=== PATIENT | female | born 1955 ===

== ENCOUNTER 2023-12-12 19:18 | Inpatient (IN) | payer MEDICARE, SELFPAY ==
--- NOTE | ~2023-12-12 | XR_ITS ---
EXAMINATION: XR SKELETAL SURVEY CLINICAL INFORMATION: Metastatic bone survey for myeloma. COMPARISON: CT scan the abdomen and pelvis and chest November 2023 TECHNIQUE: The following images were obtained: Lateral view of the skull, lateral view of the cervical spine, AP and lateral views of the thoracic spine, AP and lateral views of the lumbosacral spine, PA view of the chest, AP view the pelvis, and AP views of both upper and lower extremities to include the humeri, femora, and lower legs. FINDINGS: No bone lesions detected. The previously noted sacral abnormality is not conspicuous Spondylosis throughout the spine. Arterial calcification noted most evident in the abdominal aorta and iliac region. XR/XR bone survey IMPRESSION: No radiographic evidence of myeloma. Previously noted sacral abnormality not appreciated on x-rays of the pelvis
--- NOTE | ~2023-12-12 | US_ITS ---
EXAMINATION: US ABDOMEN LIMITED CLINICAL INFORMATION: Right upper quadrant pain. COMPARISON: None available. TECHNIQUE: Real-time imaging of the right upper quadrant abdominal viscera. FINDINGS: PANCREAS: The visualized pancreas is normal in appearance. The tail is obscured by overlying bowel gas. LIVER: The liver is normal in size. The liver contour is normal. Parenchymal echogenicity is normal. No focal hepatic lesion. There is no intrahepatic biliary duct dilatation seen. GALLBLADDER: The gallbladder is physiologically distended without evidence of stones, sludge, polyps, wall thickening or pericholecystic fluid. COMMON BILE DUCT: Normal in caliber measuring 0.5 cm in diameter. RIGHT KIDNEY: Normal. No hydronephrosis. No renal calculi or focal parenchymal lesions. The kidney measures 10.8 cm in maximum dimension. FREE FLUID: None. US/US abdomen limited IMPRESSION: Normal right upper quadrant ultrasound.
--- NOTE | ~2023-12-12 | FL_ITS ---
EXAMINATION: XR FLUOROSCOPY UPPER GI WITH AIR CLINICAL INFORMATION: Nausea. Weight loss. COMPARISON: None TECHNIQUE: Fluoroscopic air contrast upper GI examination was performed utilizing standard techniques with thin and thick barium and effervescent granules. Numerous spot images were obtained. FINDINGS: Lateral cine images of the oropharynx and hypopharynx demonstrate normal swallow mechanism with normal epiglottic inversion and soft palate elevation. Mildly early spillage into the hypopharynx noted on the first swallow. No tracheal penetration, glottic or subglottic aspiration identified. No nasopharyngeal reflux present. Hypopharyngeal structures appear normal without evidence of mass or diverticulum. There is mild cricopharyngeal achalasia present.. Dual and single contrast images of the esophagus demonstrate a normal caliber. No evidence of stricture, mass, or ulcerations identified. There is to and fro motion of the barium column with nonpropulsive tertiary contractions noted throughout the esophagus. There is mild to moderate narrowing of the GE junction above the hiatal hernia. A small type I hiatal hernia is present. No significant gastroesophageal reflux was seen during the course of the examination and on reflux views. Dual contrast and single contrast images of the stomach demonstrate a normal contour. There are multiple small areas of contrast pooling in the body and antrum of the stomach. No masses are seen. Contrast freely passed into the gastric antrum and duodenal bulb without delay. Single and air-contrast images of the duodenal bulb demonstrate no abnormality. The duodenal sweep has a normal appearance, course, and mucosal fold appearance. The imaged proximal jejunum has a normal fold pattern and caliber. FLUOROSCOPY TIME: 3 minutes 46 seconds Number of Spot Images: 6 Number of Cine: 14 DOSE AREA PRODUCT: 2174 uGy-m2 (microgray-meter squared) FL/FL upper GI series IMPRESSION: 1. Mild cricopharyngeal achalasia. 2. Esophageal dysmotility, somewhat marked. Corkscrew appearance above the GE junction at times, possibly representing spasm. 3. Mild to moderate narrowing of the GE junction above the hiatal hernia. This may represent achalasia or a short segment benign stricture. 4. Small type I hiatal hernia. 5. Multiple small areas of contrast pooling in the body and antrum the stomach that may represent small superficial aphthous ulcers. Recommend correlation with EGD. This procedure was performed by Luis Miguel Miller PA-C, and supervised by Dr. Ash
--- NOTE | ~2023-12-12 | CT_ITS ---
EXAMINATION: CT SOFT TISSUE NECK WITH CONTRAST CLINICAL INFORMATION: Left-sided neck mass. COMPARISON: Concurrent CT scan of the chest 12/13/2023. TECHNIQUE: Following the intravenous administration of 60 mL of Omnipaque 350 intravenous contrast, helical imaging was performed in the axial plane with generation of coronal and sagittal reformatted images. This CT examination was performed using dose optimization techniques as appropriate, variously including the following: *Automated exposure control *Adjustment of mA and/or kV according to patient size (this includes techniques or standardized protocols for targeted exams where dose is matched to indication/reason for exam; i.e. extremities or head) *Use of iterative reconstruction technique DLP: 435 mGy-cm FINDINGS: There is an irregular heterogenous mass in the left level IIB/level VA region which measures 1.9 x 1.5 x 2.3 cm in oblique AP, transverse and craniocaudal dimensions with central low attenuation, most consistent with a necrotic lymph node. There are also mildly prominent left level IIB lymph nodes more anteriorly and superiorly, measuring up to 1.7 cm anteriorly and 1.0 cm posteriorly. There is a 2 cm round left level IV lymph node. Small lymph nodes are also noted at multiple other levels in the neck bilaterally from including the right supraclavicular region. There is a 1.8 cm low-density nodule at the lower pole of the left lobe of the thyroid gland. The parotid glands are homogeneous in attenuation. The submandibular glands are normal. No contour abnormality or pathologic enhancement is seen within the oral cavity or pharyngeal mucosal space. The laryngeal structures are normal. The parapharyngeal fat is preserved. There are atheromatous calcifications of the aortic arch and at the origins of the great vessels of the neck. The left vertebral artery arises directly off the arch which is a normal variant. The carotid arteries are tortuous extending almost to the midline and there are atheromatous calcifications at the carotid bifurcations. No extra mucosal soft tissue mass or fluid collection is seen. No retropharyngeal fluid collection is seen. There is no superior mediastinal lymphadenopathy. There is atelectasis at the lung bases bilaterally. The mastoid air cells are poorly aerated but appear clear. The visualized paranasal sinuses appear normal. The nasal septum is deviated to the left and there is a prominent left-sided bony nasal septal spur. There are polyps off the inferior turbinate bones extending posteriorly, more prominent on the right. There are mild degenerative changes of the right temporomandibular joint. The patient is edentulous in the maxilla. There are small residual roots in the posterior maxillary bilaterally. There are no acute osseous findings. There is mild spondylosis and facet arthropathy. The imaged portions of the brain parenchyma are unremarkable. CT/CT soft tissue neck w IV con IMPRESSION: 1. There is a 2.3 cm mass in the left level IIB/level VA region with central low attenuation, most consistent with a necrotic lymph node. There are also mildly prominent left level IIB and left level IV lymph nodes. 2. There is a 1.8 cm low-density nodule at the lower pole of the left lobe of the thyroid gland. Based on the recommendations of the ACR Incidental Thyroid Findings Committee (JACR 2015 Aug; 12(2):143-50), further evaluation by thyroid ultrasound is recommended for solitary incidental thyroid nodules greater than or equal to 1.5 cm in largest axial dimension in patients age 35 years and older who do not have limited life expectancy or significant morbidities, unless clinically warranted. 3. There are polyps off the inferior turbinate bones extending posteriorly, more prominent on the right. The nasal septum is deviated to the left and there is a prominent left-sided bony nasal septal spur.
--- NOTE | ~2023-12-12 | CT_ITS ---
EXAMINATION: CT HEAD WITHOUT CONTRAST CLINICAL INFORMATION: Headache. COMPARISON: None available. TECHNIQUE: Contiguous axial imaging was performed from the skull base to vertex without intravenous administration of contrast. This CT examination was performed using dose optimization techniques as appropriate, variously including the following: *Automated exposure control *Adjustment of mA and/or kV according to patient size (this includes techniques or standardized protocols for targeted exams where dose is matched to indication/reason for exam; i.e. extremities or head) *Use of iterative reconstruction technique DLP: 594.5 mGy-cm FINDINGS: There is cerebral volume loss with prominence of the lateral and the third ventricles. The cortical sulci are widened appropriately. The fourth ventricle and basal cisterns are normally outlined. There is mild to moderate bilateral periventricular and central white matter diminished attenuation. There is no acute territorial defect, hemorrhage or midline shift. The extra-axial spaces are unremarkable. Calvarium/scalp: Intact. Maxillofacial sinuses and mastoids: The visualized maxillofacial sinuses are clear. The mastoids are under aerated. CT/CT head/brain wo IV con IMPRESSION: 1. No acute intracranial process seen. 2. Mild to moderate cerebral volume loss with chronic small vessel ischemic changes.
--- NOTE | ~2023-12-12 | CT_ITS ---
EXAMINATION: CT ABDOMEN AND PELVIS WITHOUT CONTRAST CLINICAL INFORMATION: Hypercalcemia. COMPARISON: None available. TECHNIQUE: Multidetector volumetric imaging was performed from the superior aspect of the liver through the pubic symphysis. Sagittal and coronal reformatted images were obtained on the technologist's workstation. This CT examination was performed using dose optimization techniques as appropriate, variously including the following: *Automated exposure control *Adjustment of mA and/or kV according to patient size (this includes techniques or standardized protocols for targeted exams where dose is matched to indication/reason for exam; i.e. extremities or head) *Use of iterative reconstruction technique DLP: 442 mGy-cm FINDINGS: LUNG BASES: The visualized lung bases are unremarkable. LIVER, GALLBLADDER, AND BILIARY TREE: The liver is normal in size, shape, and attenuation. No focal hepatic lesion or biliary ductal dilatation is present. The gallbladder is unremarkable with no evidence of radiopaque gallstones, gallbladder wall thickening, or obvious pericholecystic inflammatory changes. PANCREAS: Unremarkable. SPLEEN: Unremarkable. ADRENAL GLANDS: Unremarkable. KIDNEYS AND URETERS: The kidneys are normal in size, shape, and attenuation. No hydronephrosis, hydroureter, or calculi seen. No perinephric stranding. There is a 2.1 cm hypodensity lower pole left kidney with low attenuation values consistent with that of a cyst. BLADDER: Unremarkable. GASTROINTESTINAL TRACT: There is diffuse diverticulosis without diverticulitis. The appendix is visualized and is within normal limits. ABDOMINAL WALL: No significant hernia is appreciated. LYMPH NODES: There is retroperitoneal lymphadenopathy with lymph nodes measuring up to 2.3 cm. There also enlarged iliac chain lymph nodes measuring up to 2.8 cm. VASCULAR: Atherosclerotic plaque of the abdominal aorta and proximal branches. PELVIC VISCERA: There is a 2.8 cm low-density structure within the left adnexa. OSSEOUS STRUCTURES: There is a lytic/moth eaten appearance of the left sacrum also involving the L5 and L4 left transverse process with a significant associated soft tissue component involving the sacral and lower paraspinal musculature. CT/CT abdomen pelvis wo IV con IMPRESSION: 1. Lytic/moth eaten appearance of the left sacrum also involving the L5 and L4 left transverse process with a significant associated soft tissue component involving the sacral and lower paraspinal musculature. Retroperitoneal and iliac chain lymphadenopathy. Findings could be related to metastatic disease possibly multiple myeloma. Consider contrast-enhanced MRI evaluation. 2.Diverticulosis without diverticulitis. 3. 2.8 cm low-density structure within the left adnexa. This can also be assessed on MRI evaluation. Fleischner guidelines were followed.
--- NOTE | ~2023-12-12 | XR_ITS ---
EXAMINATION: XR CHEST, 2 VIEWS CLINICAL INFORMATION: Chest pain COMPARISON: None. TECHNIQUE: PA and lateral views of the chest were obtained. FINDINGS: Lungs are clear. No consolidation, pneumothorax, or pleural effusion. Cardiac and mediastinal contours are normal. Atelectasis or calcifications are present in the thoracic aorta. Pulmonary vasculature is unremarkable. Trachea is midline. Degenerative spondylosis in the thoracic spine. No acute fractures are identified. XR/XR chest 2V IMPRESSION: No acute pulmonary disease.
--- NOTE | ~2023-12-12 | CT_ITS ---
EXAMINATION: CT CHEST WITHOUT CONTRAST CLINICAL INFORMATION: Pain. COMPARISON: None available. TECHNIQUE: Multidetector volumetric CT imaging of the chest was done. Axial MIP volume rendering provided. Sagittal and coronal reformatted images were obtained. This CT examination was performed using dose optimization techniques as appropriate, variously including the following: *Automated exposure control *Adjustment of mA and/or kV according to patient size (this includes techniques or standardized protocols for targeted exams where dose is matched to indication/reason for exam; i.e. extremities or head) *Use of iterative reconstruction technique DLP: 785 mGy-cm FINDINGS: There is some limitation related to attenuation artifacts related to patient body habitus. JAVA GOLDEN GATE DEVELOPER: Unremarkable. LUNGS: Minimal scarring at the lung bases. Lungs are otherwise clear. MEDIASTINUM: The mediastinum is normal. CORONARY ARTERY CALCIFICATION: Moderate. PLEURA: There is no pleural effusion. No pleural mass or thickening. AXILLA: There are prominent supraclavicular lymph node measuring up to 2.3 cm. There are no significantly enlarged axillary lymph nodes. UPPER ABDOMEN: Unremarkable. OSSEOUS STRUCTURES: Unremarkable. CT/CT chest wo IV con IMPRESSION: 1. No acute findings. 2. Prominent supraclavicular lymph nodes. Recommend clinical follow-up. Fleischner guidelines were followed.
--- NOTE | 2023-12-12 19:23 | ED.GENADULT ---
HPI - General Adult General Chief complaint: General Medical Stated complaint: migraine, vomiting Time Seen by Provider: 12/12/23 22:21 Source: patient and family Mode of arrival: ambulatory Limitations: no limitations History of Present Illness HPI narrative: Patient with History of diabetes hypothyroidism comes here for last few days of nonspecific dizziness diffuse abdominal pain for last 3 months does not feel good does have headache and weakness has decreased appetite does have body aches all over no history of cancer noted to have hypercalcemia with calcium of 16.0 patient apparently complaining of low back pain for last 3 months after minor fall also complaining of headache nausea multiple complaints Related Data Allergies Allergy/AdvReac Type Severity Reaction Status Date / Time ampicillin Allergy Anaphylaxis Verified 12/12/23 19:35 aspirin Allergy Anaphylaxis Verified 12/12/23 19:35 Review of Systems Review of Systems: Yes all other systems are reviewed and are negative [facility] Past Medical History Medical History (Updated 12/13/23 @ 01:34 by Lc Lopez MD) Hypothyroidism Diabetes mellitus Social History Social History Advance Directives: No Advance Directives Information Provided: Yes Physical Exam ED Vital Signs: Vital Signs - 24 hr 12/12/23 19:24 12/12/23 22:18 12/13/23 01:33 Temperature 97.5 F 97.8 F 98.4 F Pulse Rate 84 82 84 Respiratory Rate 18 18 16 Blood Pressure 105/64 152/68 H 153/73 H Pulse Oximetry 98 97 96 Oxygen Delivery Method Room Air Room Air Room Air BMI result Body Mass Index 25.8 Appearance: Alert. Oriented X3. No acute distress. Eyes: PERRLA, No Nystagmus ENT: Pharynx normal. Oral Mucosa dry Neck: Normal inspection. Neck supple. CVS: Normal heart rate and rhythm. Pulses normal. Respiratory: No respiratory distress. Equal air entry bilateral, no wheezing/rales/rhonchi Abdomen: Soft and nontender. Bowel sounds are present, no mass palpable, no CVA tenderness Skin: Skin warm and dry. Normal skin color. Normal skin turgor. Back: Diffuse lower lumbar sacral tenderness Extremities: No lower extremity edema. No calf tenderness Neuro: Oriented X 3. No motor deficit. No sensory deficit.No cerebellar signs , cranial nerves II-XII intact Course Course Course Narrative: This is an RME: Additional HPI, ROS, PE not included below will be deferred to primary provider. RME assessment and note performed by: Luz Maria Fregoso PA-C This is a 49-aouy-kif-female, with a hx of diabetes, HLD, hypothyroidism, HTN, TIA on plavix presenting to the ER with a complaint of shortness of breath, chest pain, abdominal pain, nausea, vomiting and dizziness since yesterday. Patient actively vomiting in triage Plan: Labs, EKG, US, cxr, zofran; Medications Administered Discontinued Medications Generic Name Dose Route Start Last Admin Trade Name Freq PRN Reason Stop Dose Admin Sodium Chloride 1,000 mls @ 999 mls/hr 12/12/23 22:27 12/13/23 00:11 Ns IV 12/12/23 23:27 Infused .Q1H1M ONE Infusion Sodium Chloride 1,000 mls @ 999 mls/hr 12/12/23 22:53 12/13/23 01:32 Ns IV 12/12/23 23:53 0 mls/hr .Q1H1M ONE Titration Ondansetron HCl 4 mg 12/12/23 19:39 12/12/23 21:00 Ondansetron Odt 4 Mg Tab.Rapdis TRANSLINGU 12/12/23 19:40 Not Given ONCE ONE Medical Decision Making Medical Decision Making [facility] Narrative: Patient's symptoms of body aches headache back pain elevated calcium level CT scan showed mouth eaten sacral area likely multiple myelomas the cause will admit patient for IV hydration for now IV pamidronate and calcitonin not available in the hospital patient needs further management as inpatient admitted to hospitalist service Differential Diagnosis Differential Diagnoses: The differential diagnosis associated with the presentation includes Multiple myeloma/cancer with metastatic Admission/Observation Consideration of admission/observation: Escalation of care including admission/observation considered Consult Healthcare Provider Management of the patient was discussed with: Hospitalist Lab Data MDM Lab Attestation statement: I reviewed the patient's lab results. 12/12/23 20:00 12/12/23 20:00 Labs: Lab Results 12/12/23 12/12/23 Range/Units 19:56 20:00 WBC 8.8 (4.8-10.8) X10*3/uL RBC 4.17 L (4.20-5.50) X10*6/uL Hgb 12.9 (12.0-16.0) g/dl Hct 38.7 (37.0-47.0) % MCV 92.8 (80.0-98.0) fL MCH 30.9 (27.0-33.0) pg MCHC 33.3 (31.0-35.0) g/dl RDW 13.0 (11.0-16.0) % Plt Count 330 (160-400) X10*3/uL MPV 11.1 (9.4-12.3) fL Immature Gran % (Auto) 0.6 H (0.0-0.4) % Neut % (Auto) 60.9 (45-73) % Lymph % (Auto) 26.3 (20-40) % [place] % (Auto) 10.7 (2-11) % Eos % (Auto) 0.8 (0-4) % Baso % (Auto) 0.7 (0-2) % Lymph # (Auto) 2.3 (1.2-4.9) X10*3/uL [place] # (Auto) 0.9 (0.1-1.2) X10*3/uL Eos # (Auto) 0.1 (0.0-0.4) X10*3/uL Baso # (Auto) 0.1 (0.0-0.2) X10*3/uL Abs Immat Gran (auto) 0.05 H (0.00-0.03) X10*3/uL Absolute Neuts (auto) 5.4 (2.0-8.3) x10*3/uL Absolute Nucleated RBC 0.000 (0.0-0.012) X10*3/uL Nucleated RBC % (auto) 0.0 (0.0-0.2) /100WBC PT 11.9 (11.1-13.3) SEC INR 1.0 (0.9-1.1) APTT 23.0 L (26.0-36.8) SEC Sodium 138 (135-145) mmol/L Potassium 4.7 (3.3-5.1) mmol/L Chloride 100 (96-108) mmol/L Carbon Dioxide 24 (22-29) mmol/L Anion Gap 19 (12-20) BUN 36 H (9-16) mg/dL Creatinine 1.59 H (0.5-1.4) mg/dL Estim Creat Clear Calc 26.6 Estimated GFR 32 Random Glucose 110 (60-115) mg/dL Calcium 16.0 H* (8.4-10.2) mg/dL Magnesium 2.2 (1.6-2.6) mg/dL Total Bilirubin 0.7 (0.0-1.0) mg/dL Direct Bilirubin 0.2 (0.0-0.5) mg/dL AST 27 (5-31) U/L ALT 12 (0-31) U/L Alkaline Phosphatase 73 (39-117) U/L Troponin I High Sens 3.7 (<3.5-17.0) ng/L Total Protein 8.1 H (6.5-8.0) g/dL Albumin 4.7 (3.5-5.0) g/dL Lipase 28 (8-78) U/L Urine Color Yellow Urine Appearance Clear Urine pH 5.5 (5.0-9.0) Ur Specific [place] 1.015 (1.005-1.025) Urine Protein Negative (Neg-Trace) mg/dL Urine Glucose (UA) Negative (Negative) mg/dL Urine Ketones Negative (Negative) mg/dL Urine Blood Negative (Negative) Urine Nitrite Negative (Negative) Ur Leukocyte Esterase Small (1+) H (Negative) Urine RBC 0-2 (0-2) /HPF Urine WBC 6-10 H (0-5) /HPF Ur Squamous Epith Cells 3-5 (0-2) /HPF Urine Bacteria None Seen (None Seen) Hyaline Casts 3-5 (0-2) /LPF Influenza Type A (PCR) NEGATIVE (Negative) Influenza Type B (PCR) NEGATIVE (Negative) RSV RNA Qual (PCR) NEGATIVE (Negative) SARS-CoV-2 RNA (RT-PCR) NEGATIVE (Negative) Independent Interpretation I performed an independent interpretation of an: EKG and CT Scan Interpretation: Normal sinus rhythm heart rate 84 beats per minute normal interval normal axis no acute ST T wave changes no acute ischemia Radiology Impression Discussion of test interpretation with radiology: I have reviewed the radiologist's reading. Radiologist Impression: CT/CT abdomen pelvis wo IV con IMPRESSION: 1. Lytic/moth eaten appearance of the left sacrum also involving the L5 and L4 left transverse process with a significant associated soft tissue component involving the sacral and lower paraspinal musculature. Retroperitoneal and iliac chain lymphadenopathy. Findings could be related to metastatic disease possibly multiple myeloma. Consider contrast-enhanced MRI evaluation. 2.Diverticulosis without diverticulitis. 3. 2.8 cm low-density structure within the left adnexa. This can also be assessed on MRI evaluation. Fleischner guidelines were followed. Discharge Plan Discharge Clinical Impression: Hypercalcemia, Multiple myeloma Patient Disposition: Admitted As Inpatient Print Language: Tajik
[2023-12-12 19:24] VITALS: BP 105/64; PULSE 84; RESP 18; TEMP 36.4; O2SAT 98; BMI 25.8
--- NOTE | 2023-12-12 19:36 | ECG_ITS ---
Test Reason : CHEST PAIN Blood Pressure : / mmHG Vent. Rate : 084 BPM Atrial Rate : 084 BPM P-R Int : 142 ms QRS Dur : 086 ms QT Int : 354 ms P-R-T Axes : 068 042 048 degrees QTc Int : 418 ms Normal sinus rhythm Normal ECG No previous ECGs available Referred By: Luz Maria Fregoso Electronically Signed By:Wan Pretty
[2023-12-12 20:05] LABS: MANUAL DIFF FLAG NO
--- NOTE | 2023-12-12 20:06 | MHC.EDTECH ---
PATIENT EKG TAKEN AND WAS READ BY PROVIDER ,URINE SAMPLE COLLECTED ,RSV/COVID SWAB COLLECTED AND BLOOD DRAWN ALL SENT TO LAB .
[2023-12-12 20:09] LABS: Appearance Urine Clear; Color Urine Yellow; Glucose Urine UA Negative (Negative); Leukocyte Esterase Urine Small (1+) (Negative); Nitrite Urine Negative (Negative); PH 5.5 (5.0-9.0); Specific Gravity - Urine 1.015 (1.005-1.025); UMIC TRIGGER UACC YES; Urine Blood Negative (Negative); Urine Ketones Negative (Negative); Urine Protein Negative (Neg-Trace)
[2023-12-12 20:15] LABS: Basophils Absolute Auto 0.1 X10*3/uL (0.0-0.2); Basophils Percent Auto 0.7 % (0-2); Eosinophils Absolute Auto 0.1 X10*3/uL (0.0-0.4); Eosinophils Percent Auto 0.8 % (0-4); Hematocrit 38.7 % (37.0-47.0); Hemoglobin 12.9 g/dl (12.0-16.0); Imm Gran Abs Auto 0.05 X10*3/uL (0.00-0.03); Imm Gran Pct Auto 0.6 % (0.0-0.4); Lymphocytes Absolute Auto 2.3 X10*3/uL (1.2-4.9); Lymphocytes Percent Auto 26.3 % (20-40); Mean Corpuscular HGB Conc 33.3 g/dl (31.0-35.0); Mean Corpuscular Hemoglobin 30.9 pg (27.0-33.0); Mean Corpuscular Volume 92.8 fL (80.0-98.0); Mean Platelet Volume 11.1 fL (9.4-12.3); Monocytes Absolute Auto 0.9 X10*3/uL (0.1-1.2); Monocytes Percent Auto 10.7 % (2-11); Neutrophils Absolute Auto 5.4 x10*3/uL (2.0-8.3); Neutrophils Percent Auto 60.9 % (45-73); Platelet Count 330 X10*3/uL (160-400); Red Blood Count 4.17 X10*6/uL (4.20-5.50); White Blood Count 8.8 X10*3/uL (4.8-10.8)
[2023-12-12 20:27] LABS: Bacteria Urine None Seen (None Seen); RBC Urine 0-2 /HPF (0-2); UACC Culture Trigger YES
[2023-12-12 20:32] LABS: Prothrombin Time 11.9 SEC (11.1-13.3)
--- NOTE | 2023-12-12 20:34 | PC.NURSE ---
Away for ultrasound, unable to medicate. Will medicate for nausea upon return to waiting room.
[2023-12-12 20:49] LABS: Troponin-I High Sensitivity 3.7 ng/L (<3.5-17.0)
--- NOTE | 2023-12-12 20:57 | PC.NURSE ---
Critical result received by this RN via phone from lab. Calcium 16 MANNIE Fregoso notified. consumer credit counselor Cecy also notified.
[2023-12-12 21:02] LABS: Influenza A PCR NEGATIVE (Negative); Influenza B PCR NEGATIVE (Negative); Resp Syncy Virus RNA Qual PCR NEGATIVE (Negative); SARS COV2 PCR INHOUSE NEGATIVE (Negative)
[2023-12-12 21:05] LABS: Alanine Aminotransferase 12 U/L (0-31); Albumin Level 4.7 g/dL (3.5-5.0); Alkaline Phosphatase 73 U/L (39-117); Anion Gap 19 (12-20); Aspartate Amino Transferase 27 U/L (5-31); Bilirubin Direct 0.2 mg/dL (0.0-0.5); Bilirubin Total 0.7 mg/dL (0.0-1.0); Blood Urea Nitrogen 36 mg/dL (9-16); Carbon Dioxide 24 mmol/L (22-29); Chloride 100 mmol/L (96-108); Creatinine Clr Calc Pharmacy 26.6; Estimated Glomerular Filt Rate 32; Glucose Random 110 mg/dL (60-115); Lipase 28 U/L (8-78); Magnesium 2.2 mg/dL (1.6-2.6); Potassium 4.7 mmol/L (3.3-5.1); Sodium 138 mmol/L (135-145); Total Protein 8.1 g/dL (6.5-8.0)
[2023-12-12 22:18] VITALS: BP 152/68; PULSE 82; RESP 18; TEMP 36.6; O2SAT 97
[2023-12-12] MEDS: 0.9 % Sodium Chloride 1,000 ML 999 ML IV (22:40)
[2023-12-13] MEDS: 0.9 % Sodium Chloride 1,000 ML 999 ML IV (00:10)
--- NOTE | 2023-12-13 01:22 | P.HPHOSP_ITS ---
History of Present Illness Date of Service: 12/13/23 Chief Complaint: Weakness This is a 68-year-old male with pertinent history of hypertension, foo-cjeddqp-fltezlout diabetes mellitus, mood disorder, gastroesophageal reflux disease, hypothyroidism who presents to the emergency department for evaluation of weakness and low back pain. Patient states she fell about 3 months prior to presentation and since then she has been having low back pain. It has been progressive and without any relieving factors. Patient also complains of weakness and dizziness that has been ongoing for a while. States she lost about 15-20 lb but unknown duration. No personal history of cancer. Also has been having decreased appetite and headache. No fever, chills, palpitations, shortness of breath, changes in urinary or bowel habits. History obtained with the help of loom control chain builder In the emergency department, patient with serum calcium of 16. Imaging with lytic lesion of the left sacrum and lumbar vertebrae. Also found to have elevated creatinine and elevated serum protein. Review of Systems 2 Constitutional: Constitutional: Reports fatigue, Reports lethargy, Reports malaise, Reports poor appetite, Reports weakness and Reports weight loss Cardiovascular: Cardiovascular: Reports no additional cardiovascular complaints Respiratory: Respiratory: Reports no additional respiratory complaints Gastrointestinal: Gastrointestinal: Reports no additional gastrointestinal complaints Genitourinary: Genitourinary: Reports no additional female genitourinary complaints Neurologic: Reports weakness Endocrine: Endocrine: Reports fatigue [facility] Medical History Hypothyroidism Diabetes mellitus Pertinent family history: No family history of cancer Social History Advance Directives: No Advance Directives Information Provided: Yes Meds Allergies Allergy/AdvReac Type Severity Reaction Status Date / Time ampicillin Allergy Anaphylaxis Verified 12/12/23 19:35 aspirin Allergy Anaphylaxis Verified 12/12/23 19:35 Physical Exam 2 Vital Signs and Narrative: Vital Signs: Last Vital Signs Temp 97.8 F 12/12/23 22:18 Pulse 82 12/12/23 22:18 Resp 18 12/12/23 22:18 BP 152/68 H 12/12/23 22:18 Pulse Ox 97 12/12/23 22:18 O2 Del Method Room Air 12/12/23 22:18 BMI result Body Mass Index 25.8 Elderly male lying in bed in no distress Neck supple, no JVD Regular rate and rhythm, S1-S2 heard Regular breath sounds bilaterally, no wheezing or crackles appreciated Abdomen soft nontender, no guarding, no rigidity, lower lumbar tenderness present Patient is awake, alert and oriented to self, place, time and person ; no focal motor deficit Psych: Normal mood No pedal edema Results Labs 12/12/23 20:00 12/12/23 20:00 Labs: Laboratory Results - last 24 hr 12/12/23 12/12/23 19:56 20:00 MCV 92.8 MCH 30.9 MCHC 33.3 RDW 13.0 Plt Count 330 MPV 11.1 Immature Gran % (Auto) 0.6 H Neut % (Auto) 60.9 Lymph % (Auto) 26.3 [place] % (Auto) 10.7 Eos % (Auto) 0.8 Baso % (Auto) 0.7 Lymph # (Auto) 2.3 [place] # (Auto) 0.9 Eos # (Auto) 0.1 Baso # (Auto) 0.1 Abs Immat Gran (auto) 0.05 H Absolute Neuts (auto) 5.4 Absolute Nucleated RBC 0.000 Nucleated RBC % (auto) 0.0 PT 11.9 INR 1.0 APTT 23.0 L Anion Gap 19 Estim Creat Clear Calc 26.6 Estimated GFR 32 Random Glucose 110 Calcium 16.0 H* Magnesium 2.2 Total Bilirubin 0.7 Direct Bilirubin 0.2 AST 27 ALT 12 Alkaline Phosphatase 73 Troponin I High Sens 3.7 Total Protein 8.1 H Albumin 4.7 Lipase 28 Urine Color Yellow Urine Appearance Clear Urine pH 5.5 Ur Specific [place] 1.015 Urine Protein Negative Urine Glucose (UA) Negative Urine Ketones Negative Urine Blood Negative Urine Nitrite Negative Ur Leukocyte Esterase Small (1+) H Urine RBC 0-2 Urine WBC 6-10 H Ur Squamous Epith Cells 3-5 Urine Bacteria None Seen Hyaline Casts 3-5 Influenza Type A (PCR) NEGATIVE Influenza Type B (PCR) NEGATIVE RSV RNA Qual (PCR) NEGATIVE SARS-CoV-2 RNA (RT-PCR) NEGATIVE Imaging Radiologist's Impressions: Impressions Abdomen Ultrasound 12/12/23 20:37 IMPRESSION: Normal right upper quadrant ultrasound. Chest X-Ray 12/12/23 20:51 IMPRESSION: No acute pulmonary disease. Abdomen/Pelvis CT 12/12/23 23:19 IMPRESSION: 1. Lytic/moth eaten appearance of the left sacrum also involving the L5 and L4 left transverse process with a significant associated soft tissue component involving the sacral and lower paraspinal musculature. Retroperitoneal and iliac chain lymphadenopathy. Findings could be related to metastatic disease possibly multiple myeloma. Consider contrast-enhanced MRI evaluation. 2.Diverticulosis without diverticulitis. 3. 2.8 cm low-density structure within the left adnexa. This can also be assessed on MRI evaluation. Fleischner guidelines were followed. Assessment and Plan (1) Hypercalcemia: Status: Acute Plan This is a 68-year-old male with pertinent history of hypertension, wat-fvpooah-zzbblssgl diabetes mellitus, mood disorder, gastroesophageal reflux disease, hypothyroidism who presents to the emergency department for evaluation of weakness and low back pain. #. Hypercalcemia: Imaging with lytic appearance of the left sacrum, lumbar vertebrae and retroperitoneal and iliac lymphadenopathy. Patient also has likely acute kidney injury and elevated serum total protein. Findings concerning for neoplastic proliferation of plasma cells like multiple myeloma. Obtaining SPEP, UPEP and serum light chains. Consulting Oncology. Also obtaining CT of the head and chest. Resuscitated with IV crystalloids, obtaining PTH. IV bisphosphonate ordered in the ER. #. Elevated creatinine: Unknown baseline. Likely acute kidney injury. Follow kidney function with crystalloid resuscitation. Avoid nephrotoxins. Urine studies pending #. Acc-tgkaypl-jsevvtgsi diabetes mellitus: Initiating Accu-Cheks with sliding scale insulin #. Hypothyroidism: On Synthroid #. Mood disorder: Continue home mood stabilizers #. Gastroesophageal reflux disease: On PPI Med rec pending DVT prophylaxis: Mechanical Full code. Discussed with patient and daughter at bedside Admit as inpatient and will require two night minimum hospital stay for monitoring of serum calcium, evaluation of bone lytic lesions (as above), which is not possible in a lesser acute setting. Specialist consult pending Quality Stroke Does the patient have a stroke diagnosis?: No VTE Prior VTE?: No VTE Risk Level:: Medical - moderate - high VTE Device Contraindication: N/A - Device Ordered VTE Drug Contraindication: Treatment Not Indicated
[2023-12-13 01:33] VITALS: BP 153/73; PULSE 84; RESP 16; TEMP 36.9; O2SAT 96
[2023-12-13 02:23] VITALS: RESP 18
[2023-12-13] MEDS: ondansetron HCL 4 MG/2 ML VIAL IVPUSH (02:23)
[2023-12-13] MEDS: Morphine Sulfate 4 MG/ML CARTRIDGE IVPUSH ×2 (02:23→08:02)
[2023-12-13 03:37] LABS: Parathyroid Hormone Intact 5.8 pg/mL (8.7-77.1)
--- NOTE | 2023-12-13 05:29 | PC.NURSE ---
Pt ambulated to the BR with two assist, unsteady. Commode placed at bedside.
[2023-12-13 06:18] VITALS: BP 150/60; PULSE 60; TEMP 36.8; O2SAT 97
[2023-12-13 06:55] LABS: MANUAL DIFF FLAG NO
[2023-12-13 06:58] LABS: Basophils Absolute Auto 0.1 X10*3/uL (0.0-0.2); Basophils Percent Auto 0.8 % (0-2); Eosinophils Absolute Auto 0.1 X10*3/uL (0.0-0.4); Eosinophils Percent Auto 1.2 % (0-4); Hematocrit 29.8 % (37.0-47.0); Hemoglobin 9.9 g/dl (12.0-16.0); Imm Gran Abs Auto 0.02 X10*3/uL (0.00-0.03); Imm Gran Pct Auto 0.3 % (0.0-0.4); Lymphocytes Absolute Auto 2.7 X10*3/uL (1.2-4.9); Lymphocytes Percent Auto 41.4 % (20-40); Mean Corpuscular HGB Conc 33.2 g/dl (31.0-35.0); Mean Corpuscular Hemoglobin 30.8 pg (27.0-33.0); Mean Corpuscular Volume 92.8 fL (80.0-98.0); Monocytes Absolute Auto 0.8 X10*3/uL (0.1-1.2); Monocytes Percent Auto 12.7 % (2-11); Neutrophils Absolute Auto 2.9 x10*3/uL (2.0-8.3); Neutrophils Percent Auto 43.6 % (45-73); Platelet Count 254 X10*3/uL (160-400); Red Blood Count 3.21 X10*6/uL (4.20-5.50); Red Cell Distribution Width 13.1 % (11.0-16.0); White Blood Count 6.6 X10*3/uL (4.8-10.8)
[2023-12-13 07:14] LABS: Anion Gap 14 (12-20); Blood Urea Nitrogen 32 mg/dL (9-16); Carbon Dioxide 26 mmol/L (22-29); Chloride 106 mmol/L (96-108); Creatinine Clr Calc Pharmacy 33.6; Estimated Glomerular Filt Rate 42; Glucose Random 74 mg/dL (60-115); Sodium 142 mmol/L (135-145)
[2023-12-13 07:34] LABS: Calcium 13.2 mg/dL (8.4-10.2)
--- NOTE | 2023-12-13 07:34 | P.PNIM_ITS ---
Subjective Subjective Date of Service: 12/13/23 Interval History: Seen in follow up for malignant hypercalcemia, probable multiple myeloma, acute kidney injury Interval history: Reports diffuse pain. Also reporting dysphagia, has been experiencing nausea for several months with unintentional weight loss of unspecified amount Review of Systems Review of Systems: Yes all other systems are reviewed and are negative Physical Exam 2 Vital Signs: Vital Signs: Last Vital Signs Temp 98.2 F 12/13/23 06:18 Pulse 60 12/13/23 06:18 Resp 18 12/13/23 02:23 BP 150/60 H 12/13/23 06:18 Pulse Ox 97 12/13/23 06:18 O2 Del Method Room Air 12/13/23 06:18 BMI result Body Mass Index 25.8 Constitutional - Awake and Alert, No apparent distress Eyes - PERRLA, EOMI Neck - fixed 3cm mass left side neck Cardiovascular - S1S2, RRR, No edema Respiratory - Normal lung expansion, Normal respiratory effort, No respiratory distress, CTA bilaterally Gastrointestinal - NT / ND; +BS; No rebound or guarding Extremities - no calf tenderness bilaterally, no swelling Skin - Warm/Dry Neurological - Alert & oriented x3 Objective Data Active Medications Acetaminophen (Acetaminophen 325 Mg Tablet) 650 mg PO Q6H PRN PRN Reason: Pain, Mild (Pain Scale 1-3) Glucose (Glucose Gel 15 Gm Gel..Gram.) 15 gm PO Q15M PRN; Protocol PRN Reason: per Hypoglycemia Standing Ord. Dextrose (D10) 250 mls @ 750 mls/hr IV Q15M PRN; Protocol PRN Reason: per Hypoglycemia Standing Ord. Insulin Human Lispro (Insulin Lispro 100 Unit/Ml 3 Ml Vial) 0 [facility]; Protocol Melatonin (Melatonin 3 Mg Tablet) 6 mg PO BEDTIME PRN PRN Reason: Insomnia Morphine Sulfate (Morphine Sulfate 4 Mg/Ml Cartridge) 4 mg IVPUSH Q4H PRN; Protocol PRN Reason: Pain, Severe (Pain Scale 7-10) Last Admin: 12/13/23 02:23 Dose: 4 mg Documented By: THADDEUS Ondansetron HCl (Ondansetron Hcl 4 Mg/2 Ml Vial) 4 mg IVPUSH Q8H PRN PRN Reason: Nausea and Vomiting Last Admin: 12/13/23 02:23 Dose: 4 mg Documented By: THADDEUS Sodium Chloride (0.9 % Sodium Chloride Flush 3 Ml Syringe) [address] [facility] Labs 12/13/23 06:47 12/13/23 06:47 Labs: Laboratory Results - last 24 hr 12/12/23 12/12/23 12/13/23 19:56 20:00 02:21 MCV 92.8 MCH 30.9 MCHC 33.3 RDW 13.0 Plt Count 330 MPV 11.1 Immature Gran % (Auto) 0.6 H Neut % (Auto) 60.9 Lymph % (Auto) 26.3 [place] % (Auto) 10.7 Eos % (Auto) 0.8 Baso % (Auto) 0.7 Lymph # (Auto) 2.3 [place] # (Auto) 0.9 Eos # (Auto) 0.1 Baso # (Auto) 0.1 Abs Immat Gran (auto) 0.05 H Absolute Neuts (auto) 5.4 Absolute Nucleated RBC 0.000 Nucleated RBC % (auto) 0.0 PT 11.9 INR 1.0 APTT 23.0 L Anion Gap 19 Estim Creat Clear Calc 26.6 Estimated GFR 32 Random Glucose 110 Calcium 16.0 H* Magnesium 2.2 Total Bilirubin 0.7 Direct Bilirubin 0.2 AST 27 ALT 12 Alkaline Phosphatase 73 Troponin I High Sens 3.7 Total Protein 8.1 H Albumin 4.7 Lipase 28 PTH Intact 5.8 L Urine Color Yellow Urine Appearance Clear Urine pH 5.5 Ur Specific [place] 1.015 Urine Protein Negative Urine Glucose (UA) Negative Urine Ketones Negative Urine Blood Negative Urine Nitrite Negative Ur Leukocyte Esterase Small (1+) H Urine RBC 0-2 Urine WBC 6-10 H Ur Squamous Epith Cells 3-5 Urine Bacteria None Seen Hyaline Casts 3-5 Influenza Type A (PCR) NEGATIVE Influenza Type B (PCR) NEGATIVE RSV RNA Qual (PCR) NEGATIVE SARS-CoV-2 RNA (RT-PCR) NEGATIVE 12/13/23 06:47 MCV 92.8 MCH 30.8 MCHC 33.2 RDW 13.1 Plt Count 254 MPV 11.0 Immature Gran % (Auto) 0.3 Neut % (Auto) 43.6 L Lymph % (Auto) 41.4 H [place] % (Auto) 12.7 H Eos % (Auto) 1.2 Baso % (Auto) 0.8 Lymph # (Auto) 2.7 [place] # (Auto) 0.8 Eos # (Auto) 0.1 Baso # (Auto) 0.1 Abs Immat Gran (auto) 0.02 Absolute Neuts (auto) 2.9 Absolute Nucleated RBC 0.000 Nucleated RBC % (auto) 0.0 PT INR APTT Anion Gap 14 Estim Creat Clear Calc 33.6 Estimated GFR 42 Random Glucose 74 Calcium Magnesium Total Bilirubin Direct Bilirubin AST ALT Alkaline Phosphatase Troponin I High Sens Total Protein Albumin Lipase PTH Intact Urine Color Urine Appearance Urine pH Ur Specific [place] Urine Protein Urine Glucose (UA) Urine Ketones Urine Blood Urine Nitrite Ur Leukocyte Esterase Urine RBC Urine WBC Ur Squamous Epith Cells Urine Bacteria Hyaline Casts Influenza Type A (PCR) Influenza Type B (PCR) RSV RNA Qual (PCR) SARS-CoV-2 RNA (RT-PCR) Assessment and Plan (1) Multiple myeloma: Status: Acute (2) Hypercalcemia: Status: Acute Plan 68-year-old male with pertinent history of hypertension, jzu-ahlrfro-iavwpycqn diabetes mellitus, mood disorder, gastroesophageal reflux disease, hypothyroidism who presents to the emergency department for evaluation of weakness and low back pain. She is admitted for further evaluation and management of malignant hypercalcemia in the setting of probable multiple myeloma. Here from [place] visiting son #Probable malignant hypercalcemia likely due to multiple myeloma -Imaging with lytic appearance of the left sacrum, lumbar vertebrae and retroperitoneal and iliac lymphadenopathy. Patient also has likely acute kidney injury and elevated serum total protein. Findings concerning for neoplastic proliferation of plasma cells like multiple myeloma -Head CT negative. Chest CT shows prominent supraclavicular lymph nodes -SPEP, UPEP and serum light chains pending -oncology consult Consulting Oncology -Received IV pamidronate in ED with improvement in Ca from 16.0 --> 13.2. Await further recs from oncology -PTH 5 #Acute kidney injury -Unknown baseline. Creat 1.59 --> 1.2 -continue ivf -avoid nephrotoxins -urine studies pending -Follow renal fx/lytes -consider nephro consult if not improving #Dysphagia with unspecified unintentional weight loss -GI consult, oncology consult -pureed diet, BI CONSULTANT eval pending #Neck mass -CT soft tissue neck with contrast pending #Macrocytic anemia -suspect chronic, continue monitoring. Above transfusion threshold #[id number] diabetes mellitus -POC glucose, diabetic diet -Humalog on sliding scale #Hypothyroidism -continue levothyroxine #Mood disorder -continue home med #Gastroesophageal reflux disease -continue PPI DVT prophylaxis-mechanical Full code Patient requires inpatient stay at least 2 midnights for management of malignant hypercalcemia requiring further evaluation expert consultation due to bony lytic lesions concerning for multiple myeloma Quality Stroke Does the patient have a stroke diagnosis?: No VTE Prior VTE?: No VTE Risk Level:: Medical - moderate - high VTE Device Contraindication: N/A - Device Ordered VTE Drug Contraindication: Treatment Not Indicated
--- NOTE | 2023-12-13 07:48 | PC.NURSE ---
POC obtained - pt found at 59 mg/dL. pr provided w/ orange juice/sugar packets/crackers. will reobtain POC shortly.
[2023-12-13 07:49] LABS: Glucose, Whole Blood 59 mg/dL (60-115)
--- NOTE | 2023-12-13 07:53 | PC.NURSE ---
pt speaking w/ hospitalist in regards to scan results as well as plan for being admitted. car wiper utilized.
--- NOTE | 2023-12-13 08:06 | PC.NURSE ---
pt c/o 01/27 pain at coccyx area. pt medicated w/ prn medication. effectiveness pending. pt repositioned/pillow placed under pt to promote comfort.
[2023-12-13 08:16] VITALS: BP 129/52; PULSE 78; RESP 16; TEMP 36.9; O2SAT 94
--- NOTE | 2023-12-13 08:53 | PHA.MEDREC ---
Pharmacy Consult ? Medication Reconciliation Pharmacy has completed the medication reconciliation.Med rec completed via help of consumer analyst, Patient is from [place] here for vacation. She had a medication list and pharmacy bottles to help confirm her medication list.
[2023-12-13 09:17] LABS: Glucose, Whole Blood 82 mg/dL (60-115)
--- NOTE | 2023-12-13 09:35 | PC.NURSE ---
repeat POC = 82 mg/dL.
[2023-12-13] MEDS: Docusate Sodium 100 MG CAPSULE PO (10:37)
[2023-12-13] MEDS: Donepezil HCl 5 MG TABLET PO (10:37)
[2023-12-13] MEDS: Gabapentin 300 MG CAPSULE PO ×2 (10:37→21:08)
[2023-12-13] MEDS: Clopidogrel Bisulfate 75 MG TABLET PO (10:37)
[2023-12-13] MEDS: Famotidine 20 MG TABLET PO (10:37)
--- NOTE | 2023-12-13 10:45 | PC.NURSE ---
medication administered per provider order.
--- NOTE | 2023-12-13 13:00 | PC.NURSE ---
pt to CT at this time.
[2023-12-13] MEDS: iohexoL 350 MG/ML 75 ML INFUS..BTL 60 ML IV (13:14)
[2023-12-13 13:38] LABS: Glucose, Whole Blood 91 mg/dL (60-115)
[2023-12-13] MEDS: 0.9 % Sodium Chloride 1,000 ML 100 ML IVCONT ×2 (13:46→22:41)
--- NOTE | 2023-12-13 13:48 | PC.NURSE ---
IVF administered per provider order. pt continues to rest in no apparent distress. pt c/o slight discomfort in coccyx area. pt repositioned to comfort. respirations remain even and unlabored. call sotelo placed within reach.
--- NOTE | 2023-12-13 14:40 | PC.NURSE ---
urine obtained/sent to lab.
[2023-12-13 15:03] LABS: Creatinine Urine 71.34 mg/dL
--- NOTE | 2023-12-13 16:07 | PM.HEMONCCN ---
Subjective - Subjective Chief complaint: Consult for: ? Multiple myeloma. Patient: new to practice Consult date: 12/13/23 Requesting Physician: Kelsey Primary Care Provider: Unknown Physician Family Provider: Unknown Medical Summary: DIAGNOSIS: Hypercalcemia. Multiple Myeloma. HPI - Consult Narrative Reason for consult: Consult for: Multiple Myeloma. Narrative: Laurita Massey is a 68 year old lady, presented with back pain and generalized weakness. Over the last couple of months, she has been feeling really fatigued and dizzy. Sometimes she even falls because of it. She has aches and pains in the body. She has pain in her right arm in her left leg. She complains of back pain. She complains of abdominal pain and nausea she has retching but no vomiting. She feels heartburn and indigestion. She is constipated. No gross blood in the stools. She had an upper endoscopy and colonoscopy a couple of years ago in [place]. That revealed diverticulosis. Database: Creatinine: 1.59. Calcium: 16. Albumin: 4.7. Total protein: 8.1. Ultrasound of the abdomen from 12/11 revealed: Normal right upper quadrant ultrasound. CT chest from 12/11: IMPRESSION: 1. No acute findings. 2. Prominent supraclavicular lymph nodes. Recommend clinical follow-up. CT abdomen pelvis from 12/11: 1. Lytic/moth eaten appearance of the left sacrum also involving the L5 and L4 left transverse process with a significant associated soft tissue component involving the sacral and lower paraspinal musculature. Retroperitoneal and iliac chain lymphadenopathy. Findings could be related to metastatic disease possibly multiple myeloma. Consider contrast-enhanced MRI evaluation. 2. Diverticulosis without diverticulitis. 3. 2.8 cm low-density structure within the left adnexa. This can also be assessed on MRI evaluation. PAST MEDICAL HISTORY: 1. HTN. 2. D.M. 3. Hypothyroidism. 4. GERD: History of gastric ulcer. 5. Mood Disorder. FAMILY HISTORY: Positive for heart disease and hypertension. No known malignancy. 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 She is . She has 2 children. Denies smoking. Denies alcohol. ROS: She has felt extremely fatigued over the last 3 months or so. Denies fever chills or night sweats. Appetite has been low. She has lost weight, about 20 lb. She complains of headache and dizziness. Sometimes she even falls. She has chest pain related to anxiety. No shortness of breath. She has abdominal pain in the upper part. She has nausea and heartburn. Occasional dysphagia. She has constipation. No gross blood in the stools. She had a colonoscopy couple of years ago which was negative. Denies dysuria or hematuria. She has diffuse joint pains involving her back and limbs. She is weak all over. She has anxiety and depression. No skin rashes no pruritus. Review of Systems - Constitutional Reports system reviewed and no additional complaints, except as documented, Reports anorexia, Reports lack of energy, Reports poor appetite, Reports weakness, Reports weight loss - Eyes Reports system reviewed and no additional complaints, except as documented - ENT Reports system reviewed and no additional complaints, except as documented, Reports dysphagia - Cardiovascular Reports system reviewed and no additional complaints, except as documented - Respiratory Reports no additional respiratory complaints - Gastrointestinal Reports system reviewed and no additional complaints, except as documented, Reports abdominal pain, Reports bloating, Reports constipation, Reports difficulty swallowing, Reports feeling full early, Reports dyspepsia, Reports heartburn, Reports nausea, Denies bright, red blood in stools - Genitourinary Reports no additional female genitourinary complaints - Musculoskeletal Reports system reviewed and no additional complaints, except as documented, Reports back pain, Reports body aches, Reports joint pain - Integumentary/Breasts Skin/Breast: Reports no additional skin complaints - Neurologic Reports weakness - Psychiatric Reports system reviewed and no additional complaints, except as documented, Reports anxiety, Reports depression - Endocrine Reports no additional endocrine complaints - Hematologic/Lymphatic Reports system reviewed and no additional complaints, except as documented - Allergic/Immunologic Reports system reviewed and no additional complaints, except as documented Oncology Screenings - ECOG Performance Status ECOG Performance Status: 2 [facility] Medical History: Medical History (Last Reviewed 12/13/23 @ 02:02 by Juan Khan MD) Diabetes mellitus Hypothyroidism Functional capacity: uses cane/walker Patient : No Social History: Social History (Last Reviewed 12/13/23 @ 02:02 by Juan Khan MD) Living Situation History: Household Members: Family Housing: Apartment Do you presently have visiting nurse or other home services: No Alcohol History Details: 1. How often do you have a drink containing alcohol?: a. Never 3. How often do you have six or more drinks on one occasion?: a. Never AUDIT-C Alcohol total score: 0 Currently Displaying Signs/Symptoms of Alcohol Withdrawal: No Tobacco History: Patient Tobacco Use Status: Never used Tobacco Smoked in Last 30 Days: No e-Cigarette/Vaping Use: Never Used Patient Interested in Nicotine Replacement: No Patient Given Instructions on How to Stop Smoking: No Substance Use History: Use of substances other than those prescribed or required for medical reasons: No Currently Displaying Signs/Symptoms of Drug Intoxication Withdrawal: No Any prior treatment program specific to substance use: No Domestic Abuse History: Have you been hit, kicked, punched, or otherwise hurt by someone within the past year? If so, by whom?: No Do you feel safe in your current relationship?: Yes Is there a partner from a previous relationship who is making you feel unsafe now?: No Are you made to feel afraid or neglected: No Healthcare Practices: Spiritual Healthcare Practices: pt is Confucianism Advance Directives: Advance Directives: No Advance Directives Information Provided: Yes Homicidal Assessment: Do you have a plan to hurt others: No Plan Nutrition Assessment: Recently lost weight without trying: Yes How much weight loss: 2-13 pounds Eating poorly because of decreased appetite: Yes Nutrition screen score: 4 Nutrition Risks: Poor intake 0-25% >4 days Patient : No : No Poor oral hygiene: No Home Medications and Allergies Current Medications: Current Medications Acetaminophen (Acetaminophen 325 Mg Tablet) 650 mg PO Q6H PRN PRN Reason: Pain, Mild (Pain Scale 1-3) Atorvastatin Calcium (Atorvastatin Calcium 40 Mg Tablet) 40 mg PO DAILY [facility] Clopidogrel Bisulfate (Clopidogrel Bisulfate 75 Mg Tablet) 75 mg PO DAILY [facility] Last Admin: 12/13/23 10:37 Dose: 75 mg Docusate Sodium (Docusate Sodium 100 Mg Capsule) 100 mg PO DAILY [facility] Last Admin: 12/13/23 10:37 Dose: 100 mg Donepezil HCl (Donepezil Hcl 5 Mg Tablet) 5 mg PO DAILY [facility] Last Admin: 12/13/23 10:37 Dose: 5 mg Famotidine (Famotidine 20 Mg Tablet) 20 mg PO DAILY [facility] Last Admin: 12/13/23 10:37 Dose: 20 mg Gabapentin (Gabapentin 300 Mg Capsule) 300 mg PO BID [facility] Last Admin: 12/13/23 10:37 Dose: 300 mg Glucose (Glucose Gel 15 Gm Gel..Gram.) 15 gm PO Q15M PRN; Protocol PRN Reason: per Hypoglycemia Standing Ord. Dextrose (D10) 250 mls @ 750 mls/hr IV Q15M PRN; Protocol PRN Reason: per Hypoglycemia Standing Ord. Sodium Chloride (Ns) 1,000 mls @ 100 mls/hr IVCONT .Q10H [facility] Last Admin: 12/13/23 13:46 Dose: 100 mls/hr Insulin Human Lispro (Insulin Lispro 100 Unit/Ml 3 Ml Vial) 0 unit SUBCUT QIDACHS [facility]; Protocol Last Admin: 12/13/23 13:37 Dose: Not Given Levothyroxine Sodium (Levothyroxine Sodium 75 Mcg Tablet) 75 mcg PO DAILY@0600 [facility] Melatonin (Melatonin 3 Mg Tablet) 6 mg PO BEDTIME PRN PRN Reason: Insomnia Morphine Sulfate (Morphine Sulfate 4 Mg/Ml Cartridge) 4 mg IVPUSH Q4H PRN; Protocol PRN Reason: Pain, Severe (Pain Scale 7-10) Last Admin: 12/13/23 08:02 Dose: 4 mg Ondansetron HCl (Ondansetron Hcl 4 Mg/2 Ml Vial) 4 mg IVPUSH Q8H PRN PRN Reason: Nausea and Vomiting Last Admin: 12/13/23 02:23 Dose: 4 mg Sodium Chloride (0.9 % Sodium Chloride Flush 3 Ml Syringe) [facility] Last Admin: 12/13/23 07:36 Dose: Not Given Home Medications ?Medication ?Instructions ?Recorded ?Confirmed ?Type atorvastatin 40 mg tablet 40 mg PO DAILY 12/13/23 12/13/23 History cholecalciferol (vitamin D3) 125 125 mcg PO DAILY 12/13/23 12/13/23 History mcg (5,000 unit) tablet (Vitamin D3) clopidogrel 75 mg tablet 75 mg PO DAILY 12/13/23 12/13/23 History docusate sodium 100 mg capsule 100 mg PO DAILY 12/13/23 12/13/23 History donepezil 5 mg tablet 5 mg PO DAILY 12/13/23 12/13/23 History famotidine 20 mg tablet 20 mg PO DAILY 12/13/23 12/13/23 History gabapentin 300 mg capsule 300 mg PO BID 12/13/23 12/13/23 History levothyroxine 75 mcg tablet 75 mcg PO DAILY 12/13/23 12/13/23 History lisinopril 10 mg tablet 10 mg PO DAILY 12/13/23 12/13/23 History metformin 500 mg tablet 500 mg PO DAILY 12/13/23 12/13/23 History omega-3 fatty acids 1,000 mg 1,000 mg PO BID 12/13/23 12/13/23 History capsule Allergies Allergy/AdvReac Type Severity Reaction Status Date / Time ampicillin Allergy Anaphylaxis Verified 12/12/23 19:35 aspirin Allergy Anaphylaxis Verified 12/12/23 19:35 Physical Exam Vital signs: Vital Signs Temp 98.4 F 12/13/23 08:16 Pulse 78 12/13/23 08:16 Resp 16 12/13/23 08:16 BP 129/52 L 12/13/23 08:16 Pulse Ox 94 12/13/23 08:16 O2 Del Method Room Air 12/13/23 08:16 Intake & Output 12/12/23 12/13/23 12/13/23 18:59 06:59 18:59 Intake Total 1999 Balance 1999 Intake: Intake, IV Amount 1999 0.9 % Sodium Chloride 1,000 ml 1999 @ 999 mls/hr IV .Q1H1M ONE Rx#: [id number] Other: Breakfast % Eaten 50% Lunch % Eaten 75% Weight 59.874 kg Weight 59.874 kg - Constitutional Present: moderate distress - Routine HEENT Exam Head: Present: normal inspection, normocephalic Eye: Present: normal appearance ENT: Present: mucous membranes moist - Routine Neck Exam Present: supple - Routine Respiratory Exam Present: CTAB - Routine Cardiovascular Exam Cardiovascular: Present: RRR, S1, S2 - Routine Abdominal Exam Present: nontender - Routine Extremities Exam Present: normal inspection - Routine Skin Exam Present: intact, normal turgor - Routine Neurological Exam Present: alert, oriented X3 - Detailed Neurological Exam: Coma Scale Eye Opening: Spontaneous (4) Verbal Response: Oriented (5) Hem/Onc Consult Result - Labs CBC & Chem 7: 12/15/23 06:05 12/15/23 06:05 Labs: Short CBC 12/12/23 12/13/23 Range/Units 20:00 06:47 WBC 8.8 6.6 (4.8-10.8) X10*3/uL Hgb 12.9 9.9 L D (12.0-16.0) g/dl Hct 38.7 29.8 L D (37.0-47.0) % Plt Count 330 254 (160-400) X10*3/uL BMP 12/12/23 12/13/23 20:00 06:47 Sodium 138 142 Potassium 4.7 4.0 Chloride 100 106 Carbon Dioxide 24 26 BUN 36 H 32 H Creatinine 1.59 H 1.26 Calcium 16.0 H* 13.2 H* D Liver Function 12/12/23 Range/Units 20:00 Total Bilirubin 0.7 (0.0-1.0) mg/dL Direct Bilirubin 0.2 (0.0-0.5) mg/dL AST 27 (5-31) U/L ALT 12 (0-31) U/L Alkaline Phosphatase 73 (39-117) U/L Albumin 4.7 (3.5-5.0) g/dL Urine 12/12/23 Range/Units 19:56 Urine Color Yellow Urine Appearance Clear Urine pH 5.5 (5.0-9.0) Ur Specific [place] 1.015 (1.005-1.025) Urine Protein Negative (Neg-Trace) mg/dL Urine Glucose (UA) Negative (Negative) mg/dL Assessment and Plan Patient Active problem list reviewed?: Yes (1) Multiple myeloma Status: Acute Assessment and plan: 68 year old lady, presented with generalized weakness, dysphagia, weight loss, and back pain. Noted to have anemia Hgb 9.9, renal failure immigration coordinator 1.59, hypercalcemia calcium 16, elevated protein 8.1, and lytic bone lesions, all point to the diagnosis of complications related to Multiple Myeloma.(CRAB criteria.) Her calcium is improving after she has recieved Bisphosphonates. From 16 to 13.2. DIFFERENTIAL DIAGNOSIS: 1. POEMS Syndrome:polyneuropathy,organomegaly,endocrinopathy, M-protein and skin changes, associated with osteosclerotic bone lesions. 2. AMYLOIDOSIS. 3. LIGHT CHAIN DEPOSITION DISEASE. 4. METASTATIC CANCER. CAT Scan of Abd/pelvis: Lytic/moth eaten appearance of left sacrum also involving L4, L5 left transverse process with associated soft tissue component involving the sacral and lower paraspinal musculature,. Retroperitoneal and iliac chain adenopathy. Consider MRI. 2.8 cm low density structure in left adnexa, can be assessed by MRI. Cat scan of chest: Negative, except for supraclavicular adenopathy. Cat scan of Head: Negative. Patient also has had GI symptoms: dysphagia, anorexia weight loss, with abdominal adenopathy, concern is a second malignancy. She has abdominal adenopathy as well as a left supraclavicular palpable hard enlarged lymph node. Virchow's node. Differential diagnosis: Gastric, nasopharyngeal, breast and lung primary. (Lymphadenopathy is seen only in 1% of pts. with Myeloma.) PLAN: Check SIEP and free light chain ratio to confirm myeloma. Check skeletal survey. Check Beta 2 Microglobulin level for prognostication. Bone marrow biopsy. Left supraclavicular lymphnode biopsy. PET Scan as outpatient. GI consult for evaluation of her dysphagia, nausea, dyspepsia, and abdominal pain. Thanks, CC: Princess Cole. - Time Spent With Patient Time Spent with Patient (in minutes): 30
[2023-12-13 16:45] VITALS: BP 116/50; PULSE 67; RESP 16; TEMP 36.6; O2SAT 94
--- NOTE | 2023-12-13 17:41 | PC.NURSE ---
pt to xray at this time.
[2023-12-13 18:44] LABS: Glucose, Whole Blood 60 mg/dL (60-115)
[2023-12-13 20:40] LABS: Lactate Dehydrogenase 128 U/L (122-220)
[2023-12-13 21:12] LABS: Glucose, Whole Blood 79 mg/dL (60-115)
[2023-12-13 23:35] LABS: Vitamin B12 411 pg/mL (200-900)
[2023-12-14 06:22] VITALS: BP 112/54; PULSE 58; RESP 12; TEMP 36.4; O2SAT 93
[2023-12-14 06:51] LABS: MANUAL DIFF FLAG NO
[2023-12-14 07:04] LABS: Basophils Absolute Auto 0.1 X10*3/uL (0.0-0.2); Basophils Percent Auto 0.9 % (0-2); Eosinophils Absolute Auto 0.1 X10*3/uL (0.0-0.4); Eosinophils Percent Auto 1.9 % (0-4); Hemoglobin 9.8 g/dl (12.0-16.0); Imm Gran Abs Auto 0.01 X10*3/uL (0.00-0.03); Imm Gran Pct Auto 0.2 % (0.0-0.4); Lymphocytes Absolute Auto 2.6 X10*3/uL (1.2-4.9); Lymphocytes Percent Auto 44.6 % (20-40); Mean Corpuscular HGB Conc 32.7 g/dl (31.0-35.0); Mean Corpuscular Hemoglobin 30.4 pg (27.0-33.0); Mean Corpuscular Volume 93.2 fL (80.0-98.0); Mean Platelet Volume 11.2 fL (9.4-12.3); Monocytes Absolute Auto 0.9 X10*3/uL (0.1-1.2); Monocytes Percent Auto 14.7 % (2-11); Neutrophils Absolute Auto 2.2 x10*3/uL (2.0-8.3); Neutrophils Percent Auto 37.7 % (45-73); Platelet Count 250 X10*3/uL (160-400); Red Blood Count 3.22 X10*6/uL (4.20-5.50); Red Cell Distribution Width 13.4 % (11.0-16.0); White Blood Count 5.9 X10*3/uL (4.8-10.8)
[2023-12-14 07:12] LABS: Anion Gap 10 (12-20); Blood Urea Nitrogen 27 mg/dL (9-16); Calcium 12.1 mg/dL (8.4-10.2); Carbon Dioxide 26 mmol/L (22-29); Chloride 109 mmol/L (96-108); Creatinine Clr Calc Pharmacy 33.8; Estimated Glomerular Filt Rate 42; Glucose Random 66 mg/dL (60-115); Potassium 3.6 mmol/L (3.3-5.1); Sodium 141 mmol/L (135-145)
--- NOTE | 2023-12-14 07:35 | HO.PM.IMPN ---
Subjective Subjective Date of Service: 12/14/23 Interval History: Seen in follow up for malignant hypercalcemia, probable multiple myeloma, acute kidney injury Interval history: Reports diffuse pain. Calcium trending down. Only tolerating clears and small amounts of food due to dysphagia, nausea, anorexia. Review of Systems Review of Systems: Yes all other systems are reviewed and are negative Physical Exam Vital Signs: Vital Signs: Last Vital Signs Temp 97.6 F 12/14/23 06:22 Pulse 58 12/14/23 06:22 Resp 12 12/14/23 06:22 BP 112/54 L 12/14/23 06:22 Pulse Ox 93 12/14/23 06:22 O2 Del Method Room Air 12/14/23 06:22 BMI result Body Mass Index 25.8 Constitutional - Awake and Alert, No apparent distress Eyes - PERRLA, EOMI Cardiovascular - S1S2, RRR, No edema Respiratory - Normal lung expansion, Normal respiratory effort, No respiratory distress, CTA bilaterally Gastrointestinal - mild bilateral lower abd pain. ND; +BS; No rebound or guarding Extremities - no calf tenderness bilaterally, no swelling Skin - Warm/Dry Neurological - Alert & oriented x3 Psychological - Appropriate affect Objective Data Active Medications Acetaminophen (Acetaminophen 325 Mg Tablet) 650 mg PO Q6H PRN PRN Reason: Pain, Mild (Pain Scale 1-3) Atorvastatin Calcium (Atorvastatin Calcium 40 Mg Tablet) 40 mg PO DAILY [facility] Clopidogrel Bisulfate (Clopidogrel Bisulfate 75 Mg Tablet) 75 mg PO DAILY [facility] Last Admin: 12/13/23 10:37 Dose: 75 mg Documented By: PRUDENCE Docusate Sodium (Docusate Sodium 100 Mg Capsule) 100 mg PO DAILY [facility] Last Admin: 12/13/23 10:37 Dose: 100 mg Documented By: PRUDENCE Donepezil HCl (Donepezil Hcl 5 Mg Tablet) 5 mg PO DAILY [facility] Last Admin: 12/13/23 10:37 Dose: 5 mg Documented By: PRUDENCE Famotidine (Famotidine 20 Mg Tablet) 20 mg PO DAILY [facility] Last Admin: 12/13/23 10:37 Dose: 20 mg Documented By: PRUDENCE Gabapentin (Gabapentin 300 Mg Capsule) 300 mg PO BID [facility] Last Admin: 12/13/23 21:08 Dose: 300 mg Documented By: JOJO Glucose (Glucose Gel 15 Gm Gel..Gram.) 15 gm PO Q15M PRN; Protocol PRN Reason: per Hypoglycemia Standing Ord. Dextrose (D10) 250 mls @ 750 mls/hr IV Q15M PRN; Protocol PRN Reason: per Hypoglycemia Standing Ord. Sodium Chloride (Ns) 1,000 mls @ 100 mls/hr IVCONT .Q10H [facility] Last Admin: 12/13/23 22:41 Dose: 100 mls/hr Documented By: JOJO Insulin Human Lispro (Insulin Lispro 100 Unit/Ml 3 Ml Vial) 0 unit SUBCUT QIDACHS [facility]; Protocol Last Admin: 12/13/23 21:08 Dose: Not Given Documented By: JOJO Non-Admin Reason: poc-79 Levothyroxine Sodium (Levothyroxine Sodium 75 Mcg Tablet) 75 mcg PO DAILY@0600 [facility] Melatonin (Melatonin 3 Mg Tablet) 6 mg PO BEDTIME PRN PRN Reason: Insomnia Morphine Sulfate (Morphine Sulfate 4 Mg/Ml Cartridge) 4 mg IVPUSH Q4H PRN; Protocol PRN Reason: Pain, Severe (Pain Scale 7-10) Last Admin: 12/13/23 08:02 Dose: 4 mg Documented By: PRUDENCE Ondansetron HCl (Ondansetron Hcl 4 Mg/2 Ml Vial) 4 mg IVPUSH Q8H PRN PRN Reason: Nausea and Vomiting Last Admin: 12/13/23 02:23 Dose: 4 mg Documented By: THADDEUS Sodium Chloride (0.9 % Sodium Chloride Flush 3 Ml Syringe) [facility] Last Admin: 12/13/23 22:41 Dose: Not Given Documented By: JOJO Non-Admin Reason: IV Running Labs 12/14/23 05:48 12/14/23 05:48 Labs: Laboratory Results - last 24 hr 12/13/23 12/13/23 12/13/23 06:47 07:46 09:13 MCV MCH MCHC RDW Plt Count MPV Immature Gran % (Auto) Neut % (Auto) Lymph % (Auto) [place] % (Auto) Eos % (Auto) Baso % (Auto) Lymph # (Auto) [place] # (Auto) Eos # (Auto) Baso # (Auto) Abs Immat Gran (auto) Absolute Neuts (auto) Absolute Nucleated RBC Nucleated RBC % (auto) Anion Gap Estim Creat Clear Calc Estimated GFR POC Glucose 59 L* 82 Random Glucose Calcium Lactate Dehydrogenase 128 Vitamin B12 Ur Random Sodium Urine Creatinine 12/13/23 12/13/23 12/13/23 13:34 14:42 18:41 MCV MCH MCHC RDW Plt Count MPV Immature Gran % (Auto) Neut % (Auto) Lymph % (Auto) [place] % (Auto) Eos % (Auto) Baso % (Auto) Lymph # (Auto) [place] # (Auto) Eos # (Auto) Baso # (Auto) Abs Immat Gran (auto) Absolute Neuts (auto) Absolute Nucleated RBC Nucleated RBC % (auto) Anion Gap Estim Creat Clear Calc Estimated GFR POC Glucose 91 60 Random Glucose Calcium Lactate Dehydrogenase Vitamin B12 Ur Random Sodium 55.0 Urine Creatinine 71.34 12/13/23 12/13/23 12/14/23 20:55 21:07 05:48 MCV 93.2 MCH 30.4 MCHC 32.7 RDW 13.4 Plt Count 250 MPV 11.2 Immature Gran % (Auto) 0.2 Neut % (Auto) 37.7 L Lymph % (Auto) 44.6 H [place] % (Auto) 14.7 H Eos % (Auto) 1.9 Baso % (Auto) 0.9 Lymph # (Auto) 2.6 [place] # (Auto) 0.9 Eos # (Auto) 0.1 Baso # (Auto) 0.1 Abs Immat Gran (auto) 0.01 Absolute Neuts (auto) 2.2 Absolute Nucleated RBC 0.000 Nucleated RBC % (auto) 0.0 Anion Gap 10 L Estim Creat Clear Calc 33.8 Estimated GFR 42 POC Glucose 79 Random Glucose 66 Calcium 12.1 H D Lactate Dehydrogenase Vitamin B12 411 Ur Random Sodium Urine Creatinine Microbiology Microbiology Results: Microbiology 12/12/23 Unknown Urine Culture - Preliminary Urine clean catch - Urine dowell top No growth to date. Assessment and Plan (1) Multiple myeloma: Status: Acute (2) Hypercalcemia: Status: Acute (3) Necrotizing inflammation of lymph node: Status: Acute (4) Acute kidney failure: Status: Acute (5) Adnexal mass: Status: Acute (6) Thyroid nodule: Status: Acute (7) Dysphagia: Status: Acute Plan 68-year-old male with pertinent history of hypertension, [id number] diabetes mellitus, mood disorder, gastroesophageal reflux disease, hypothyroidism who presents to the emergency department for evaluation of weakness and low back pain. She is admitted for further evaluation and management of malignant hypercalcemia in the setting of probable multiple myeloma. Here from [place] visiting son #malignant hypercalcemia likely due to multiple myeloma -Imaging with lytic appearance of the left sacrum, lumbar vertebrae and retroperitoneal and iliac lymphadenopathy. Patient also has likely acute kidney injury and elevated serum total protein. Findings concerning for neoplastic proliferation of plasma cells like multiple myeloma -Head CT negative. Chest CT shows prominent supraclavicular lymph nodes -SPEP, UPEP and serum light chains pending -oncology input appreciated -plan for outpt bone scan and PET scan. Pt lives in [place] and was planning on returning 12/23 but will consider extending visit pending oncology recommendations -Received IV pamidronate in ED with improvement in Ca from 16.0 --> 13.2-->12.1. Await further recs from oncology -PTH 5 #Acute kidney injury- resolved -Unknown baseline. Creat 1.59 --> 1.2 -continue ivf as pt not tolerating much po -avoid nephrotoxins -urine studies pending -Follow renal fx/lytes #Dysphagia with unspecified unintentional weight loss -GI consult, oncology consult -pureed diet, REFERRAL SPECIALIST eval pending #Neck mass -CT soft tissue neck shows 2.3cm necrotic lymph node -oncology consult #2.8cm adnexal mass -unclear significance. TACTICAL INTELLIGENCE OFFICER consult. Outpt MRI #Thyroid nodule -1.8cm low-density thyroid nodule lower pole of left lobe of thyroid gland -outpt u/s and follow up #Macrocytic anemia -suspect chronic, continue monitoring-stable. Above transfusion threshold #[id number] diabetes mellitus- with borderline hypoglycemia -change fluids to d5/NS -POC glucose, diabetic diet -Humalog on sliding scale #Hypothyroidism -continue levothyroxine #Mood disorder -continue home med #Gastroesophageal reflux disease -continue PPI DVT prophylaxis-mechanical Full code Patient requires ongoing inpatient stay management of malignant hypercalcemia requiring further evaluation expert consultation due to bony lytic lesions concerning for multiple myeloma as well as dysphagia signficantly impairing ability to tolerate PO requiring expert consulation and probable endoscopy Quality Stroke Does the patient have a stroke diagnosis?: No VTE Prior VTE?: No VTE Risk Level:: Medical - moderate - high VTE Device Contraindication: N/A - Device Ordered VTE Drug Contraindication: Treatment Not Indicated
[2023-12-14 07:52] LABS: Glucose, Whole Blood 71 mg/dL (60-115)
[2023-12-14] MEDS: Levothyroxine Sodium 75 MCG TABLET PO (08:09)
[2023-12-14] MEDS: 0.9 % Sodium Chloride Flush 3 ML SYRINGE IVFLUSH ×2 (08:10→16:55)
[2023-12-14] MEDS: Morphine Sulfate 4 MG/ML CARTRIDGE IVPUSH ×2 (08:10→12:24)
[2023-12-14] MEDS: 0.9 % Sodium Chloride 1,000 ML 100 ML IVCONT (08:13)
--- NOTE | 2023-12-14 08:22 | PM.GICN ---
History of Present Illness Data of Consult Service Date: 12/14/23 Requesting physician: Princess Cole Primary Care Provider: Unknown Physician HPI Reason for consult: dysphagia (has probable multiple myeloma with neck mass) 68-year-old female with history of hypertension, [id number] diabetes mellitus, mood disorder, gastroesophageal reflux disease, hypothyroidism who I am seeing for assessment for dysphagia Initially came c/o weakness and 3 months hx of LBP after a fall. Associated wth weight loss and poor appetite with headache. denies fever, chills, palpitations, shortness of breath, changes in urinary or bowel habits. Also endorsed nausea but denied any issues with swallowing and transit of food into the stomach. she says she has chronic upper abdominal pain for years and had EGD and colonoscopy in [place] for this 2 years which was apparently normal. Labs with calcium 16 on admission with elevated creat and protein and lytic lesions seen on imaging. CT neck with necrotic LN and thyroid nodule. Review of Systems Review of Systems: Constitutional : +Weight loss, No Fever, No Chills ENT/Mouth : No sore throat, No Rhinorrhea Eyes: No Swelling, No Redness Cardiovascular : No Chest Pain, No SOB, No Edema Respiratory : No Cough, No Sputum, No Wheezing Gastrointestinal : see HPI Genitourinary : NO Dysuria, No Urinary Frequency, No Hematuria, No Urgency Musculoskeletal : + joint pain, No Myalgias, No Joint Swelling Skin : No Skin Lesions, No rash Neuro : + Weakness, No Numbness, No Dizziness, No Headache Psych : No Anxiety/Panic, No Depression Heme/Lymph: No Bruising, No Lymphadenopathy Endocrine : No Polyuria, No Polydipsia All other systems reviewed and are negative. [facility] Past Medical History Medical History Hypothyroidism Diabetes mellitus Family History Pertinent family history: no FH of myeloma Social History Social History Household Members: Family Housing: Apartment Do you presently have visiting nurse or other home services: No Alcohol intake: never Patient Tobacco Use Status: Never used Tobacco Smoked in Last 30 Days: No e-Cigarette/Vaping Use: Never Used Patient Interested in Nicotine Replacement: No Patient Given Instructions on How to Stop Smoking: No Use of substances other than those prescribed or required for medical reasons: No Currently Displaying Signs/Symptoms of Drug Intoxication Withdrawal: No Any prior treatment program specific to substance use: No Have you been hit, kicked, punched, or otherwise hurt by someone within the past year? If so, by whom?: No Do you feel safe in your current relationship?: Yes Is there a partner from a previous relationship who is making you feel unsafe now?: No Are you made to feel afraid or neglected: No Spiritual Healthcare Practices: pt is [facility] Advance Directives: No Advance Directives Information Provided: Yes Do you have a plan to hurt others: No Plan Recently lost weight without trying: Yes How much weight loss: 2-13 pounds Eating poorly because of decreased appetite: Yes Nutrition screen score: 4 Nutrition Risks: Poor intake 0-25% >4 days Patient : No : No Poor oral hygiene: No Meds Allergies Allergy/AdvReac Type Severity Reaction Status Date / Time ampicillin Allergy Anaphylaxis Verified 12/12/23 19:35 aspirin Allergy Anaphylaxis Verified 12/12/23 19:35 Active Medications: Current Medications Acetaminophen (Acetaminophen 325 Mg Tablet) 650 mg PO Q6H PRN PRN Reason: Pain, Mild (Pain Scale 1-3) Atorvastatin Calcium (Atorvastatin Calcium 40 Mg Tablet) 40 mg PO DAILY [facility] Clopidogrel Bisulfate (Clopidogrel Bisulfate 75 Mg Tablet) 75 mg PO DAILY [facility] Last Admin: 12/13/23 10:37 Dose: 75 mg Docusate Sodium (Docusate Sodium 100 Mg Capsule) 100 mg PO DAILY [facility] Last Admin: 12/13/23 10:37 Dose: 100 mg Donepezil HCl (Donepezil Hcl 5 Mg Tablet) 5 mg PO DAILY [facility] Last Admin: 12/13/23 10:37 Dose: 5 mg Famotidine (Famotidine 20 Mg Tablet) 20 mg PO DAILY [facility] Last Admin: 12/13/23 10:37 Dose: 20 mg Gabapentin (Gabapentin 300 Mg Capsule) 300 mg PO BID [facility] Last Admin: 12/13/23 21:08 Dose: 300 mg Glucose (Glucose Gel 15 Gm Gel..Gram.) 15 gm PO Q15M PRN; Protocol PRN Reason: per Hypoglycemia Standing Ord. Dextrose (D10) 250 mls @ 750 mls/hr IV Q15M PRN; Protocol PRN Reason: per Hypoglycemia Standing Ord. Sodium Chloride (Ns) 1,000 mls @ 100 mls/hr IVCONT .Q10H [facility] Last Admin: 12/14/23 08:13 Dose: 100 mls/hr Insulin Human Lispro (Insulin Lispro 100 Unit/Ml 3 Ml Vial) 0 unit SUBCUT QIDACHS [facility]; Protocol Last Admin: 12/14/23 07:58 Dose: Not Given Levothyroxine Sodium (Levothyroxine Sodium 75 Mcg Tablet) 75 mcg PO DAILY@0600 [facility] Last Admin: 12/14/23 08:09 Dose: 75 mcg Melatonin (Melatonin 3 Mg Tablet) 6 mg PO BEDTIME PRN PRN Reason: Insomnia Morphine Sulfate (Morphine Sulfate 4 Mg/Ml Cartridge) 4 mg IVPUSH Q4H PRN; Protocol PRN Reason: Pain, Severe (Pain Scale 7-10) Last Admin: 12/14/23 08:10 Dose: 4 mg Ondansetron HCl (Ondansetron Hcl 4 Mg/2 Ml Vial) 4 mg IVPUSH Q8H PRN PRN Reason: Nausea and Vomiting Last Admin: 12/13/23 02:23 Dose: 4 mg Sodium Chloride (0.9 % Sodium Chloride Flush 3 Ml Syringe) 3 ml IVFLUSH [facility] Last Admin: 12/14/23 08:10 Dose: 3 ml Home Medications ?Medication ?Instructions ?Recorded ?Confirmed ?Last Taken ?Type atorvastatin 40 mg tablet 40 mg PO DAILY 12/13/23 12/13/23 12/11/23 History cholecalciferol (vitamin D3) 125 125 mcg PO DAILY 12/13/23 12/13/23 12/11/23 History mcg (5,000 unit) tablet (Vitamin D3) clopidogrel 75 mg tablet 75 mg PO DAILY 12/13/23 12/13/23 12/11/23 History docusate sodium 100 mg capsule 100 mg PO DAILY 12/13/23 12/13/23 12/11/23 History donepezil 5 mg tablet 5 mg PO DAILY 12/13/23 12/13/23 12/11/23 History famotidine 20 mg tablet 20 mg PO DAILY 12/13/23 12/13/23 12/11/23 History gabapentin 300 mg capsule 300 mg PO BID 12/13/23 12/13/23 12/11/23 History levothyroxine 75 mcg tablet 75 mcg PO DAILY 12/13/23 12/13/23 12/11/23 History lisinopril 10 mg tablet 10 mg PO DAILY 12/13/23 12/13/23 12/11/23 History metformin 500 mg tablet 500 mg PO DAILY 12/13/23 12/13/23 12/11/23 History omega-3 fatty acids 1,000 mg 1,000 mg PO BID 12/13/23 12/13/23 12/11/23 History capsule Physical Exam Vital Signs: Vital Signs: Last Vital Signs Temp 97.6 F 12/14/23 06:22 Pulse 58 12/14/23 06:22 Resp 12 12/14/23 06:22 BP 112/54 L 12/14/23 06:22 Pulse Ox 93 12/14/23 06:22 O2 Del Method Room Air 12/14/23 06:22 BMI result Body Mass Index 25.8 EXAM: GENERAL: The patient is tired appearing VITAL SIGNS:see workflow HEENT: Nonicteric sclerae, PERRLA, EOMI. Oropharynx clear. Moist mucous membranes. Conjunctivae appear well perfused. No thyroid mass. CHEST: Chest wall is nontender. HEART: Regular rate and rhythm without murmurs. LUNGS: Clear to auscultation bilaterally. ABDOMEN: Soft, positive bowel sounds, mildly tender epigastrium, no organomegaly.no flank tenderness SKIN: No rash, no excessive bruising, petechiae, or purpura. NEUROLOGIC: Cranial nerves II-XII intact without motor/sensory deficit. Psych: normal affect Results Labs 12/14/23 05:48 12/14/23 05:48 Labs: Short CBC 12/14/23 Range/Units 05:48 WBC 5.9 (4.8-10.8) X10*3/uL Hgb 9.8 L (12.0-16.0) g/dl Hct 30.0 L (37.0-47.0) % Plt Count 250 (160-400) X10*3/uL BMP 12/14/23 05:48 Sodium 141 Potassium 3.6 Chloride 109 H Carbon Dioxide 26 BUN 27 H Creatinine 1.25 Calcium 12.1 H D Microbiology Microbiology Results: Microbiology 12/12/23 Unknown Urine clean catch - Urine dowell top Urine Culture - Preliminary No growth to date. Imaging CT scan - abdomen: Attestation: I personally reviewed and interpreted this imaging study as follows: (adnexal swelling, diverticulosis, degen spinal disease, atherosclerosis, lymphadenopathy, abn appearing sacrum) Assessment and Plan (1) Hypercalcemia: Status: Acute Plan 1/ hypercalcemia and bone lesions, possible myeloma or other metastatic neoplasia--chronic abdominal pain with nausea PLAN: 1/ Recommend upper GI series, and if needed thereafter then EGD 2/ f/u onc recs, might need excisional bx of a node or controls engineer consult to eval adnexal area 3/ nausea may be due to high ca, or neoplasia, GI disease, brain lesions (Ct head done w/o contrast) --can use zofran in the meantime Procedures Date of Service Date of Service: 12/14/23
[2023-12-14 09:11] VITALS: BP 136/65; PULSE 58; RESP 14; TEMP 36.5; O2SAT 94
[2023-12-14] MEDS: Famotidine 20 MG TABLET PO (09:17)
[2023-12-14] MEDS: Clopidogrel Bisulfate 75 MG TABLET PO (09:17)
[2023-12-14] MEDS: Gabapentin 300 MG CAPSULE PO ×2 (09:17→21:33)
[2023-12-14] MEDS: Atorvastatin Calcium 40 MG TABLET PO (09:17)
[2023-12-14] MEDS: Docusate Sodium 100 MG CAPSULE PO (09:17)
[2023-12-14] MEDS: Donepezil HCl 5 MG TABLET PO (09:17)
[2023-12-14] MEDS: ondansetron HCL 4 MG/2 ML VIAL IVPUSH (10:39)
[2023-12-14 11:25] LABS: Glucose, Whole Blood 73 mg/dL (60-115)
[2023-12-14] MEDS: Dextrose 5 % and 0.9 % NaCl 1,000 ML 100 ML IVCONT ×2 (11:50→22:36)
--- NOTE | 2023-12-14 11:57 | P.PNHO-ONC_ITS ---
Medical Summary - Medical Summary Date of Service: 12/14/23 Chief complaint: Follow-up for: 1. Hypercalcemia 2. Question of myeloma,3. Adenopathy. Primary Care Provider: Unknown Physician Medical Summary: DIAGNOSIS: Hypercalcemia. Multiple Myeloma. Interval History Interval history: Laurita Massey is a 68 year old lady, presented with back pain and generalized weakness. She still feels about the same. Complains of pain in her back and limbs. Remains afebrile. Kidney function and calcium improved. HISTORY OF PRESENT ILLNESS: Over the last couple of months, she has been feeling really fatigued and dizzy. Sometimes she even falls because of it. She has aches and pains in the body. She has pain in her right arm in her left leg. She complains of back pain. She complains of abdominal pain and nausea she has retching but no vomiting. She feels heartburn and indigestion. She is constipated. No gross blood in the stools. She had an upper endoscopy and colonoscopy a couple of years ago in [place]. That revealed diverticulosis. Database: Creatinine: 1.59. Calcium: 16. Albumin: 4.7. Total protein: 8.1. Ultrasound of the abdomen from 12/11 revealed: Normal right upper quadrant ultrasound. CT chest from 12/11: IMPRESSION: 1. No acute findings. 2. Prominent supraclavicular lymph nodes. Recommend clinical follow-up. CT abdomen pelvis from 12/11: 1. Lytic/moth eaten appearance of the left sacrum also involving the L5 and L4 left transverse process with a significant associated soft tissue component involving the sacral and lower paraspinal musculature. Retroperitoneal and iliac chain lymphadenopathy. Findings could be related to metastatic disease possibly multiple myeloma. Consider contrast-enhanced MRI evaluation. 2. Diverticulosis without diverticulitis. 3. 2.8 cm low-density structure within the left adnexa. This can also be assessed on MRI evaluation. PAST MEDICAL HISTORY: 1. HTN. 2. D.M. 3. Hypothyroidism. 4. GERD: History of gastric ulcer. 5. Mood Disorder. FAMILY HISTORY: Positive for heart disease and hypertension. No known malignancy. 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 She is . She has 2 children. Denies smoking. Denies alcohol. ROS: She has felt extremely fatigued over the last 3 months or so. Denies fever chills or night sweats. Appetite has been low. She has lost weight, about 20 lb. She complains of headache and dizziness. Sometimes she even falls. She has chest pain related to anxiety. No shortness of breath. She has abdominal pain in the upper part. She has nausea and heartburn. Occasional dysphagia. She has constipation. No gross blood in the stools. She had a colonoscopy couple of years ago which was negative. Denies dysuria or hematuria. She has diffuse joint pains involving her back and limbs. She is weak all over. She has anxiety and depression. No skin rashes no pruritus. Review of Systems - Neurologic Reports weakness COUNT INCLUDES THE [facility] Medical History: Medical History (Last Reviewed 12/13/23 @ 02:02 by Juan Khan MD) Diabetes mellitus Hypothyroidism Functional capacity: uses cane/walker Social History: Social History (Last Reviewed 12/13/23 @ 02:02 by Juan Khan MD) Living Situation History: Household Members: Family Housing: Apartment Do you presently have visiting nurse or other home services: No Alcohol History Details: 1. How often do you have a drink containing alcohol?: a. Never 3. How often do you have six or more drinks on one occasion?: a. Never AUDIT-C Alcohol total score: 0 Currently Displaying Signs/Symptoms of Alcohol Withdrawal: No Tobacco History: Patient Tobacco Use Status: Never used Tobacco Smoked in Last 30 Days: No e-Cigarette/Vaping Use: Never Used Patient Interested in Nicotine Replacement: No Patient Given Instructions on How to Stop Smoking: No Substance Use History: Use of substances other than those prescribed or required for medical reasons : No Currently Displaying Signs/Symptoms of Drug Intoxication Withdrawal: No Any prior treatment program specific to substance use: No Domestic Abuse History: Have you been hit, kicked, punched, or otherwise hurt by someone within the past year? If so, by whom?: No Do you feel safe in your current relationship?: Yes Is there a partner from a previous relationship who is making you feel unsafe now?: No Are you made to feel afraid or neglected: No Healthcare Practices: Spiritual Healthcare Practices: pt is Taoism Advance Directives: Advance Directives: No Advance Directives Information Provided: Yes Homicidal Assessment: Do you have a plan to hurt others: No Plan Nutrition Assessment: Recently lost weight without trying: Yes How much weight loss: 2-13 pounds Eating poorly because of decreased appetite: Yes Nutrition screen score: 4 Nutrition Risks: Poor intake 0-25% >4 days Patient : No : No Poor oral hygiene: No Home Medications and Allergies Current Medications: Current Medications Acetaminophen (Acetaminophen 325 Mg Tablet) 650 mg PO Q6H PRN PRN Reason: Pain, Mild (Pain Scale 1-3) Atorvastatin Calcium (Atorvastatin Calcium 40 Mg Tablet) 40 mg PO DAILY [facility] Last Admin: 12/14/23 09:17 Dose: 40 mg Clopidogrel Bisulfate (Clopidogrel Bisulfate 75 Mg Tablet) 75 mg PO DAILY [facility] Last Admin: 12/14/23 09:17 Dose: 75 mg Docusate Sodium (Docusate Sodium 100 Mg Capsule) 100 mg PO DAILY [facility] Last Admin: 12/14/23 09:17 Dose: 100 mg Donepezil HCl (Donepezil Hcl 5 Mg Tablet) 5 mg PO DAILY [facility] Last Admin: 12/14/23 09:17 Dose: 5 mg Famotidine (Famotidine 20 Mg Tablet) 20 mg PO DAILY [facility] Last Admin: 12/14/23 09:17 Dose: 20 mg Gabapentin (Gabapentin 300 Mg Capsule) 300 mg PO BID [facility] Last Admin: 12/14/23 09:17 Dose: 300 mg Glucose (Glucose Gel 15 Gm Gel..Gram.) 15 gm PO Q15M PRN; Protocol PRN Reason: per Hypoglycemia Standing Ord. Dextrose (D10) 250 mls @ 750 mls/hr IV Q15M PRN; Protocol PRN Reason: per Hypoglycemia Standing Ord. Dextrose/Sodium Chloride (D5ns) 1,000 mls @ 100 mls/hr IVCONT .Q10H [facility] Last Admin: 12/14/23 11:50 Dose: 100 mls/hr Insulin Human Lispro (Insulin Lispro 100 Unit/Ml 3 Ml Vial) 0 unit SUBCUT QIDACHS [facility]; Protocol Last Admin: 12/14/23 11:56 Dose: Not Given Levothyroxine Sodium (Levothyroxine Sodium 75 Mcg Tablet) 75 mcg PO DAILY@0600 [facility] Last Admin: 12/14/23 08:09 Dose: 75 mcg Melatonin (Melatonin 3 Mg Tablet) 6 mg PO BEDTIME PRN PRN Reason: Insomnia Morphine Sulfate (Morphine Sulfate 4 Mg/Ml Cartridge) 4 mg IVPUSH Q4H PRN; Protocol PRN Reason: Pain, Severe (Pain Scale 7-10) Last Admin: 12/14/23 08:10 Dose: 4 mg Ondansetron HCl (Ondansetron Hcl 4 Mg/2 Ml Vial) 4 mg IVPUSH Q8H PRN PRN Reason: Nausea and Vomiting Last Admin: 12/14/23 10:39 Dose: 4 mg Sodium Chloride (0.9 % Sodium Chloride Flush 3 Ml Syringe) 3 ml IVFLUSH [facility] Last Admin: 12/14/23 08:10 Dose: 3 ml Home Medications ?Medication ?Instructions ?Recorded ?Confirmed ?Type atorvastatin 40 mg tablet 40 mg PO DAILY 12/13/23 12/13/23 History cholecalciferol (vitamin D3) 125 125 mcg PO DAILY 12/13/23 12/13/23 History mcg (5,000 unit) tablet (Vitamin D3) clopidogrel 75 mg tablet 75 mg PO DAILY 12/13/23 12/13/23 History docusate sodium 100 mg capsule 100 mg PO DAILY 12/13/23 12/13/23 History donepezil 5 mg tablet 5 mg PO DAILY 12/13/23 12/13/23 History famotidine 20 mg tablet 20 mg PO DAILY 12/13/23 12/13/23 History gabapentin 300 mg capsule 300 mg PO BID 12/13/23 12/13/23 History levothyroxine 75 mcg tablet 75 mcg PO DAILY 12/13/23 12/13/23 History lisinopril 10 mg tablet 10 mg PO DAILY 12/13/23 12/13/23 History metformin 500 mg tablet 500 mg PO DAILY 12/13/23 12/13/23 History omega-3 fatty acids 1,000 mg 1,000 mg PO BID 12/13/23 12/13/23 History capsule Allergies Allergy/AdvReac Type Severity Reaction Status Date / Time ampicillin Allergy Anaphylaxis Verified 12/12/23 19:35 aspirin Allergy Anaphylaxis Verified 12/12/23 19:35 Exam Vital signs: Vital Signs Temp 97.7 F 12/14/23 09:11 Pulse 58 12/14/23 09:11 Resp 14 12/14/23 09:11 BP 136/65 12/14/23 09:11 Pulse Ox 94 12/14/23 09:11 O2 Del Method Room Air 12/14/23 09:11 Intake & Output 12/13/23 12/14/23 12/14/23 18:59 06:59 18:59 Intake Total 891.667 / 646.416 2832.333 / 1308.333 Balance 891.667 / 998.644 0001.333 / 1308.333 Intake: Intake, IV Amount 891.667 / 368.736 4988.333 / 1308.333 0.9 % Sodium Chloride 1,000 ml 891.667 / 029.857 0815.333 / 1308.333 @ 100 mls/hr IVCONT .Q10H [facility] Rx#:[id number] Other: Breakfast % Eaten 50% 75% Lunch % Eaten 75% Urine Bedside Commode Last Bowel Movement 12/09/23 Weight 59.874 kg BMI result Body Mass Index 25.8 - Constitutional Present: moderate distress - Routine HEENT Exam Head: Present: normal inspection, normocephalic Eye: Present: normal appearance ENT: Present: mucous membranes moist - Routine Neck Exam Present: full ROM - Routine Respiratory Exam Present: CTAB - Routine Cardiovascular Exam Cardiovascular: Present: RRR, S1, S2 - Routine Abdominal Exam Present: nontender - Routine Rectal Exam Patient deferred: digital exam - Routine Extremities Exam Present: normal inspection - Routine Back/Spine/Pelvis Exam Back/Spine: Present: full ROM - Routine Skin Exam Present: intact, normal turgor - Routine Neurological Exam Present: alert, oriented X3 - Detailed Neurological Exam: Coma Scale Eye Opening: Spontaneous (4) - Routine Psychiatric Exam Present: normal affect Data - Labs CBC & Chem 7: 12/15/23 06:05 12/15/23 06:05 Labs: Laboratory Last Values WBC 5.9 X10*3/uL (4.8-10.8) 12/14/23 05:48 RBC 3.22 X10*6/uL (4.20-5.50) L 12/14/23 05:48 Hgb 9.8 g/dl (12.0-16.0) L 12/14/23 05:48 Hct 30.0 % (37.0-47.0) L 12/14/23 05:48 MCV 93.2 fL (80.0-98.0) 12/14/23 05:48 MCH 30.4 pg (27.0-33.0) 12/14/23 05:48 MCHC 32.7 g/dl (31.0-35.0) 12/14/23 05:48 RDW 13.4 % (11.0-16.0) 12/14/23 05:48 Plt Count 250 X10*3/uL (160-400) 12/14/23 05:48 MPV 11.2 fL (9.4-12.3) 12/14/23 05:48 Immature Gran % (Auto) 0.2 % (0.0-0.4) 12/14/23 05:48 Neut % (Auto) 37.7 % (45-73) L 12/14/23 05:48 Lymph % (Auto) 44.6 % (20-40) H 12/14/23 05:48 Morgan % (Auto) 14.7 % (2-11) H 12/14/23 05:48 Eos % (Auto) 1.9 % (0-4) 12/14/23 05:48 Baso % (Auto) 0.9 % (0-2) 12/14/23 05:48 Lymph # (Auto) 2.6 X10*3/uL (1.2-4.9) 12/14/23 05:48 Morgan # (Auto) 0.9 X10*3/uL (0.1-1.2) 12/14/23 05:48 Eos # (Auto) 0.1 X10*3/uL (0.0-0.4) 12/14/23 05:48 Baso # (Auto) 0.1 X10*3/uL (0.0-0.2) 12/14/23 05:48 Abs Immat Gran (auto) 0.01 X10*3/uL (0.00-0.03) 12/14/23 05:48 Absolute Neuts (auto) 2.2 x10*3/uL (2.0-8.3) 12/14/23 05:48 Absolute Nucleated RBC 0.000 X10*3/uL (0.0-0.012) 12/14/23 05:48 Nucleated RBC % (auto) 0.0 /100WBC (0.0-0.2) 12/14/23 05:48 PT 11.9 SEC (11.1-13.3) 12/12/23 20:00 INR 1.0 (0.9-1.1) 12/12/23 20:00 APTT 23.0 SEC (26.0-36.8) L 12/12/23 20:00 Sodium 141 mmol/L (135-145) 12/14/23 05:48 Potassium 3.6 mmol/L (3.3-5.1) 12/14/23 05:48 Chloride 109 mmol/L (96-108) H 12/14/23 05:48 Carbon Dioxide 26 mmol/L (22-29) 12/14/23 05:48 Anion Gap 10 (12-20) L 12/14/23 05:48 BUN 27 mg/dL (9-16) H 12/14/23 05:48 Creatinine 1.25 mg/dL (0.5-1.4) 12/14/23 05:48 Estim Creat Clear Calc 33.8 12/14/23 05:48 Estimated GFR 42 12/14/23 05:48 POC Glucose 73 mg/dL (60-115) 12/14/23 11:16 Random Glucose 66 mg/dL (60-115) 12/14/23 05:48 Calcium 12.1 mg/dL (8.4-10.2) H D 12/14/23 05:48 Magnesium 2.2 mg/dL (1.6-2.6) 12/12/23 20:00 Total Bilirubin 0.7 mg/dL (0.0-1.0) 12/12/23 20:00 Direct Bilirubin 0.2 mg/dL (0.0-0.5) 12/12/23 20:00 AST 27 U/L (5-31) 12/12/23 20:00 ALT 12 U/L (0-31) 12/12/23 20:00 Alkaline Phosphatase 73 U/L (39-117) 12/12/23 20:00 Lactate Dehydrogenase 128 U/L (122-220) 12/13/23 06:47 Troponin I High Sens 3.7 ng/L (<3.5-17.0) 12/12/23 20:00 Total Protein 8.1 g/dL (6.5-8.0) H 12/12/23 20:00 Albumin 4.7 g/dL (3.5-5.0) 12/12/23 20:00 Lipase 28 U/L (8-78) 12/12/23 20:00 Vitamin B12 411 pg/mL (200-900) 12/13/23 20:55 PTH Intact 5.8 pg/mL (8.7-77.1) L 12/13/23 02:21 Urine Color Yellow 12/12/23 19:56 Urine Appearance Clear 12/12/23 19:56 Urine pH 5.5 (5.0-9.0) 12/12/23 19:56 Ur Specific Benedict 1.015 (1.005-1.025) 12/12/23 19:56 Urine Protein Negative mg/dL (Neg-Trace) 12/12/23 19:56 Urine Glucose (UA) Negative mg/dL (Negative) 12/12/23 19:56 Urine Ketones Negative mg/dL (Negative) 12/12/23 19:56 Urine Blood Negative (Negative) 12/12/23 19:56 Urine Nitrite Negative (Negative) 12/12/23 19:56 Ur Leukocyte Esterase Small (1+) (Negative) H 12/12/23 19:56 Urine RBC 0-2 /HPF (0-2) 12/12/23 19:56 Urine WBC 6-10 /HPF (0-5) H 12/12/23 19:56 Ur Squamous Epith Cells 3-5 /HPF (0-2) 12/12/23 19:56 Urine Bacteria None Seen (None Seen) 12/12/23 19:56 Hyaline Casts 3-5 /LPF (0-2) 12/12/23 19:56 Ur Random Sodium 55.0 mmol/L 12/13/23 14:42 Urine Creatinine 71.34 mg/dL 12/13/23 14:42 Influenza Type A (PCR) NEGATIVE (Negative) 12/12/23 19:56 Influenza Type B (PCR) NEGATIVE (Negative) 12/12/23 19:56 RSV RNA Qual (PCR) NEGATIVE (Negative) 12/12/23 19:56 SARS-CoV-2 RNA (RT-PCR) NEGATIVE (Negative) 12/12/23 19:56 - Imaging Radiologist's impression: ITS Impressions Abdomen Ultrasound 12/12/23 20:37 IMPRESSION: Normal right upper quadrant ultrasound. Chest X-Ray 12/12/23 20:51 IMPRESSION: No acute pulmonary disease. Abdomen/Pelvis CT 12/12/23 23:19 IMPRESSION: 1. Lytic/moth eaten appearance of the left sacrum also involving the L5 and L4 left transverse process with a significant associated soft tissue component involving the sacral and lower paraspinal musculature. Retroperitoneal and iliac chain lymphadenopathy. Findings could be related to metastatic disease possibly multiple myeloma. Consider contrast-enhanced MRI evaluation. 2.Diverticulosis without diverticulitis. 3. 2.8 cm low-density structure within the left adnexa. This can also be assessed on MRI evaluation. Fleischner guidelines were followed. Chest CT 12/13/23 02:40 IMPRESSION: 1. No acute findings. 2. Prominent supraclavicular lymph nodes. Recommend clinical follow-up. Fleischner guidelines were followed. Head CT 12/13/23 02:40 IMPRESSION: 1. No acute intracranial process seen. 2. Mild to moderate cerebral volume loss with chronic small vessel ischemic changes. Soft Tissue Neck CT 12/13/23 13:34 IMPRESSION: 1. There is a 2.3 cm mass in the left level IIB/level VA region with central low attenuation, most consistent with a necrotic lymph node. There are also mildly prominent left level IIB and left level IV lymph nodes. 2. There is a 1.8 cm low-density nodule at the lower pole of the left lobe of the thyroid gland. Based on the recommendations of the ACR Incidental Thyroid Findings Committee (JACR 2015 Aug; 12(2):143-50), further evaluation by thyroid ultrasound is recommended for solitary incidental thyroid nodules greater than or equal to 1.5 cm in largest axial dimension in patients age 35 years and older who do not have limited life expectancy or significant morbidities, unless clinically warranted. 3. There are polyps off the inferior turbinate bones extending posteriorly, more prominent on the right. The nasal septum is deviated to the left and there is a prominent left-sided bony nasal septal spur. Bone Osseous Survey 12/13/23 18:40 IMPRESSION: No radiographic evidence of myeloma. Previously noted sacral abnormality not appreciated on x-rays of the pelvis Assessment and Plan Patient Active problem list reviewed?: Yes (1) Multiple myeloma Status: Acute Assessment and plan: 68 year old lady, presented with generalized weakness, dysphagia, weight loss, and back pain. Noted to have anemia Hgb 9.9, renal failure target protection specialist 1.59, hypercalcemia calcium 16, elevated protein 8.1, and lytic bone lesions, all point to the diagnosis of complications related to Multiple Myeloma.(CRAB criteria.) Her calcium is improving after she has recieved Bisphosphonates. From 16 to 13.2. DIFFERENTIAL DIAGNOSIS: 1. POEMS Syndrome:polyneuropathy,organomegaly,endocrinopathy, M-protein and skin changes, associated with osteosclerotic bone lesions. 2. AMYLOIDOSIS. 3. LIGHT CHAIN DEPOSITION DISEASE. 4. METASTATIC CANCER. 5. EXTRAMEDULLARY PLASMACYTOMA. CAT Scan of Abd/pelvis: Lytic/moth eaten appearance of left sacrum also involving L4, L5 left transverse process with associated soft tissue component involving the sacral and lower paraspinal musculature,. Retroperitoneal and iliac chain adenopathy. Consider MRI. 2.8 cm low density structure in left adnexa, can be assessed by MRI. Cat scan of chest: Negative, except for supraclavicular adenopathy. Cat scan of Head: Negative. Checked skeletal survey: No radiographic evidence of myeloma. Previously noted sacral abnormality not appreciated on x-rays of the pelvis. Patient also has had GI symptoms: dysphagia, anorexia weight loss, with abdominal adenopathy, concern is a second malignancy. She has intra-abdominal adenopathy as well as a left supraclavicular palpable hard enlarged lymph node. Virchow's node. Differential diagnosis: Gastric, nasopharyngeal, breast and lung primary. (Lymphadenopathy is seen only in 1% of pts. with Myeloma.) Check SIEP and free light chain ratio to confirm myeloma. Check Beta 2 Microglobulin level for prognostication. Seen by GI for evaluation of her dysphagia, nausea, dyspepsia, and abdominal pain. To have a barium swallow anf GI series. Her calcium has improved to 12. Creatinine has improved as well. PLAN: Bone marrow aspiration and biopsy, for definitive diagnosis of multiple myeloma. Would send for flow cytometry, cytogenetics and myeloma FISH studies. Will need a biopsy of the supraclavicular node. PET Scan as outpatient for staging. MRI of the abdomen to evaluate the left adnexa. The patient was initially here for a visit was supposed to go back on 12/23. Upon further questioning she is now going to stay here with her son for further evaluation and treatment. Case management to sort out the insurance issues. Thanks, CC: Princess Cole. - Time Spent With Patient Time Spent with Patient (in minutes): 25
--- NOTE | 2023-12-14 13:39 | MHC.SL.SWA ---
Speech Pathologist Impression: Risk of Aspiration Due to: Neurological Condition Dysphasia Diet Status: Liquid Consistency and Strategies for Safe Swallow: Liquid Intake Recommendation: Thin Liquid Intake Strategies: Small Sips Solid Food Consistency: Dietary Recommendations: Regular Additional Modifications to Solid Foods: Recommend UPGRADE to REGULAR SOLIDS and THIN LIQUIDS. MEDS WHOLE with LIQUIDS. WINDOW COVERING SALES CONSULTANT will follow-up to monitor tolerance. Oral Medication Intake: Whole with Puree Please contact the pharmacy regarding appropriate crushable or liquid drug formulations that are available whenever modified delivery is recommended. Compensatory Strategies and Precautions to be Taken for Safe Swallow: Sitting Upright (90 deg) Liquids from Cup Small Bites and Sips Alternate Liquids/Solids Rate of Ingestion Change Oral Check Supervision While Eating and Drinking for Safe Swallow: Intermittent Supervision Foods to Avoid: Swallowing Recommended Treatments: Compens. Strategy Educat. Recommendation for Speech: Inpatient Speech Therapy Comment: Recommend UPGRADE to REGULAR SOLIDS and THIN LIQUIDS. MEDS WHOLE with LIQUIDS. WINDOW COVERING SALES CONSULTANT will follow-up to monitor tolerance. Timeline to reassess: PRN Road Crossing Guard Clinican/Clinical Fellow: No Supervisory Statement: I have reviewed and agree with the student/clinical fellow's documentation: N/A Speech Language Pathologist: Anthony Devi M.A., [facility]-WINDOW COVERING SALES CONSULTANT
[2023-12-14 15:24] VITALS: BP 114/57; PULSE 66; RESP 18; TEMP 36.3; O2SAT 93
[2023-12-14 16:46] LABS: Glucose, Whole Blood 78 mg/dL (60-115)
[2023-12-14 17:17] VITALS: BMI 27.1
[2023-12-14 19:22] VITALS: BP 147/66; PULSE 57; RESP 18; TEMP 37.1; O2SAT 95
[2023-12-14 19:56] LABS: Glucose, Whole Blood 83 mg/dL (60-115)
[2023-12-15 03:49] VITALS: BP 139/63; PULSE 78; RESP 16; TEMP 36.4; O2SAT 92
[2023-12-15] MEDS: Levothyroxine Sodium 75 MCG TABLET PO (05:15)
[2023-12-15] MEDS: Morphine Sulfate 4 MG/ML CARTRIDGE IVPUSH ×4 (05:18→23:55)
[2023-12-15 06:07] LABS: MANUAL DIFF FLAG NO
[2023-12-15 06:28] LABS: Basophils Percent Auto 0.8 % (0-2); Eosinophils Absolute Auto 0.2 X10*3/uL (0.0-0.4); Eosinophils Percent Auto 3.3 % (0-4); Hematocrit 28.8 % (37.0-47.0); Hemoglobin 9.4 g/dl (12.0-16.0); Imm Gran Abs Auto 0.02 X10*3/uL (0.00-0.03); Imm Gran Pct Auto 0.4 % (0.0-0.4); Lymphocytes Absolute Auto 2.1 X10*3/uL (1.2-4.9); Lymphocytes Percent Auto 41.5 % (20-40); Mean Corpuscular HGB Conc 32.6 g/dl (31.0-35.0); Mean Corpuscular Hemoglobin 31.1 pg (27.0-33.0); Mean Corpuscular Volume 95.4 fL (80.0-98.0); Monocytes Absolute Auto 0.6 X10*3/uL (0.1-1.2); Monocytes Percent Auto 12.4 % (2-11); Neutrophils Absolute Auto 2.2 x10*3/uL (2.0-8.3); Neutrophils Percent Auto 41.6 % (45-73); Platelet Count 234 X10*3/uL (160-400); Red Blood Count 3.02 X10*6/uL (4.20-5.50); Red Cell Distribution Width 13.2 % (11.0-16.0); White Blood Count 5.2 X10*3/uL (4.8-10.8)
[2023-12-15 06:34] LABS: Anion Gap 10 (12-20); Blood Urea Nitrogen 18 mg/dL (9-16); Calcium 11.6 mg/dL (8.4-10.2); Carbon Dioxide 25 mmol/L (22-29); Chloride 111 mmol/L (96-108); Creatinine Clr Calc Pharmacy 37.7; Estimated Glomerular Filt Rate 47; Glucose Random 96 mg/dL (60-115); Potassium 3.5 mmol/L (3.3-5.1); Sodium 142 mmol/L (135-145)
[2023-12-15 07:40] VITALS: BP 158/67; PULSE 67; RESP 16; TEMP 36.8; O2SAT 66
[2023-12-15 07:45] LABS: Glucose, Whole Blood 105 mg/dL (60-115)
[2023-12-15] MEDS: Atorvastatin Calcium 40 MG TABLET PO (08:01)
[2023-12-15] MEDS: Gabapentin 300 MG CAPSULE PO ×2 (08:02→21:32)
[2023-12-15] MEDS: Dextrose 5 % and 0.9 % NaCl 1,000 ML 100 ML IVCONT ×2 (08:02→16:52)
[2023-12-15] MEDS: Famotidine 20 MG TABLET PO (08:02)
[2023-12-15] MEDS: Clopidogrel Bisulfate 75 MG TABLET PO (08:02)
[2023-12-15] MEDS: Docusate Sodium 100 MG CAPSULE PO (08:02)
[2023-12-15] MEDS: Donepezil HCl 5 MG TABLET PO (08:02)
--- NOTE | 2023-12-15 10:31 | P.PNIM_ITS ---
Subjective Subjective Date of Service: 12/15/23 Interval History: Overall feeling a bit better, still complaining of dysphagia Physical Exam 2 Vital Signs: Vital Signs: Last Vital Signs Temp 98.3 F 12/15/23 07:40 Pulse 67 12/15/23 07:40 Resp 16 12/15/23 07:40 BP 158/67 H 12/15/23 07:40 Pulse Ox 66 L 12/15/23 07:40 O2 Del Method Room Air 12/15/23 07:40 BMI result Body Mass Index 27.1 Constitutional - Awake and Alert, No apparent distress Eyes - PERRLA, EOMI Cardiovascular - S1S2, RRR, No edema Respiratory - Normal lung expansion, Normal respiratory effort, No respiratory distress, CTA bilaterally Gastrointestinal - mild bilateral lower abd pain. ND; +BS; No rebound or guarding Extremities - no calf tenderness bilaterally, no swelling Skin - Warm/Dry Neurological - Alert & oriented x3 Psychological - Appropriate affect Objective Data Active Medications Acetaminophen (Acetaminophen 325 Mg Tablet) 650 mg PO Q6H PRN PRN Reason: Pain, Mild (Pain Scale 1-3) Atorvastatin Calcium (Atorvastatin Calcium 40 Mg Tablet) 40 mg PO DAILY [facility] Last Admin: 12/15/23 08:01 Dose: 40 mg Documented By: OTTO Clopidogrel Bisulfate (Clopidogrel Bisulfate 75 Mg Tablet) 75 mg PO DAILY [facility] Last Admin: 12/15/23 08:02 Dose: 75 mg Documented By: OTTO Docusate Sodium (Docusate Sodium 100 Mg Capsule) 100 mg PO DAILY [facility] Last Admin: 12/15/23 08:02 Dose: 100 mg Documented By: OTTO Donepezil HCl (Donepezil Hcl 5 Mg Tablet) 5 mg PO DAILY [facility] Last Admin: 12/15/23 08:02 Dose: 5 mg Documented By: OTTO Famotidine (Famotidine 20 Mg Tablet) 20 mg PO DAILY [facility] Last Admin: 12/15/23 08:02 Dose: 20 mg Documented By: OTTO Gabapentin (Gabapentin 300 Mg Capsule) 300 mg PO BID [facility] Last Admin: 12/15/23 08:02 Dose: 300 mg Documented By: OTTO Glucose (Glucose Gel 15 Gm Gel..Gram.) 15 gm PO Q15M PRN; Protocol PRN Reason: per Hypoglycemia Standing Ord. Dextrose (D10) 250 mls @ 750 mls/hr IV Q15M PRN; Protocol PRN Reason: per Hypoglycemia Standing Ord. Dextrose/Sodium Chloride (D5ns) 1,000 mls @ 100 mls/hr IVCONT .Q10H [facility] Last Admin: 12/15/23 08:02 Dose: 100 mls/hr Documented By: OTTO Insulin Human Lispro (Insulin Lispro 100 Unit/Ml 3 Ml Vial) 0 unit SUBCUT QIDACHS [facility]; Protocol Last Admin: 12/15/23 07:56 Dose: Not Given Documented By: OTTO Non-Admin Reason: No Insulin Coverage Levothyroxine Sodium (Levothyroxine Sodium 75 Mcg Tablet) 75 mcg PO DAILY@0600 [facility] Last Admin: 12/15/23 05:15 Dose: 75 mcg Documented By: REI Melatonin (Melatonin 3 Mg Tablet) 6 mg PO BEDTIME PRN PRN Reason: Insomnia Morphine Sulfate (Morphine Sulfate 4 Mg/Ml Cartridge) 4 mg IVPUSH Q4H PRN; Protocol PRN Reason: Pain, Severe (Pain Scale 7-10) Last Admin: 12/15/23 09:43 Dose: 4 mg Documented By: OTTO Ondansetron HCl (Ondansetron Hcl 4 Mg/2 Ml Vial) 4 mg IVPUSH Q8H PRN PRN Reason: Nausea and Vomiting Last Admin: 12/14/23 10:39 Dose: 4 mg Documented By: LUCAS Sodium Chloride (0.9 % Sodium Chloride Flush 3 Ml Syringe) 3 ml IVFLUSH QSHIFT [facility] Last Admin: 12/15/23 07:56 Dose: Not Given Documented By: OTTO Non-Admin Reason: IV Running Labs 12/15/23 06:05 12/15/23 06:05 Labs: Laboratory Results - last 24 hr 12/14/23 12/14/23 12/14/23 11:16 16:40 19:49 MCV MCH MCHC RDW Plt Count MPV Immature Gran % (Auto) Neut % (Auto) Lymph % (Auto) Carlton % (Auto) Eos % (Auto) Baso % (Auto) Lymph # (Auto) Carlton # (Auto) Eos # (Auto) Baso # (Auto) Abs Immat Gran (auto) Absolute Neuts (auto) Absolute Nucleated RBC Nucleated RBC % (auto) Anion Gap Estim Creat Clear Calc Estimated GFR POC Glucose 73 78 83 Random Glucose Calcium 12/15/23 12/15/23 06:05 07:34 MCV 95.4 MCH 31.1 MCHC 32.6 RDW 13.2 Plt Count 234 MPV 11.0 Immature Gran % (Auto) 0.4 Neut % (Auto) 41.6 L Lymph % (Auto) 41.5 H Carlton % (Auto) 12.4 H Eos % (Auto) 3.3 Baso % (Auto) 0.8 Lymph # (Auto) 2.1 Carlton # (Auto) 0.6 Eos # (Auto) 0.2 Baso # (Auto) 0.0 Abs Immat Gran (auto) 0.02 Absolute Neuts (auto) 2.2 Absolute Nucleated RBC 0.000 Nucleated RBC % (auto) 0.0 Anion Gap 10 L Estim Creat Clear Calc 37.7 Estimated GFR 47 POC Glucose 105 Random Glucose 96 Calcium 11.6 H Microbiology Microbiology Results: Microbiology 12/12/23 Unknown Urine Culture - Final Urine clean catch - Urine dowell top Assessment and Plan (1) Multiple myeloma: Status: Acute (2) Hypercalcemia: Status: Acute (3) Necrotizing inflammation of lymph node: Status: Acute (4) Acute kidney failure: Status: Acute (5) Adnexal mass: Status: Acute (6) Thyroid nodule: Status: Acute (7) Dysphagia: Status: Acute Plan 68F PMH hypertension, [id number] diabetes mellitus, mood disorder, gastroesophageal reflux disease, hypothyroidism who presented to the emergency department for evaluation of weakness and low back pain. found to have hypercalcemia and lytic lesions suspicious for MM severe hypercalcemia likely due to multiple myeloma SPEP, UPEP and serum light chains pending oncology follow up plan for outpt PET scan. Pt lives in [place] and was planning on returning 12/23 but will consider extending visit pending oncology recommendations Received IV pamidronate in ED with improvement in Ca from 16.0 --> 13.2-->12.1 - > 11.6. contnue D5NS and monitor -PTH 5 Acute kidney injury- resolved Unknown baseline. 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 DEPARTMENT COORDINATOR consult. Outpt MRI Thyroid nodule -1.8cm low-density thyroid nodule lower pole of left lobe of thyroid gland -outpt u/s and follow up [id number] diabetes mellitus- with borderline hypoglycemia -Humalog on sliding scale Hypothyroidism continue levothyroxine Gastroesophageal reflux disease continue PPI DVT prophylaxis-mechanical due to anemia Full code reason for continued hospitalization:hypercalcemia needing ivf Quality Stroke Does the patient have a stroke diagnosis?: No VTE Prior VTE?: No VTE Risk Level:: Medical - moderate - high VTE Device Contraindication: N/A - Device Ordered VTE Drug Contraindication: Treatment Not Indicated
[2023-12-15 11:15] LABS: Glucose, Whole Blood 101 mg/dL (60-115)
[2023-12-15 16:00] VITALS: BP 157/74; PULSE 88; RESP 16; TEMP 36.2; O2SAT 94
[2023-12-15 16:40] LABS: Glucose, Whole Blood 157 mg/dL (60-115)
[2023-12-15] MEDS: Lactulose 20 GM/30 ML SOLUTION 30 GM PO (18:23)
[2023-12-15 19:37] VITALS: BP 187/75; PULSE 75; RESP 18; TEMP 37.2; O2SAT 94
[2023-12-15 20:24] LABS: Glucose, Whole Blood 99 mg/dL (60-115)
[2023-12-15] MEDS: 0.9 % Sodium Chloride Flush 3 ML SYRINGE IVFLUSH (21:32)
[2023-12-15 21:58] VITALS: BP 187/75
[2023-12-15] MEDS: amLODIPine Besylate 5 MG TABLET PO (21:58)
[2023-12-15 23:26] VITALS: BP 162/75; PULSE 78; RESP 18; TEMP 37; O2SAT 94
[2023-12-16] MEDS: Dextrose 5 % and 0.9 % NaCl 1,000 ML 100 ML IVCONT (02:50)
[2023-12-16 04:00] VITALS: BP 149/66; PULSE 72; RESP 18; TEMP 36.5; O2SAT 95
[2023-12-16] MEDS: Levothyroxine Sodium 75 MCG TABLET PO (05:35)
[2023-12-16 07:37] VITALS: BP 168/78; PULSE 88; RESP 16; TEMP 36.4; O2SAT 95
[2023-12-16 07:39] LABS: Glucose, Whole Blood 113 mg/dL (60-115)
[2023-12-16] MEDS: Acetaminophen 325 MG TABLET 650 MG PO (08:19)
[2023-12-16 08:20] VITALS: BP 168/78
[2023-12-16] MEDS: Famotidine 20 MG TABLET PO (08:20)
[2023-12-16] MEDS: Gabapentin 300 MG CAPSULE PO (08:20)
[2023-12-16] MEDS: amLODIPine Besylate 5 MG TABLET PO (08:20)
[2023-12-16] MEDS: Clopidogrel Bisulfate 75 MG TABLET PO (08:20)
[2023-12-16] MEDS: Docusate Sodium 100 MG CAPSULE PO (08:20)
[2023-12-16] MEDS: Donepezil HCl 5 MG TABLET PO (08:20)
[2023-12-16] MEDS: Atorvastatin Calcium 40 MG TABLET PO (08:20)
[2023-12-16 08:27] LABS: Hematocrit 29.8 % (37.0-47.0); Hemoglobin 9.7 g/dl (12.0-16.0); Mean Corpuscular HGB Conc 32.6 g/dl (31.0-35.0); Mean Corpuscular Hemoglobin 30.8 pg (27.0-33.0); Mean Corpuscular Volume 94.6 fL (80.0-98.0); Mean Platelet Volume 11.2 fL (9.4-12.3); Platelet Count 245 X10*3/uL (160-400); Red Blood Count 3.15 X10*6/uL (4.20-5.50); Red Cell Distribution Width 13.2 % (11.0-16.0); White Blood Count 6.4 X10*3/uL (4.8-10.8)
[2023-12-16 08:35] LABS: Alanine Aminotransferase 7 U/L (0-31); Albumin Level 3.4 g/dL (3.5-5.0); Alkaline Phosphatase 51 U/L (39-117); Anion Gap 10 (12-20); Aspartate Amino Transferase 18 U/L (5-31); Bilirubin Direct 0.2 mg/dL (0.0-0.5); Bilirubin Total 0.3 mg/dL (0.0-1.0); Blood Urea Nitrogen 12 mg/dL (9-16); Calcium 11.2 mg/dL (8.4-10.2); Carbon Dioxide 24 mmol/L (22-29); Chloride 112 mmol/L (96-108); Creatinine Clr Calc Pharmacy 42.5; Estimated Glomerular Filt Rate 54; Glucose Fasting 118 mg/dL (60-99); Magnesium 1.5 mg/dL (1.6-2.6); Potassium 3.4 mmol/L (3.3-5.1); Sodium 143 mmol/L (135-145); Total Protein 5.8 g/dL (6.5-8.0)
--- NOTE | 2023-12-16 09:45 | MHC.SPEECHCO ---
CLINICAL MICROBIOLOGIST follow-up on hold for procedure today, will continue to follow. Previous recommendation for Regular Solids and Thin Liquids.
[2023-12-16 11:07] LABS: Glucose, Whole Blood 99 mg/dL (60-115)
--- NOTE | 2023-12-16 12:00 | MHC.SPEECHCO ---
Per RN, Pt NPO for procedure today. Please contact JAVA DEVELOPER ARCHITECT if re-assessment needed today otherwise will follow-up tomorrow. Previous recommendation for REGULAR SOLIDS and THIN LIQUIDS.
--- NOTE | 2023-12-16 14:13 | MHC.CM.PN ---
pcp list given to family pt to go home with family son to transport
--- NOTE | 2023-12-16 14:14 | P.DS_ITS ---
DS: Providers Provider Date of Service: 12/16/23 Date of admission: 12/13/23 01:19 Primary care physician: Unknown Physician Consults: 12/13/23 01:22 Consult to Hematology / Oncology Routine Consulting Provider: Marta La Reason for consultation: ?multiple myeloma. 12/13/23 12:36 Consult to Gastroenterology Routine Consulting Provider: Daniel Kelly Reason for consultation: dysphagia (has probable multiple myeloma with neck mass) DS: Diagnosis Discharge Diagnosis (1) Multiple myeloma: Status: Acute DS: Summary Hospital Course Hospital Course: from initial hpi: 68-year-old male with pertinent history of hypertension, pya-rvmhorb-ejwpalsnm diabetes mellitus, mood disorder, gastroesophageal reflux disease, hypothyroidism who presents to the emergency department for evaluation of w eakness and low back pain. Patient states she fell about 3 months prior to presentation and since then she has been having low back pain. It has been progressive and without any relieving factors. Patient also complains of weakness and dizziness that has been ongoing for a while. States she lost about 15-20 lb but unknown duration. No personal history of cancer. Also has been having decreased appetite and headache. No fever, chills, palpitations, shortness of breath, changes in urinary or bowel habits. History obtained with the help of waste treatment operator In the emergency department, patient with serum calcium of 16. Imaging with lytic lesion of the left sacrum and lumbar vertebrae. Also found to have elevated creatinine and elevated serum protein. hospital course: Patient was admitted for severe hypercalcemia likely due to multiple myeloma. Workup was started and is pending. Plan for outpatient bone marrow biopsy, lymph node biopsy, PET scan. Patient to follow up with Dr. La on December 22. For hypercalcemia received pamidronate and IV fluids and calcium in improved to 11.2 at time of discharge and patient is asymptomatic. Acute kidney injury resolved with IV fluids. For dysphagia patient was seen by speech and is tolerate regular solids with thin liquids, underwent GI series, report is pending and should be followed up. Likely dysphagia due to necrotic lymph node. Patient incidentally found to have left adnexal mass which can be evaluated with MRI as outpatient. For diabetes with borderline hypoglycemia was continued on sliding scale. For hypothyroidism was continued on Synthroid. For GERD was continued on PPI. Patient is tolerating solid diet and is feeling stronger, will be discharged home. Time Attestation Discharge Coordination Time (in mins): 34 Quality: Safe Use of Opioids Does Pt have an Active Cancer Diagnosis on the Problem List?: Yes Opioid Measure Date for [facility] Report: 11/16/23 Opioid Measure Time for [facility] Report: 14:14 Quality: Stroke Does the patient have a stroke diagnosis?: No Physical Exam Vital Signs: Vital Signs: Last Vital Signs Temp 97.6 F 12/16/23 07:37 Pulse 88 12/16/23 07:37 Resp 16 12/16/23 07:37 BP 168/78 H 12/16/23 08:20 Pulse Ox 95 12/16/23 07:37 O2 Del Method Room Air 12/16/23 07:37 BMI result Body Mass Index 27.1 Constitutional - Awake and Alert, No apparent distress Eyes - PERRLA, EOMI Cardiovascular - S1S2, RRR, No edema Respiratory - Normal lung expansion, Normal respiratory effort, No respiratory distress, CTA bilaterally Gastrointestinal - mild bilateral lower abd pain. ND; +BS; No rebound or guarding Extremities - no calf tenderness bilaterally, no swelling Skin - Warm/Dry Neurological - Alert & oriented x3 Psychological - Appropriate affect DS: Data Data Completed and Pending Labs on day of discharge: Laboratory Results - last 24 hr 12/15/23 12/15/23 12/16/23 16:36 20:13 07:20 WBC RBC Hgb Hct MCV MCH MCHC RDW Plt Count MPV Absolute Nucleated RBC Nucleated RBC % (auto) Sodium Potassium Chloride Carbon Dioxide Anion Gap BUN Creatinine Estim Creat Clear Calc Estimated GFR POC Glucose 157 H 99 113 Fasting Glucose Calcium Magnesium Total Bilirubin Direct Bilirubin AST ALT Alkaline Phosphatase Total Protein Albumin 12/16/23 12/16/23 07:42 10:50 WBC 6.4 RBC 3.15 L Hgb 9.7 L Hct 29.8 L MCV 94.6 MCH 30.8 MCHC 32.6 RDW 13.2 Plt Count 245 MPV 11.2 Absolute Nucleated RBC 0.000 Nucleated RBC % (auto) 0.0 Sodium 143 Potassium 3.4 Chloride 112 H Carbon Dioxide 24 Anion Gap 10 L BUN 12 Creatinine 1.02 Estim Creat Clear Calc 42.5 Estimated GFR 54 POC Glucose 99 Fasting Glucose 118 H Calcium 11.2 H Magnesium 1.5 L Total Bilirubin 0.3 Direct Bilirubin 0.2 AST 18 ALT 7 Alkaline Phosphatase 51 Total Protein 5.8 L Albumin 3.4 L Discharge Plan Discharge Anticipated Discharge Date/Time: 12/16/23 14:09 Patient Disposition: Home, Self-Care Discharge Diagnosis: suspected malnignancy Referrals: Marta La MD [Physician] - 1 Week Physician,Erinn Copeland [Primary Care Provider] - 1 Week Discharge Medications: New amlodipine 5 mg Tablet 5 mg PO DAILY Qty: 90 0RF Protocol: Hold for SBP< HOLD for SBP < : 90 Continued famotidine 20 mg Tablet 20 mg PO DAILY atorvastatin 40 mg Tablet 40 mg PO DAILY omega-3 fatty acids 1,000 mg Capsule 1,000 mg PO BID levothyroxine 75 mcg Tablet 75 mcg PO DAILY cholecalciferol (vitamin D3) [Vitamin D3] 125 mcg (5,000 unit) Tablet 125 mcg PO DAILY metformin 500 mg Tablet 500 mg PO DAILY lisinopril 10 mg Tablet 10 mg PO DAILY clopidogrel 75 mg Tablet 75 mg PO DAILY donepezil 5 mg Tablet 5 mg PO DAILY docusate sodium 100 mg Capsule 100 mg PO DAILY gabapentin 300 mg Capsule 300 mg PO BID Discharge Orders: Discharge Order (Routine); Ordered 12/16/23 Ordered By: Eyad Gramajo Diet: Advance to usual diet Activity on Discharge: As tolerated Stand Alone Forms: Patient Portal Discharge page Print Language: Norwegian Other Ambulatory Orders: CT biopsy asp core bone marrow (Routine) Timeframe: 1 Week Facility: [facility] - Location: CT Scan Ordered By: Eyad Gramajo CT biopsy bone marrow (Routine) Timeframe: 1 Week Facility: [facility] - Location: CT Scan Ordered By: Eyad Gramajo MR pelvis w con (Routine) Timeframe: 1 Week Facility: [facility] - Location: MRI Ordered By: Eyad Gramajo Care Plan Goals: work up malignancy and treat, manage hypercalcemia Health Concerns: suspected MM Plan of Treatment: dr la - december 23, 2023. [id number] follow up with interventional radiology for bone marrow biopsy and lymph node biopsy mr for left adnexal mass Assessment: see above
--- NOTE | 2023-12-16 14:17 | MHC.CM.PN ---
pt dcd home self care
[2023-12-16 18:03] LABS: IgA 85 mg/dL (70-320); IgG 1000 mg/dL (600-1540); IgM 36 mg/dL (50-300)
[2023-12-16 19:08] LABS: Beta-2 Microglobulin, Serum 6.84 mg/L (< OR = 2.51)
[2023-12-16 22:38] LABS: PES - Abn Protein Band 1 0.2 g/dL (NONE DETECTED); Prot Elec - Alpha1 0.3 g/dL (0.2-0.3); Prot Elec - Alpha2 0.6 g/dL (0.5-0.9); Prot Elec - Beta 1 0.3 g/dL (0.4-0.6); Prot Elec - Beta 2 0.3 g/dL (0.2-0.5); Prot Elec - Gamma 0.9 g/dL (0.8-1.7); Prot Elec - Total Protein 6.5 g/dL (6.1-8.1)
[2023-12-17 09:13] LABS: PEU-Protein Creat Ratio Rand 0.164 (0.024-0.184); PEU-Rand. Prot/Creat Ratio 164 mg/g creat (24-184); PEU-Random Ur. Gamma Globulin 0 %; PEU-Random Urine A1 Globulin 0 %; PEU-Random Urine A2 Globulin 0 %; PEU-Random Urine Albumin 100 %; PEU-Random Urine Beta Globulin 0 %; PEU-Random Urine Creatinine 61 mg/dL (20-275); PEU-Random Urine Protein 10 mg/dL (5-24)
[2023-12-20 01:43] LABS: Kappa, Serum 243 mg/dL (176-443); Kappa/Lambda Ratio, Serum 2.17 (1.29-2.55); Lambda, Serum 112 mg/dL (91-240)
== END 2023-12-16 15:29 | disposition home or self-care (01) | DRG 841 ==
LOC: HO.ED 12-13 01:34 → HO.EDOVER 12-13 02:05 → HO.S3 12-14 07:32
PROVIDERS: Internal Medicine Medical Oncology; Physician Assistant; Physician Assistant Medical; Admitting Provider Student in an Organized Health Care Education/Training Program; Emergency Provider Internal Medicine; Visit Provider Internal Medicine
DX: C90.00 Multiple myeloma not having achieved remission (principal); N17.9 Acute kidney failure, unspecified; E11.9 Type 2 diabetes mellitus without complications; I10 Essential (primary) hypertension; F39 Unspecified mood [affective] disorder; E83.52 Hypercalcemia; R13.10 Dysphagia, unspecified; D53.9 Nutritional anemia, unspecified; E03.9 Hypothyroidism, unspecified; K21.9 Gastro-esophageal reflux disease without esophagitis; Z20.822 Contact with and (suspected) exposure to COVID-19; Z79.84 Long term (current) use of oral hypoglycemic drugs; Z79.82 Long term (current) use of aspirin; Z79.890 Hormone replacement therapy; Z79.899 Other long term (current) drug therapy
CPT/HCPCS: 0241U; 36415; 70450; 70491; 71046; 71250; 74176; 74240; 76705; 77075; 80048; 80076; 81001; 82232; 82570; 82607; 82784; 82947; 83615; 83690; 83735; 83883; 83970; 84156; 84165; 84166; 84300; 84484; 85025; 85027; 85610; 85730; 86334; 87086; 92610; 93005; 99285; J2270; J2405; Q9967

== ENCOUNTER → 2023-12-12 19:36 | Outpatient (BNV) | payer MEDICAID, SELFPAY | PROVIDERS: Admitting Provider Student in an Organized Health Care Education/Training Program; Emergency Provider Internal Medicine; Visit Provider Internal Medicine Cardiovascular Disease | DX: R07.9 Chest pain, unspecified (principal) | CPT/HCPCS: 93010 ==

== ENCOUNTER → 2023-12-12 23:38 | Outpatient (BNV) | payer MEDICARE, MEDICAID, SELFPAY | PROVIDERS: Emergency Provider Internal Medicine; Visit Provider Student in an Organized Health Care Education/Training Program | DX: C90.00 Multiple myeloma not having achieved remission (principal) | CPT/HCPCS: 99223; 99232; 99239; 99499 ==

== ENCOUNTER 2023-12-13 01:19 | Outpatient (BNV) | payer SELFPAY | END 2023-12-16 12:15 | PROVIDERS: Admitting Provider Student in an Organized Health Care Education/Training Program; Emergency Provider Internal Medicine; Visit Provider Physician Assistant Surgical | DX: R11.0 Nausea (principal); R63.4 Abnormal weight loss | CPT/HCPCS: 74246 ==

== ENCOUNTER → 2023-12-13 01:19 | Outpatient (BNV) | payer SELFPAY | PROVIDERS: Admitting Provider Student in an Organized Health Care Education/Training Program; Emergency Provider Internal Medicine; Visit Provider Internal Medicine Gastroenterology | DX: E83.52 Hypercalcemia (principal) | CPT/HCPCS: 99223 ==

== ENCOUNTER → 2023-12-13 01:19 | Outpatient (BNV) | payer MEDICAID, SELFPAY | PROVIDERS: Admitting Provider Student in an Organized Health Care Education/Training Program; Emergency Provider Internal Medicine; Visit Provider Internal Medicine Medical Oncology | DX: C90.00 Multiple myeloma not having achieved remission (principal) | CPT/HCPCS: 99222; 99232 ==

== ENCOUNTER 2023-12-23 | Outpatient (REF) | payer OTHER, SELFPAY ==
--- NOTE | ~2023-12-23 | US_ITS ---
EXAMINATION: US VENOUS WITH DOPPLER UPPER EXTREMITY, LEFT CLINICAL INFORMATION: Left upper extremity pain and swelling. The patient said she had an IV in that arm. COMPARISON: None available. TECHNIQUE: Ultrasound of the upper extremity is performed using compression sonography and color and pulse Doppler flow with assessment of augmentation of flow. There is also imaging and Doppler assessment of the jugular and subclavian veins. Spectral analysis with color-flow imaging is performed. FINDINGS: Respiratory variation and normal compression are noted within the deep veins of the upper extremity including the basilic, brachial and radial and ulnar veins. There is normal flow in the internal jugular, subclavian and axillary veins. The proximal and mid left cephalic vein demonstrate normal vascular flow. It was difficult to appreciate the distal cephalic vein due to its small diameter. Normal vascular flow and respiratory variation are seen within the right subclavian vein. US/US venous duplex UE LT IMPRESSION: No DVT demonstrated in the left upper extremity
== END 2023-12-23 00:01 | disposition home or self-care (01) ==
LOC: HO.US
PROVIDERS: Visit Provider Internal Medicine Medical Oncology
DX: I82.A12 Acute embolism and thrombosis of left axillary vein (principal)
CPT/HCPCS: 93971

== ENCOUNTER → 2023-12-23 11:30 | Outpatient (BNV) | payer OTHER, SELFPAY | PROVIDERS: Visit Provider Internal Medicine Medical Oncology | DX: C90.00 Multiple myeloma not having achieved remission (principal) | CPT/HCPCS: 99213; 99214 ==

== ENCOUNTER 2023-12-23 16:25 | Emergency (ER) | payer MEDICAID, SELFPAY ==
[2023-12-23 16:30] VITALS: BP 108/73; PULSE 82; RESP 16; TEMP 36.8; O2SAT 97; BMI 24.5
[2023-12-23] MEDS: 0.9 % Sodium Chloride 1,000 ML 999 ML IV (17:23)
[2023-12-23 17:35] VITALS: BP 151/76; PULSE 79; RESP 16; TEMP 36.7; O2SAT 97
--- NOTE | 2023-12-23 17:54 | ED.GENADULT ---
HPI - General Adult General Chief complaint: General Medical Stated complaint: Abnormal labs Time Seen by Provider: 12/23/23 16:40 Source: patient, RN notes reviewed, old records reviewed and freelance interpreter/translator Mode of arrival: ambulatory Limitations: language barrier History of Present Illness ED Provider: Laury HPI narrative: 68-year-old female with past medical history significant for recently diagnosed multiple myeloma presents for evaluation of ?high calcium. ? Patient was admitted to this facility on 12/13/2023 with acute kidney injury and hypercalcemia. She was seen by Oncology and found to have multiple myeloma. She is following outpatient with Dr. Velasquez. The patient had an outpatient follow-up today in the office Her calcium was found to be elevated to 15.2 in the office today. The patient reports feeling chronic abdominal pain and weakness The patient was sent to the ER from outpatient oncology for ?IV Zometa that she was unable to get outpatient due to insurance issues The patient had labs this morning as well as an ultrasound left upper extremity due to swelling of the left arm. Patient does endorse some mild upper abdominal pain which she feels is chronic and ?related to a small ulcer. ? Related Data Home Medications ?Medication ?Instructions ?Recorded ?Confirmed atorvastatin 40 mg tablet 40 mg PO DAILY 12/13/23 12/23/23 cholecalciferol (vitamin D3) 125 125 mcg PO DAILY 12/13/23 12/23/23 mcg (5,000 unit) tablet (Vitamin D3) clopidogrel 75 mg tablet 75 mg PO DAILY 12/13/23 12/23/23 docusate sodium 100 mg capsule 100 mg PO DAILY 12/13/23 12/23/23 famotidine 20 mg tablet 20 mg PO DAILY 12/13/23 12/23/23 levothyroxine 75 mcg tablet 75 mcg PO DAILY 12/13/23 12/23/23 lisinopril 10 mg tablet 10 mg PO DAILY 12/13/23 12/23/23 metformin 500 mg tablet 500 mg PO DAILY 12/13/23 12/23/23 omega-3 fatty acids 1,000 mg 1,000 mg PO BID 12/13/23 12/23/23 capsule Previous Rx's ?Medication ?Instructions ?Recorded amlodipine 5 mg tablet 5 mg PO DAILY #90 tabs 12/16/23 oxycodone 5 mg tablet 5 mg PO Q8H PRN Breakthrough Pain, 12/23/23 Severe #50 tabs Allergies Allergy/AdvReac Type Severity Reaction Status Date / Time ampicillin Allergy Anaphylaxis Verified 12/23/23 16:34 aspirin Allergy Anaphylaxis Verified 12/23/23 16:34 Review of Systems Constitutional: Constitutional: Denies body ache(s), Denies chills, Denies fatigue, Denies fever(s), Reports lethargy and Reports weakness Eyes: Eyes: Denies blurry vision ENT: Denies sore throat Cardiovascular: Cardiovascular: Denies chest pain and Denies dyspnea Respiratory: Respiratory: Denies cough and Denies dyspnea Gastrointestinal: Gastrointestinal: Reports abdominal pain, Denies nausea and Denies vomiting Musculoskeletal: Musculoskeletal: Reports back pain Integumentary/Breasts: Skin/Breast: Denies rash Neurologic: Reports weakness Endocrine: Endocrine: Denies fatigue PMFSH Past Medical History Medical History Hypothyroidism Diabetes mellitus Social History Social History (Updated 12/23/23 @ 11:53 by Gail Blue) Household Members: Family Housing: Apartment Do you presently have visiting nurse or other home services: No Alcohol intake: never Comment: family at bedside Patient Tobacco Use Status: Never used Tobacco e-Cigarette/Vaping Use: Never Used Advance Directives: No Advance Directives Information Provided: No Do you have a plan to hurt others: No Plan service: No Physical Exam ED Vital Signs: Vital Signs - 24 hr 12/23/23 16:30 12/23/23 17:35 12/23/23 19:57 Temperature 98.2 F 98.0 F 98.6 F Pulse Rate 82 79 76 Respiratory Rate 16 16 16 Blood Pressure 108/73 151/76 H 153/67 H Pulse Oximetry 97 97 96 Oxygen Delivery Method Room Air Room Air Room Air BMI result Body Mass Index 24.5 Const General: healthy appearing, comfortable, no acute distress, alert and awake Nutritional Appearance: well nourished Orientation/consciousness: patient oriented x3 HENMT Head: Yes normocephalic and Yes atraumatic Throat: Yes posterior oropharynx normal Eyes Eyelids: Yes eyelids normal Conjunctivae: conjunctivae normal Sclerae: sclerae normal Corneas: corneas normal Pupils: Equal, round and reactive pupils present EOM: EOMs intact bilaterally Neck Neck: Yes full ROM Resp Effort & Inspection: normal respiratory effort, able to speak in complete sentences, no audible wheezes and not labored Auscultation: clear to auscultation bilaterally Cardio Rate: regular rate Rhythm: regular rhythm GI Inspection: No distended Palpation (GI): Soft to palpation, not firm, nontender, no guarding and not rigid Skin General skin exam: elasticity normal Neuro General: patient oriented x3 Cranial nerves: Yes Equal, round and reactive pupils present and Yes Bilaterally intact EOM present Cognition (Neuro): normal cognition Extrem Other: Moving all extremities well without any obvious deformities Course Reevaluation(s) Reevaluation #1: Discussed with Dr. Lizarraga, she agrees the patient can likely be discharged home but recommends a repeat calcium level after IV medication and fluids Time: 19:38 Reevaluation #2: Patient's repeat calcium down to 13.2, she is stable for discharge Time: 21:47 Medications Administered Discontinued Medications Generic Name Dose Route Start Last Admin Trade Name Freq PRN Reason Stop Dose Admin Sodium Chloride 1,000 mls @ 999 mls/hr 12/23/23 17:15 12/23/23 20:43 Ns IV 12/23/23 18:15 Infused .Q1H1M HAILEE Infusion Zoledronic Acid 4 mg in 100 mls @ 400 mls/hr 12/23/23 17:15 12/23/23 18:48 Zometa IV 12/23/23 17:29 Infused ONCE ONE Infusion Morphine Sulfate 4 mg 12/23/23 19:22 12/23/23 19:35 Morphine Sulfate 4 Mg/Ml Cartridge IVPUSH 12/23/23 19:23 4 mg ONCE ONE Administration Protocol Ondansetron HCl 4 mg 12/23/23 19:22 12/23/23 19:35 Ondansetron Hcl 4 Mg/2 Ml Vial IVPUSH 12/23/23 19:23 4 mg ONCE ONE Administration Medical Decision Making Medical Decision Making MDM Narrative: 68-year-old female presents for evaluation of elevated calcium. Her calcium is 15.2 on outpatient labs from today. She was sent to the ER for IV Zometa. I discussed with the pharmacist to get this medication ordered 4 mg IV as a 1 time dose. Per up-to-date, it can be repeated in 1 week if necessary. We will also treat the patient with IV fluids. I do not see any indication for further emergent workup at this time. Differential Diagnosis Differential Diagnoses: The differential diagnosis associated with the presentation includes Hypercalcemia Hyperparathyroidism Multiple myeloma Osteolytic lesions Renal failure Dehydration Admission/Observation Consideration of admission/observation: Escalation of care including admission/observation considered Consider admission due to hypercalcemia Lab Data MDM Lab Attestation statement: I reviewed the patient's lab results. I reviewed the patient's outpatient labs from 12/23/2023 at 12:21 p.m.. She has no leukocytosis. She has a very mild anemia with a normal hemoglobin and hematocrit of 35.4. Platelet count is within normal limits. Patient's BUN is slightly elevated 26 with a normal creatinine of 1.40. Patient's calcium is elevated to 15.2. Her albumin is 4.4 Labs: Lab Results 12/23/23 Range/Units 20:44 Calcium 13.2 H* D (8.4-10.2) mg/dL Discharge Plan Discharge Clinical Impression: Hypercalcemia Patient Disposition: Home, Self-Care Instructions: Hypercalcemia (ED) Additional Instructions: Follow-up with Oncology, Dr Velasquez. Drink lots of fluids Return for new or worsening symptoms Prescriptions: No Action famotidine 20 mg Tablet 20 mg PO DAILY atorvastatin 40 mg Tablet 40 mg PO DAILY omega-3 fatty acids 1,000 mg Capsule 1,000 mg PO BID levothyroxine 75 mcg Tablet 75 mcg PO DAILY cholecalciferol (vitamin D3) [Vitamin D3] 125 mcg (5,000 unit) Tablet 125 mcg PO DAILY metformin 500 mg Tablet 500 mg PO DAILY lisinopril 10 mg Tablet 10 mg PO DAILY clopidogrel 75 mg Tablet 75 mg PO DAILY docusate sodium 100 mg Capsule 100 mg PO DAILY amlodipine 5 mg Tablet 5 mg PO DAILY Qty: 90 0RF Protocol: Hold for SBP< HOLD for SBP < : 90 oxycodone 5 mg Tablet 5 mg PO Q8H PRN (Reason: Breakthrough Pain, Severe) Qty: 50 0RF Rx Instructions: Partial Fill upon patient request. Print Language: Syriac
--- NOTE | 2023-12-23 19:24 | PC.NURSE ---
Assumed care of pt. Pt lying on stretcher, c/o L leg pain, chronic. provider at bedside, plan for recheck of Ca level p IVF, pain meds and likely discharge.
[2023-12-23] MEDS: ondansetron HCL 4 MG/2 ML VIAL IVPUSH (19:35)
[2023-12-23] MEDS: Morphine Sulfate 4 MG/ML CARTRIDGE IVPUSH (19:35)
[2023-12-23 19:57] VITALS: BP 153/67; PULSE 76; RESP 16; TEMP 37; O2SAT 96
[2023-12-23 21:26] LABS: Calcium 13.2 mg/dL (8.4-10.2)
[2023-12-23 21:52] VITALS: BP 146/87; PULSE 82; RESP 20; TEMP 36.8; O2SAT 98
[2023-12-23 21:56] VITALS: BP 146/87; PULSE 82; RESP 20; TEMP 36.8; O2SAT 98
== END 2023-12-23 21:57 | disposition home or self-care (01) ==
PROVIDERS: Physician Assistant; Emergency Provider Internal Medicine
DX: E83.52 Hypercalcemia (principal); C90.00 Multiple myeloma not having achieved remission; E11.9 Type 2 diabetes mellitus without complications; Z79.84 Long term (current) use of oral hypoglycemic drugs; Z79.899 Other long term (current) drug therapy
CPT/HCPCS: 36415; 82310; 96361; 96365; 96366; 96375; 99284; J2270; J2405; J3489

== ENCOUNTER 2024-01-13 14:12 | Outpatient (REF) | payer MEDICAID, SELFPAY ==
--- NOTE | ~2024-01-13 | US_ITS ---
EXAMINATION: US PELVIS CLINICAL INFORMATION: Left adnexal mass on CT scan; postmenopausal patient. COMPARISON: CT abdomen and pelvis dated 12/12/2023. TECHNIQUE: Ultrasound of the pelvis is performed using both transabdominal and transvaginal transducers along with Doppler. Transvaginal imaging is performed due to inadequate visualization transabdominally. FINDINGS: Uterus: The uterus is anteverted and anteflexed. The uterus measures 7.8 x 2.8 x 4.3 cm. The double wall endometrial thickness is 6 3 mm. The uterus is smooth in contour and has normal myometrial echogenicity. No visible fibroid. Adnexa: Both ovaries are visualized. There is normal color flow to the adnexa. There is no ovarian torsion. There is no pelvic ascites or fluid collection. Right ovary measures 1.8 x 1.8 x 2.5 cm, volume 4.2 mL. Left ovary measures 3.6 x 2.5 x 3.9 cm, volume 18.4 mL. The left ovary contains a 2.6 x 2.1 x 2.5 cm benign, simple cyst, which requires no imaging follow-up. US/US pelvic and transvaginal IMPRESSION: Unremarkable examination.
== END 2024-01-13 14:13 | disposition home or self-care (01) ==
LOC: HO.US 14:12
PROVIDERS: Visit Provider Internal Medicine Medical Oncology
DX: N94.89 Other specified conditions associated with female genital organs and menstrual cycle (principal)
CPT/HCPCS: 76830; 76856

== ENCOUNTER 2024-01-19 11:15 | Day surgery (SDC) | payer MEDICAID, SELFPAY ==
--- NOTE | ~2024-01-19 | CT_ITS ---
Concern for multiple myeloma. Patient presents for a bone marrow biopsy. PROCEDURES: 1. Limited preprocedure CT of the pelvis. Permanent images saved in PACS. 2. 11 g bone marrow core biopsy of the right posterior iliac spine 3. 11 g bone marrow aspirate of the right posterior iliac spine CLINICIANS: Luis Miguel Miller PA-C MEDICATIONS: -Versed 1.5 mg, Fentanyl 75 mcg, and lidocaine 1% 10 mL SQ -Antibiotics: None -For additional details, please see nursing flowsheet. COMPLICATIONS: None ESTIMATED BLOOD LOSS: < 5 ml CONTRAST: None SPECIMENS: 11 g core placed in formalin. Bone marrow aspirate placed in EDTA and sodium heparin tubes MODERATE SEDATION TIME: 20 min PROCEDURE NOTE: The procedure, risks, benefits, and alternatives were carefully explained to the patient and written informed consent was obtained. The patient was placed prone on the CT table. A timeout was performed. A limited CT of the pelvis was performed to localize posterior iliac spine and choose appropriate needle entry and trajectory. The patient was prepped and draped in usual sterile fashion. The skin, subcutaneous tissues, and periosteum were anesthetized with lidocaine. Under CT guidance, an 11-gauge bone marrow biopsy needle was advanced into the posterior iliac spine, with the tip positioned slightly cephalad. An 11-gauge core biopsy of the bone marrow was performed and was placed in formalin. Next, the 11-gauge bone marrow biopsy needle was then advanced into the posterior iliac spine, under CT guidance, with the tip positioned slightly caudal. A bone marrow aspiration was performed. The specimens were placed in the provided EDTA and sodium heparin tubes. The needle was removed. A dry dressing was applied and secured with Tegaderm. There were no immediate complications. The patient was stable after the procedure and was transferred to the post anesthesia care unit. The procedure was done under moderate sedation with a dedicated nurse for monitoring of vital signs. CT/CT biopsy asp core bone marrow Impression: CT-guided bone marrow biopsy and aspirate This procedure was performed by Luis Miguel Miller PA-C and supervised by Dr. Zhao.
--- NOTE | ~2024-01-19 | US_ITS ---
Left supraclavicular lymphadenopathy. PROCEDURES: 1. Limited preprocedure ultrasound of the neck. Permanent images saved in PACS. 2. Ultrasound-guided biopsy of left supraclavicular lymph node. 3. Limited post procedure ultrasound of the neck. Permanent images saved in PACS. CLINICIANS: Luis Miguel Miller PA-C MEDICATIONS: -Lidocaine 1% 10 mL SQ -Antibiotics: None -For additional details, please see nursing flowsheet. COMPLICATIONS: None ESTIMATED BLOOD LOSS: < 5 ml CONTRAST: None SPECIMENS: 5 x 18 g cores were sent to pathology and flow cytometry PROCEDURE NOTE: The procedure, risks, benefits, and alternatives were carefully explained to the patient and written informed consent was obtained. The patient was placed supine on the exam table. A timeout was performed. A limited ultrasound of the neck was performed to localize the enlarged left supraclavicular lymph node and choose appropriate needle entry and trajectory. The patient was prepped and draped in usual sterile fashion. The skin and deeper soft tissues were anesthetized with lidocaine. Under ultrasound guidance, a 17 gauge trocar needle was advanced to the left supraclavicular lesion. An 18 gauge biopsy device was inserted through the trocar needle advanced into the left supraclavicular lymph node. A total of 5 cores were performed. The specimens were placed in formalin and RPMI. The needle was removed. A limited post procedure ultrasound was then performed. Images were saved in PACS. A dry dressing was applied and secured with Tegaderm. There were no immediate complications. US/US biopsy lymph node Impression: Ultrasound-guided biopsy of the left supraclavicular lymph node This procedure was performed by Luis Miguel Miller PA-C and supervised by Dr. Zhao.
[2024-01-19 11:21] VITALS: BMI 34.3
--- NOTE | 2024-01-19 12:46 | P.HPSUR_ITS ---
Pre-Procedural Eval Section A - 24 Hr Update-Section A only Date of Service: 01/19/24 Section B - Complete if H&P > 30 days Chief Complaint: ENLARGED LYMPH NODES,LFT SUPRACLAVICULAR ADENOPATH Details of Present Illness: 68 y/o female with labs concerning for multiple myeloma. Imaging also shows left supraclavicular lymphadenopathy Relevant Family History (Specify if Yes): No Relevant Social History: None Present Medications: see Short Stay Collaborative assessment Medical History: Significant History History of Previous Operations: No relevant previous surgery Allergies: Allergies Allergy/AdvReac Type Severity Reaction Status Date / Time ampicillin Allergy Anaphylaxis Verified 12/23/23 16:34 aspirin Allergy Anaphylaxis Verified 12/23/23 16:34 Review of Systems Sugical H&P ROS: Negative: Cardiovascular and Respiratory and Yes, Specify: Constitution (fatigue) and Musculoskeletal (back pain) Exam Surgical H&P Exam: Normal: Heart, Normal: Lungs, Normal: Skin and Normal: Muna rological Plan 1) CT bone marrow biopsy 2) US left supraclavicular lymph node biopsy Time Spent With Patient Time: Total time managing care of this patient today ____ minutes.
[2024-01-19] MEDS: Lidocaine HCl 1 % MPF 5 ML VIAL SUBCUT (14:06)
[2024-01-19 14:30] VITALS: BP 106/59; PULSE 70; RESP 20; TEMP 36.4; O2SAT 98
[2024-01-19 14:37] LABS: Bone Marrow SEE SEPARATE REPORT
[2024-01-19 14:45] VITALS: BP 103/55; PULSE 60; RESP 16; O2SAT 96
[2024-01-19 15:00] VITALS: BP 114/54; PULSE 81; RESP 16; O2SAT 97
[2024-01-19 15:15] VITALS: BP 119/53; PULSE 55; RESP 16; O2SAT 95
[2024-01-19 15:33] VITALS: BP 125/56; PULSE 66; RESP 18; TEMP 36.3; O2SAT 96
== END 2024-01-19 15:45 | disposition home or self-care (01) ==
PROVIDERS: Physician Assistant Surgical; Radiology Vascular & Interventional Radiology; Visit Provider Internal Medicine Medical Oncology
PROC: (CPT 38221; principal; 2024-01-19 13:00)
DX: R59.0 Localized enlarged lymph nodes (principal); D64.9 Anemia, unspecified; E83.52 Hypercalcemia; M54.9 Dorsalgia, unspecified; R53.83 Other fatigue; Z88.4 Allergy status to anesthetic agent; Z88.1 Allergy status to other antibiotic agents
CPT/HCPCS: 36415; 38222; 38505; 76942; 88184; 88185; 88237; 88264; 88300; 88305; 88311; 88313; 88341; 88342; 88360; 88365; 99152; J2250; J2310; J3010

== ENCOUNTER → 2024-01-19 11:29 | Outpatient (BNV) | payer MEDICAID, SELFPAY | PROVIDERS: Visit Provider Physician Assistant Surgical | DX: C90.00 Multiple myeloma not having achieved remission (principal) | CPT/HCPCS: 38222; 77012; 99152 ==

== ENCOUNTER 2024-01-22 15:09 | Outpatient (REF) | payer MEDICAID, SELFPAY ==
--- NOTE | ~2024-01-22 | MR_ITS ---
EXAMINATION: MRI PELVIS WITH AND WITHOUT CONTRAST CLINICAL INFORMATION: Reason for Exam adnexal mass COMPARISON: CT abdomen pelvis 12/12/2023, pelvic ultrasound 01/13/2024 TECHNIQUE: Multiple routine MRI sequences through the pelvis were obtained before and after the uneventful administration of 5.5 mL of Gadavist gadolinium-based IV contrast. FINDINGS: UTERUS: Anteverted uterus has a normal configuration is normal in size. Endometrium is uniform and measures 0.2 cm in thickness. Junctional zone is normal in signal and thickness. No focal uterine mass seen. CERVIX: Unremarkable. VAGINA: Unremarkable. OVARIES: The left ovary is remarkable for a 2.5 cm unilocular simple-appearing cyst, no follow-up imaging recommended. Right ovary is unremarkable. KIDNEYS AND VISUALIZED UPPER ABDOMEN: Two normally positioned kidneys are seen. No hydronephrosis. VISUALIZED GI TRACT: Colonic diverticulosis without evidence of diverticulitis. BLADDER: Unremarkable. PELVIC FREE FLUID: No free fluid or ascites. LYMPH NODES: Again seen is bilateral iliac chain lymphadenopathy, only partially imaged for example a 1.9 cm short axis left external iliac chain node, 7:6 previously measuring 2.2 cm and a 1.0 cm short axis left external iliac chain node, 17:6 previously 1.5 cm decreased in size from prior. OSSEOUS STRUCTURES: Again seen is a destructive mass centered in the left sacrum and iliac bone, invading and expanding the paraspinous muscles, left gluteus jeffry, left iliacus and left piriformis muscles as well as the right iliac bone, left aspect of the partially imaged L4 vertebral body, left and to a lesser extent right aspect of the L5 vertebral body, left transverse process and pedicle and obliterating the left greater than right L5-S1 neural foramina with extension into and obliteration of the canal at L5-S1 and the sacrum with destruction of the sacral foramina bilaterally. Tumor is seen tracking along the sacral nerves on the left, which are expanded and blend into the piriformis mass going through the sciatic notch. Additional suspicious osseous lesions involving the left acetabulum, left iliac bone, the right ischium not previously seen. SOFT TISSUES: As detailed above under osseous structures. MR/MR pelvis wo/w con IMPRESSION: 1. Limited evaluation of the known musculoskeletal pelvic mass as this exam was performed to evaluate the left adnexal mass as clinically queried, and if any future imaging is obtained an [facility] pelvic protocol would be more appropriate for imaging characterization of the primary lesion. Again seen seen is a destructive mass centered in the left sacrum and iliac bone, invading and expanding the paraspinous muscles, left gluteus jeffry, left iliacus and left piriformis muscles as the right iliac bone, left aspect of the L4 vertebral body, the left and to a lesser extent right aspect of the L5 vertebral body, left transverse process and pedicle and obliterating the left greater than right L5-S1 neural foramina with extension into and obliteration of the canal at L5-S1 and the sacrum with destruction of the sacral foramina bilaterally. Tumor is seen tracking along the sacral nerves on the left, which are expanded. 2. Additional suspicious osseous lesions involving the left acetabulum, left iliac bone, the right ischium not previously seen, suspicious for metastases or additional sites of disease. 3. 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 4. A 2.5 cm unilocular simple appearing left ovarian cyst, now follow-up imaging recommended. The findings and recommendations were discussed with Dr. Lizarraga at the office of ordering physician Marta Velasquez MD by telephone at 02/18/2024 1:23 PM and it was ascertained that the content and urgency of the report was understood at the time of direct communication.
[2024-01-22] MEDS: gadobutroL 7.5 ML VIAL IVPUSH (16:14)
== END 2024-01-22 15:10 | disposition home or self-care (01) ==
LOC: HO.MRI 15:09
PROVIDERS: Visit Provider Internal Medicine Medical Oncology
DX: N94.89 Other specified conditions associated with female genital organs and menstrual cycle (principal)
CPT/HCPCS: 72197; A9585

== ENCOUNTER 2024-02-04 12:59 | Emergency (ER) | payer MEDICAID, SELFPAY ==
--- NOTE | ~2024-02-04 | CT_ITS ---
EXAMINATION: CT ABDOMEN AND PELVIS WITH CONTRAST CLINICAL INFORMATION: Low back pain. Nausea and vomiting. Right lower quadrant pain. COMPARISON: 12/12/2023 TECHNIQUE: Multidetector volumetric images were obtained from the superior aspect of the liver through the pubic symphysis following administration 85 mL of Omnipaque 350 intravenous contrast. Sagittal and coronal reformatted images were obtained on the technologist's workstation. Oral contrast: No This CT examination was performed using dose optimization techniques as appropriate, variously including the following: *Automated exposure control *Adjustment of mA and/or kV according to patient size (this includes techniques or standardized protocols for targeted exams where dose is matched to indication/reason for exam; i.e. extremities or head) *Use of iterative reconstruction technique DLP: 399 mGy-cm FINDINGS: LUNG BASES: The visualized lung bases are unremarkable. LIVER, GALLBLADDER, AND BILIARY TREE: The liver is normal in size, shape, and attenuation. No focal hepatic lesion or biliary ductal dilatation is present. The gallbladder is unremarkable with no evidence of radiopaque gallstones, gallbladder wall thickening, or obvious pericholecystic inflammatory changes. PANCREAS: No ductal dilatation. SPLEEN: Not enlarged. Heterogeneous enhancement. ADRENAL GLANDS: No adrenal mass. KIDNEYS AND URETERS: Symmetric in size and enhancement. 2.1 cm cyst interpolar region left kidney. No further imaging follow-up is needed. Few additional left renal hypodensities are too small to characterize. No hydronephrosis or perinephric fluid collection. BLADDER: Unremarkable. GASTROINTESTINAL TRACT: Extensive colonic diverticula with inspissated barium. No small bowel obstruction. Appendix is within normal limits. ABDOMINAL WALL: No significant hernia is appreciated. LYMPH NODES: Left para-aortic lymph node measures 2.2 x 1.2 cm. Left para-aortic lymph node measures 0.8 x 1.3 cm. Left para-aortic lymph node measures 1.1 x 1.4 cm. Aortocaval node measures 1.0 x 1.2 cm. Aortocaval lymph node measures 1.1 x 1.5 cm. VASCULAR: Normal caliber abdominal aorta. Severe atherosclerotic vascular calcification of the abdominal aorta and major branch vessels. PELVIC VISCERA: Fullness of the left adnexa with central hypodensity measuring 2.4 x 2.0 cm. OSSEOUS STRUCTURES: There is asymmetric expansion and enhancement of the left piriformis muscle which measures 5.8 x 4.0 cm in transverse dimension. There is associated destructive bone changes of the sacrum. Enhancing left paraspinal mass measuring 6.5 x 4.9 cm. There is an enlarged left pelvic sidewall lymph node measuring 2.2 x 1.6 cm. Left iliac chain lymph node measures 1.[address]/CT abdomen pelvis w IV con IMPRESSION: Asymmetric enlargement and enhancement of the left piriformis muscle measuring 5.8 x 4.0 cm. There is associated destructive bone changes of the sacrum and left iliac bone. There is an enhancing left paraspinal mass measuring 6.5 x 4.9 cm. The masses are likely contiguous. The appearance is concerning for neoplasm. The appearance is similar to 12/12/2023. MRI pelvis with contrast is recommended for further characterization. Multiple enlarged left pelvic and retroperitoneal lymph nodes likely on the basis of metastatic disease. Fullness of the left adnexa with central hypodensity measuring 2.4 x 2.0 cm.
[2024-02-04 13:25] VITALS: BP 157/98; PULSE 64; O2SAT 98
[2024-02-04 13:30] VITALS: BP 145/72; PULSE 61; RESP 18; TEMP 36.8; O2SAT 98
[2024-02-04 13:46] VITALS: BP 145/72; PULSE 61; RESP 18; TEMP 36.8; O2SAT 98; BMI 23.4
--- NOTE | 2024-02-04 13:55 | ED_ITS ---
HPI - General Adult General Chief complaint: Back Pain/Injury Stated complaint: VOMITING,LOW BACK PAIN, NEW INJURY PER EMS Time Seen by Provider: 02/04/24 13:32 Source: patient, EMS, RN notes reviewed and old records reviewed Mode of arrival: EMS History of Present Illness ED Provider: Anny Rothman PA-C HPI narrative: 68-year-old female with a past medical history of diabetes, hypothyroid, hypercalcemia, TIA on Plavix, recently diagnosed w/multiple myeloma, presenting to the ED via EMS complaining of acute on chronic low back pain since last night, nausea, vomiting, and decreased p.o. intake. Reports pain radiates down bilateral LE > left. Reports fall onto buttock months ago in [place], denies more recent injury/trauma or fall. Does report recent lymph node and bone marrow biopsy and feels pain is worsening since then. Also reports generalized fatigue/weakness. Denies fever, chills, CP/SOB, abdominal pain, hematuria, incontinence Related Data Home Medications ?Medication ?Instructions ?Recorded ?Confirmed atorvastatin 40 mg tablet 40 mg PO DAILY 12/13/23 01/29/24 cholecalciferol (vitamin D3) 125 125 mcg PO DAILY 12/13/23 01/29/24 mcg (5,000 unit) tablet (Vitamin D3) clopidogrel 75 mg tablet 75 mg PO DAILY 12/13/23 01/29/24 docusate sodium 100 mg capsule 100 mg PO DAILY 12/13/23 01/29/24 famotidine 20 mg tablet 20 mg PO DAILY 12/13/23 01/29/24 levothyroxine 75 mcg tablet 75 mcg PO DAILY 12/13/23 01/29/24 lisinopril 10 mg tablet 10 mg PO DAILY 12/13/23 01/29/24 metformin 500 mg tablet 500 mg PO DAILY 12/13/23 01/29/24 omega-3 fatty acids 1,000 mg 1,000 mg PO BID 12/13/23 01/29/24 capsule Previous Rx's ?Medication ?Instructions ?Recorded amlodipine 5 mg tablet 5 mg PO DAILY #90 tabs 12/16/23 ondansetron 8 mg disintegrating 8 mg PO Q8H #50 tabs 01/27/24 tablet oxycodone 5 mg tablet 5 mg PO Q8H PRN Breakthrough Pain, 01/27/24 Severe #50 tabs acetaminophen 500 mg tablet 500 mg PO Q6H PRN fever or pain 02/04/24 (Tylenol Extra Strength) #14 tabs cyclobenzaprine 10 mg tablet 10 mg PO TID PRN muscle spasm #14 02/04/24 tabs lidocaine 5 % topical patch 1 patch topical DAILY PRN pain #30 02/04/24 (Lidoderm) ea Allergies Allergy/AdvReac Type Severity Reaction Status Date / Time ampicillin Allergy Anaphylaxis Verified 02/04/24 13:50 aspirin Allergy Anaphylaxis Verified 02/04/24 13:50 diphenhydramine Allergy Unknown Verified 02/04/24 13:50 [From Benadryl] Review of Systems 2 Review of Systems: Constitutional: No Fever, No Chills ENT/Mouth: No Ear Pain, No Nasal Congestion, No sore throat, No Rhinorrhea, No Swallowing Difficulty Cardiovascular: No Chest Pain, No SOB Respiratory: No Cough, No Sputum Gastrointestinal: + Nausea, + Vomiting, No Diarrhea, No Constipation, No Abdominal pain Genitourinary: No Dysuria, No Urinary Frequency, No Hematuria, No Urinary Incontinence/retention, No Flank Pain Musculoskeletal: + joint pain, + Myalgias, No Joint Swelling Skin: No Skin Lesions, No rash Neuro: + Weakness, No Numbness, No Paresthesias Yes all other systems are reviewed and are negative Constitutional: Constitutional: Reports as per HPI Neurologic: Denies Sensory deficit (Neuro) [facility] Past Medical History Attestation statement: The following information was validated with the patient. Source: old records reviewed Medical History Hypothyroidism Diabetes mellitus Social History Social History Household Members: Family Housing: Apartment Do you presently have visiting nurse or other home services: No Alcohol intake: never Comment: family at bedside Patient Tobacco Use Status: Never used Tobacco e-Cigarette/Vaping Use: Never Used service: No Physical Exam ED Vital Signs: Vital Signs - 24 hr 02/04/24 13:30 02/04/24 13:46 02/04/24 17:00 Temperature 98.3 F 98.3 F 98.3 F Pulse Rate 61 61 65 Respiratory Rate 18 18 16 Blood Pressure 145/72 H 145/72 H 127/52 L Pulse Oximetry 98 98 99 Oxygen Delivery Method Room Air Room Air BMI result Body Mass Index 23.4 Const General: cooperative, healthy appearing and no acute distress Orientation/consciousness: patient oriented x3 Limitations: no limitations HENMT Head: Yes normal to inspection and Yes atraumatic Ears: hearing grossly normal bilaterally General nose exam: Normal external nose present Face and sinus: Yes normal facial exam Eyes General: appearance normal, both eyes and all related structures EOM: EOMs intact bilaterally Neck Neck: Yes normal visual inspection and Yes no meningeal signs Resp Effort & Inspection: normal respiratory effort and no respiratory distress Cardio Rate: regular rate Heart sounds: S1 normal heart sound present and S2 normal heart sound present Peripheral pulses: Peripheral pulses 2+ throughout GI Inspection: Yes normal to inspection Palpation (GI): Soft to palpation, Tenderness to palpation present (GI) in the RLQ; with no rebound tenderness, no guarding and not rigid General: Yes no CVA tenderness Back/Spine/Pelvis Other: No midline cervical/thoracic/lumbar spinous tenderness/step-off or deformity. Back pain not reproducible. Prior biopsy site without erythema or warmth. No fluctuance or induration Back: no CVA tenderness Skin Rashes: no rashes Wounds: no wounds Neuro Other: Strength intact throughout. No saddle anesthesia. Sensation intact to light touch. Neurovascular intact distally General: patient oriented x3, tone normal, moves all extremities and no meningeal signs Cranial nerves: Yes CN's II-XII intact bilaterally Sensory Exam: No Sensory deficit (Neuro) Extrem General: Yes normal to inspection Course Course Course Narrative: -no leukocytosis. Labs otherwise reassuring. Calcium WNL. -COVID/flu/RSV negative -patient is tolerating p.o. in the ED CT abdomen pelvis w IV con IMPRESSION: Asymmetric enlargement and enhancement of the left piriformis muscle measuring 5.8 x 4.0 cm. There is associated destructive bone changes of the sacrum and left iliac bone. There is an enhancing left paraspinal mass measuring 6.5 x 4.9 cm. The masses are likely contiguous. The appearance is concerning for neoplasm. The appearance is similar to 12/12/2023. MRI pelvis with contrast is recommended for further characterization. Multiple enlarged left pelvic and retroperitoneal lymph nodes likely on the basis of metastatic disease. Fullness of the left adnexa with central hypodensity measuring 2.4 x 2.0 cm. >> case discussed with Dr. Velasquez, patient's oncologist, sadly patient's bone marrow biopsy and lymph node biopsy need to be reperformed as they were nonrevealing. No need for admission at this time, plan is for pain control and possibly PT/case management > on re-evaluation patient reports symptomatic improvement after medications given in the ED. CT results discussed. Discussed needed close follow-up with Oncology/surgery for repeat biopsies which patient and daughter are both aware of. Feel comfortable for discharge home at this time, State patient has home PT/nurse and enough help in the home, not interested in PT/case management eval in the ED today. Results discussed with patient including worrisome signs and symptoms and strict return precautions, and when to return to the emergency department. They verbalized understanding and feel safe for discharge at this time. Medications Administered Discontinued Medications Generic Name Dose Route Start Last Admin Trade Name Freq PRN Reason Stop Dose Admin Acetaminophen 975 mg 02/04/24 16:27 02/04/24 16:47 Acetaminophen 325 Mg Tablet PO 02/04/24 16:28 975 mg ONCE ONE Administration Cyclobenzaprine HCl 10 mg 02/04/24 16:27 02/04/24 16:47 Cyclobenzaprine Hcl 10 Mg Tablet PO 02/04/24 16:28 10 mg ONCE ONE Administration Sodium Chloride 1,000 mls @ 999 mls/hr 02/04/24 16:30 02/04/24 16:51 Ns IV 02/04/24 17:30 999 mls/hr .Q1H1M HAILEE Administration Iohexol 100 ml 02/04/24 16:00 02/04/24 16:01 Iohexol 350 Mg/Ml 100 Ml Infus..Btl IV 02/04/24 16:01 85 ml ONCE ONE Administration Medical Decision Making Medical Decision Making MDM Narrative: 68-year-old female with a past medical history of diabetes, hypothyroid, hypercalcemia, TIA on Plavix, recently diagnosed w/multiple myeloma, presenting to the ED via EMS complaining of acute on chronic low back pain since last night, nausea, vomiting, and decreased p.o. intake. Also reports generalized fatigue/weakness. On exam vital signs stable, NAD, nontoxic appearing, no midline spinous tenderness or red flag symptoms, abdomen soft with RLQ tenderness, no rebound or guarding. Concern for acute on chronic back pain from fall vs multiple myeloma vs ?fx. Concern for appendicitis vs colitis vs metabolic abnormality/hypercalcemia. Low suspicion for severe sepsis at this time. Unlikely cauda equina/cord compression or biopsy complication Plan: EKG, labs, UA, COVID/flu/RSV testing, CT AP, IVF, re-evaluate Please refer to course for remaining clinical decision making, interpretation of labs/imaging results, and discussions with consultants and/or family members. Differential Diagnosis Differential Diagnoses: The differential diagnosis associated with the presentation includes As above Admission/Observation Consideration of admission/observation: Escalation of care including admission/observation considered Consult Healthcare Provider Management of the patient was discussed with: Photo Equipment Technician Lab Data MDM Lab Attestation statement: I reviewed the patient's lab results. 02/04/24 14:32 02/04/24 14:32 Labs: Lab Results 02/04/24 02/04/24 02/04/24 Range/Units 14:31 14:32 14:32 WBC 5.8 (4.8-10.8) X10*3/uL RBC 4.04 L (4.20-5.50) X10*6/uL Hgb 12.3 (12.0-16.0) g/dl Hct 37.2 (37.0-47.0) % MCV 92.1 (80.0-98.0) fL MCH 30.4 (27.0-33.0) pg MCHC 33.1 (31.0-35.0) g/dl RDW 13.1 (11.0-16.0) % Plt Count 276 (160-400) X10*3/uL MPV 10.8 (9.4-12.3) fL Immature Gran % (Auto) 0.3 (0.0-0.4) % Neut % (Auto) 53.7 (45-73) % Lymph % (Auto) 37.3 (20-40) % Harper % (Auto) 6.6 (2-11) % Eos % (Auto) 1.2 (0-4) % Baso % (Auto) 0.9 (0-2) % Lymph # (Auto) 2.2 (1.2-4.9) X10*3/uL Harper # (Auto) 0.4 (0.1-1.2) X10*3/uL Eos # (Auto) 0.1 (0.0-0.4) X10*3/uL Baso # (Auto) 0.1 (0.0-0.2) X10*3/uL Abs Immat Gran (auto) 0.02 (0.00-0.03) X10*3/uL Absolute Neuts (auto) 3.1 (2.0-8.3) x10*3/uL Absolute Nucleated RBC 0.000 (0.0-0.012) X10*3/uL Nucleated RBC % (auto) 0.0 (0.0-0.2) /100WBC PT 12.1 (11.1-13.3) SEC INR 1.0 (0.9-1.1) Sodium 142 (135-145) mmol/L Potassium 4.3 (3.3-5.1) mmol/L Chloride 106 (96-108) mmol/L Carbon Dioxide 26 (22-29) mmol/L Anion Gap 14 (12-20) BUN 16 (9-16) mg/dL Creatinine 0.82 (0.5-1.4) mg/dL Estim Creat Clear Calc 50.5 Estimated GFR > 60 Random Glucose 93 (60-115) mg/dL Calcium 9.4 9.5 (8.4-10.2) mg/dL Magnesium 2.2 (1.6-2.6) mg/dL Total Bilirubin 0.7 (0.0-1.0) mg/dL Direct Bilirubin 0.2 (0.0-0.5) mg/dL AST 20 (5-31) U/L ALT 9 (0-31) U/L Alkaline Phosphatase 70 (39-117) U/L Troponin I High Sens < 2.7 (<3.5-17.0) ng/L Total Protein 7.2 (6.5-8.0) g/dL Albumin 4.5 (3.5-5.0) g/dL Urine Color Urine Appearance Urine pH (5.0-9.0) Ur Specific [place] (1.005-1.025) Urine Protein (Neg-Trace) mg/dL Urine Glucose (UA) (Negative) mg/dL Urine Ketones (Negative) mg/dL Urine Blood (Negative) Urine Nitrite (Negative) Ur Leukocyte Esterase (Negative) Urine RBC (0-2) /HPF Urine WBC (0-5) /HPF Ur Squamous Epith Cells (0-2) /HPF Urine Bacteria (None Seen) Hyaline Casts (0-2) /LPF Influenza Type A (PCR) NEGATIVE (Negative) Influenza Type B (PCR) NEGATIVE (Negative) RSV RNA Qual (PCR) NEGATIVE (Negative) SARS-CoV-2 RNA (RT-PCR) NEGATIVE (Negative) 02/04/24 Range/Units 17:11 WBC (4.8-10.8) X10*3/uL RBC (4.20-5.50) X10*6/uL Hgb (12.0-16.0) g/dl Hct (37.0-47.0) % MCV (80.0-98.0) fL MCH (27.0-33.0) pg MCHC (31.0-35.0) g/dl RDW (11.0-16.0) % Plt Count (160-400) X10*3/uL MPV (9.4-12.3) fL Immature Gran % (Auto) (0.0-0.4) % Neut % (Auto) (45-73) % Lymph % (Auto) (20-40) % Harper % (Auto) (2-11) % Eos % (Auto) (0-4) % Baso % (Auto) (0-2) % Lymph # (Auto) (1.2-4.9) X10*3/uL Harper # (Auto) (0.1-1.2) X10*3/uL Eos # (Auto) (0.0-0.4) X10*3/uL Baso # (Auto) (0.0-0.2) X10*3/uL Abs Immat Gran (auto) (0.00-0.03) X10*3/uL Absolute Neuts (auto) (2.0-8.3) x10*3/uL Absolute Nucleated RBC (0.0-0.012) X10*3/uL Nucleated RBC % (auto) (0.0-0.2) /100WBC PT (11.1-13.3) SEC INR (0.9-1.1) Sodium (135-145) mmol/L Potassium (3.3-5.1) mmol/L Chloride (96-108) mmol/L Carbon Dioxide (22-29) mmol/L Anion Gap (12-20) BUN (9-16) mg/dL Creatinine (0.5-1.4) mg/dL Estim Creat Clear Calc Estimated GFR Random Glucose (60-115) mg/dL Calcium (8.4-10.2) mg/dL Magnesium (1.6-2.6) mg/dL Total Bilirubin (0.0-1.0) mg/dL Direct Bilirubin (0.0-0.5) mg/dL AST (5-31) U/L ALT (0-31) U/L Alkaline Phosphatase (39-117) U/L Troponin I High Sens (<3.5-17.0) ng/L Total Protein (6.5-8.0) g/dL Albumin (3.5-5.0) g/dL Urine Color Yellow Urine Appearance Clear Urine pH 8.0 (5.0-9.0) Ur Specific [place] 1.025 (1.005-1.025) Urine Protein Negative (Neg-Trace) mg/dL Urine Glucose (UA) Negative (Negative) mg/dL Urine Ketones Negative (Negative) mg/dL Urine Blood Negative (Negative) Urine Nitrite Negative (Negative) Ur Leukocyte Esterase Trace H (Negative) Urine RBC 0-2 (0-2) /HPF Urine WBC 0-5 (0-5) /HPF Ur Squamous Epith Cells 0-2 (0-2) /HPF Urine Bacteria None Seen (None Seen) Hyaline Casts 0-2 (0-2) /LPF Influenza Type A (PCR) (Negative) Influenza Type B (PCR) (Negative) RSV RNA Qual (PCR) (Negative) SARS-CoV-2 RNA (RT-PCR) (Negative) Independent Interpretation I performed an independent interpretation of an: EKG (My interpretation EKG normal sinus rhythm rate of 60. Pr interval 138. No significant change when compared to prior. No STEMI ) and CT Scan Radiology Impression Discussion of test interpretation with radiology: I have reviewed the radiologist's reading. Independent Historian Clinical information obtained from an independent historian. History obtained from or confirmed by: Other (daughter) External Record Review External record reviewed: Inpatient record, Office record, Outpatient record, Prior outpatient labs, Prior outpatient radiology, Primary care record and Outside ED record Tests considered The following testing was considered but not selected: As above Prescription Management I considered prescription management with: Pain Medication Chronic Conditions Patient?s care impacted by: Cancer Discharge Plan Discharge Clinical Impression: Back pain, Abdominal pain, Nausea & vomiting Patient Disposition: Home, Self-Care Instructions: Abdominal Pain (ED), Back Pain (ED) Additional Instructions: Your blood work is reassuring. Your CT scan does not show any new changes from prior CT from 12/12/2023 YOU NEED TO FOLLOW-UP WITH ONCOLOGY AND GENERAL SURGERY FOR REPEAT BIOPSIES. We suspect her symptoms are from your known mass/cancer Continue taking previously prescribed pain medication, in addition Flexeril is a muscle relaxer, take at night as it makes you drowsy, do not drive, drink alcohol, or operate machinery while taking it Lidoderm patches are numbing patches, apply to painful area In addition take Tylenol at home If symptoms persist or worsen, pain becomes unbearable, you developed urinary retention or incontinence, or weakness return to the ED Prescriptions: New cyclobenzaprine 10 mg tablet 10 mg PO TID PRN (Reason: muscle spasm) Qty: 14 0RF acetaminophen [Tylenol Extra Strength] 500 mg tablet 500 mg PO Q6H PRN (Reason: fever or pain) Qty: 14 0RF lidocaine [Lidoderm] 5 % adhesive patch,medicated 1 patch topical DAILY MDD remove after 12 hours PRN (Reason: pain) Qty: 30 0RF Rx Instructions: leave on most painful area for up to 12 hrs No Action famotidine 20 mg Tablet 20 mg PO DAILY atorvastatin 40 mg Tablet 40 mg PO DAILY omega-3 fatty acids 1,000 mg Capsule 1,000 mg PO BID levothyroxine 75 mcg Tablet 75 mcg PO DAILY cholecalciferol (vitamin D3) [Vitamin D3] 125 mcg (5,000 unit) Tablet 125 mcg PO DAILY metformin 500 mg Tablet 500 mg PO DAILY lisinopril 10 mg Tablet 10 mg PO DAILY clopidogrel 75 mg Tablet 75 mg PO DAILY docusate sodium 100 mg Capsule 100 mg PO DAILY amlodipine 5 mg Tablet 5 mg PO DAILY Qty: 90 0RF Protocol: Hold for SBP< HOLD for SBP < : 90 oxycodone 5 mg Tablet 5 mg PO Q8H PRN (Reason: Breakthrough Pain, Severe) Qty: 50 0RF Rx Instructions: Partial Fill upon patient request. ondansetron 8 mg Tablet,Disintegrating 8 mg PO Q8H Qty: 50 3RF [place] [facility] [place]] Print Language: Albanian
--- NOTE | 2024-02-04 14:05 | ECG_ITS ---
Test Reason : WEAKNESS Blood Pressure : / mmHG Vent. Rate : 060 BPM Atrial Rate : 060 BPM P-R Int : 138 ms QRS Dur : 078 ms QT Int : 422 ms P-R-T Axes : 036 063 055 degrees QTc Int : 422 ms Normal sinus rhythm Normal ECG When compared with ECG of 12-DEC-2023 19:41, No significant change was found Referred By: Anny Rothman Electronically Signed By:DIXIE SANDERS MD
[2024-02-04 14:42] LABS: MANUAL DIFF FLAG NO
[2024-02-04 14:45] LABS: Basophils Absolute Auto 0.1 X10*3/uL (0.0-0.2); Basophils Percent Auto 0.9 % (0-2); Eosinophils Absolute Auto 0.1 X10*3/uL (0.0-0.4); Eosinophils Percent Auto 1.2 % (0-4); Hematocrit 37.2 % (37.0-47.0); Hemoglobin 12.3 g/dl (12.0-16.0); Imm Gran Abs Auto 0.02 X10*3/uL (0.00-0.03); Imm Gran Pct Auto 0.3 % (0.0-0.4); Lymphocytes Absolute Auto 2.2 X10*3/uL (1.2-4.9); Lymphocytes Percent Auto 37.3 % (20-40); Mean Corpuscular HGB Conc 33.1 g/dl (31.0-35.0); Mean Corpuscular Hemoglobin 30.4 pg (27.0-33.0); Mean Corpuscular Volume 92.1 fL (80.0-98.0); Mean Platelet Volume 10.8 fL (9.4-12.3); Monocytes Absolute Auto 0.4 X10*3/uL (0.1-1.2); Monocytes Percent Auto 6.6 % (2-11); Neutrophils Absolute Auto 3.1 x10*3/uL (2.0-8.3); Neutrophils Percent Auto 53.7 % (45-73); Platelet Count 276 X10*3/uL (160-400); Red Blood Count 4.04 X10*6/uL (4.20-5.50); Red Cell Distribution Width 13.1 % (11.0-16.0); White Blood Count 5.8 X10*3/uL (4.8-10.8)
[2024-02-04 14:51] LABS: Prothrombin Time 12.1 SEC (11.1-13.3)
[2024-02-04 14:54] LABS: Calcium 9.5 mg/dL (8.4-10.2)
[2024-02-04 14:58] LABS: Alanine Aminotransferase 9 U/L (0-31); Albumin Level 4.5 g/dL (3.5-5.0); Alkaline Phosphatase 70 U/L (39-117); Anion Gap 14 (12-20); Aspartate Amino Transferase 20 U/L (5-31); Bilirubin Direct 0.2 mg/dL (0.0-0.5); Bilirubin Total 0.7 mg/dL (0.0-1.0); Blood Urea Nitrogen 16 mg/dL (9-16); Calcium 9.4 mg/dL (8.4-10.2); Carbon Dioxide 26 mmol/L (22-29); Chloride 106 mmol/L (96-108); Creatinine Clr Calc Pharmacy 50.5; Estimated Glomerular Filt Rate > 60; Glucose Random 93 mg/dL (60-115); Magnesium 2.2 mg/dL (1.6-2.6); Potassium 4.3 mmol/L (3.3-5.1); Sodium 142 mmol/L (135-145); Total Protein 7.2 g/dL (6.5-8.0)
[2024-02-04 15:08] LABS: Troponin-I High Sensitivity < 2.7 ng/L (<3.5-17.0)
[2024-02-04 15:20] LABS: Influenza A PCR NEGATIVE (Negative); Influenza B PCR NEGATIVE (Negative); Resp Syncy Virus RNA Qual PCR NEGATIVE (Negative); SARS COV2 PCR INHOUSE NEGATIVE (Negative)
[2024-02-04] MEDS: iohexoL 350 MG/ML 100 ML INFUS..BTL IV (16:01)
[2024-02-04] MEDS: Acetaminophen 325 MG TABLET 975 MG PO (16:47)
[2024-02-04] MEDS: Cyclobenzaprine HCl 10 MG TABLET PO (16:47)
[2024-02-04] MEDS: 0.9 % Sodium Chloride 1,000 ML 999 ML IV (16:51)
[2024-02-04 17:00] VITALS: BP 127/52; PULSE 65; RESP 16; TEMP 36.8; O2SAT 99
--- NOTE | 2024-02-04 17:00 | PC.NURSE ---
patient ambulated with tech and daughter, steady gait
[2024-02-04 17:19] LABS: Appearance Urine Clear; Color Urine Yellow; Glucose Urine UA Negative (Negative); Leukocyte Esterase Urine Trace (Negative); Nitrite Urine Negative (Negative); Specific Gravity - Urine 1.025 (1.005-1.025); UMIC TRIGGER UACC YES; Urine Blood Negative (Negative); Urine Ketones Negative (Negative); Urine Protein Negative (Neg-Trace)
[2024-02-04 17:24] LABS: Bacteria Urine None Seen (None Seen); Hyaline Casts Urine 0-2 /LPF (0-2); RBC Urine 0-2 /HPF (0-2); Squamous Epithelial Cell Urine 0-2 /HPF (0-2); WBC Urine 0-5 /HPF (0-5)
== END 2024-02-04 18:29 | disposition home or self-care (01) ==
PROVIDERS: Physician Assistant; Emergency Provider Internal Medicine
DX: M54.50 Low back pain, unspecified (principal); R10.31 Right lower quadrant pain; L04.9 Acute lymphadenitis, unspecified; R11.2 Nausea with vomiting, unspecified; C90.00 Multiple myeloma not having achieved remission; C77.0 Secondary and unspecified malignant neoplasm of lymph nodes of head, face and neck; N94.89 Other specified conditions associated with female genital organs and menstrual cycle; E11.9 Type 2 diabetes mellitus without complications; K21.9 Gastro-esophageal reflux disease without esophagitis; Z86.73 Personal history of transient ischemic attack (TIA), and cerebral infarction without residual deficits; Z79.02 Long term (current) use of antithrombotics/antiplatelets; Z79.899 Other long term (current) drug therapy; Z79.84 Long term (current) use of oral hypoglycemic drugs; Z03.818 Encounter for observation for suspected exposure to other biological agents ruled out
CPT/HCPCS: 0241U; 36415; 74177; 80048; 80076; 81001; 82310; 83735; 84484; 85025; 85610; 93005; 96360; 99284; 99285; Q9967

== ENCOUNTER → 2024-02-04 14:05 | Outpatient (BNV) | payer MEDICAID, SELFPAY | PROVIDERS: Emergency Provider Internal Medicine; Visit Provider Internal Medicine Cardiovascular Disease | DX: R53.1 Weakness (principal) | CPT/HCPCS: 93010 ==

== ENCOUNTER 2024-02-10 14:24 | Outpatient (AMB) | payer MEDICAID, SELFPAY ==
--- NOTE | 2024-02-10 14:26 | MHC.OFFVIS ---
Vital Signs 02/10/24 14:34 Height 4 ft 9.5 in Weight 128 lb 4 oz BMI 27.3 BP 184/81 H Blood Pressure Location Lt brachial Position Sitting Pulse 68 Intake Visit Reasons: Generalized adenopathy Intake Note: Patient is seen in office for evaluation of generalized adenopathy. Pt c/o: had a small mass on the left side of the neck around 11/2023, since December no longer is able to see the mass, has no symptoms, admits to constipation, denies n/v/d ref Dr Velasquez Satellite Tv Installer Required: Yes Satellite Tv Installer Language: Interface Designer Services: Satellite Tv Installer Present Satellite Tv Installer Name: Kayy HANNA Accompanied by: Self / Same As Patient Allergies ampicillin Allergy (Verified 02/10/24 14:37) Anaphylaxis aspirin Allergy (Verified 02/10/24 14:37) Anaphylaxis diphenhydramine [From Benadryl] Allergy (Verified 02/10/24 14:37) Unknown HPI Comments Details: 68-year-old female patient with a history of multiple myeloma found to have cervical lymphadenopathy. She previously underwent a needle biopsy of the cervical lymphadenopathy but presents today for discussion regarding a surgical biopsy for definitive diagnosis. She reports some pain associated with the lymph nodes. She denies any fever or chills. She is being followed by Dr. Velasquez. [facility] Medical History Hypothyroidism Diabetes mellitus Surgical History Hx of eye surgery Hx of section Social History Household Members: Family Housing: Apartment Do you presently have visiting nurse or other home services: No Alcohol intake: never Comment: family at bedside Patient Tobacco Use Status: Never used Tobacco e-Cigarette/Vaping Use: Never Used service: No Review of Systems Const All systems reviewed & are unremarkable except as noted in HPI and below Denies chills, Denies fever(s), Denies headache(s), Denies poor appetite and Denies weakness ENT Denies headache(s) Card Denies chest pain, Denies irregular heart rhythm, Denies palpitations and Denies dyspnea Resp Denies cough, Denies excessive phlegm production and Denies dyspnea GI Denies abdominal pain, Denies bloating, Denies change in bowel habits, Denies constipation, Denies heartburn, Denies diarrhea, Denies nausea and Denies vomiting Denies urinary frequency Musc Denies back pain, Denies muscle weakness and Denies numbness Skin/Breast Denies changing lesions and Denies unusual bruising Neuro Denies headache(s), Denies numbness, Denies paresthesias and Denies weakness Psych Denies anxiety and Denies depression Endo Denies palpitations Ulises/Lymph Denies lymphadenopathy Physical Exam Vital Signs: Last Vital Signs Pulse 68 02/10/24 14:34 BP 184/81 H 02/10/24 14:34 BMI result Body Mass Index 27.3 Const General: cooperative and no acute distress Nutritional Appearance: well nourished Orientation/consciousness: patient oriented x3 Limitations: no limitations HEENT Head: Yes normocephalic and Yes atraumatic Ears: hearing grossly normal bilaterally Neck Neck images: 1. 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 I reviewed the procedure, risks and alternatives, and she consents to biopsy of the left cervical lymphadenopathy. She will be scheduled as a short-stay surgery at her earliest convenience. 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
[2024-02-10 14:34] VITALS: BP 184/81; PULSE 68; BMI 27.3
== END 2024-02-10 15:00 | disposition home or self-care (01) ==
PROVIDERS: Referring Provider Internal Medicine Medical Oncology; Visit Provider Surgery
DX: C77.0 Secondary and unspecified malignant neoplasm of lymph nodes of head, face and neck (principal)
CPT/HCPCS: 99204

== ENCOUNTER → 2024-02-10 14:24 | Outpatient (BNVA) | payer MEDICAID, SELFPAY | PROVIDERS: Referring Provider Internal Medicine Medical Oncology; Visit Provider Surgery | DX: R59.1 Generalized enlarged lymph nodes (principal) | CPT/HCPCS: 99202 ==

== ENCOUNTER 2024-02-19 12:22 | Day surgery (SDC) | payer MEDICAID, SELFPAY ==
[2024-02-17 11:20] VITALS: BMI 27.3
[2024-02-19 13:04] VITALS: BP 145/75; PULSE 82; RESP 18; TEMP 36.6; O2SAT 100; BMI 29.8
[2024-02-19] MEDS: Lactated Ringers 1,000 ML 100 ML IVCONT (13:33)
[2024-02-19 13:34] LABS: MANUAL DIFF FLAG NO
[2024-02-19 13:36] LABS: Basophils Absolute Auto 0.1 X10*3/uL (0.0-0.2); Basophils Percent Auto 0.9 % (0-2); Eosinophils Absolute Auto 0.2 X10*3/uL (0.0-0.4); Hematocrit 34.1 % (37.0-47.0); Hemoglobin 11.3 g/dl (12.0-16.0); Imm Gran Abs Auto 0.02 X10*3/uL (0.00-0.03); Imm Gran Pct Auto 0.4 % (0.0-0.4); Lymphocytes Absolute Auto 2.5 X10*3/uL (1.2-4.9); Lymphocytes Percent Auto 44.5 % (20-40); Mean Corpuscular HGB Conc 33.1 g/dl (31.0-35.0); Mean Corpuscular Hemoglobin 30.6 pg (27.0-33.0); Mean Corpuscular Volume 92.4 fL (80.0-98.0); Mean Platelet Volume 10.2 fL (9.4-12.3); Monocytes Absolute Auto 0.4 X10*3/uL (0.1-1.2); Monocytes Percent Auto 6.1 % (2-11); Neutrophils Absolute Auto 2.6 x10*3/uL (2.0-8.3); Neutrophils Percent Auto 45.1 % (45-73); Platelet Count 264 X10*3/uL (160-400); Red Blood Count 3.69 X10*6/uL (4.20-5.50); Red Cell Distribution Width 13.5 % (11.0-16.0); White Blood Count 5.7 X10*3/uL (4.8-10.8)
[2024-02-19 13:40] LABS: Glucose, Whole Blood 79 mg/dL (60-115)
--- NOTE | 2024-02-19 13:55 | P.CONAN_ITS ---
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 (Acute) Dysphagia (Acute) Thyroid nodule (Acute) Adnexal mass (Acute) Acute kidney failure (Acute) Necrotizing inflammation of lymph node (Acute) Multiple myeloma (Acute) Hypercalcemia (Acute) Past Medical History Medical History (Updated 02/17/24 @ 11:05 by Gillian Chavez RN) Hx of hypercalcemia Mood disorder Thyroid nodule Adnexal mass GERD (gastroesophageal reflux disease) Hypothyroidism Diabetes mellitus Surgical History Surgical History (Updated 02/17/24 @ 11:03 by Gillian Chavez RN) Hx of right cataract extraction History of bone marrow biopsy (01/19/24) Hx of eye surgery Hx of section Social History Social History Household Members: Family Housing: Apartment Do you presently have visiting nurse or other home services: No Alcohol intake: never Comment: family at bedside Patient Tobacco Use Status: Never used Tobacco e-Cigarette/Vaping Use: Never Used Use of substances other than those prescribed or required for medical reasons: No Do you feel safe in your current relationship?: Yes Do you have thoughts of harming others: None Patient : No service: No Meds Allergies Allergy/AdvReac Type Severity Reaction Status Date / Time ampicillin Allergy Anaphylaxis Verified 02/19/24 12:58 aspirin Allergy Anaphylaxis Verified 02/19/24 12:58 diphenhydramine Allergy Unknown Verified 02/19/24 12:58 [From Benadryl] Home Medications ?Medication ?Instructions ?Recorded ?Confirmed ?Last Taken ?Type atorvastatin 40 mg tablet 40 mg PO DAILY 12/13/23 02/19/24 12/11/23 History cholecalciferol (vitamin D3) 125 125 mcg PO DAILY 12/13/23 02/19/24 12/11/23 History mcg (5,000 unit) tablet (Vitamin D3) clopidogrel 75 mg tablet 75 mg PO DAILY 12/13/23 02/19/24 12/11/23 History docusate sodium 100 mg capsule 100 mg PO DAILY 12/13/23 02/19/2424 History famotidine 20 mg tablet 20 mg PO DAILY 12/13/23 02/19/24 12/11/23 History levothyroxine 75 mcg tablet 75 mcg PO DAILY 12/13/23 02/19/24 12/11/23 History lisinopril 10 mg tablet 10 mg PO DAILY 12/13/23 02/19/24 12/11/23 History metformin 500 mg tablet 500 mg PO DAILY 12/13/23 02/19/24 02/19/24 History omega-3 fatty acids 1,000 mg 1,000 mg PO BID 12/13/23 02/19/24 12/11/23 History capsule Exam Height,Weight and Vital Signs: Height 4 ft 9.5 in Weight 58.241 kg Pertinent Lab Results Pertinent Lab Results: Laboratory Tests 02/04/24 14:32 WBC 5.8 Hgb 12.3 Hct 37.2 Plt Count 276 Sodium 142 Potassium 4.3 Chloride 106 Carbon Dioxide 26 BUN 16 Creatinine 0.82 Laboratory Tests 02/04/24 14:32 Calcium 9.5 Magnesium 2.2 Total Bilirubin 0.7 Direct Bilirubin 0.2 AST 20 ALT 9 Alkaline Phosphatase 70 Troponin I High Sens < 2.7 Total Protein 7.2 Albumin 4.5 Narrative Narrative: EKG 01/2024 Vent. Rate : 060 BPM Atrial Rate : 060 BPM P-R Int : 138 ms QRS Dur : 078 ms QT Int : 422 ms P-R-T Axes : 036 063 055 degrees QTc Int : 422 ms Normal sinus rhythm Normal ECG When compared with ECG of 12-DEC-2023 19:41, No significant change was found CT abdomen pelvis w IV con 01/2024 IMPRESSION: Asymmetric enlargement and enhancement of the left piriformis muscle measuring 5.8 x 4.0 cm. There is associated destructive bone changes of the sacrum and left iliac bone. There is an enhancing left paraspinal mass measuring 6.5 x 4.9 cm. The masses are likely contiguous. The appearance is concerning for neoplasm. The appearance is similar to 12/12/2023. MRI pelvis with contrast is recommended for further characterization. Multiple enlarged left pelvic and retroperitoneal lymph nodes likely on the basis of metastatic disease. Fullness of the left adnexa with central hypodensity measuring 2.4 x 2.0 cm. Assessment and Plan Assessment Anesthesia Assessment: Chart Reviewed Documented by User: Claudia Rodriguez DO 02/19/24 14:23 PMFSH Past Medical History Medical History (Updated 02/17/24 @ 11:05 by Gillian Chavez RN) Hx of hypercalcemia Mood disorder Thyroid nodule Adnexal mass GERD (gastroesophageal reflux disease) Hypothyroidism Diabetes mellitus Family History Family history of problems with anesthesia: No Surgical History Surgical History (Updated 02/17/24 @ 11:03 by Gillian Chavez RN) Hx of right cataract extraction History of bone marrow biopsy (01/19/24) Hx of eye surgery Hx of section History of Problems with Anesthesia: No Social History Social History Household Members: Family Housing: Apartment Do you presently have visiting nurse or other home services: No Alcohol intake: never Comment: family at bedside Patient Tobacco Use Status: Never used Tobacco e-Cigarette/Vaping Use: Never Used Use of substances other than those prescribed or required for medical reasons: No Do you feel safe in your current relationship?: Yes Do you have thoughts of harming others: None Patient : No service: No Meds Allergies Allergy/AdvReac Type Severity Reaction Status Date / Time ampicillin Allergy Anaphylaxis Verified 02/19/24 12:58 aspirin Allergy Anaphylaxis Verified 02/19/24 12:58 diphenhydramine Allergy Unknown Verified 02/19/24 12:58 [From Benadryl] Home Medications ?Medication ?Instructions ?Recorded ?Confirmed ?Last Taken ?Type atorvastatin 40 mg tablet 40 mg PO DAILY 12/13/23 02/19/24 12/11/23 History cholecalciferol (vitamin D3) 125 125 mcg PO DAILY 12/13/23 02/19/24 12/11/23 History mcg (5,000 unit) tablet (Vitamin D3) clopidogrel 75 mg tablet 75 mg PO DAILY 12/13/23 02/19/24 12/11/23 History docusate sodium 100 mg capsule 100 mg PO DAILY 12/13/23 02/19/24 12/11/23 History famotidine 20 mg tablet 20 mg PO DAILY 12/13/23 02/19/24 12/11/23 History levothyroxine 75 mcg tablet 75 mcg PO DAILY 12/13/23 02/19/24 12/11/23 History lisinopril 10 mg tablet 10 mg PO DAILY 12/13/23 02/19/24 12/11/23 History metformin 500 mg tablet 500 mg PO DAILY 12/13/23 02/19/24 02/19/24 History omega-3 fatty acids 1,000 mg 1,000 mg PO BID 12/13/23 02/19/24 12/11/23 History capsule Exam Exam Date and Time: February 19, 2024 1350 Height,Weight and Vital Signs: Height 4 ft 9.5 in Weight 58.241 kg Height 4 ft 9.5 in Weight 63.503 kg Vital Signs Temperature 97.9 F 02/19/24 13:04 Pulse Rate 82 02/19/24 13:04 Respiratory Rate 18 02/19/24 13:04 Blood Pressure 145/75 H 02/19/24 13:04 Pulse Oximetry 100 02/19/24 13:04 Oxygen Delivery Method Room Air 02/19/24 13:04 Temperature 97.9 F 02/19/24 13:04 Pulse Rate 82 02/19/24 13:04 Respiratory Rate 18 02/19/24 13:04 Blood Pressure 145/75 H 02/19/24 13:04 Pulse Oximetry 100 02/19/24 13:04 Oxygen Delivery Method Room Air 02/19/24 13:04 Airway TM Dist: >3cm Neck ROM: Full Denture: Upper Heart: S1S2 Lungs: CTAB Assessment and Plan Assessment Anesthesia Assessment: Anesthesia Plan Discussed and Chart Reviewed Final Anesthetic Review Family History of Problems with Anesthesia: No History of Problems with Anesthesia: No NPO: Yes ASA Class: IV Final Preanesthetic Review: No Changes in Pt Med Stat, Meds/Allgs Chart Review ed, Consent Obtained/Reviewed and Anes Risks/Benef Reviewed Patient Risk: High Procedure Risk: Low Anesthetic Plan Anesthetic Plan: MAC: and Agree w/ Assess. and Plan Disposition: Standard PACU
[2024-02-19 14:38] VITALS: BP 137/77; PULSE 85; RESP 16; TEMP 36.3; O2SAT 98
[2024-02-19 14:38] LABS: Bone Marrow SEE SEPARATE REPORT
--- NOTE | 2024-02-19 14:48 | PM.HEMONCBM ---
Bone Marrow Aspiration - Bone Marrow Aspiration Procedure:: *Service Date: [02/19/24] Pre Op Diagnosis:: Multiple myeloma. Post Op Diagnosis:: Same. Surgeon:: Multiple myeloma. Anesthesia:: MAC. Consent:: Informed consent obtained from the patient for the procedure. Pros and cons of biopsy explained. The patient was willing to proceed with the procedure under local anesthesia. Procedure in Detail:: *Service Date: 02/19/24. *Procedure: Bone marrow aspirate and biopsy. *Pre Op Dx: Multiple myeloma. *Post Op Dx: Same. *Surgeon: Marta Velasquez. CBC: WBC 5.1, HGB 11.3, HCT 34.1, PLT 264. The patient was positioned prone. The left posterior superior iliac spine prepped and draped. Patient was anesthetized under MAC. Under aseptic precautions, 5 ml of 1% lidocaine used for local anesthesia. Bone marrow aspirate was taken. With the Jamshidi needle, a core biopsy obtained without any complications. Specimens for sent for a Mcarthur stain, flow cytometry and cytogenetics. Biopsy was sent for histology. The patient tolerated the procedure well. Bandage was applied and patient was positioned on her back for 10 to 15 minutes after the procedure. The patient was advised to call us if she develops any pain or swelling at the surgical site. Follow up in 1 week.
[2024-02-19 14:53] VITALS: BP 143/70; PULSE 88; RESP 16; O2SAT 99
[2024-02-19 14:55] LABS: Glucose, Whole Blood 78 mg/dL (60-115)
[2024-02-19 15:08] VITALS: BP 146/72; PULSE 71; RESP 16; TEMP 36.2; O2SAT 99
[2024-02-19 15:20] VITALS: BP 140/68; PULSE 69; RESP 16; TEMP 36.3; O2SAT 99
== END 2024-02-19 15:32 | disposition home or self-care (01) ==
PROVIDERS: Visit Provider Internal Medicine Medical Oncology
PROC: (CPT 38221; principal; 2024-02-19 14:00)
DX: C90.00 Multiple myeloma not having achieved remission (principal); R59.0 Localized enlarged lymph nodes; N83.8 Other noninflammatory disorders of ovary, fallopian tube and broad ligament; I10 Essential (primary) hypertension; E11.9 Type 2 diabetes mellitus without complications; E03.9 Hypothyroidism, unspecified; Z87.11 Personal history of peptic ulcer disease; Z79.84 Long term (current) use of oral hypoglycemic drugs; Z79.899 Other long term (current) drug therapy; Z88.1 Allergy status to other antibiotic agents; Z88.6 Allergy status to analgesic agent; Z98.890 Other specified postprocedural states
CPT/HCPCS: 38222; 36415; 82947; 85025; 88184; 88185; 88237; 88264; 88305; 88311; 88313; 88341; 88342; 88344; J1642; J2250; J2704; J3010

== ENCOUNTER → 2024-02-19 12:22 | Outpatient (BNV) | payer MEDICAID, SELFPAY | PROVIDERS: Visit Provider Internal Medicine Medical Oncology | DX: C90.00 Multiple myeloma not having achieved remission (principal) | CPT/HCPCS: 38222 ==

== ENCOUNTER 2024-03-05 08:58 | Day surgery (SDC) | payer MEDICAID, SELFPAY ==
--- NOTE | 2024-03-04 08:41 | HO.ANESPROP2 ---
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 (Acute) Dysphagia (Acute) Thyroid nodule (Acute) Adnexal mass (Acute) Acute kidney failure (Acute) Necrotizing inflammation of lymph node (Acute) Multiple myeloma (Acute) Hypercalcemia (Acute) Past Medical History Medical History Hx of hypercalcemia Mood disorder Thyroid nodule Adnexal mass GERD (gastroesophageal reflux disease) Hypothyroidism Diabetes mellitus Family History Family history of problems with anesthesia: No Surgical History Surgical History Hx of right cataract extraction History of bone marrow biopsy (01/19/24) Hx of eye surgery Hx of section History of Problems with Anesthesia: No Social History Social History Household Members: Family Housing: Apartment Do you presently have visiting nurse or other home services: No Alcohol intake: never Comment: COUNTS CORRECT Patient Tobacco Use Status: Never used Tobacco e-Cigarette/Vaping Use: Never Used Use of substances other than those prescribed or required for medical reasons: No Do you feel safe in your current relationship?: Yes Do you have thoughts of harming others: None Patient : No service: No Meds Allergies Allergy/AdvReac Type Severity Reaction Status Date / Time ampicillin Allergy Anaphylaxis Verified 03/19/24 12:10 aspirin Allergy Anaphylaxis Verified 03/19/24 12:10 diphenhydramine Allergy Unknown Verified 03/19/24 12:10 [From Benadryl] Exam Pertinent Lab Results Pertinent Lab Results: Laboratory Tests 02/04/24 02/19/24 14:32 13:30 WBC 5.7 Hgb 11.3 L Hct 34.1 L Plt Count 264 Sodium 142 Potassium 4.3 Chloride 106 Carbon Dioxide 26 BUN 16 Creatinine 0.82 Narrative Narrative: EKG 01/2024 Vent. Rate : 060 BPM Atrial Rate : 060 BPM P-R Int : 138 ms QRS Dur : 078 ms QT Int : 422 ms P-R-T Axes : 036 063 055 degrees QTc Int : 422 ms Normal sinus rhythm Normal ECG When compared with ECG of 12-DEC-2023 19:41, No significant change was found Assessment and Plan Assessment Anesthesia Assessment: Chart Reviewed Final Anesthetic Review Family History of Problems with Anesthesia: No History of Problems with Anesthesia: No
[2024-03-05] MEDS: Lactated Ringers 1,000 ML 100 ML IVCONT (09:30)
[2024-03-05 09:31] LABS: Glucose, Whole Blood 81 mg/dL (60-115)
[2024-03-05 09:37] VITALS: BMI 28.3
[2024-03-05 09:42] VITALS: BP 149/71; PULSE 83; RESP 16; TEMP 36.8; O2SAT 98
[2024-03-05] MEDS: vancomycin HCL 1,000 MG in 0.9 % Sodium Chloride 250 ML 270 MG IV (10:05)
--- NOTE | 2024-03-05 11:06 | HO.ANESPROP2 ---
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 (Acute) Dysphagia (Acute) Thyroid nodule (Acute) Adnexal mass (Acute) Acute kidney failure (Acute) Necrotizing inflammation of lymph node (Acute) Multiple myeloma (Acute) Hypercalcemia (Acute) Past Medical History Medical History Hx of hypercalcemia Mood disorder Thyroid nodule Adnexal mass GERD (gastroesophageal reflux disease) Hypothyroidism Diabetes mellitus Functional capacity: independent ambulation Patient : No Family History Family history of problems with anesthesia: No Surgical History Surgical History Hx of right cataract extraction History of bone marrow biopsy (01/19/24) Hx of eye surgery Hx of section History of Problems with Anesthesia: No Social History Social History Household Members: Family Housing: Apartment Do you presently have visiting nurse or other home services: No Alcohol intake: never Patient Tobacco Use Status: Never used Tobacco e-Cigarette/Vaping Use: Never Used Use of substances other than those prescribed or required for medical reasons: No Are you DNR?: No Advance Directives: No Advance Directives Information Provided: Yes service: No Meds Allergies Allergy/AdvReac Type Severity Reaction Status Date / Time ampicillin Allergy Anaphylaxis Verified 03/01/24 11:34 aspirin Allergy Anaphylaxis Verified 03/01/24 11:34 diphenhydramine Allergy Unknown Verified 03/01/24 11:34 [From Benadryl] Active Medications: Current Medications Lactated Ringer's (Lr) 1,000 mls @ 100 mls/hr IVCONT .Q10H HAILEE Last Admin: 03/05/24 09:30 Dose: 100 mls/hr Home Medications ?Medication ?Instructions ?Recorded ?Confirmed ?Last Taken ?Type atorvastatin 40 mg tablet 40 mg PO DAILY 12/13/23 03/01/24 12/11/23 History cholecalciferol (vitamin D3) 125 125 mcg PO DAILY 12/13/23 03/01/24 12/11/23 History mcg (5,000 unit) tablet (Vitamin D3) clopidogrel 75 mg tablet 75 mg PO DAILY 12/13/23 03/01/24 12/11/23 History docusate sodium 100 mg capsule 100 mg PO DAILY 12/13/23 03/01/24 12/11/23 History famotidine 20 mg tablet 20 mg PO DAILY 12/13/23 03/01/24 12/11/23 History levothyroxine 75 mcg tablet 75 mcg PO DAILY 12/13/23 03/01/24 12/11/23 History lisinopril 10 mg tablet 10 mg PO DAILY 12/13/23 03/01/24 12/11/23 History metformin 500 mg tablet 500 mg PO DAILY 12/13/23 03/01/24 02/19/24 History omega-3 fatty acids 1,000 mg 1,000 mg PO BID 12/13/23 03/01/24 12/11/23 History capsule Exam Height,Weight and Vital Signs: Height 4 ft 9.5 in Weight 60.328 kg Last Vital Signs Temp 98.2 F 03/05/24 09:42 Pulse 83 03/05/24 09:42 Resp 16 03/05/24 09:42 BP 149/71 H 03/05/24 09:42 Pulse Ox 98 03/05/24 09:42 O2 Del Method Room Air 03/05/24 09:42 Pertinent Lab Results Pertinent Lab Results: Laboratory Tests 03/05/24 09:27 POC Glucose 81 Airway Mallampati Class: II TM Dist: >3cm Neck ROM: Full Heart: RRR Lungs: CTA Assessment and Plan Assessment Anesthesia Assessment: Anesthesia Plan Discussed and Chart Reviewed Final Anesthetic Review Family History of Problems with Anesthesia: No History of Problems with Anesthesia: No NPO: Yes ASA Class: III Final Preanesthetic Review: Meds/Allgs Chart Reviewed, Consent Obtained/Reviewed and Anes Risks/Benef Reviewed Patient Risk: Intermediate Procedure Risk: Low Anesthetic Plan Anesthetic Plan: GA Disposition: Standard PACU
--- NOTE | 2024-03-05 11:21 | MHC.SHP ---
Pre-Procedural Eval Section A - 24 Hr Update-Section A only Date of Service: 03/05/24 The patient is an INPATIENT: No Changes since office visit: Yes Patient answered all questions; No Cold of Flu in the past 2 weeks, No New Medical Problems and No Changes in Medication The patient has been examined within 24 hours of the surgical procedure. The History & Physical has been completed within 30 days and I have reviewed it.: Yes Section B - Complete if H&P > 30 days Chief Complaint: Secondary & malignant neoplasm of lymph node Allergies: Allergies Allergy/AdvReac Type Severity Reaction Status Date / Time ampicillin Allergy Anaphylaxis Verified 03/01/24 11:34 aspirin Allergy Anaphylaxis Verified 03/01/24 11:34 diphenhydramine Allergy Unknown Verified 03/01/24 11:34 [From Benadryl] Plan Diagnosis/Plan: Unchanged I have reviewed the history and physical and performed a pertinent physical examination on my patient. No changes have occurred unless specified. Time Spent With Patient Time: Total time managing care of this patient today ____ minutes.
--- NOTE | 2024-03-05 11:54 | P.CONAN_ITS ---
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 (Acute) Dysphagia (Acute) Thyroid nodule (Acute) Adnexal mass (Acute) Acute kidney failure (Acute) Necrotizing inflammation of lymph node (Acute) Multiple myeloma (Acute) Hypercalcemia (Acute) Past Medical History Medical History Hx of hypercalcemia Mood disorder Thyroid nodule Adnexal mass GERD (gastroesophageal reflux disease) Hypothyroidism Diabetes mellitus Functional capacity: independent ambulation Family History Family history of problems with anesthesia: No Surgical History Surgical History Hx of right cataract extraction History of bone marrow biopsy (01/19/24) Hx of eye surgery Hx of section History of Problems with Anesthesia: No Social History Social History Household Members: Family Housing: Apartment Do you presently have visiting nurse or other home services: No Alcohol intake: never Comment: COUNTS CORRECT Patient Tobacco Use Status: Never used Tobacco e-Cigarette/Vaping Use: Never Used service: No Meds Allergies Allergy/AdvReac Type Severity Reaction Status Date / Time ampicillin Allergy Anaphylaxis Verified 03/01/24 11:34 aspirin Allergy Anaphylaxis Verified 03/01/24 11:34 diphenhydramine Allergy Unknown Verified 03/01/24 11:34 [From Benadryl] Active Medications: Current Medications Fentanyl (Fentanyl Citrate/Pf 100 Mcg/2 Ml Vial) 25 mcg IVPUSH Q5M PRN PRN Reason: Pain, Moderate(Pain Scale 4-6) Stop: 03/05/24 17:22 Lactated Ringer's (Lr) 1,000 mls @ 100 mls/hr IVCONT .Q10H HAILEE Last Admin: 03/05/24 09:30 Dose: 100 mls/hr Ondansetron HCl (Ondansetron Hcl 4 Mg/2 Ml Vial) 4 mg IVPUSH ONCE PRN PRN Reason: Nausea and Vomiting Stop: 03/05/24 17:22 Home Medications ?Medication ?Instructions ?Recorded ?Confirmed ?Last Taken ?Type atorvastatin 40 mg tablet 40 mg PO DAILY 12/13/23 03/01/24 12/11/23 History cholecalciferol (vitamin D3) 125 125 mcg PO DAILY 12/13/23 03/01/24 12/11/23 History mcg (5,000 unit) tablet (Vitamin D3) clopidogrel 75 mg tablet 75 mg PO DAILY 12/13/23 03/01/24 12/11/23 History docusate sodium 100 mg capsule 100 mg PO DAILY 12/13/23 03/01/24 12/11/23 History famotidine 20 mg tablet 20 mg PO DAILY 12/13/23 03/01/24 12/11/23 History levothyroxine 75 mcg tablet 75 mcg PO DAILY 12/13/23 03/01/24 12/11/23 History lisinopril 10 mg tablet 10 mg PO DAILY 12/13/23 03/01/24 12/11/23 History metformin 500 mg tablet 500 mg PO DAILY 12/13/23 03/01/24 02/19/24 History omega-3 fatty acids 1,000 mg 1,000 mg PO BID 12/13/23 03/01/24 12/11/23 History capsule Exam Height,Weight and Vital Signs: Height 4 ft 9.5 in Weight 60.328 kg Last Vital Signs Temp 98.2 F 03/05/24 09:42 Pulse 83 03/05/24 09:42 Resp 16 03/05/24 09:42 BP 149/71 H 03/05/24 09:42 Pulse Ox 98 03/05/24 09:42 O2 Del Method Room Air 03/05/24 09:42 Pertinent Lab Results Pertinent Lab Results: Laboratory Tests 03/05/24 09:27 POC Glucose 81 Assessment and Plan Final Anesthetic Review Family History of Problems with Anesthesia: No History of Problems with Anesthesia: No
--- NOTE | 2024-03-05 12:34 | P.OP_ITS ---
Operative Note Operative Note Date of Service: 03/05/24 Narrative: Preoperative diagnosis: Left cervical adenopathy Postoperative diagnosis:same Procedure:Left cervical lymph node excisional biopsy Surgeon: Kole Awad MD [employer] Programmer: Dominique Shepard PA-C Anesthesia:General LMA Indications for procedure: 68-year-old female with history of multiple myeloma found to have a necrotizing lymph node in the left neck, previously underwent needle biopsy, presents today for formal lymph node excision. Operative findings: Hard, inflamed node behind the mid sternocleidomastoid muscle, posterior triangle densely adherent to the 11th nerve. Specimen: Left posterior cervical lymphadenopathy Estimated blood loss: Less than 2 mL Complications: None Procedure details: Patient was brought to the OR and placed in a supine position. After administering general anesthesia her neck was turned to the right and she was placed in a semi-sitting position. The palpable node was identified preoperatively and marked. The patient's neck was prepped with ChloraPrep and draped in a sterile fashion. A surgical time-out was called the consent confirmed. Patient received preoperative antibiotics and Venodyne boots were in place. Local anesthesia was infiltrated in a longitudinal fashion directly over the palpable node over the posterior margin of the sternocleidomastoid muscle. Incision was then made with a 15 blade and carried out through subcutaneous tissue past the latissimus muscle. The node was immediately palpable and a surrounding area of inflammation noted. The spinal accessory ( 11th) nerve was identified and preserved. This was densely adherent to the anterior surface of the enlarged lymph node. Careful dissection using a combination of sharp and blunt dissection was used to dissect the enlarged lymph node from the surrounding subcutaneous tissue. Hemostasis was assured using electrocautery. The enlarged lymph node was passed off the table and sent to pathology for immediate gross examination. This confirmed an enlarged lymph node. The wounds were then irrigated with saline solution and suctioned dry. Additional local was infiltrated in the surrounding tissue. Platysma muscle was reapproximated using interrupted 3-0 Polysorb sutures. Skin was then closed using a running subcuticular 4-0 Polysorb suture. Steri-Strips, 4 x 4 gauze and Tegaderm were then applied. The patient tolerated the procedure well. Sponge, instrument, needle counts reported as correct. The patient was transferred to PACU in stable condition.
[2024-03-05 12:38] VITALS: BP 126/67; PULSE 68; RESP 16; TEMP 36.3; O2SAT 96
[2024-03-05 12:43] VITALS: BP 133/68; PULSE 71; RESP 16; O2SAT 95
[2024-03-05 12:48] VITALS: BP 137/72; PULSE 63; RESP 16; O2SAT 96
[2024-03-05 12:52] VITALS: BP 152/70; PULSE 63; RESP 16; TEMP 36.3; O2SAT 95
[2024-03-05 13:05] VITALS: BP 154/80; PULSE 61; RESP 18; TEMP 36.6; O2SAT 96
--- NOTE | 2024-03-05 13:16 | HO.POSTANES ---
Post Anesthesia Evaluation Post Anesthesia Evaluation Date of Service: 03/05/24 Vital Signs: Vital Signs Temp Pulse Resp BP Pulse Ox O2 Del Method 03/05/24 13:05 97.9 F 61 18 154/80 H 96 Room Air 03/05/24 12:52 97.3 F 63 16 152/70 H 95 Room Air 03/05/24 12:48 63 16 137/72 96 Room Air 03/05/24 12:43 71 16 133/68 95 Room Air 03/05/24 12:38 97.4 F 68 16 126/67 96 Room Air 03/05/24 09:42 98.2 F 83 16 149/71 H 98 Room Air Anesthesia: General LMA Mental Status: Awake Pain Control: Satisfactory Nausea/Vomiting: None Hydration: Adequate Anesthesia-Related Issues: No Anes. Related Issues
--- NOTE | 2024-03-05 13:53 | PC.NURSE ---
[id number] medical insurance coding specialist present during discharge instructions with daughter present. patient already has oxycodone at home and verbalized understanding of its use by surgeon.
== END 2024-03-05 13:30 | disposition home or self-care (01) ==
PROVIDERS: Visit Provider Surgery
PROC: (CPT 38500; principal; 2024-03-05 11:20)
DX: R59.0 Localized enlarged lymph nodes (principal); C90.00 Multiple myeloma not having achieved remission; E11.9 Type 2 diabetes mellitus without complications; Z88.0 Allergy status to penicillin; Z88.6 Allergy status to analgesic agent
CPT/HCPCS: 38510; 36415; 82947; 87070; 87073; 87116; 87205; 87206; 88184; 88185; 88305; 88312; 88341; 88342; J1100; J2250; J2405; J2704; J2795; J3010; J3370

== ENCOUNTER → 2024-03-05 08:58 | Outpatient (BNV) | payer MEDICAID, SELFPAY | PROVIDERS: Visit Provider Surgery | DX: R59.0 Localized enlarged lymph nodes (principal) | CPT/HCPCS: 38510 ==

== ENCOUNTER 2024-03-16 15:05 | Outpatient (AMB) | payer MEDICAID, SELFPAY ==
--- NOTE | 2024-03-16 15:35 | A.OFFPC_ITS ---
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 Water Pump Operator Required: Yes Allergies ampicillin Allergy (Verified 03/16/24 15:43) Anaphylaxis aspirin Allergy (Verified 03/16/24 15:43) Anaphylaxis diphenhydramine [From Benadryl] Allergy (Verified 03/16/24 15:43) Unknown Tobacco use date assessed: 03/16/24 HPI HPI Comments History of Present Illness Details 68-year-old male with pertinent history of hypertension, [id number] diabetes mellitus, mood disorder, gastroesophageal reflux disease, hypothyroidism, ?multiple myeloma, hypercalcemia presenting to establish care. Her previous primary care provider was in [place]. She was hospitalized in November-presented with progressive low back pain after falling 3 months prior, weakness, dizziness, unintentional weight loss loss, decreased appetite-In the emergency department, patient with serum calcium of 16. Imaging with lytic lesion of the left sacrum and lumbar vertebrae. Also found to have elevated creatinine and elevated serum protein. Received pamidronate, IV fluids. Calcium improved to 11.2. subsequently underwent bone marrow biopsy, lymph node biopsy, PET scan. Following with Dr Velasquez. Next visit 03/19/2023. She is taking oxycodone for pain, lorazepam for anxiety, zofran for nausea. DM-On metformin 500mg daily CV: On lisinopril 10mg daily, amlodipine 5mg daily, plavix, Hypothyroid: on levothyroxine GERD:on famotidine ROS CONSTITUTIONAL: Denies weight loss, fever and chills. HEENT: Denies changes in vision and hearing. RESPIRATORY: Denies SOB and cough. CV: Denies palpitations and CP GI: Denies abdominal pain, nausea, vomiting and diarrhea. : Denies dysuria and urinary frequency. MSK: Denies new myalgia and joint pain. SKIN: Denies rash and pruritus. NEUROLOGICAL: Denies headache PSYCHIATRIC: Denies recent changes in mood. PHYSICAL EXAM: GENERAL: Alert and oriented x 3. NAD EYES: EOMI. Anicteric. HENT: Moist mucous membranes. No scleral icterus. No cervical lymphadenopathy. LUNGS: Clear to auscultation bilaterally. CARDIOVASCULAR: Regular rate and rhythm. No murmur. No JVD. ABDOMEN: Soft, non-tender +bs EXTREMITIES: No edema. Non-tender. SKIN: No rashes or lesions. Warm. NEUROLOGIC: No focal neurological deficits. CN II-XII grossly intact PSYCHIATRIC: Cooperative. Appropriate mood and affect [facility] Medical History (Updated 03/18/24 @ 10:03 by Mora Maria MD) Hx of hypercalcemia Mood disorder Thyroid nodule Adnexal mass GERD (gastroesophageal reflux disease) Hypothyroidism Diabetes mellitus Surgical History Hx of right cataract extraction History of bone marrow biopsy (01/19/24) Hx of eye surgery Hx of section Social History Household Members: Family Housing: Apartment Do you presently have visiting nurse or other home services: No Alcohol intake: never Comment: COUNTS CORRECT Patient Tobacco Use Status: Never used Tobacco e-Cigarette/Vaping Use: Never Used service: No Questionnaire PHQ-9 Over the last 2 weeks, how often have you been bothered by any of the following problems? 1. Little interest or pleasure in doing things: nearly every day 2. Feeling down, depressed, or hopeless: several days 3. Trouble falling or staying asleep, or sleeping too much: nearly every day 4. Feeling tired or having little energy: nearly every day 5. Poor appetite or overeating: not at all 6. Feeling bad about yourself - or that you are a failure or have let yourself or your family down: not at all 7. Trouble concentrating on things, such as reading the newspaper or watching television: not at all 8. Moving or speaking so slowly that other people could have noticed. Or the opposite - being so fidgety or restless that you have been moving around a lot more than usual: not at all 9. Thoughts that you would be better off or of hurting yourself in some way: not at all Total score: 10 Depression Screening Interpretation: Positive Depression Screening Follow-up: Existing condition Depression Screening Done: Yes Source: Developed by Drs. Cole LYadira Hare Kurt Kroenke and colleagues, with an educational cristi from [employer]. Thrive Questionnaire Date Thrive assessed: 03/16/24 I am a: Patient What is your living situation today?: I have a steady place to live Within the past 12 months, did the food you bought not last and you didn't have the money to get more?: Never true Within the past 12 months, did you worry whether your food would run out before you got money to buy more?: Never true Do you have trouble paying for medicines?: No Do you have trouble getting transportation to medical appointments?: No Do you have trouble paying your heating and electricity bill?: No Do you have trouble taking care of your child, family member or friend?: Yes Do you have trouble with day-to-day activities such as bathing, preparing meals, shopping, managing finances, etc.?: Yes Are you currently unemployed and looking for a job?: No Are you interested in more education?: No Please select the resources that you would like help with: None THRIVE Score: 0 BETO-7 AMB Questionnaire BETO-7 Date BETO - 7 assessed: 03/16/24 Feeling nervous, anxious, or on edge: 1 = Several days Not being able to stop or control worryin = Several days Worrying too much about different things: 3 = Nearly every day Trouble relaxin = Several days Being so restless that it is hard to sit still: 0 = Not at all Becoming easily annoyed or irritable: 0 = Not at all Feeling afraid as if something awful might happen: 1 = Several days Total BETO-7 score (0-4 normal; 5-9 mild; 10-14 moderate; 15-21 severe): 7 Source: Developed by Yadira Cartagena Kurt Kroenke and colleagues, with an educational cristi from [employer]. BETO-7 Assessment Billing BETO-7 Assessment Tool: BETO-7 Assessment 70457 Physical exam (Primary Care) Vital Signs: Last Vital Signs Pulse 78 03/16/24 15:37 Resp 14 03/16/24 15:37 BP 132/70 03/16/24 15:37 Pulse Ox 98 03/16/24 15:37 Oxygen Delivery Method Room Air 03/16/24 15:37 BMI result Body Mass Index 27.2 Tobacco/Smoking Status: Tobacco use Status Tobacco use date assessed 03/16/24 03/16/24 15:46 Patient Tobacco Use Status Never used Tobacco 03/16/24 15:46 e-Cigarette/Vaping Use Never Used 03/16/24 15:46 PHQ-9: PHQ-9 Score PHQ-9: Total score 10 03/18/24 10:05 Depression Screening Interpretation: Positive Depression Screening Follow-up: Existing condition Thrive Assessment: Date of Thrive Assessment Date Thrive assessed 03/16/24 03/16/24 15:48 Assessment and Plan Assessment & Plan (1) Multiple myeloma: Code(s): C90.00 - Multiple myeloma not having achieved remission Qualifiers: Multiple myeloma remission status: unspecified Qualified Code(s): C90.00 - Multiple myeloma not having achieved remission Plan: Continue heme/onc follow up (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 will f/up for diabetic visit (4) Mood disorder: Code(s): F39 - Unspecified mood [affective] disorder Plan: stable. Orders: Orders UA CC w/rflx Micro + Cult 03/16/24 R82.90 - Unspecified abnormal findings in urine AMB Urinalysis Auto Microscop. 03/16/24 R82.90 - Unspecified abnormal findings in urine Medications: New levothyroxine 75 mcg PO DAILY 90 tabs 3RF lisinopril 10 mg PO DAILY 90 tabs 3RF atorvastatin 40 mg PO DAILY 90 tabs 3RF clopidogrel 75 mg PO DAILY 90 tabs 3RF docusate sodium 100 mg PO DAILY 90 caps 3RF famotidine 20 mg PO DAILY 90 tabs 3RF metformin 500 mg PO DAILY 90 tabs 3RF omega-3 fatty acids 1,000 mg PO BID 180 caps 3RF Changed From cholecalciferol (vitamin D3) (Vitamin D3) 125 mcg PO DAILY To cholecalciferol (vitamin D3) (Vitamin D3) 125 mcg PO DAILY 90 tabs 3RF 90 days From oxycodone Partial Fill upon patient request. 5 mg PO Q8H PRN 50 tabs 0RF Breakthrough Pain, Severe To oxycodone Partial Fill upon patient request. 5 mg PO Q8H PRN 84 tabs 0RF Breakthrough Pain, Severe 28 days Refilled amlodipine 5 mg See Protocol PO DAILY 90 tabs 3RF cyclobenzaprine 10 mg PO TID PRN 90 tabs 3RF muscle spasm ondansetron 8 mg PO Q8H 50 tabs 3RF Discontinued lidocaine 5% (Lidoderm) leave on most painful area for up to 12 hrs Discontinued Reason: Doctor's Order 2 patches topical BID PRN 30 ea 4RF pain C77.0 - Secondary and unspecified malignant neoplasm of lymph nodes of head, face and neck, C90.00 - Multiple myeloma not having achieved remission, L04.9 - Acute lymphadenitis, unspecified, N94.89 - Other specified conditions associated with female genital organs and menstrual cycle oxycodone Partial Fill upon patient request. 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
[2024-03-16 15:37] VITALS: BP 132/70; PULSE 78; RESP 14; O2SAT 98; BMI 27.2
== END 2024-03-16 16:25 | disposition home or self-care (01) ==
PROVIDERS: Visit Provider Internal Medicine
DX: E11.618 Type 2 diabetes mellitus with other diabetic arthropathy (principal); C90.00 Multiple myeloma not having achieved remission; C77.0 Secondary and unspecified malignant neoplasm of lymph nodes of head, face and neck; F39 Unspecified mood [affective] disorder
CPT/HCPCS: 99204

== ENCOUNTER 2024-03-16 16:26 | Outpatient (REF) | payer MEDICAID, SELFPAY ==
[2024-03-16 17:59] LABS: Appearance Urine Clear; Color Urine Yellow; Glucose Urine UA Negative (Negative); Leukocyte Esterase Urine Negative (Negative); Nitrite Urine Negative (Negative); Urine Blood Negative (Negative); Urine Ketones Negative (Negative); Urine Protein Negative (Neg-Trace)
== END 2024-03-16 16:27 | disposition home or self-care (01) ==
LOC: HO.LAB 16:26
PROVIDERS: Visit Provider Internal Medicine
DX: R82.90 Unspecified abnormal findings in urine (principal)
CPT/HCPCS: 81003

== ENCOUNTER 2024-03-19 10:48 | Outpatient (AMB) | payer MEDICAID, SELFPAY ==
--- NOTE | 2024-03-19 10:55 | MHC.OFFVIS ---
Vital Signs 03/19/24 11:05 Height 4 ft 10 in Weight 132 lb 4.438 oz BMI 27.6 Pulse 62 Intake Visit Reasons: S/P excision Lt cervical lymphadeopathy Intake Note: Patient is seen in office for post op assessment post excision of left cervical lymphadeonpathy. Pt c/o: sore in the area, and some shoulder pain, denies redness, discharge or other concerns Lithographic Press Feeder Required: Yes Lithographic Press Feeder Language: Criminal Legal Assistant Services: Lithographic Press Feeder Present Lithographic Press Feeder Name: Kayy HANNA Information Interpreted: non-clinical & clinical Build Master: Build Master Present Accompanied by: Family/Other Allergies ampicillin Allergy (Verified 03/19/24 11:05) Anaphylaxis aspirin Allergy (Verified 03/19/24 11:05) Anaphylaxis diphenhydramine [From Benadryl] Allergy (Verified 03/19/24 11:05) Unknown Medication List - Last Reconciled 03/19/24 by Kole Awad MD acetaminophen (Tylenol Extra Strength) 500 mg PO Q6H PRN amlodipine 5 mg See Protocol PO DAILY atorvastatin 40 mg PO DAILY cholecalciferol (vitamin D3) (Vitamin D3) 125 mcg PO DAILY 90 days clopidogrel 75 mg PO DAILY cyclobenzaprine 10 mg PO TID PRN docusate sodium 100 mg PO DAILY famotidine 20 mg PO DAILY levothyroxine 75 mcg PO DAILY lidocaine 5% (Lidoderm) 1 patch topical DAILY PRN MDD remove after 12 hours lisinopril 10 mg PO DAILY lorazepam 0.5 mg PO BEDTIME PRN metformin 500 mg PO DAILY omega-3 fatty acids 1,000 mg PO BID ondansetron 8 mg PO Q8H oxycodone 5 mg PO Q8H PRN 28 days HPI Comments Details: Patient returns 1 week following lymph node biopsy of a left cervical enlarged lymph node. Pathology revealed necrotizing lymphadenitis with evidence of Gram-positive cocci on Gram stain which suggested an infectious cause. The patient reports bilateral shoulder pain but generally feels well. She denies any fever or chills. [facility] Medical History Hx of hypercalcemia Mood disorder Thyroid nodule Adnexal mass GERD (gastroesophageal reflux disease) Hypothyroidism Diabetes mellitus Surgical History Hx of lymph node excision (03/05/24) Hx of right cataract extraction History of bone marrow biopsy (01/19/24) Hx of eye surgery Hx of section Social History Household Members: Family Housing: Apartment Do you presently have visiting nurse or other home services: No Alcohol intake: never Comment: COUNTS CORRECT Patient Tobacco Use Status: Never used Tobacco e-Cigarette/Vaping Use: Never Used service: No Physical Exam Const General: comfortable Nutritional Appearance: well nourished Orientation/consciousness: patient oriented x3 Neck Other: Well-healed incision in the left neck without hematoma or seroma. Skin Other: Warm, dry, no rash Neuro General: patient oriented x3 Extrem Other: Normal range of motion of arms and shoulders. No edema or erythema Assessment & Plan Assessment & Plan (1) Necrotizing inflammation of lymph node: Code(s): L04.9 - Acute lymphadenitis, unspecified Category: Medical Plan Pathology confirmed a necrotizing lymphadenitis with evidence of Gram-positive cocci on Gram stain. Copy of the report was provided to the patient and her family. Wounds are healing nicely. She should follow up as needed. Coding Level of Care Code Global (87756) Diagnoses Necrotizing inflammation of lymph node L04.9
[2024-03-19 11:05] VITALS: PULSE 62; BMI 27.6
== END 2024-03-19 11:05 | disposition home or self-care (01) ==
PROVIDERS: Visit Provider Surgery
DX: L04.9 Acute lymphadenitis, unspecified (principal)
CPT/HCPCS: 99024

== ENCOUNTER → 2024-03-19 10:48 | Outpatient (BNVA) | payer MEDICAID, SELFPAY | PROVIDERS: Visit Provider Surgery | DX: Z09 Encounter for follow-up examination after completed treatment for conditions other than malignant neoplasm (principal); Z98.890 Other specified postprocedural states; Z87.898 Personal history of other specified conditions | CPT/HCPCS: 99212 ==

== ENCOUNTER 2024-03-25 08:09 | Day surgery (SDC) | payer MEDICAID, SELFPAY ==
--- NOTE | ~2024-03-25 | US_ITS ---
Left paraspinal mass PROCEDURES: 1. Limited preprocedure ultrasound of the back. Permanent images saved in PACS. 2. Ultrasound-guided biopsy of the left paraspinal mass. 3. Limited preprocedure ultrasound of the back. Permanent images saved in PACS. CLINICIANS: Luis Miguel Miller PA-C MEDICATIONS: -Versed 1 mg, Fentanyl 50 mcg, and lidocaine 1% 10 mL SQ -Antibiotics: None -For additional details, please see nursing flowsheet. COMPLICATIONS: None ESTIMATED BLOOD LOSS: < 5 ml CONTRAST: None SPECIMENS: 5 x 18 g cores were sent to pathology MODERATE SEDATION TIME: 15 min PROCEDURE NOTE: The procedure, risks, benefits, and alternatives were carefully explained to the patient and written informed consent was obtained. The patient was placed in the left lateral decubitus position on the exam table. A timeout was performed. A limited ultrasound of the abdomen was performed to localize the left paraspinal mass and choose appropriate needle entry and trajectory. The patient was prepped and draped in usual sterile fashion. The skin and deeper soft tissues were anesthetized with lidocaine. Under ultrasound guidance, a 17 gauge trocar needle was advanced to the left paraspinal mass. An 18 gauge biopsy device was inserted through the trocar needle advanced into the lesion. A total of 5, 18 gauge cores were performed. The specimens were placed in formalin. The needle was removed. A limited post procedure ultrasound was then performed. Images were saved in PACS. A dry dressing was applied and secured with Tegaderm. There were no immediate complications. The patient was stable after the procedure and was transferred to the post anesthesia care unit. The procedure was done under moderate sedation with a dedicated nurse for monitoring of vital signs. US/US biopsy abdomen retro mass Impression: Ultrasound-guided biopsy of the left paraspinal mass. This procedure was performed by Luis Miguel Miller PA-C and supervised by Dr. Isidro. Electronically signed by: Grey Iisdro MD 04/06/2024 02:48 PM EDT
[2024-03-25 09:03] VITALS: BP 146/89; PULSE 71; RESP 18; TEMP 36.7; O2SAT 99; BMI 24.7
[2024-03-25 09:05] LABS: Glucose, Whole Blood 86 mg/dL (60-115)
--- NOTE | 2024-03-25 10:08 | PC.NURSE ---
Patient has been NPO and took her Metformin this a.m. 2nd POC checked prior to going to procedure. Was 82. Patient asymptomatic.
[2024-03-25 10:14] LABS: Glucose, Whole Blood 82 mg/dL (60-115)
--- NOTE | 2024-03-25 10:28 | MHC.SHP ---
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 Relevant Family History (Specify if Yes): No Relevant Social History: None Present Medications: see Short Stay Collaborative assessment Medical History: Significant History History of Previous Operations: Relevant previous surgery/procedure and date(s) (Bone marrow biopsy 2023) Allergies: Allergies Allergy/AdvReac Type Severity Reaction Status Date / Time ampicillin Allergy Anaphylaxis Verified 03/25/24 09:05 aspirin Allergy Anaphylaxis Verified 03/25/24 09:05 diphenhydramine Allergy Swelling Verified 03/25/24 09:05 [From Benadryl] Review of Systems Sugical H&P ROS: Negative: Cardiovascular, Respiratory and Integumentary Exam Surgical H&P Exam: Normal: Heart, Normal: Lungs, Normal: Skin and Normal: Neurological Plan US left paraspinal mass biopsy Time Spent With Patient Time: Total time managing care of this patient today ____ minutes.
[2024-03-25 11:07] VITALS: BP 117/68; PULSE 77; RESP 16; TEMP 37.1; O2SAT 97
[2024-03-25] MEDS: Lidocaine HCl 1 % MPF 30 ML VIAL SUBCUT (11:09)
[2024-03-25 11:27] VITALS: BP 128/68; PULSE 80; RESP 18; TEMP 37; O2SAT 96
== END 2024-03-25 11:39 | disposition home or self-care (01) ==
LOC: HO.SSS 08:10
PROVIDERS: Pathology Anatomic Pathology & Clinical Pathology; Radiology Vascular & Interventional Radiology; Visit Provider Internal Medicine Medical Oncology
DX: C85.13 Unspecified B-cell lymphoma, intra-abdominal lymph nodes (principal); C90.00 Multiple myeloma not having achieved remission; M89.9 Disorder of bone, unspecified; R53.83 Other fatigue; M54.50 Low back pain, unspecified; I10 Essential (primary) hypertension; E11.9 Type 2 diabetes mellitus without complications; K21.9 Gastro-esophageal reflux disease without esophagitis; Z87.11 Personal history of peptic ulcer disease; E03.9 Hypothyroidism, unspecified; F39 Unspecified mood [affective] disorder; Z79.899 Other long term (current) drug therapy; Z88.0 Allergy status to penicillin; Z88.6 Allergy status to analgesic agent
CPT/HCPCS: 36415; 49180; 76942; 82947; 88305; 88341; 88342; 88360; 88374; 99152; J2250; J2310; J3010

== ENCOUNTER → 2024-03-25 08:56 | Outpatient (BNV) | payer MEDICAID, SELFPAY | PROVIDERS: Visit Provider Student in an Organized Health Care Education/Training Program | DX: R22.2 Localized swelling, mass and lump, trunk (principal) | CPT/HCPCS: 49180; 76942 ==

== ENCOUNTER 2024-04-05 14:54 | Emergency (ER) | payer MEDICAID, SELFPAY ==
--- NOTE | ~2024-04-05 | XR_ITS ---
EXAMINATION: XR PELVIS CLINICAL INFORMATION: Lytic lesion COMPARISON: CT abdomen and pelvis February 04, 2024 TECHNIQUE: AP view of the pelvis. FINDINGS: The pelvic ring is intact. No fracture. Sacroiliac joints are symmetric. There is no fracture or dislocation of either hip. No gross radiographic evidence of obstructive bony changes. Small pelvic calcifications are likely vascular in nature. XR/XR pelvis 1-2V IMPRESSION: 1. No pelvic fracture. 2. No gross radiographic evidence of obstructive bony changes. Electronically signed by: Sid Joyce MD 04/05/2024 07:40 PM EDT
--- NOTE | 2024-04-05 15:09 | ED_ITS ---
HPI - General Adult General Chief complaint: General Medical Stated complaint: All over Pain Cancer Patient Time Seen by Provider: 04/05/24 17:40 Source: patient Mode of arrival: ambulatory Limitations: no limitations History of Present Illness HPI narrative: 69-year-old male with pertinent history of hypertension, [id number] diabetes mellitus, mood disorder, gastroesophageal reflux disease, hypothyroidism,, hypercalcemia with lytic lesion in left sacrum and lumbar vertebra so far no malignancy he was confirmed patient has been followed by Hematology scheduled biopsy for left paraspinal mass by IR comes here for pain in the rectum area which is going on for a while Related Data Previous Rx's ?Medication ?Instructions ?Recorded acetaminophen 500 mg tablet 500 mg PO Q6H PRN fever or pain 02/04/24 (Tylenol Extra Strength) #14 tabs lidocaine 5 % topical patch 1 patch topical DAILY PRN pain #30 02/04/24 (Lidoderm) ea lorazepam 0.5 mg tablet 0.5 mg PO BEDTIME PRN Anxiety #30 03/04/24 tabs amlodipine 5 mg tablet 5 mg PO DAILY #90 tabs 03/16/24 atorvastatin 40 mg tablet 40 mg PO DAILY #90 tabs 03/16/24 cholecalciferol (vitamin D3) 125 125 mcg PO DAILY 90 days #90 tabs 03/16/24 mcg (5,000 unit) tablet (Vitamin D3) cyclobenzaprine 10 mg tablet 10 mg PO TID PRN muscle spasm #90 03/16/24 tabs docusate sodium 100 mg capsule 100 mg PO DAILY #90 caps 03/16/24 famotidine 20 mg tablet 20 mg PO DAILY #90 tabs 03/16/24 levothyroxine 75 mcg tablet 75 mcg PO DAILY #90 tabs 03/16/24 lisinopril 10 mg tablet 10 mg PO DAILY #90 tabs 03/16/24 metformin 500 mg tablet 500 mg PO DAILY #90 tabs 03/16/24 omega-3 fatty acids 1,000 mg 1,000 mg PO BID #180 caps 03/16/24 capsule ondansetron 8 mg disintegrating 8 mg PO Q8H #50 tabs 03/16/24 tablet oxycodone 5 mg tablet 5 mg PO Q8H PRN Breakthrough Pain, 03/16/24 Severe 28 days #84 tabs doxycycline hyclate 100 mg capsule 100 mg PO BID #20 caps 03/19/24 morphine 15 mg immediate release 15 mg PO Q8H PRN pain #15 tabs 04/05/24 tablet Allergies Allergy/AdvReac Type Severity Reaction Status Date / Time ampicillin Allergy Anaphylaxis Verified 04/05/24 15:13 aspirin Allergy Anaphylaxis Verified 04/05/24 15:13 diphenhydramine Allergy Swelling Verified 04/05/24 15:13 [From Benadryl] [facility] Past Medical History Medical History Hx of hypercalcemia Mood disorder Thyroid nodule Adnexal mass GERD (gastroesophageal reflux disease) Hypothyroidism Diabetes mellitus Surgical History Hx of right cataract extraction History of bone marrow biopsy (01/19/24) Hx of eye surgery Hx of section Social History Social History Household Members: Family Housing: Apartment Do you presently have visiting nurse or other home services: No Alcohol intake: never Comment: COUNTS CORRECT Patient Tobacco Use Status: Never used Tobacco Smoked in Last 30 Days: No e-Cigarette/Vaping Use: Never Used Use of substances other than those prescribed or required for medical reasons: No Advance Directives: No Advance Directives Information Provided: No Do you have a plan to hurt others: No Plan service: No Physical Exam ED Vital Signs: Vital Signs - 24 hr 04/05/24 15:10 04/05/24 17:16 04/05/24 19:57 Temperature 98.6 F 98.3 F 98.4 F Pulse Rate 93 78 83 Respiratory Rate 18 19 16 Blood Pressure 147/84 H 154/69 H 162/84 H Pulse Oximetry 97 99 97 Oxygen Delivery Method Room Air Room Air Room Air 04/05/24 21:27 Temperature 98.4 F Pulse Rate 86 Respiratory Rate 16 Blood Pressure 145/86 H Pulse Oximetry 98 Oxygen Delivery Method Room Air BMI result Body Mass Index 39.8 Appearance: Alert. Oriented X3. No acute distress. Eyes: Mild pallor ENT: Pharynx normal. Oral Mucosa moist Neck: Normal inspection. Neck supple. CVS: Normal heart rate and rhythm. Pulses normal. Respiratory: No respiratory distress. Equal air entry bilateral, no wheezing/rales/rhonchi Abdomen: Soft and nontender. Bowel sounds are present, no mass palpable, no CVA tenderness Skin: Skin warm and dry. Normal skin color. Normal skin turgor. Extremities: No lower extremity edema. No calf tenderness diffuse tenderness left iliac area gluteal area Neuro: Oriented X 3. No motor deficit. No sensory deficit.No cerebellar signs , cranial nerves II-XII intact Course Course Course Narrative: This is a Rapid Medical Examination (RME) performed by Elizabeth Peralta PA-C in triage. Full HPI, ROS, assessment and treatment plan per primary provider in the Main ED. 69 yo arabic speaking female here for eval of rectal pain x2 days, worsening today. pt currently being worked up for multiple myeloma w/ Dr. Velasquez. has not yet started treatment for this. Last BM last night was normal. no melena, BRBPR. taking oxycodone for pain with minimal improvement - last dose 9 hours ago. denies fever/chills, abd pain, N/V, constipation, diarrhea. + patient tearful. abd soft, nd/nt. no cvat. Plan: labs, UA Medications Administered Discontinued Medications Generic Name Dose Route Start Last Admin Trade Name Rocael PRN Reason Stop Dose Admin Acetaminophen 650 mg 04/05/24 15:13 04/05/24 15:15 Acetaminophen 325 Mg Tablet PO 04/05/24 15:14 650 mg ONCE ONE Administration Morphine Sulfate 15 mg 04/05/24 18:14 04/05/24 18:23 Morphine Sulfate Immed Release 15 Mg Tablet PO 04/05/24 18:15 15 mg ONCE ONE Administration Medical Decision Making Medical Decision Making [facility] Narrative: Patient with diffuse left-sided pain which is going on for a while been followed by oncologist workup still in progress x-ray of the pelvis did not show any new lytic lesion patient's calcium was slightly elevated to 10.5 advised to drink plenty of fluids will discharge patient home on morphine for increased pain Differential Diagnosis Differential Diagnoses: The differential diagnosis associated with the presentation includes Lab Data [facility] Lab Attestation statement: I reviewed the patient's lab results. 04/05/24 16:57 04/05/24 16:57 Labs: Lab Results 04/05/24 Range/Units 16:57 WBC 5.7 (4.8-10.8) X10*3/uL RBC 4.10 L (4.20-5.50) X10*6/uL Hgb 12.8 (12.0-16.0) g/dl Hct 38.0 (37.0-47.0) % MCV 92.7 (80.0-98.0) fL MCH 31.2 (27.0-33.0) pg MCHC 33.7 (31.0-35.0) g/dl RDW 13.3 (11.0-16.0) % Plt Count 296 (160-400) X10*3/uL MPV 9.7 (9.4-12.3) fL Immature Gran % (Auto) 0.2 (0.0-0.4) % Neut % (Auto) 45.5 (45-73) % Lymph % (Auto) 43.6 H (20-40) % [place] % (Auto) 7.9 (2-11) % Eos % (Auto) 1.9 (0-4) % Baso % (Auto) 0.9 (0-2) % Lymph # (Auto) 2.5 (1.2-4.9) X10*3/uL [place] # (Auto) 0.5 (0.1-1.2) X10*3/uL Eos # (Auto) 0.1 (0.0-0.4) X10*3/uL Baso # (Auto) 0.1 (0.0-0.2) X10*3/uL Abs Immat Gran (auto) 0.01 (0.00-0.03) X10*3/uL Absolute Neuts (auto) 2.6 (2.0-8.3) x10*3/uL Absolute Nucleated RBC 0.000 (0.0-0.012) X10*3/uL Nucleated RBC % (auto) 0.0 (0.0-0.2) /100WBC Sodium 140 (135-145) mmol/L Potassium 4.3 (3.3-5.1) mmol/L Chloride 107 (96-108) mmol/L Carbon Dioxide 24 (22-29) mmol/L Anion Gap 13 (12-20) BUN 17 H (9-16) mg/dL Creatinine 0.85 (0.5-1.4) mg/dL Estim Creat Clear Calc 46.8 Estimated GFR > 60 Random Glucose 94 (60-115) mg/dL Calcium 10.5 H D (8.4-10.2) mg/dL Magnesium 1.8 (1.6-2.6) mg/dL Total Bilirubin 0.5 (0.0-1.0) mg/dL AST 19 (5-31) U/L ALT 16 (0-31) U/L Alkaline Phosphatase 55 (39-117) U/L Total Protein 7.5 (6.5-8.0) g/dL Albumin 4.7 (3.5-5.0) g/dL Lipase 19 (8-78) U/L Independent Interpretation I performed an independent interpretation of an: Plain X-Ray Radiology Impression Discussion of test interpretation with radiology: I have reviewed the radiologist's reading. Discharge Plan Discharge Clinical Impression: Musculoskeletal pain Patient Disposition: Home, Self-Care Instructions: Musculoskeletal Pain (ED) Additional Instructions: Drink plenty of fluids Continue pain medication Morphine for severe pain Your calcium is slightly elevated drink plenty of fluids Prescriptions: New morphine 15 mg tablet 15 mg PO Q8H PRN (Reason: pain) Qty: 15 0RF Rx Instructions: Partial Fill upon patient request. No Action lorazepam 0.5 mg Tablet 0.5 mg PO BEDTIME PRN (Reason: Anxiety) Qty: 30 3RF doxycycline hyclate 100 mg Capsule 100 mg PO BID Qty: 20 3RF acetaminophen [Tylenol Extra Strength] 500 mg tablet 500 mg PO Q6H PRN (Reason: fever or pain) Qty: 14 0RF lidocaine [Lidoderm] 5 % adhesive patch,medicated 1 patch topical DAILY MDD remove after 12 hours PRN (Reason: pain) Qty: 30 0RF Rx Instructions: leave on most painful area for up to 12 hrs amlodipine 5 mg tablet 5 mg PO DAILY Qty: 90 3RF Protocol: Hold for SBP< HOLD for SBP < : 90 atorvastatin 40 mg tablet 40 mg PO DAILY Qty: 90 3RF cholecalciferol (vitamin D3) [Vitamin D3] 125 mcg (5,000 unit) tablet 125 mcg PO DAILY 90 Days Qty: 90 3RF cyclobenzaprine 10 mg tablet 10 mg PO TID PRN (Reason: muscle spasm) Qty: 90 3RF docusate sodium 100 mg capsule 100 mg PO DAILY Qty: 90 3RF famotidine 20 mg tablet 20 mg PO DAILY Qty: 90 3RF levothyroxine 75 mcg tablet 75 mcg PO DAILY Qty: 90 3RF lisinopril 10 mg tablet 10 mg PO DAILY Qty: 90 3RF metformin 500 mg tablet 500 mg PO DAILY Qty: 90 3RF omega-3 fatty acids 1,000 mg capsule 1,000 mg PO BID Qty: 180 3RF ondansetron 8 mg tablet,disintegrating 8 mg PO Q8H Qty: 50 3RF oxycodone 5 mg tablet 5 mg PO Q8H PRN (Reason: Breakthrough Pain, Severe) 28 Days Qty: 84 0RF Rx Instructions: Partial Fill upon patient request. Interventions: ED Discharge Assessment Last Done: 04/05/24 21:27 Discharge Date/Time: 04/05/24 21:20 Print Language: Vietnamese
[2024-04-05 15:10] VITALS: BP 147/84; PULSE 93; RESP 18; TEMP 37; O2SAT 97; BMI 39.8
[2024-04-05] MEDS: Acetaminophen 325 MG TABLET 650 MG PO (15:15)
[2024-04-05 17:02] LABS: Basophils Absolute Auto 0.1 X10*3/uL (0.0-0.2); Basophils Percent Auto 0.9 % (0-2); Eosinophils Absolute Auto 0.1 X10*3/uL (0.0-0.4); Eosinophils Percent Auto 1.9 % (0-4); Hemoglobin 12.8 g/dl (12.0-16.0); Imm Gran Abs Auto 0.01 X10*3/uL (0.00-0.03); Imm Gran Pct Auto 0.2 % (0.0-0.4); Lymphocytes Absolute Auto 2.5 X10*3/uL (1.2-4.9); Lymphocytes Percent Auto 43.6 % (20-40); MANUAL DIFF FLAG NO; Mean Corpuscular HGB Conc 33.7 g/dl (31.0-35.0); Mean Corpuscular Hemoglobin 31.2 pg (27.0-33.0); Mean Corpuscular Volume 92.7 fL (80.0-98.0); Mean Platelet Volume 9.7 fL (9.4-12.3); Monocytes Absolute Auto 0.5 X10*3/uL (0.1-1.2); Monocytes Percent Auto 7.9 % (2-11); Neutrophils Absolute Auto 2.6 x10*3/uL (2.0-8.3); Neutrophils Percent Auto 45.5 % (45-73); Platelet Count 296 X10*3/uL (160-400); Red Cell Distribution Width 13.3 % (11.0-16.0); White Blood Count 5.7 X10*3/uL (4.8-10.8)
[2024-04-05 17:16] VITALS: BP 154/69; PULSE 78; RESP 19; TEMP 36.8; O2SAT 99
--- NOTE | 2024-04-05 17:17 | MHC.EDTECH ---
This Tech assumed care of this pt upon arrival. Pt changed over into a hospital gown. Family at bedside
[2024-04-05 17:25] LABS: Alanine Aminotransferase 16 U/L (0-31); Albumin Level 4.7 g/dL (3.5-5.0); Alkaline Phosphatase 55 U/L (39-117); Anion Gap 13 (12-20); Aspartate Amino Transferase 19 U/L (5-31); Bilirubin Total 0.5 mg/dL (0.0-1.0); Blood Urea Nitrogen 17 mg/dL (9-16); Calcium 10.5 mg/dL (8.4-10.2); Carbon Dioxide 24 mmol/L (22-29); Chloride 107 mmol/L (96-108); Creatinine Clr Calc Pharmacy 46.8; Estimated Glomerular Filt Rate > 60; Glucose Random 94 mg/dL (60-115); Lipase 19 U/L (8-78); Magnesium 1.8 mg/dL (1.6-2.6); Potassium 4.3 mmol/L (3.3-5.1); Sodium 140 mmol/L (135-145); Total Protein 7.5 g/dL (6.5-8.0)
[2024-04-05] MEDS: Morphine Sulfate Immed Release 15 MG TABLET PO (18:23)
[2024-04-05 19:57] VITALS: BP 162/84; PULSE 83; RESP 16; TEMP 36.9; O2SAT 97
[2024-04-05 21:27] VITALS: BP 145/86; PULSE 86; RESP 16; TEMP 36.9; O2SAT 98
== END 2024-04-05 21:20 | disposition home or self-care (01) ==
PROVIDERS: Physician Assistant Medical; Emergency Provider Internal Medicine
DX: M79.10 Myalgia, unspecified site (principal); R10.2 Pelvic and perineal pain; E11.9 Type 2 diabetes mellitus without complications; I10 Essential (primary) hypertension; Z79.899 Other long term (current) drug therapy
CPT/HCPCS: 36415; 72170; 80053; 83690; 83735; 85025; 99284

== ENCOUNTER 2024-04-16 10:13 | Outpatient (AMB) | payer MEDICAID, SELFPAY ==
--- NOTE | 2024-04-16 10:28 | MHC.PC.OV ---
Vital Signs 04/16/24 10:46 BMI Reason not done Patient refused/unable BP not taken reason Medical Reason Intake Visit Reasons: DM Intake Note: Patient is here to follow up for diabetes. Patient is also concerned about pain on an area of her buttocks, appears as a small hematoma , pain on the arms and shoulders and patient feels she cannot use the bathroom. Patient reports this has been going on for 3 days including today. 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 Accompanied by: Family/Other Allergies ampicillin Allergy (Verified 04/16/24 10:42) Anaphylaxis aspirin Allergy (Verified 04/16/24 10:42) Anaphylaxis diphenhydramine [From Benadryl] Allergy (Verified 04/16/24 10:42) Swelling Tobacco use date assessed: 03/16/24 Fall risk assessment: No Falls in past year Last assessed Fall Risk: 04/16/24 Dental Screening Dental Screen Date: 04/16/24 Did you have a dental visit in the last 12 months?: Yes Did you have a dental problem in the last 6 months where you did not have access to dental care?: No Was dental information given to patient?: Patient has dentist HPI HPI Comments History of Present Illness Details 68-year-old male with pertinent history of hypertension, [id number] diabetes mellitus, mood disorder, GERD, hypothyroidism, multiple myeloma, hypercalcemia presenting for follow up. 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 Imaging with lytic lesion of the left sacrum and lumbar vertebrae. Also found to have elevated creatinine and elevated serum protein. Received pamidronate, IV fluids. Calcium improved to 11.2. subsequently underwent bone marrow biopsy, lymph node biopsy, PET scan. She is taking oxycodone for pain, lorazepam for anxiety, zofran for nausea. Heme/Onc: copied from Dr Velasquez whom they follow up with next week.She is having increased pain in the left sacrum. MRI pelvis in January with bony lesion in this area Multiple Myeloma.(CRAB criteria.) Her calcium is improving after she has recieved Bisphosphonates. From 16 to 13.2. DIFFERENTIAL DIAGNOSIS: 1. POEMS Syndrome:polyneuropathy,organomegaly,endocrinopathy, M-protein and skin changes, associated with osteosclerotic bone lesions. 2. AMYLOIDOSIS. 3. LIGHT CHAIN DEPOSITION DISEASE. 4. METASTATIC CANCER. DM-On metformin 500mg daily. A1C today is 5.5 CV: On lisinopril 10mg daily, amlodipine 5mg daily. Denies chest pain, dizziness. Denies LE edema Hypothyroid: on levothyroxine GERD:on famotidine ROS CONSTITUTIONAL: Denies weight loss, fever and chills. HEENT: Denies changes in vision and hearing. RESPIRATORY: Denies SOB and cough. CV: Denies palpitations and CP GI: Denies abdominal pain, nausea, vomiting and diarrhea. : Denies dysuria and urinary frequency. MSK: see HPI SKIN: Denies rash and pruritus. NEUROLOGICAL: Denies headache PSYCHIATRIC: Denies recent changes in mood. PHYSICAL EXAM: GENERAL: Alert and oriented x 3. NAD EYES: EOMI. Anicteric. HENT: Moist mucous membranes. No scleral icterus. No cervical lymphadenopathy. LUNGS: Clear to auscultation bilaterally. CARDIOVASCULAR: Regular rate and rhythm. No murmur. No JVD. ABDOMEN: Soft, non-tender +bs EXTREMITIES: No edema. Non-tender. MSK: Tender left sacrum. No skin lesions SKIN: No rashes or lesions. Warm. NEUROLOGIC: No focal neurological deficits. CN II-XII grossly intact PSYCHIATRIC: Cooperative. Appropriate mood and affect [facility] Medical History (Updated 04/16/24 @ 13:26 by Mora Maria MD) Hx of hypercalcemia Mood disorder Thyroid nodule Adnexal mass GERD (gastroesophageal reflux disease) Hypothyroidism Diabetes mellitus Surgical History Hx of lymph node excision (03/05/24) Hx of right cataract extraction History of bone marrow biopsy (01/19/24) Hx of eye surgery Hx of section Social History Household Members: Family Housing: Apartment Do you presently have visiting nurse or other home services: No Alcohol intake: never Comment: COUNTS CORRECT Patient Tobacco Use Status: Never used Tobacco e-Cigarette/Vaping Use: Never Used service: No Current occupational status: retired Cognitive needs: No Hearing needs: No Vision needs: No Questionnaire PHQ-9 Over the last 2 weeks, how often have you been bothered by any of the following problems? 1. Little interest or pleasure in doing things: nearly every day 2. Feeling down, depressed, or hopeless: several days 3. Trouble falling or staying asleep, or sleeping too much: nearly every day 4. Feeling tired or having little energy: several days 5. Poor appetite or overeating: more than half the days 6. Feeling bad about yourself - or that you are a failure or have let yourself or your family down: not at all 7. Trouble concentrating on things, such as reading the newspaper or watching television: not at all 8. Moving or speaking so slowly that other people could have noticed. Or the opposite - being so fidgety or restless that you have been moving around a lot more than usual: more than half the days 9. Thoughts that you would be better off or of hurting yourself in some way: not at all Total score: 12 Depression Screening Interpretation: Positive Depression Screening Follow-up: Existing condition Depression Screening Done: Yes Source: Developed by Drs. Cole Sadler, Yadira Can, Royal Rojas and colleagues, with an educational cristi from [employer]. Thrive Questionnaire Date Thrive assessed: 03/16/24 I am a: Parent/Caregiver What is your living situation today?: I have a steady place to live Within the past 12 months, did the food you bought not last and you didn't have the money to get more?: Sometimes True Within the past 12 months, did you worry whether your food would run out before you got money to buy more?: Sometimes True Do you have trouble paying for medicines?: No Do you have trouble getting transportation to medical appointments?: No Do you have trouble paying your heating and electricity bill?: No Do you have trouble taking care of your child, family member or friend?: No Do you have trouble with day-to-day activities such as bathing, preparing meals, shopping, managing finances, etc.?: Yes Are you currently unemployed and looking for a job?: Yes Are you interested in more education?: No Please select the resources that you would like help with: None Currently or been in a relationship where the following occur: No concerns reported THRIVE Score: 2 AUDIT C Alcohol Use Questionnaire (AUDIT-C) 1. How often do you have a drink containing alcohol?: Never Total Score: 0 BETO-7 AMB Questionnaire BETO-7 Date BETO - 7 assessed: 03/16/24 Feeling nervous, anxious, or on edge: 1 = Several days Not being able to stop or control worryin = Several days Worrying too much about different things: 1 = Several days Trouble relaxin = Several days Being so restless that it is hard to sit still: 1 = Several days Becoming easily annoyed or irritable: 1 = Several days Feeling afraid as if something awful might happen: 0 = Not at all Total BETO-7 score (0-4 normal; 5-9 mild; 10-14 moderate; 15-21 severe): 6 Source: Developed by Drs. Cole Sadler, Yadira Can, Royal Rojas and colleagues, with an educational cristi from [employer]. Physical exam (Primary Care) Tobacco/Smoking Status: Tobacco use Status Tobacco use date assessed 03/16/24 04/16/24 10:29 Patient Tobacco Use Status Never used Tobacco 04/16/24 10:29 e-Cigarette/Vaping Use Never Used 04/16/24 10:29 PHQ-9: PHQ-9 Score PHQ-9: Total score 12 04/16/24 13:28 Depression Screening Interpretation: Positive Depression Screening Follow-up: Existing condition Thrive Assessment: Date of Thrive Assessment Date Thrive assessed 03/16/24 04/16/24 10:29 Currently or been in a relationship where the following occur: No concerns reported Assessment and Plan Assessment & Plan (1) Diabetes mellitus: Code(s): E11.9 - Type 2 diabetes mellitus without complications Qualifiers: Diabetes mellitus complication detail: with other arthropathy Diabetes mellitus complication status: with diabetic arthropathy Diabetes mellitus half-way insulin use: without half-way use Diabetes mellitus type: type 2 Qualified Code(s): E11.618 - Type 2 diabetes mellitus with other diabetic arthropathy Plan: Well controlled. She will stop metformin and recheck A1C in another 3 months (2) Multiple myeloma: Code(s): C90.00 - Multiple myeloma not having achieved remission Qualifiers: Multiple myeloma remission status: unspecified Qualified Code(s): C90.00 - Multiple myeloma not having achieved remission Plan: Follow up scheduled with [facility]/onc on Friday. 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
== END 2024-04-16 11:26 | disposition home or self-care (01) ==
PROVIDERS: Visit Provider Internal Medicine
DX: E11.618 Type 2 diabetes mellitus with other diabetic arthropathy (principal); C90.00 Multiple myeloma not having achieved remission

== ENCOUNTER → 2024-04-16 10:13 | Outpatient (BNVA) | payer MEDICAID, SELFPAY | PROVIDERS: Visit Provider Internal Medicine | DX: E11.618 Type 2 diabetes mellitus with other diabetic arthropathy (principal); C90.00 Multiple myeloma not having achieved remission | CPT/HCPCS: 96127; 99212 ==

== ENCOUNTER → 2024-04-27 13:52 | Outpatient (REF) | payer MEDICAID, SELFPAY ==
--- NOTE | 2024-04-27 13:56 | CA_ITS ---
Transthoracic Echocardiogram Patient (Last, First, Middle): Laurita Hemphill, Gender: Female Date of : 1955 Age: 69 Procedure Date: 04/27/2024 Procedure Type: Transthoracic Echocardiogram Location: OP Height: 147.32 cm Weight: 60.33 kg BSA: 1.53 m2 Heart Rate: bpm BP: 120 / 64 mmHg Product Development Director: TO Referring MD: aMrta Velasquez MD Industrial Roofer Helper: Hal Hernandez MD Symptoms: Lymphoma, pre chemo assessment Study Quality: Fair/Contrast ECG Rhythm: Sinus Conclusions: - 1. Normal LV systolic function with LVEF of 60-65% with impaired relaxation filling pattern 2. Mildly dilated left atrium 3. Normal cardiac valvular Dopplers 4. No gross pericardial effusion Findings Procedure Information Contrast agent, definity, is being given per protocol without apparent complications. Left Ventricle Normal left ventricular size, thickness, and systolic function. The visually estimated ejection fraction is between 60-65%. Spectral Doppler is indicative of an impaired relaxation filling pattern. E/E prime ratio is between 8 and 15 consistent with indeterminate filling pressures. Peak GLS is -20.7%, within normal limits. Right Ventricle Normal right ventricular cavity size and systolic function. Atria The left atrium is mildly dilated. There is no evidence of interatrial shunt. The right atrium is likely dilated. Aortic Valve Normal aortic valve structure and function. There is no aortic valve stenosis. There is no aortic valve regurgitation. Mitral Valve Normal mitral valve structure and function. There is trace mitral valve regurgitation. There is no mitral valve stenosis. Pulmonic Valve The pulmonic valve is likely normal. There is trace pulmonic valve regurgitation. Tricuspid Valve Normal tricuspid valve structure. Tricuspid regurgitation envelope is inadequate for calculation of right ventricular systolic pressure. Normal right atrial pressure. Great Vessels All visible segments of the aorta are normal in size. The pulmonary artery was not well visualized. Small plaque is seen in the sino tubular ridge. Venous The inferior vena cava is normal in size and collapses greater than 50% with inspiration. Pericardium/Pleural There is no evidence of pericardial effusion. Prior Study Comparison No prior study available for comparison. Measurements 2D Linear Measurements IVSd: 1.02 0.6-0.9/0.6-1.0 cm LVIDd: 4.25 3.9-5.3/4.2-5.9 cm LVIDd Index: 2.78 2.4-3.2/2.2-3.1 cm/m2 LVIDs: 2.70 2.0-3.6 cm LVPWd: 0.72 0.7-1.1 cm LA Diam: 3.20 2.7-3.8/3.0-4.0 cm LAIDs Index: 2.09 1.5-2.3 cm/m2 LV Mass: 143.57 67-162/88-224 g LV Mass Index: 93.84 43-95/49-115 g/m2 LVOT Diam: 2.00 3.0+(-)1.3 cm 2D Systolic Function EF 4C: 59.80 >55% EF 2C: 65.10 >55% EF BiP: 63.40 >55% Mitral Valve MV Pk E: 0.83 MV PK A: 0.59 MV Decel Time: 251.00 E/A: 1.40 E'Lateral: 7.18 E'Medial: 5.66 E/E' Med: 14.70 E/E' Lat: 11.60 PHT: 73.00 MVA PHT: 3.01 Decel Sac: 3.32 Aortic Valve AoV Pk Adis: 1.49 AoV Mn Adis: 1.00 AoV VTI: 0.31 AoV Pk Grad: 9.00 Aov Mn Grad: 4.00 DEVON Cont.VTI: 2.12 LVOT LVOT Pk Adis: 1.00 LVOT Mn Adis: 0.62 LVOT VTI: 0.21 LVOT Pk Grad: 4.00 LVOT Mn Grad: 2.00 LVOT Diam: 2.00 LVOT Area: 3.14 Diastolic Function MV Pk E: 0.83 MV Pk A: 0.59 E/A: 1.40 E'Medial: 5.66 E/E' Med: 14.70 E' Laterial: 7.18 E/E' Lat: 11.60 Right Ventricle TAPSE (mm): 20.40 TVS' Adis: 12.10 Tricuspid Valve RA Press: 3.00 Great Vessels Aorta Sinus of Valsalva: 3.03 2.0-3.[address] Ridge: 2.08 1.7-3.4 cm Ao Asc: 3.10 2.1-3.4 cm Updated in Other Vendor System with Status of Final Hal Hernandez MD electronically signed on 04/28/2024 9:10:35 AM with status of Final
== END ==
LOC: HO.CARD 13:52
PROVIDERS: Visit Provider Internal Medicine Medical Oncology
DX: C85.90 Non-Hodgkin lymphoma, unspecified, unspecified site (principal)
CPT/HCPCS: 93306; 93356; Q9957

== ENCOUNTER → 2024-04-27 13:56 | Outpatient (BNV) | payer MEDICAID, SELFPAY | PROVIDERS: Visit Provider Internal Medicine Cardiovascular Disease | DX: Z01.818 Encounter for other preprocedural examination (principal) | CPT/HCPCS: 93306; 93356 ==

== ENCOUNTER 2024-04-28 11:19 | Day surgery (SDC) | payer MEDICAID, SELFPAY ==
--- NOTE | ~2024-04-28 | IR_ITS ---
CLINICAL HISTORY: Non-Hodgkin's lymphoma. The patient presents to interventional radiology for placement of a port for chemotherapy. PROCEDURES: 1. Real-time ultrasound-guided access into the right internal jugular vein after documentation of selected vessel patency, and permanent image storing in the patient records. 2. Placement of a 6.6 Estonian single-lumen power port. CLINICIAN: Luis Miguel Miller PA-C MEDICATIONS: - Versed 1.5 mg, Fentanyl 75 mcg, Lidocaine 1% 10 mL SQ -Antibiotics: Clindamycin 600 mg -For additional details, please see nursing flowsheet. Complications: None. Estimated blood loss: <5 ml Specimens: None. Contrast: None. Fluoroscopy time: 3.7 min MODERATE SEDATION TIME: 0.3 min PROCEDURE NOTE: The procedure, risks, benefits, and alternatives were carefully explained to the patient and written informed consent was obtained. The patient was placed supine on the fluoroscopy table. A timeout was performed. The right neck and chest was prepped and draped in usual sterile fashion. Maximum barrier technique was utilized. Local anesthesia was administered to the access site with 1% lidocaine. Under ultrasound guidance, the right internal jugular vein was accessed with a 5 fr micropuncture set. A 0.035 in wire was advanced into the IVC. A peel-away sheath was advanced over the wire and into the SVC, and the wire was removed. Next, subcutaneous lidocaine was administered to the chest. The port pocket was created after the skin incision, utilizing blunt dissection. Using blunt dissection, a subcutaneous tunnel was created that connects from the port pocket to the venotomy site. Through the peel-away sheath, the 6.6 Estonian port catheter was placed. The catheter position was verified with fluoroscopy to be at the cavoatrial junction. The port was connected to the catheter and was placed in the pocket. The venotomy site was closed with a 3-0 Vicryl subcutaneous suture. The port incision site was closed with interrupted 3-0 Vicryl subcutaneous sutures and surgical glue. The port was tested, flushed, and packed with heparin per routine protocol. The patient tolerated the procedure well. The patient was stable after the procedure and was transferred to the PACU. The procedure was performed under moderate sedation and with a dedicated nurse with continuous monitoring of vital signs. A permanent image of the ultrasound the neck and fluoroscopic image of the chest was saved and sent to PACS. FINDINGS: 1. Patent right internal jugular vein 2. Placement of a 6.6 Estonian single lumen power port. 3. Port flushes and aspirates very well with a 10 mL syringe. No pneumothorax. IR/IR cvc insert tunnel w prt/field software engineer IMPRESSION: Placement of a 6.6 Estonian single-lumen power port. PLAN: - The patient will be discharged home when stable by sedation protocol. - Port may be used immediately. This procedure was performed by Luis Miguel Miller PA-C, and directly supervised by Dr. Zhao Electronically signed by: Brian Malloy MD 05/17/2024 02:31 PM EDT
[2024-04-28 12:05] LABS: Glucose, Whole Blood 85 mg/dL (60-115)
[2024-04-28 12:26] VITALS: BP 156/56; PULSE 61; RESP 17; TEMP 36.1; O2SAT 98; BMI 39.8
--- NOTE | 2024-04-28 14:08 | MHC.SHP ---
Pre-Procedural Eval Section A - 24 Hr Update-Section A only Date of Service: 04/28/24 Section B - Complete if H&P > 30 days Chief Complaint: non-hodgkin lymphoma-facilitate chemotherapy Details of Present Illness: 69 y/o female with NHL and poor iv access Relevant Family History (Specify if Yes): No Relevant Social History: None Present Medications: see Short Stay Collaborative assessment Medical History: Significant History History of Previous Operations: Relevant previous surgery/procedure and date(s) Allergies: Allergies Allergy/AdvReac Type Severity Reaction Status Date / Time ampicillin Allergy Anaphylaxis Verified 04/19/24 08:41 aspirin Allergy Anaphylaxis Verified 04/19/24 08:41 diphenhydramine Allergy Swelling Verified 04/19/24 08:41 [From Benadryl] Review of Systems Sugical H&P ROS: Negative: Constitution, Cardiovascular and Respiratory and Yes, Specify: Musculoskeletal (hip pain) Exam Surgical H&P Exam: Normal: Heart, Normal: Lungs, Normal: Skin and Normal: Neurological Plan 69 y/o female with NHL and poor iv access -Port Time Spent With Patient Time: Total time managing care of this patient today ____ minutes.
[2024-04-28 15:05] VITALS: BP 121/56; PULSE 50; RESP 16; TEMP 36.2; O2SAT 99
[2024-04-28 15:20] VITALS: BP 124/64; PULSE 57; RESP 16; TEMP 36.3; O2SAT 99
[2024-04-28 15:35] VITALS: BP 128/54; PULSE 59; RESP 16; TEMP 36.2; O2SAT 99
== END 2024-04-28 15:50 | disposition home or self-care (01) ==
PROVIDERS: Radiology Diagnostic Radiology; Visit Provider Internal Medicine Medical Oncology
DX: Z45.2 Encounter for adjustment and management of vascular access device (principal); C85.90 Non-Hodgkin lymphoma, unspecified, unspecified site; Z88.1 Allergy status to other antibiotic agents; Z88.6 Allergy status to analgesic agent
CPT/HCPCS: 36561; 76937; 82947; 99152; 99153; C1769; C1788; J0131; J0736; J1642; J1644; J2003; J2250; J3010

== ENCOUNTER → 2024-04-28 14:07 | Outpatient (BNV) | payer MEDICAID, SELFPAY | PROVIDERS: Visit Provider Physician Assistant Surgical | DX: C85.90 Non-Hodgkin lymphoma, unspecified, unspecified site (principal) | CPT/HCPCS: 36561; 76937; 77001 ==

== ENCOUNTER 2024-06-27 18:55 | Inpatient (IN) | payer MEDICARE, MEDICAID, SELFPAY ==
[2024-06-27] VITALS (16 sets, daily range): BP systolic 100–162; BP diastolic 49–76; PULSE 87–136; RESP 17–27; TEMP 37.8–39.7; O2SAT 93–98; BMI 27.1
--- NOTE | ~2024-06-27 | CT_ITS ---
EXAMINATION: CT ABDOMEN AND PELVIS WITH CONTRAST CLINICAL INFORMATION: Abdominal pain. Tenderness. Fever. History of lymphoma. COMPARISON: 02/04/2024 TECHNIQUE: Multidetector volumetric images were obtained from the superior aspect of the liver through the pubic symphysis following administration 85 mL of Omnipaque 350 intravenous contrast. Sagittal and coronal reformatted images were obtained on the technologist's workstation. Oral contrast: No This CT examination was performed using dose optimization techniques as appropriate, variously including the following: *Automated exposure control *Adjustment of mA and/or kV according to patient size (this includes techniques or standardized protocols for targeted exams where dose is matched to indication/reason for exam; i.e. extremities or head) *Use of iterative reconstruction technique DLP: 420 mGy-cm FINDINGS: LUNG BASES: Mild bibasilar atelectasis. Wall thickening is noted in the distal esophagus. Atherosclerotic calcifications of the coronary arteries. LIVER, GALLBLADDER, AND BILIARY TREE: The liver is normal in size, shape, and attenuation. No focal hepatic lesion or biliary ductal dilatation is present. The gallbladder is unremarkable with no evidence of radiopaque gallstones, gallbladder wall thickening, or obvious pericholecystic inflammatory changes. PANCREAS: Unremarkable. SPLEEN: Unremarkable. ADRENAL GLANDS: Unremarkable. KIDNEYS AND URETERS: There is a 2.4 cm fluid attenuation simple cyst in lower pole of the left kidneys. Small subcentimeter focus of cortical hypoattenuation in the left kidney is too small to characterize, though statistically favored to correspond to a simple cyst. No recommended imaging follow-up. Kidneys enhance symmetrically and are normal in size. No suspicious lesions. No nephrolithiasis or hydronephrosis. BLADDER: Bladder wall thickening. No intraluminal abnormalities. GASTROINTESTINAL TRACT: Circumferential wall thickening of the distal esophagus. Stomach, small bowel, and colon are normal in caliber. Severe colonic diverticulosis diffusely. Appendix is normal. No evidence of acute diverticulitis. No intraperitoneal free fluid or free air. Rectal catheter is in place. ABDOMINAL WALL: No significant hernia is appreciated. LYMPH NODES: Multiple subcentimeter mesenteric retroperitoneal lymph nodes. No pathologic adenopathy. VASCULAR: Atherosclerotic calcification in the abdominal aorta and iliac arteries. No aneurysmal dilatation. PELVIC VISCERA: Uterus is unremarkable. There is a 2 cm simple appearing left ovarian cystic focus. This is almost certainly benign. No follow-up is warranted. OSSEOUS STRUCTURES: Mild multilevel degenerative disc disease in the lumbar spine. No acute osseous findings. Mild osteoarthritis in the hips and SI joints. There is a sclerotic appearance to the sacrum with trabecular coarsening which is unchanged as compared to prior. No appreciable extraosseous soft tissue mass is identified in the pelvis. Previously seen enlargement of the left piriformis muscle is no longer apparent. The left paraspinal soft tissue mass in the lumbosacral region is not well seen on the current images. CT/CT abdomen pelvis w IV con IMPRESSION: No acute intra-abdominal or intrapelvic abnormalities. Severe colonic diverticulosis without evidence of acute diverticulitis. Heterogeneous, sclerotic appearance of the sacrum, similar to prior. No superimposed pathologic fracture or new osseous lesions are identified. The previously seen extraosseous soft tissue masses in this regions are not well seen on the current study. Mild circumferential wall thickening of the distal esophagus, raising the possibility of esophagitis. Consider follow-up barium swallow study if clinically warranted. Fleischner guidelines were followed. Electronically signed by: Kelvin Munoz MD 06/27/2024 11:02 PM JOSETTE RDORIGUEZ
--- NOTE | ~2024-06-27 | XR_ITS ---
EXAMINATION: XR CHEST CLINICAL INFORMATION: fever in lymphoma patient COMPARISON: None available. TECHNIQUE: Portable AP view of the chest was obtained. FINDINGS: The study is limited by portable technique and suboptimal inspiration. No focal infiltrate, effusion, or pneumothorax is seen. Minimal elevation of the left hemidiaphragm. The cardiac silhouette is suboptimally evaluated. Aorta is mildly atherosclerotic. No adenopathy is appreciated. Mild degenerative changes of the spine. The tip of a right internal jugular chest port catheter is suboptimally visualized, possibly projecting near the cavoatrial junction. XR/XR chest 1V IMPRESSION: No gross acute radiographic finding. Electronically signed by: Jovani Brennan MD 06/27/2024 09:20 PM JOSETTE
--- NOTE | 2024-06-27 18:58 | ED.GENADULT ---
HPI - General Adult General Chief complaint: Nausea/Vomiting/Diarrhea Stated complaint: Cancer pt, dizziness, vomiting Time Seen by Provider: 06/27/24 19:10 History of Present Illness ED Provider: Matthew CARDOZA narrative: The patient is a 69-year-old female with a history of lymphoma. She has been receiving chemotherapy from Dr. Velasquez. Her last chemotherapy was 11 days ago on June 16. The patient was doing well until this morning when she fairly abruptly it started to feel sick with chills and nausea and vomiting and dizziness and abdominal discomfort. She had vomiting this afternoon. She ultimately came to the emergency room. Here her temperature was 103.5 degrees. Related Data Home Medications ?Medication ?Instructions ?Recorded ?Confirmed clopidogrel 75 mg tablet 75 mg PO DAILY 04/28/24 05/04/24 metformin 500 mg tablet 500 mg PO DAILY 04/28/24 05/04/24 Previous Rx's ?Medication ?Instructions ?Recorded acetaminophen 500 mg tablet 500 mg PO Q6H PRN fever or pain 02/04/24 (Tylenol Extra Strength) #14 tabs lorazepam 0.5 mg tablet 0.5 mg PO BEDTIME PRN Anxiety #30 03/04/24 tabs amlodipine 5 mg tablet 5 mg PO DAILY #90 tabs 03/16/24 atorvastatin 40 mg tablet 40 mg PO DAILY #90 tabs 03/16/24 cholecalciferol (vitamin D3) 125 125 mcg PO DAILY 90 days #90 tabs 03/16/24 mcg (5,000 unit) tablet (Vitamin D3) cyclobenzaprine 10 mg tablet 10 mg PO TID PRN muscle spasm #90 03/16/24 tabs docusate sodium 100 mg capsule 100 mg PO DAILY #90 caps 03/16/24 famotidine 20 mg tablet 20 mg PO DAILY #90 tabs 03/16/24 levothyroxine 75 mcg tablet 75 mcg PO DAILY #90 tabs 03/16/24 lisinopril 10 mg tablet 10 mg PO DAILY #90 tabs 03/16/24 omega-3 fatty acids 1,000 mg 1,000 mg PO BID #180 caps 03/16/24 capsule dexamethasone 4 mg tablet 4 mg PO BID #30 tabs 04/16/24 lidocaine 5 % topical patch 1 patch topical DAILY PRN pain #30 04/16/24 (Lidoderm) ea sennosides 8.6 mg tablet (Senokot) 8.6 mg PO BID #60 tabs 04/19/24 sodium phosphates 19 gram-7 118 ml IL BEDTIME PRN Constipation 04/19/24 gram/118 mL enema (Fleet Enema) #4 mL ondansetron 8 mg disintegrating 8 mg PO Q8H #50 tabs 04/27/24 tablet allopurinol 300 mg tablet 300 mg PO DAILY #90 tabs 05/07/24 prednisone 20 mg tablet 60 mg (3 x 20 mg) PO DAILY #100 05/30/24 tabs morphine 30 mg tablet,extended 30 mg PO Q12H #60 tabs 06/01/24 release (MS Contin) oxycodone 5 mg tablet 5 mg PO Q8H PRN Breakthrough Pain, 06/01/24 Moderate #60 tabs sennosides 8.6 mg tablet (Senokot) 8.6 mg PO BID PRN Constipation #60 06/01/24 tabs Allergies Allergy/AdvReac Type Severity Reaction Status Date / Time ampicillin Allergy Anaphylaxis Verified 06/27/24 19:05 aspirin Allergy Anaphylaxis Verified 06/27/24 19:05 diphenhydramine Allergy Swelling Verified 06/27/24 19:05 [From Benadryl] Review of Systems Review of Systems: Yes all other systems are reviewed and are negative PMFSH Past Medical History Medical History (Updated 06/28/24 @ 00:50 by Nichol Lacy PA-C) Diffuse large B cell lymphoma Hx of hypercalcemia Mood disorder Thyroid nodule Adnexal mass GERD (gastroesophageal reflux disease) Hypothyroidism Diabetes mellitus Surgical History Hx of lymph node excision (03/05/24) Hx of right cataract extraction History of bone marrow biopsy (01/19/24) Hx of eye surgery Hx of section Social History Social History Household Members: Family Housing: Apartment Do you presently have visiting nurse or other home services: No Alcohol intake: never Patient Tobacco Use Status: Never used Tobacco Smoked in Last 30 Days: No e-Cigarette/Vaping Use: Never Used Use of substances other than those prescribed or required for medical reasons: No Advance Directives: Yes Advance Directives on File: Yes Advance Directives Date on File: 12/17/23 Do you have a plan to hurt others: No Plan service: No Current occupational status: retired Cognitive needs: No Hearing needs: No Vision needs: No Physical Exam ED Vital Signs: Vital Signs - 24 hr 06/27/24 19:01 06/27/24 19:17 06/27/24 19:35 Temperature 103 F H Pulse Rate 125 H 123 H 124 H Respiratory Rate 18 18 22 H Blood Pressure 144/63 H 162/70 H 152/76 H Pulse Oximetry 93 93 Oxygen Delivery Method Room Air Room Air 06/27/24 19:47 06/27/24 20:02 06/27/24 20:19 Temperature 103.5 F H 102.0 F H 102.4 F H Pulse Rate 136 H 113 H 106 H Respiratory Rate 25 H 21 H 27 H Blood Pressure 157/66 H 139/60 131/55 L Pulse Oximetry 94 93 96 Oxygen Delivery Method Room Air Room Air Room Air 06/27/24 20:32 06/27/24 20:47 06/27/24 21:03 Temperature 102.0 F H 101.7 F H 101.3 F H Pulse Rate 107 H 109 H 105 H Respiratory Rate 22 H 17 20 Blood Pressure 138/62 135/60 124/56 L Pulse Oximetry 96 97 97 Oxygen Delivery Method Room Air Room Air Room Air 06/27/24 21:18 06/27/24 22:00 06/27/24 22:02 Temperature 100.8 F H 100.4 F Pulse Rate 98 95 Respiratory Rate 20 23 H Blood Pressure 125/59 L 109/56 L Pulse Oximetry 98 98 Oxygen Delivery Method Room Air Room Air 06/27/24 22:33 06/27/24 22:43 06/27/24 23:29 Temperature 100.0 F 100.0 F 100.4 F Pulse Rate 88 93 98 Respiratory Rate 20 19 22 H Blood Pressure 100/49 L 120/51 L 131/65 Pulse Oximetry 95 98 96 Oxygen Delivery Method Room Air Room Air Room Air 06/27/24 23:43 06/28/24 00:15 Temperature 100.4 F 100.4 F Pulse Rate 87 93 Respiratory Rate 19 21 H Blood Pressure 113/60 117/61 Pulse Oximetry 97 98 Oxygen Delivery Method Room Air Room Air BMI result Body Mass Index 27.1 Const Other: The patient is frail looking 69-year-old who was awake and alert. Initially she looked quite unwell and she looked as if she was uncomfortable. HENAL Other: Face is symmetrical. Mucous membranes moist Eyes General: appearance normal, both eyes and all related structures Conjunctivae: conjunctivae normal Sclerae: sclerae normal Pupils: Equal, round and reactive pupils present EOM: EOMs intact bilaterally Neck Neck: Yes full ROM Resp Effort & Inspection: normal respiratory effort Auscultation: clear to auscultation bilaterally Cardio Rate: tachycardic Rhythm: regular rhythm Heart sounds: S1 normal heart sound present and S2 normal heart sound present GI Other: The patient had some mild diffuse abdominal tenderness, possibly most in the left lower quadrant but no rebound or guarding. Skin Other: Skin was pale and dry Neuro Other: The patient was awake and alert with a normal mental status although she seemed quite anxious. Cranial nerves are grossly intact. She moves her extremities symmetrically. Cranial nerves: Yes Equal, round and reactive pupils present Extrem Other: No calf swelling or tenderness. No peripheral edema. No asymmetry. Course Course Course Narrative: [id number]-old female with pertinent history of hypertension, [id number] diabetes mellitus, mood disorder, gastroesophageal reflux disease, hypothyroidism, diffuse large B cell lymphoma on chemotherapy here with complaints of chills, vomiting, dizziness, diffuse abdominal pain x 1 hr. Last chemotherapy was 06/15. Followed by Dr Velasquez here at [facility]. Will need labs, EKG, CXR, viral testing, UA May need CT imaging based on exam. Febrile and tachycardic in triage. Sepsis alert called, brought to ER room 1 directly and report given to Dr Castro. Lizzy Ivory APRN Medications Administered Generic Name Dose Route Start Last Admin Trade Name Freq PRN Reason Stop Dose Admin Lactated Ringer's 1,000 mls @ 100 mls/hr 06/28/24 00:45 06/28/24 00:50 Lr IVCONT 100 mls/hr .Q10H HAILEE Administration Discontinued Medications Generic Name Dose Route Start Last Admin Trade Name Freq PRN Reason Stop Dose Admin Sodium Chloride 1,000 mls @ 999 mls/hr 06/27/24 19:06 06/27/24 21:17 Ns IV 06/27/24 20:06 Infused .Q1H1M STA Infusion Acetaminophen 1,000 mg in 100 mls @ 400 mls/hr 06/27/24 19:48 06/27/24 20:48 Ofirmev IV 06/27/24 20:02 Infused ONCE ONE Infusion Cefepime HCl 2 gm in 50 mls @ 100 mls/hr 06/27/24 19:59 06/27/24 21:17 Maxipime IV 06/27/24 20:28 Infused ONCE ONE Infusion Lactated Ringer's 1,000 mls @ 999 mls/hr 06/27/24 20:15 06/28/24 00:15 Lr IV 06/27/24 21:15 Infused .Q1H1M HAILEE Infusion Metronidazole 500 mg in 100 mls @ 100 mls/hr 06/27/24 21:14 06/27/24 23:09 Flagyl IV 06/27/24 22:13 Infused ONCE ONE Infusion Vancomycin HCl 1,500 mg/ 500 mls @ 333.333 mls/hr 06/28/24 01:00 06/28/24 02:52 Sodium Chloride IV 06/28/24 02:29 Infused ONCE ONE Infusion Protocol Iohexol 85 ml 06/27/24 21:40 06/27/24 21:40 Iohexol 350 Mg/Ml 100 Ml Infus..Btl IV 06/27/24 21:41 85 ml ONCE ONE Administration Morphine Sulfate 4 mg 06/27/24 21:51 06/27/24 22:02 Morphine Sulfate 4 Mg/Ml Cartridge IVPUSH 06/27/24 21:52 4 mg ONCE ONE Administration Protocol Medical Decision Making Medical Decision Making [facility] Narrative: The patient is a 69-year-old woman with lymphoma who is receiving chemotherapy treatment. She presents with a fever that started this morning. She had associated nausea and vomiting and abdominal pain. Her temperature was quite high at 103.5. She was tachycardic with a heart rate up to the 130s. She was not hypotensive. Nevertheless I was concerned about the possibility of febrile neutropenia and possible sepsis. Blood cultures were obtained and she was given 2 g of cefepime. Since she complained of abdominal pain she was also given 500 mg of metronidazole. She was given IV fluids and IV acetaminophen. She seemed to feel much better not long after receiving IV fluids and IV acetaminophen. Although I initially was worried she might have the febrile neutropenia she was not in fact neutropenic. Absolute neutrophil count was 1,800. Chest x-ray did not show a pneumonia. Urinalysis was unremarkable. A CT of the abdomen and did not show any definite source of fever in the abdomen. Ultimately the source of the fever is not entirely clear. Nevertheless given her tachycardia and a height of her fever and how unwell she looked initially I felt she should be hospitalized. She was admitted to the hospitalist service. Lab Data 06/27/24 19:38 06/27/24 19:38 Labs: Lab Results 06/27/24 06/27/24 06/27/24 Range/Units 19:26 19:38 20:52 WBC 3.6 L (4.8-10.8) X10*3/uL RBC 2.67 L (4.20-5.50) X10*6/uL Hgb 8.5 L (12.0-16.0) g/dl Hct 25.8 L (37.0-47.0) % MCV 96.6 (80.0-98.0) fL MCH 31.8 (27.0-33.0) pg MCHC 32.9 (31.0-35.0) g/dl RDW 14.9 (11.0-16.0) % Plt Count 352 (160-400) X10*3/uL MPV 10.2 (9.4-12.3) fL Immature Gran % (Auto) Cancelled Neut % (Auto) Cancelled Lymph % (Auto) Cancelled [place] % (Auto) Cancelled Eos % (Auto) Cancelled Baso % (Auto) Cancelled Lymph # (Auto) Cancelled [place] # (Auto) Cancelled Eos # (Auto) Cancelled Baso # (Auto) Cancelled Abs Immat Gran (auto) Cancelled Absolute Neuts (auto) Cancelled Absolute Nucleated RBC 0.000 (0.0-0.012) X10*3/uL Nucleated RBC % (auto) 0.0 (0.0-0.2) /100WBC Neutrophils % (Manual) 47 (45-73) % Band Neutrophils % 2 L (3-5) % Lymphocytes % (Manual) 17 L (20-40) % Monocytes % (Manual) 21 H (2-11) % Eosinophils % (Manual) 3 (0-4) % Basophils % (Manual) 3 H (0-2) % Metamyelocytes % 1 % Myelocytes % 5 % Promyelocytes % 1 % Abs Neuts (Manual) 1.8 L (2.0-8.3) X10*3/uL Lymphocytes # (Manual) 0.6 L (1.2-4.9) X10*3/uL Monocytes # (Manual) 0.8 (0.1-1.2) X10*3/uL Eosinophils # (Manual) 0.1 (0.0-0.4) X10*3/uL Basophils # (Manual) 0.1 (0.0-0.2) X10*3/uL Myelocytes # 0.2 X10*/uL Dohle Bodies PRESENT Platelet Estimate NORMAL (NORMAL) Plt Morphology Comment NORMAL RBC Morphology NOTED Polychromasia 1+ (0-2) /OIF Schistocytes 1+ (0-2) /OIF Sodium 137 (135-145) mmol/L Potassium 3.3 D (3.3-5.1) mmol/L Chloride 102 (96-108) mmol/L Carbon Dioxide 23 (22-29) mmol/L Anion Gap 15 (12-20) BUN 15 (9-16) mg/dL Creatinine 0.74 (0.5-1.4) mg/dL Estim Creat Clear Calc 55.3 Estimated GFR > 60 POC Glucose 184 H (60-115) mg/dL Random Glucose 213 H (60-115) mg/dL Lactic Acid 1.7 (0.5-2.0) mmol/L Calcium 9.3 (8.4-10.2) mg/dL Magnesium 1.8 (1.6-2.6) mg/dL Total Bilirubin 0.3 (0.0-1.0) mg/dL Direct Bilirubin < 0.1 (0.0-0.5) mg/dL AST 33 H (5-31) U/L ALT 27 (0-31) U/L Alkaline Phosphatase 88 (39-117) U/L Troponin I High Sens 5.5 D (<3.5-17.0) ng/L Total Protein 6.9 (6.5-8.0) g/dL Albumin 4.1 (3.5-5.0) g/dL Urine Color Yellow Urine Appearance Clear Urine pH 7.0 (5.0-9.0) Ur Specific [place] 1.020 (1.005-1.025) Urine Protein Trace (Neg-Trace) mg/dL Urine Glucose (UA) Negative (Negative) mg/dL Urine Ketones Negative (Negative) mg/dL Urine Blood Negative (Negative) Urine Nitrite Negative (Negative) Ur Leukocyte Esterase Trace H (Negative) Urine RBC 0-2 (0-2) /HPF Urine WBC 0-5 (0-5) /HPF Ur Squamous Epith Cells 0-2 (0-2) /HPF Urine Bacteria 1+ (None Seen) Hyaline Casts 0-2 (0-2) /LPF Influenza Type A (PCR) NEGATIVE (Negative) Influenza Type B (PCR) NEGATIVE (Negative) RSV RNA Qual (PCR) NEGATIVE (Negative) SARS-CoV-2 RNA (RT-PCR) NEGATIVE (Negative) Discharge Plan Discharge Clinical Impression: Acute febrile illness, Tachycardia, Lymphoma Patient Disposition: Admitted As Inpatient
--- NOTE | 2024-06-27 19:03 | ECG_ITS ---
Test Reason : weakness Blood Pressure : / mmHG Vent. Rate : 126 BPM Atrial Rate : 126 BPM P-R Int : 136 ms QRS Dur : 074 ms QT Int : 322 ms P-R-T Axes : 051 039 030 degrees QTc Int : 466 ms Sinus tachycardia with Premature atrial complexes Nonspecific ST abnormality Abnormal ECG When compared with ECG of 04-FEB-2024 14:15, Premature atrial complexes are now Present Vent. rate has increased BY 66 BPM T wave inversion now evident in Lateral leads Referred By: Kourtney Ivory Electronically Signed By:DIXIE SANDERS MD
[2024-06-27] MEDS: 0.9 % Sodium Chloride 1,000 ML 999 ML IV (19:33)
[2024-06-27 19:53] LABS: Hematocrit 25.8 % (37.0-47.0); Hemoglobin 8.5 g/dl (12.0-16.0); Mean Corpuscular HGB Conc 32.9 g/dl (31.0-35.0); Mean Corpuscular Hemoglobin 31.8 pg (27.0-33.0); Mean Corpuscular Volume 96.6 fL (80.0-98.0); Mean Platelet Volume 10.2 fL (9.4-12.3); Platelet Count 352 X10*3/uL (160-400); Red Blood Count 2.67 X10*6/uL (4.20-5.50); Red Cell Distribution Width 14.9 % (11.0-16.0); White Blood Count 3.6 X10*3/uL (4.8-10.8)
[2024-06-27] MEDS: Acetaminophen 1,000 MG/100 ML PIGGYBACK 400 MG IV (19:55)
[2024-06-27 20:03] LABS: Glucose, Whole Blood 184 mg/dL (60-115)
[2024-06-27 20:07] LABS: Lactic Acid 1.7 mmol/L (0.5-2.0)
[2024-06-27 20:11] LABS: Alanine Aminotransferase 27 U/L (0-31); Albumin Level 4.1 g/dL (3.5-5.0); Alkaline Phosphatase 88 U/L (39-117); Anion Gap 15 (12-20); Aspartate Amino Transferase 33 U/L (5-31); Bilirubin Direct < 0.1 mg/dL (0.0-0.5); Bilirubin Total 0.3 mg/dL (0.0-1.0); Blood Urea Nitrogen 15 mg/dL (9-16); Calcium 9.3 mg/dL (8.4-10.2); Carbon Dioxide 23 mmol/L (22-29); Chloride 102 mmol/L (96-108); Creatinine Clr Calc Pharmacy 55.3; Estimated Glomerular Filt Rate > 60; Glucose Random 213 mg/dL (60-115); Magnesium 1.8 mg/dL (1.6-2.6); Potassium 3.3 mmol/L (3.3-5.1); Sodium 137 mmol/L (135-145); Total Protein 6.9 g/dL (6.5-8.0)
[2024-06-27 20:14] LABS: Troponin-I High Sensitivity 5.5 ng/L (<3.5-17.0)
[2024-06-27] MEDS: cefEPime HCl/D5W 2 GM/50 ML PIGGYBACK IV (20:20)
[2024-06-27 20:38] LABS: Influenza A PCR NEGATIVE (Negative); Influenza B PCR NEGATIVE (Negative); Resp Syncy Virus RNA Qual PCR NEGATIVE (Negative); SARS COV2 PCR INHOUSE NEGATIVE (Negative)
[2024-06-27] MEDS: Lactated Ringers 1,000 ML 999 ML IV (20:53)
[2024-06-27 20:58] LABS: Appearance Urine Clear; Color Urine Yellow; Glucose Urine UA Negative (Negative); Leukocyte Esterase Urine Trace (Negative); Nitrite Urine Negative (Negative); UMIC TRIGGER UACC YES; Urine Blood Negative (Negative); Urine Ketones Negative (Negative); Urine Protein Trace mg/dL (Neg-Trace)
[2024-06-27 21:09] LABS: Band Neutrophils Percent 2 % (3-5); Basophils Abs Manual 0.1 X10*3/uL (0.0-0.2); Basophils Percent Manual 3 % (0-2); Eosinophils Absolute Manual 0.1 X10*3/uL (0.0-0.4); Eosinophils Percent Manual 3 % (0-4); Lymphocytes Absolute Manual 0.6 X10*3/uL (1.2-4.9); Lymphocytes Percent Manual 17 % (20-40); Metamyelocytes Percent 1 %; Monocytes Absolute Manual 0.8 X10*3/uL (0.1-1.2); Monocytes Percent Manual 21 % (2-11); Myelocytes Absolute 0.2 X10*/uL; Myelocytes Percent 5 %; Neutrophils Absolute Manual 1.8 X10*3/uL (2.0-8.3); Neutrophils Percent Manual 47 % (45-73); Promyelocytes Percent 1 %
[2024-06-27 21:10] LABS: RBC Morphology NOTED
[2024-06-27 21:11] LABS: Bacteria Urine 1+ (None Seen); Hyaline Casts Urine 0-2 /LPF (0-2); RBC Urine 0-2 /HPF (0-2); Squamous Epithelial Cell Urine 0-2 /HPF (0-2); WBC Urine 0-5 /HPF (0-5)
[2024-06-27 21:13] LABS: Dohle Bodies PRESENT; Schistocytes 1+ (0-2) /OIF
[2024-06-27 21:15] LABS: Platelet Estimate NORMAL (NORMAL); Platelet Morphology Comment NORMAL; Polychromasia 1+ (0-2) /OIF
[2024-06-27] MEDS: metroNIDAZOLE/NS 500 MG/100 ML PIGGYBACK 100 MG IV (21:22)
[2024-06-27] MEDS: iohexoL 350 MG/ML 100 ML INFUS..BTL 85 ML IV (21:40)
[2024-06-27] MEDS: Morphine Sulfate 4 MG/ML CARTRIDGE IVPUSH (22:02)
--- NOTE | 2024-06-27 23:44 | MHC.EDTECH ---
This tech took over care of pt at 2300,rounded and introduced self to pt,patient has a continuos rectal probe placed ,temp is 100.4,patient is resting quietly family at bedside ,call sotelo in reach
[2024-06-28] VITALS (12 sets, daily range): BP systolic 112–156; BP diastolic 46–84; PULSE 78–94; RESP 14–21; TEMP 36.6–38.2; O2SAT 96–99; BMI 27.6
--- NOTE | 2024-06-28 00:43 | PM.IMHP ---
History of Present Illness Date of Service: 06/28/24 Attending physician on admission: Yuliya Hutson Chief Complaint: abd pain, nausea, vomiting Patient a 69 year female with a past medical history significant for diffuse large B-cell lymphoma followed by Dr. Velasquez, last chemotherapy session 06/16/2024, hypothyroidism, hypertension, type 2 diabetes (new medication), GERD, HLD, and mood disorder, who presented to the ED today with fever, abdominal pain, nausea and vomiting x1 day. She reports 10/10 squeezing epigastric/periumbilical abdominal pain. She denies any diarrhea but has been constipated for the past 2-3 days. She did have a bowel movement while in the ED reports that her abdominal pain has been better but she also received pain medication. She is also having nausea and vomited 3-4 times yesterday. She denies any hematemesis or coffee-ground emesis. Her nausea is no mild after receiving Zofran. She denies any cough, runny nose, shortness of breath, headache or urinary symptoms. She reports she did have an upper respiratory infection recently and had normal blood work. In February 2024 she add a biopsy of the left supraclavicular lymph node which showed necrotizing lymphadenitis with Gram-positive cocci and she was treated with doxycycline. Review of Systems Constitutional: Constitutional: Denies fatigue, Reports fever(s) and Denies headache(s) Eyes: Eyes: Denies change in vision ENT: Denies headache(s), Denies nasal congestion, Denies nasal discharge and Denies sore throat Cardiovascular: Cardiovascular: Denies chest pain, Denies syncope, Denies leg edema and Denies dyspnea Respiratory: Respiratory: Denies chest congestion, Denies cough, Denies dyspnea and Denies wheezing Gastrointestinal: Gastrointestinal: Reports as per HPI Genitourinary: Genitourinary: Denies dysuria and Denies urinary urgency Musculoskeletal: Musculoskeletal: Denies myalgias Integumentary/Breasts: Skin/Breast: Denies rash Neurologic: Denies confusion, Denies syncope and Denies headache(s) Psychiatric: Psychiatric: Denies confusion Endocrine: Endocrine: Denies fatigue Hematologic/Lymphatic: Hematologic/Lymphatic: Denies easy bleeding Allergic/Immunologic: Allergic/Immunologic: Denies wheezing [facility] Medical History (Updated 06/28/24 @ 00:50 by Nichol Lacy PA-C) Diffuse large B cell lymphoma Hx of hypercalcemia Mood disorder Thyroid nodule Adnexal mass GERD (gastroesophageal reflux disease) Hypothyroidism Diabetes mellitus Surgical History Hx of lymph node excision (03/05/24) Hx of right cataract extraction History of bone marrow biopsy (01/19/24) Hx of eye surgery Hx of section Social History Household Members: Family Housing: Apartment Do you presently have visiting nurse or other home services: No Alcohol intake: never Patient Tobacco Use Status: Never used Tobacco Smoked in Last 30 Days: No e-Cigarette/Vaping Use: Never Used Use of substances other than those prescribed or required for medical reasons: No Advance Directives: Yes Advance Directives on File: Yes Advance Directives Date on File: 12/17/23 Do you have a plan to hurt others: No Plan service: No Current occupational status: retired Cognitive needs: No Hearing needs: No Vision needs: No Narrative: no smoking, etoh or drug use. Meds Allergies Allergy/AdvReac Type Severity Reaction Status Date / Time ampicillin Allergy Anaphylaxis Verified 06/27/24 19:05 aspirin Allergy Anaphylaxis Verified 06/27/24 19:05 diphenhydramine Allergy Swelling Verified 06/27/24 19:05 [From Benadryl] Active Medications: Current Medications Acetaminophen (Acetaminophen 325 Mg Tablet) 650 mg PO Q6H PRN PRN Reason: Pain, Mild (Pain Scale 1-3), fever or headache Calcium Carbonate (Calcium Carbonate 750 Mg Tab.Chew) 750 mg PO Q4H PRN PRN Reason: Heartburn Enoxaparin Sodium (Enoxaparin Sodium 40 Mg/0.4 Ml Syringe) 40 mg SUBCUT Q24H HAILEE Glucose (Glucose Gel 15 Gm Gel..Gram.) 15 gm PO Q15M PRN; Protocol PRN Reason: per Hypoglycemia Standing Ord. Lactated Ringer's (Lr) 1,000 mls @ 100 mls/hr IVCONT .Q10H HAILEE Dextrose (D10) 250 mls @ 750 mls/hr IV Q15M PRN; Protocol PRN Reason: per Hypoglycemia Standing Ord. Insulin Human Lispro (Insulin Lispro 100 Unit/Ml 3 Ml Vial) 0 unit SUBCUT QIDACHS [facility]; Protocol Magnesium Hydroxide (Milk Of Magnesia 30 Ml Oral.Susp) 30 ml PO DAILY PRN PRN Reason: Constipation Melatonin (Melatonin 3 Mg Tablet) 6 mg PO BEDTIME PRN PRN Reason: Insomnia Morphine Sulfate (Morphine Sulfate 4 Mg/Ml Cartridge) 4 mg IVPUSH Q4H PRN; Protocol PRN Reason: Pain, Severe (Pain Scale 7-10) Ondansetron HCl (Ondansetron Hcl 4 Mg/2 Ml Vial) 4 mg IVPUSH Q8H PRN PRN Reason: Nausea and Vomiting Oxycodone HCl (Oxycodone Hcl Immed Release 5 Mg Tablet) 5 mg PO Q6H PRN PRN Reason: Pain, Moderate(Pain Scale 4-6) Pharmacy Consult (Consult Rx Vancomycin Dosing) 1 each MISCELLANE DAILY PRN PRN Reason: Consult order Polyethylene Glycol (Polyethylene Glycol 3350 17 Gm Powd.Pack) 17 gm PO DAILY PRN PRN Reason: Constipation Sodium Chloride (0.9 % Sodium Chloride Flush 3 Ml Syringe) 3 ml IVFLUSH [facility] Home Medications ?Medication ?Instructions ?Recorded ?Confirmed ?Last Taken ?Type clopidogrel 75 mg tablet 75 mg PO DAILY 04/28/24 05/04/24 01/28/24 History metformin 500 mg tablet 500 mg PO DAILY 04/28/24 05/04/24 01/28/24 History Physical Exam Vital Signs and Narrative: Vital Signs: Last Vital Signs Temp 100.4 F 06/28/24 00:41 Pulse 87 06/28/24 00:41 Resp 20 06/28/24 00:41 BP 128/58 L 06/28/24 00:41 Pulse Ox 98 06/28/24 00:41 O2 Del Method Room Air 06/28/24 00:41 BMI result Body Mass Index 27.1 General: AOx3, no acute distress Resp: CTA bilaterally CVS: S1, S2, RRR GI: +BS, NT, no distention Skin: Warm, dry, no sign of infection around port-a-cath Neuro: Cranial nerves II-XII grossly intact bilaterally. Motor grossly intact bilaterally Extremities: No LE edema Psych: Appropriate affect sepsis focused exam normal Const: General: No confusion Orientation/consciousness: No confusion Neuro: General: No confusion Results Labs 06/27/24 19:38 06/27/24 19:38 Labs: Laboratory Results - last 24 hr 06/27/24 06/27/24 06/27/24 19:26 19:38 20:52 MCV 96.6 MCH 31.8 MCHC 32.9 RDW 14.9 Plt Count 352 MPV 10.2 Immature Gran % (Auto) Cancelled Neut % (Auto) Cancelled Lymph % (Auto) Cancelled [place] % (Auto) Cancelled Eos % (Auto) Cancelled Baso % (Auto) Cancelled Lymph # (Auto) Cancelled [place] # (Auto) Cancelled Eos # (Auto) Cancelled Baso # (Auto) Cancelled Abs Immat Gran (auto) Cancelled Absolute Neuts (auto) Cancelled Absolute Nucleated RBC 0.000 Nucleated RBC % (auto) 0.0 Neutrophils % (Manual) 47 Band Neutrophils % 2 L Lymphocytes % (Manual) 17 L Monocytes % (Manual) 21 H Eosinophils % (Manual) 3 Basophils % (Manual) 3 H Metamyelocytes % 1 Myelocytes % 5 Promyelocytes % 1 Abs Neuts (Manual) 1.8 L Lymphocytes # (Manual) 0.6 L Monocytes # (Manual) 0.8 Eosinophils # (Manual) 0.1 Basophils # (Manual) 0.1 Myelocytes # 0.2 Dohle Bodies PRESENT Platelet Estimate NORMAL Plt Morphology Comment NORMAL RBC Morphology NOTED Polychromasia 1+ (0-2) Schistocytes 1+ (0-2) Anion Gap 15 Estim Creat Clear Calc 55.3 Estimated GFR > 60 POC Glucose 184 H Random Glucose 213 H Lactic Acid 1.7 Calcium 9.3 Magnesium 1.8 Total Bilirubin 0.3 Direct Bilirubin < 0.1 AST 33 H ALT 27 Alkaline Phosphatase 88 Troponin I High Sens 5.5 D Total Protein 6.9 Albumin 4.1 Urine Color Yellow Urine Appearance Clear Urine pH 7.0 Ur Specific [place] 1.020 Urine Protein Trace Urine Glucose (UA) Negative Urine Ketones Negative Urine Blood Negative Urine Nitrite Negative Ur Leukocyte Esterase Trace H Urine RBC 0-2 Urine WBC 0-5 Ur Squamous Epith Cells 0-2 Urine Bacteria 1+ Hyaline Casts 0-2 Influenza Type A (PCR) NEGATIVE Influenza Type B (PCR) NEGATIVE RSV RNA Qual (PCR) NEGATIVE SARS-CoV-2 RNA (RT-PCR) NEGATIVE Imaging Radiologist's Impressions: Impressions Chest X-Ray 06/27/24 19:38 IMPRESSION: No gross acute radiographic finding. Electronically signed by: Jovani Brennan MD 06/27/2024 09:20 PM EST RP Abdomen/Pelvis CT 06/27/24 21:36 IMPRESSION: No acute intra-abdominal or intrapelvic abnormalities. Severe colonic diverticulosis without evidence of acute diverticulitis. Heterogeneous, sclerotic appearance of the sacrum, similar to prior. No superimposed pathologic fracture or new osseous lesions are identified. The previously seen extraosseous soft tissue masses in this regions are not well seen on the current study. Mild circumferential wall thickening of the distal esophagus, raising the possibility of esophagitis. Consider follow-up barium swallow study if clinically warranted. Fleischner guidelines were followed. Electronically signed by: Kelvin Munoz MD 06/27/2024 11:02 PM EST RP Assessment and Plan (1) Sepsis: Status: Acute (2) Diffuse large B cell lymphoma: Status: Acute Plan Patient a 69 year female with a past medical history significant for diffuse large B-cell lymphoma followed by Dr. Velasquez, last chemotherapy session 06/16/2024, hypothyroidism, hypertension, type 2 diabetes (no medication), GERD, HLD, and mood disorder, who presented to the ED today with fever, abdominal pain, nausea and vomiting x1 day. ANC 1.8, therefore not neutropenic fever. 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 Ddx: sepsis with bacteremia, neutropenic fever, gastroenteritis, viral illness sepsis, not severe, likely secondary to bacteremia - WBC 3.6, tachycardic and fever. lactate 1.7, blood cultures pending - CXR and A/P CT in ED negaitve for infectious source - UA negative - RV/flu/COVID negative - AST elevated, ALT normal, likely secondary to sepsis - EKG with sinus tach, trop negative - port-a-cath without obvious sign of infection - no diarrhea or colitis on CT, order stool testing if change in bowels - started on cefepime and flagyl in ED, will switch to vanco and zosyn for better coverage until source better identified - LR 100ml/hr - continue Zofran as needed for nausea - continue oxycodone and morphine as needed for pain - monitor CBC and CMP diffuse large B-cell lymphoma - followed by Dr Velasquez hypothyroid - continue levothyroxine HTN - continue home meds when med rec done T2DM - no meds per pt - diabetic diet - SSI GERD - continue home meds when med rec done HLD - continue home meds when med rec done mood disorder - continue home meds when med rec done full code VTE prophy: lovenox Patient with sepsis complicated immunocompromised status due diffuse large B-cell lymphoma currently on chemotherapy, without identified source, we will require admission for at least 2 midnights stay for IV antibiotics, further workup and monitoring. Quality Stroke Does the patient have a stroke diagnosis?: No VTE Prior VTE?: No VTE Risk Level:: Medical - moderate - high VTE Device Contraindication: Treatment Not Indicated VTE Drug Contraindication: N/A - Med Ordered
[2024-06-28] MEDS: Lactated Ringers 1,000 ML 100 ML IVCONT ×3 (00:50→19:39)
[2024-06-28] MEDS: vancomycin HCL 1,500 MG in 0.9 % Sodium Chloride 500 ML 333.33 MG IV (01:03)
--- NOTE | 2024-06-28 02:56 | MHC.EDTECH ---
Patient urinated and had a moderate amount of stool on bedpan,corby-care given, belongings list completed,call sotelo in reach
[2024-06-28] MEDS: Piperacillin Sodium/Tazobactam 4.5 GM in 0.9 % Sodium Chloride 100 ML IV (04:23)
[2024-06-28 04:25] LABS: Hematocrit 23.7 % (37.0-47.0); Hemoglobin 7.7 g/dl (12.0-16.0); Mean Corpuscular HGB Conc 32.5 g/dl (31.0-35.0); Mean Corpuscular Hemoglobin 31.7 pg (27.0-33.0); Mean Corpuscular Volume 97.5 fL (80.0-98.0); NRBC Pct Auto 0.7 /100WBC (0.0-0.2); Platelet Count 199 X10*3/uL (160-400); Red Blood Count 2.43 X10*6/uL (4.20-5.50)
[2024-06-28 04:42] LABS: Alanine Aminotransferase 23 U/L (0-31); Albumin Level 3.4 g/dL (3.5-5.0); Alkaline Phosphatase 69 U/L (39-117); Anion Gap 13 (12-20); Aspartate Amino Transferase 24 U/L (5-31); Bilirubin Total 0.3 mg/dL (0.0-1.0); Blood Urea Nitrogen 9 mg/dL (9-16); Calcium 8.8 mg/dL (8.4-10.2); Carbon Dioxide 23 mmol/L (22-29); Chloride 108 mmol/L (96-108); Creatinine Clr Calc Pharmacy 64.9; Estimated Glomerular Filt Rate > 60; Glucose Random 113 mg/dL (60-115); Sodium 140 mmol/L (135-145); Total Protein 5.9 g/dL (6.5-8.0)
[2024-06-28 04:48] LABS: Atypical Lymphs Percent Manual 1 % (0-6); Band Neutrophils Percent 6 % (3-5); Basophils Abs Manual 0.1 X10*3/uL (0.0-0.2); Basophils Percent Manual 2 % (0-2); Eosinophils Absolute Manual 0.1 X10*3/uL (0.0-0.4); Eosinophils Percent Manual 3 % (0-4); Lymphocytes Absolute Manual 0.5 X10*3/uL (1.2-4.9); Lymphocytes Percent Manual 17 % (20-40); Metamyelocytes Percent 1 %; Monocytes Absolute Manual 0.9 X10*3/uL (0.1-1.2); Monocytes Percent Manual 31 % (2-11); Neutrophils Absolute Manual 1.4 X10*3/uL (2.0-8.3); Neutrophils Percent Manual 39 % (45-73)
[2024-06-28 04:49] LABS: Platelet Estimate NORMAL (NORMAL); Platelet Morphology Comment NOTED; RBC Morphology NOTED
[2024-06-28 04:50] LABS: Hypochromasia 1+ (5-14) /OIF; Large Platelet PRESENT; Schistocytes 1+ (0-2) /OIF; Tear Drop Cells 1+ (0-2) /OIF
[2024-06-28] MEDS: Acetaminophen 325 MG TABLET 975 MG PO ×2 (05:11→20:33)
--- NOTE | 2024-06-28 06:45 | PHA.PROG ---
Admission Date/Time: June 28, 2024 00:28 Indication: Sepsis Weight in k.781 kg Adjusted body weight in Kg: [place] body weight in Kg: Obesity Dosing Indication % IBW: BMI 27.1 Serum Creatinine - Last 168 Hours 06/27/24 06/28/24 19:38 04:13 Creatinine 0.74 0.63 Estimated CrCl and GFR - Last 168 Hours 06/27/24 06/28/24 19:38 04:13 Estim Creat Clear Calc 55.3 64.9 Estimated GFR > 60 > 60 Vancomycin Loading Dose: 1500mg X1 Current Vancomycin Dosing Regimen: 750mg Q12H Vancomycin Monitoring using AUC goal of 400 - 600 range with trough as surrogate marker: 463 Date and Time for next Vancomycin Level to be drawn: 06/29 @1100 Pharmacist Comments on Vancomycin Plan: Patient's renal function appear stable. Predicted trough 14.5, dosing to be adjusted and monitored after first trough on 06/29 and renal function going forward. Vancomycin dosing will take advantage of [employer] as a clinical decision support tool that uses Bayesian modeling to calculate individual patient's pharmacokinetic parameters and forecast the patient's drug concentration time course with the target goal AUC 24 range of 400 - 600 mg/L/hr.
[2024-06-28 07:27] LABS: Glucose, Whole Blood 89 mg/dL (60-115)
--- NOTE | 2024-06-28 07:51 | PC.NURSE ---
Pt comes to ED Overflow unit from main ED. Pt is alert, oriented, calm and cooperative. Pt able to stand and pivot into hospital bed with assistance. [place] placed Belongings placed at bedside. Pt is currently resting quietly with lights dimmed. NAD noted.
[2024-06-28] MEDS: Enoxaparin Sodium 40 MG/0.4 ML SYRINGE SUBCUT (09:29)
--- NOTE | 2024-06-28 11:06 | P.EN_ITS ---
Event Note Date of Service: 06/28/24 Event Note: Complaining of lower abdominal pain, had 2 loose large stool yesterday, denies nausea, vomiting, low-grade fever up to 100.8 since last night. All other system reviewed and are negative Constitutional - Awake and Alert, No apparent distress Anicteric sclera Cardiovascular - S1S2, RRR, No edema Respiratory - No respiratory distress, CTA bilaterally Gastrointestinal - lower abdominal discomfort with palpation, non distended ,bowel sounds audible, no guarding, no rigidity Extremities - no swelling Skin - Warm/Dry Neurological - Alert & oriented x3 Psychological - Appropriate affect 69 year female with a past medical history significant for diffuse large B-cell lymphoma followed by Dr. Velasquez, last chemotherapy session 06/16/2024, hypothyroidism, hypertension, type 2 diabetes (no medication), GERD, HLD, and mood disorder, who presented to the ED today with fever, abdominal pain, nausea and vomiting x1 day. ANC 1.8, therefore not neutropenic fever. 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 Ddx: sepsis with bacteremia, neutropenic fever, gastroenteritis, viral illness Sepsis due to Neutropenic fever - WBC 3.6 on admission dropped to 3, ANC 1.4 tachycardia resolved, low-grade fever today, blood cultures pending - CXR and A/P CT in ED negaitve for infectious source - UA negative - RV/flu/COVID negative - AST elevated, ALT normal, likely secondary to chemo and infection - EKG with sinus tach, trop negative - port-a-cath without obvious sign of infection - had loose stool overnight, none today - DC IV vanco and Zosyn and place on cefepime 2 g q.8 hours, continue IV LR 100ml/hr, Zofran as needed for nausea, oxycodone and morphine as needed for pain - monitor CBC and CMP Acute on chronic normocytic anemia likely due to chemotherapy follow H&H and transfuse as needed, currently asymptomatic. diffuse large B-cell lymphoma - followed by Dr Velasquez hypothyroid - continue levothyroxine HTN - metric not completed T2DM - no meds per pt - diabetic diet - SSI GERD - continue home meds when med rec done HLD - continue home meds when med rec done mood disorder - continue home meds when med rec done full code VTE prophy: lovenox Patient with sepsis complicated immunocompromised status due to diffuse large B- cell lymphoma currently on chemotherapy, without identified source, we will require admission for at least 2 midnights stay for IV antibiotics, further workup and monitoring. Time Spent With Patient Time: Total time managing care of this patient today ____ minutes.
[2024-06-28 11:38] LABS: Glucose, Whole Blood 101 mg/dL (60-115)
[2024-06-28] MEDS: cefEPime HCl/D5W 2 GM/50 ML PIGGYBACK IV ×2 (12:15→19:39)
[2024-06-28] MEDS: oxyCODONE HCl Immed Release 5 MG TABLET PO (12:22)
--- NOTE | 2024-06-28 12:46 | MHC.CM.PN ---
Patient receives last chemo dose 06/16/24. She is a patient of Dr Velasquez. She lives with other family members. She requires assist with ADLs. She receives [employer] [facility] through [facility]. A cane is used for unsteady gait. Pt receives a SNV once a week from her insurance Co. DP resume [employer] services at discharge. Transportation home will be provided by the [employer]. CM will follow to address change in discharge needs.
--- NOTE | 2024-06-28 13:22 | PHA.MEDREC ---
Pharmacy Consult ? Medication Reconciliation Pharmacy has completed the medication reconciliation. Spoke to pt at bedside with help from official court interpreter services. She didn't know her medications and didn't think she would recognize them by name. We called her son who had a medication list that he brought in. The list appears to be a discharge packet from 04/19/2024 when they were here, with the medications she takes circled. Notably the list is missing Aloopurinol, Clopidogrel, Levothyroxine, MEtformin, Prednisone, Senna, and a Fleet Enema. Will communicate this with provider.
[2024-06-28 16:19] LABS: Glucose, Whole Blood 90 mg/dL (60-115)
[2024-06-28] MEDS: 0.9 % Sodium Chloride Flush 3 ML SYRINGE IVFLUSH ×2 (17:09→22:31)
[2024-06-28] MEDS: Morphine Sulfate ER 30 MG TABLET.ER PO (20:33)
[2024-06-28 21:00] LABS: Glucose, Whole Blood 109 mg/dL (60-115)
[2024-06-28] MEDS: LORazepam 0.5 MG TABLET PO (22:29)
[2024-06-28] MEDS: Melatonin 3 MG TABLET 6 MG PO (22:29)
[2024-06-29] MEDS: cefEPime HCl/D5W 2 GM/50 ML PIGGYBACK IV ×3 (02:59→19:17)
[2024-06-29 03:28] VITALS: BP 156/68; PULSE 80; RESP 16; TEMP 36.1; O2SAT 97
[2024-06-29] MEDS: Lactated Ringers 1,000 ML 100 ML IVCONT (06:26)
[2024-06-29 07:44] LABS: Glucose, Whole Blood 74 mg/dL (60-115)
[2024-06-29 07:51] LABS: Hemoglobin 7.3 g/dl (12.0-16.0); PLT CLUMP 1
[2024-06-29 07:54] LABS: Hematocrit 22.3 % (37.0-47.0); Mean Corpuscular HGB Conc 32.7 g/dl (31.0-35.0); Mean Corpuscular Hemoglobin 32.2 pg (27.0-33.0); Mean Corpuscular Volume 98.2 fL (80.0-98.0); Mean Platelet Volume 11.7 fL (9.4-12.3); Red Blood Count 2.27 X10*6/uL (4.20-5.50); Red Cell Distribution Width 15.2 % (11.0-16.0)
[2024-06-29 08:00] VITALS: BP 139/63; PULSE 90; RESP 16; TEMP 36.6; O2SAT 96
[2024-06-29 08:11] LABS: Platelet Count 247 X10*3/uL (160-400); White Blood Count 2.9 X10*3/uL (4.8-10.8)
[2024-06-29 08:26] LABS: Atypical Lymphs Percent Manual 1 % (0-6); Band Neutrophils Percent 4 % (3-5); Basophils Abs Manual 0.1 X10*3/uL (0.0-0.2); Basophils Percent Manual 3 % (0-2); Eosinophils Absolute Manual 0.3 X10*3/uL (0.0-0.4); Eosinophils Percent Manual 10 % (0-4); Lymphocytes Absolute Manual 0.5 X10*3/uL (1.2-4.9); Lymphocytes Percent Manual 16 % (20-40); Metamyelocytes Absolute 0.2 X10*3/uL; Metamyelocytes Percent 7 %; Monocytes Absolute Manual 0.4 X10*3/uL (0.1-1.2); Monocytes Percent Manual 14 % (2-11); Myelocytes Absolute 0.1 X10*/uL; Myelocytes Percent 3 %; Neutrophils Absolute Manual 1.2 X10*3/uL (2.0-8.3); Neutrophils Percent Manual 39 % (45-73); Promyelocytes Absolute 0.1 X10*3/uL; Promyelocytes Percent 3 %
[2024-06-29 08:29] LABS: Alanine Aminotransferase 17 U/L (0-31); Albumin Level 3.2 g/dL (3.5-5.0); Alkaline Phosphatase 61 U/L (39-117); Anion Gap 11 (12-20); Aspartate Amino Transferase 27 U/L (5-31); Bilirubin Total 0.3 mg/dL (0.0-1.0); Blood Urea Nitrogen 6 mg/dL (9-16); Calcium 8.5 mg/dL (8.4-10.2); Carbon Dioxide 23 mmol/L (22-29); Chloride 112 mmol/L (96-108); Creatinine Clr Calc Pharmacy 59.8; Estimated Glomerular Filt Rate > 60; Glucose Random 69 mg/dL (60-115); Potassium 3.5 mmol/L (3.3-5.1); Sodium 142 mmol/L (135-145); Total Protein 5.6 g/dL (6.5-8.0)
[2024-06-29 08:34] LABS: Large Platelet PRESENT; Platelet Estimate NORMAL (NORMAL); Platelet Morphology Comment NOTED; Polychromasia 1+ (0-2) /OIF; RBC Morphology NOTED
[2024-06-29] MEDS: Morphine Sulfate ER 30 MG TABLET.ER PO ×2 (08:59→20:54)
[2024-06-29] MEDS: Famotidine 20 MG TABLET PO (08:59)
[2024-06-29] MEDS: Enoxaparin Sodium 40 MG/0.4 ML SYRINGE SUBCUT (08:59)
[2024-06-29 11:10] LABS: Glucose, Whole Blood 114 mg/dL (60-115)
--- NOTE | 2024-06-29 11:18 | P.PNIM_ITS ---
Subjective Subjective Date of Service: 06/29/24 Interval History: Feeling better this morning abdominal pain resolved, no nausea, no vomiting tolerating diet, had 1 bowel movement last night, no fevers in last 24 hours. 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 Review of Systems All other system reviewed and are negative Physical Exam 2 Vital Signs: Vital Signs: Last Vital Signs Temp 97.8 F 06/29/24 08:00 Pulse 90 06/29/24 08:00 Resp 16 06/29/24 08:00 BP 139/63 06/29/24 08:00 Pulse Ox 96 06/29/24 08:00 O2 Del Method Room Air 06/29/24 08:00 BMI result Body Mass Index 27.6 Const: Other: Constitutional - Awake and Alert, No apparent distress Anicteric sclera Cardiovascular - S1S2, RRR, No edema Respiratory - No respiratory distress, CTA bilaterally Gastrointestinal - nontender , non distended ,bowel sounds audible, no guarding, no rigidity Extremities - no swelling Skin - Warm/Dry Neurological - Alert & oriented x3 Psychological - Appropriate affect Objective Data Active Medications Acetaminophen (Acetaminophen 325 Mg Tablet) 975 mg PO Q6H PRN PRN Reason: Pain, Mild (Pain Scale 1-3), fever or headache Last Admin: 06/28/24 20:33 Dose: 975 mg Documented By: AMANDA Calcium Carbonate (Calcium Carbonate 750 Mg Tab.Chew) 750 mg PO Q4H PRN PRN Reason: Heartburn Enoxaparin Sodium (Enoxaparin Sodium 40 Mg/0.4 Ml Syringe) 40 mg SUBCUT Q24H [facility] Last Admin: 06/29/24 08:59 Dose: 40 mg Documented By: MELISSA Famotidine (Famotidine 20 Mg Tablet) 20 mg PO DAILY [facility] Last Admin: 06/29/24 08:59 Dose: 20 mg Documented By: MELISSA Glucose (Glucose Gel 15 Gm Gel..Gram.) 15 gm PO Q15M PRN; Protocol PRN Reason: per Hypoglycemia Standing Ord. Lactated Ringer's (Lr) 1,000 mls @ 100 mls/hr IVCONT .Q10H [facility] Last Admin: 06/29/24 06:26 Dose: 100 mls/hr Documented By: AMANDA Dextrose (D10) 250 mls @ 750 mls/hr IV Q15M PRN; Protocol PRN Reason: per Hypoglycemia Standing Ord. Cefepime HCl (Maxipime) 2 gm in 50 mls @ 100 mls/hr IV Q8H [facility] Last Infusion: 06/29/24 03:36 Dose: Infused Documented By: AMANDA Insulin Human Lispro (Insulin Lispro 100 Unit/Ml 3 Ml Vial) 0 unit SUBCUT QIDACHS [facility]; Protocol Last Admin: 06/29/24 07:43 Dose: Not Given Documented By: MELISSA Non-Admin Reason: poc oor Lorazepam (Lorazepam 0.5 Mg Tablet) 0.5 mg PO BEDTIME PRN PRN Reason: Anxiety Last Admin: 06/28/24 22:29 Dose: 0.5 mg Documented By: AMANDA Magnesium Hydroxide (Milk Of Magnesia 30 Ml Oral.Susp) 30 ml PO DAILY PRN PRN Reason: Constipation Melatonin (Melatonin 3 Mg Tablet) 6 mg PO BEDTIME PRN PRN Reason: Insomnia Last Admin: 06/28/24 22:29 Dose: 6 mg Documented By: AMANDA Morphine Sulfate (Morphine Sulfate 4 Mg/Ml Cartridge) 4 mg IVPUSH Q4H PRN; Protocol PRN Reason: Pain, Severe (Pain Scale 7-10) Morphine Sulfate (Morphine Sulfate Er 30 Mg Tablet.Er) 30 mg PO Q12H [facility] Last Admin: 06/29/24 08:59 Dose: 30 mg Documented By: MELISSA Ondansetron HCl (Ondansetron Hcl 4 Mg/2 Ml Vial) 4 mg IVPUSH Q8H PRN PRN Reason: Nausea and Vomiting Oxycodone HCl (Oxycodone Hcl Immed Release 5 Mg Tablet) 5 mg PO Q6H PRN PRN Reason: Pain, Moderate(Pain Scale 4-6) Last Admin: 06/28/24 12:22 Dose: 5 mg Documented By: OTTO Polyethylene Glycol (Polyethylene Glycol 3350 17 Gm Powd.Pack) 17 gm PO DAILY PRN PRN Reason: Constipation Sodium Chloride (0.9 % Sodium Chloride Flush 3 Ml Syringe) 3 ml IVFLUSH QSHIFT [facility] Last Admin: 06/29/24 07:24 Dose: Not Given Documented By: MELISSA Non-Admin Reason: Previously Administered Labs 06/29/24 05:50 06/29/24 05:50 Labs: Laboratory Results - last 24 hr 06/28/24 06/28/24 06/28/24 11:33 16:06 20:31 MCV MCH MCHC RDW Plt Count MPV Immature Gran % (Auto) Neut % (Auto) Lymph % (Auto) [place] % (Auto) Eos % (Auto) Baso % (Auto) Lymph # (Auto) [place] # (Auto) Eos # (Auto) Baso # (Auto) Abs Immat Gran (auto) Absolute Neuts (auto) Absolute Nucleated RBC Nucleated RBC % (auto) Neutrophils % (Manual) Band Neutrophils % Lymphocytes % (Manual) Atypical Lymphs % (Man) Monocytes % (Manual) Eosinophils % (Manual) Basophils % (Manual) Metamyelocytes % Myelocytes % Promyelocytes % Abs Neuts (Manual) Lymphocytes # (Manual) Monocytes # (Manual) Eosinophils # (Manual) Basophils # (Manual) Metamyelocytes # Myelocytes # Promyelocytes # Platelet Estimate Large Platelets Plt Morphology Comment RBC Morphology Polychromasia Anion Gap Estim Creat Clear Calc Estimated GFR POC Glucose 101 90 109 Random Glucose Calcium Total Bilirubin AST ALT Alkaline Phosphatase Total Protein Albumin 06/29/24 06/29/24 06/29/24 05:50 05:50 05:50 MCV 98.2 H Cancelled MCH 32.2 Cancelled MCHC 32.7 RDW Plt Count MPV Immature Gran % (Auto) Neut % (Auto) Lymph % (Auto) [place] % (Auto) Eos % (Auto) Baso % (Auto) Lymph # (Auto) [place] # (Auto) Eos # (Auto) Baso # (Auto) Abs Immat Gran (auto) Absolute Neuts (auto) Absolute Nucleated RBC Nucleated RBC % (auto) Neutrophils % (Manual) Band Neutrophils % Lymphocytes % (Manual) Atypical Lymphs % (Man) Monocytes % (Manual) Eosinophils % (Manual) Basophils % (Manual) Metamyelocytes % Myelocytes % Promyelocytes % Abs Neuts (Manual) Lymphocytes # (Manual) Monocytes # (Manual) Eosinophils # (Manual) Basophils # (Manual) Metamyelocytes # Myelocytes # Promyelocytes # Platelet Estimate Large Platelets Plt Morphology Comment RBC Morphology Polychromasia Anion Gap Estim Creat Clear Calc Estimated GFR POC Glucose Random Glucose Calcium Total Bilirubin AST ALT Alkaline Phosphatase Total Protein Albumin 06/29/24 06/29/24 06/29/24 05:50 05:50 05:50 MCV MCH MCHC Cancelled RDW 15.2 Cancelled Plt Count 247 Cancelled MPV 11.7 Immature Gran % (Auto) Neut % (Auto) Lymph % (Auto) [place] % (Auto) Eos % (Auto) Baso % (Auto) Lymph # (Auto) [place] # (Auto) Eos # (Auto) Baso # (Auto) Abs Immat Gran (auto) Absolute Neuts (auto) Absolute Nucleated RBC Nucleated RBC % (auto) Neutrophils % (Manual) Band Neutrophils % Lymphocytes % (Manual) Atypical Lymphs % (Man) Monocytes % (Manual) Eosinophils % (Manual) Basophils % (Manual) Metamyelocytes % Myelocytes % Promyelocytes % Abs Neuts (Manual) Lymphocytes # (Manual) Monocytes # (Manual) Eosinophils # (Manual) Basophils # (Manual) Metamyelocytes # Myelocytes # Promyelocytes # Platelet Estimate Large Platelets Plt Morphology Comment RBC Morphology Polychromasia Anion Gap Estim Creat Clear Calc Estimated GFR POC Glucose Random Glucose Calcium Total Bilirubin AST ALT Alkaline Phosphatase Total Protein Albumin 06/29/24 06/29/24 06/29/24 05:50 05:50 05:50 MCV MCH MCHC RDW Plt Count MPV Cancelled Immature Gran % (Auto) Cancelled Neut % (Auto) Cancelled Lymph % (Auto) Cancelled [place] % (Auto) Cancelled Eos % (Auto) Cancelled Baso % (Auto) Cancelled Lymph # (Auto) Cancelled [place] # (Auto) Cancelled Eos # (Auto) Cancelled Baso # (Auto) Cancelled Abs Immat Gran (auto) Cancelled Absolute Neuts (auto) Cancelled Absolute Nucleated RBC 0.000 Cancelled Nucleated RBC % (auto) 0.0 Cancelled Neutrophils % (Manual) 39 L Band Neutrophils % 4 Lymphocytes % (Manual) 16 L Atypical Lymphs % (Man) 1 Monocytes % (Manual) 14 H Eosinophils % (Manual) 10 H Basophils % (Manual) 3 H Metamyelocytes % 7 Myelocytes % 3 Promyelocytes % 3 Abs Neuts (Manual) 1.2 L Lymphocytes # (Manual) 0.5 L Monocytes # (Manual) 0.4 Eosinophils # (Manual) 0.3 Basophils # (Manual) 0.1 Metamyelocytes # 0.2 Myelocytes # 0.1 Promyelocytes # 0.1 Platelet Estimate NORMAL Large Platelets PRESENT Plt Morphology Comment NOTED RBC Morphology NOTED Polychromasia 1+ (0-2) Anion Gap 11 L Estim Creat Clear Calc 59.8 Estimated GFR > 60 POC Glucose Random Glucose 69 Calcium 8.5 Total Bilirubin 0.3 AST 27 ALT 17 Alkaline Phosphatase 61 Total Protein 5.6 L Albumin 3.2 L 06/29/24 06/29/24 07:37 11:06 MCV MCH MCHC RDW Plt Count MPV Immature Gran % (Auto) Neut % (Auto) Lymph % (Auto) [place] % (Auto) Eos % (Auto) Baso % (Auto) Lymph # (Auto) [place] # (Auto) Eos # (Auto) Baso # (Auto) Abs Immat Gran (auto) Absolute Neuts (auto) Absolute Nucleated RBC Nucleated RBC % (auto) Neutrophils % (Manual) Band Neutrophils % Lymphocytes % (Manual) Atypical Lymphs % (Man) Monocytes % (Manual) Eosinophils % (Manual) Basophils % (Manual) Metamyelocytes % Myelocytes % Promyelocytes % Abs Neuts (Manual) Lymphocytes # (Manual) Monocytes # (Manual) Eosinophils # (Manual) Basophils # (Manual) Metamyelocytes # Myelocytes # Promyelocytes # Platelet Estimate Large Platelets Plt Morphology Comment RBC Morphology Polychromasia Anion Gap Estim Creat Clear Calc Estimated GFR POC Glucose 74 114 Random Glucose Calcium Total Bilirubin AST ALT Alkaline Phosphatase Total Protein Albumin Microbiology Microbiology Results: Microbiology 06/27/24 19:47 Blood Culture - Preliminary Blood - Venous No growth after 24 hours. 06/27/24 19:37 Blood Culture - Preliminary Blood - Venous No growth after 24 hours. Assessment and Plan (1) Lymphoma: Status: Acute (2) Tachycardia: Status: Acute (3) Diffuse large B cell lymphoma: Status: Acute (4) Neutropenic fever: Status: Acute Plan 69 year female with a past medical history significant for diffuse large B-cell lymphoma followed by Dr. Velasquez, last chemotherapy session 06/16/2024, hypothyroidism, hypertension, type 2 diabetes (no medication), GERD, HLD, and mood disorder, who presented to the ED today with fever, abdominal pain, nausea and vomiting x1 day. ANC 1.8, therefore not neutropenic fever. 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 Ddx: sepsis with bacteremia, neutropenic fever, gastroenteritis, viral illness Sepsis due to Neutropenic fever - WBC 3.6 on admission dropped to 2.9, ANC 1.2 tachycardia resolved, no recurrent fevers, blood cultures no growth - CXR and A/P CT in ED negaitve for infectious source - UA negative - RV/flu/COVID negative - AST normalized, ALT normal, likely was secondary to chemo and infection - EKG with sinus tach, trop negative - port-a-cath without obvious sign of infection - no further diarrhea - on cefepime 2 g q.8 hours, D2 ,dc IV LR ,cont. Zofran as needed for nausea, oxycodone and morphine as needed for pain - monitor CBC and CMP Acute on chronic normocytic anemia likely due to chemotherapy and dilutional ,hct dropped, patient asymptomatic hold blood transfusion, follow H&H. diffuse large B-cell lymphoma - followed by Dr Velasquez hypothyroid - continue levothyroxine HTN soft bp hold antihypertensives . - T2DM - stable bs no meds per pt - diabetic diet - SSI GERD - continue home meds HLD - hold statins due to abd pain mood disorder - continue home meds full code VTE prophy: lovenox Patient with sepsis complicated immunocompromised status due to diffuse large B- cell lymphoma currently on chemotherapy, being treated for neutropenic fever on iv abx ,further workup and cbc monitoring. Quality Stroke Does the patient have a stroke diagnosis?: No VTE Prior VTE?: No VTE Risk Level:: Medical - moderate - high VTE Device Contraindication: Treatment Not Indicated VTE Drug Contraindication: N/A - Med Ordered
[2024-06-29 11:51] VITALS: BP 141/61; PULSE 94; RESP 16; TEMP 36.4; O2SAT 96
[2024-06-29 15:19] VITALS: BP 134/59; PULSE 80; RESP 16; TEMP 36.6; O2SAT 97
[2024-06-29 16:19] LABS: Glucose, Whole Blood 108 mg/dL (60-115)
[2024-06-29] MEDS: LORazepam 0.5 MG TABLET PO (18:57)
[2024-06-29 19:05] LABS: Glucose, Whole Blood 129 mg/dL (60-115)
[2024-06-29 19:13] VITALS: BP 152/65; PULSE 83; RESP 16; TEMP 36.7; O2SAT 96
[2024-06-29] MEDS: oxyCODONE HCl Immed Release 5 MG TABLET PO (19:16)
[2024-06-29] MEDS: Acetaminophen 325 MG TABLET 975 MG PO (19:16)
[2024-06-29] MEDS: Melatonin 3 MG TABLET 6 MG PO (19:17)
[2024-06-29] MEDS: 0.9 % Sodium Chloride Flush 3 ML SYRINGE IVFLUSH (22:17)
[2024-06-30] VITALS: BP 106/58; PULSE 69; RESP 16; TEMP 36; O2SAT 95
[2024-06-30 04:00] VITALS: BP 138/61; PULSE 81; RESP 16; TEMP 36.3; O2SAT 96
[2024-06-30] MEDS: cefEPime HCl/D5W 2 GM/50 ML PIGGYBACK IV ×2 (04:06→11:14)
[2024-06-30] MEDS: Acetaminophen 325 MG TABLET 975 MG PO (04:06)
[2024-06-30 06:24] LABS: Hematocrit 22.5 % (37.0-47.0); Hemoglobin 7.3 g/dl (12.0-16.0); Mean Corpuscular HGB Conc 32.4 g/dl (31.0-35.0); Mean Corpuscular Hemoglobin 31.6 pg (27.0-33.0); Mean Corpuscular Volume 97.4 fL (80.0-98.0); Mean Platelet Volume 10.1 fL (9.4-12.3); Platelet Count 348 X10*3/uL (160-400); Red Blood Count 2.31 X10*6/uL (4.20-5.50); Red Cell Distribution Width 14.9 % (11.0-16.0); White Blood Count 3.8 X10*3/uL (4.8-10.8)
[2024-06-30 06:47] LABS: Alanine Aminotransferase 16 U/L (0-31); Albumin Level 3.2 g/dL (3.5-5.0); Alkaline Phosphatase 59 U/L (39-117); Anion Gap 15 (12-20); Bilirubin Total 0.2 mg/dL (0.0-1.0); Blood Urea Nitrogen 5 mg/dL (9-16); Calcium 9.1 mg/dL (8.4-10.2); Carbon Dioxide 23 mmol/L (22-29); Chloride 110 mmol/L (96-108); Creatinine Clr Calc Pharmacy 58.1; Estimated Glomerular Filt Rate > 60; Glucose Random 82 mg/dL (60-115); Potassium 3.5 mmol/L (3.3-5.1); Sodium 144 mmol/L (135-145); Total Protein 5.8 g/dL (6.5-8.0)
[2024-06-30 07:10] LABS: Aspartate Amino Transferase 25 U/L (5-31)
[2024-06-30 07:23] VITALS: BP 123/78; PULSE 78; RESP 16; TEMP 36.7; O2SAT 96
[2024-06-30 07:48] LABS: Glucose, Whole Blood 80 mg/dL (60-115)
[2024-06-30 08:04] LABS: Cholesterol 156 mg/dL (<200); HDL Cholesterol 23 mg/dL (>40); LDL Cholesterol Calculated 101 mg/dL (<100); Triglycerides 162 mg/dL (<150)
[2024-06-30 08:39] LABS: Band Neutrophils Percent 17 % (3-5); Eosinophils Absolute Manual 0.5 X10*3/uL (0.0-0.4); Eosinophils Percent Manual 14 % (0-4); Lymphocytes Absolute Manual 0.3 X10*3/uL (1.2-4.9); Lymphocytes Percent Manual 7 % (20-40); Metamyelocytes Absolute 0.1 X10*3/uL; Metamyelocytes Percent 2 %; Monocytes Absolute Manual 0.2 X10*3/uL (0.1-1.2); Monocytes Percent Manual 4 % (2-11); Myelocytes Absolute 0.4 X10*/uL; Myelocytes Percent 10 %; Neutrophils Absolute Manual 2.3 X10*3/uL (2.0-8.3); Neutrophils Percent Manual 44 % (45-73); Nucleated Red Blood Cells 1 /100WBC (0-0); Promyelocytes Absolute 0.1 X10*3/uL; Promyelocytes Percent 2 %
[2024-06-30 08:42] LABS: RBC Morphology NOTED; Schistocytes 1+ (0-2) /OIF; Spherocytes 3+ (>5) /OIF
[2024-06-30 08:43] LABS: Hypochromasia 1+ (5-14) /OIF; Platelet Estimate NORMAL (NORMAL); Platelet Morphology Comment NORMAL; Polychromasia 1+ (0-2) /OIF
[2024-06-30] MEDS: Enoxaparin Sodium 40 MG/0.4 ML SYRINGE SUBCUT (08:54)
[2024-06-30] MEDS: Famotidine 20 MG TABLET PO (08:54)
[2024-06-30] MEDS: Morphine Sulfate ER 30 MG TABLET.ER PO (08:54)
[2024-06-30] MEDS: oxyCODONE HCl Immed Release 5 MG TABLET PO (08:57)
--- NOTE | 2024-06-30 11:07 | MHC.CM.PN ---
Addendum entered by Tawanna Ortiz RN 06/30/24 12:54: Patient medically cleared for dc. CM met with family at bedside. They will provide transportation home and patient will resume [employer] [employer] services. RN aware. Original Note: Per MD rounds, potential for dc today w/ resumption of [facility] services. CM met with patient via weather stripper, who is agreeable to plan. Patient requested CM call son to update/arrange transportation. LVM. Will continue to follow.
[2024-06-30 11:23] LABS: Glucose, Whole Blood 87 mg/dL (60-115)
--- NOTE | 2024-06-30 12:34 | P.DS_ITS ---
DS: Providers Provider Date of Service: 06/30/24 Date of admission: 06/28/24 00:28 Date of discharge: 06/30/24 Primary care physician: Unknown Physician DS: Diagnosis Discharge Diagnosis (1) Lymphoma: Status: Acute (2) Tachycardia: Status: Acute (3) Diffuse large B cell lymphoma: Status: Acute (4) Neutropenic fever: Status: Acute DS: Summary Hospital Course Hospital Course: History of presenting illness: Date of Service: 06/28/24 Attending physician on admission: Yuliya Hutson Chief Complaint: abd pain, nausea, vomiting Patient a 69 year female with a past medical history significant for diffuse large B-cell lymphoma followed by Dr. Velasquez, last chemotherapy session 06/16/2024, hypothyroidism, hypertension, type 2 diabetes (new medication), GERD, HLD, and mood disorder, who presented to the ED today with fever, abdominal pain, nausea and vomiting x1 day. She reports 10/10 squeezing epigastric/periumbilical abdominal pain. She denies any diarrhea but has been constipated for the past 2-3 days. She did have a bowel movement while in the ED reports that her abdominal pain has been better but she also received pain medication. She is also having nausea and vomited 3-4 times yesterday. She denies any hematemesis or coffee-ground emesis. Her nausea is no mild after receiving Zofran. She denies any cough, runny nose, shortness of breath, headache or urinary symptoms. She reports she did have an upper respiratory infection recently and had normal blood work. In February 2024 she add a biopsy of the left supraclavicular lymph node which showed necrotizing lymphadenitis with Gram-positive cocci and she was treated with doxycycline. Hospital course: 69 year female with a past medical history significant for diffuse large B-cell lymphoma followed by Dr. Velasquez, last chemotherapy session 06/16/2024, hypothyroidism, hypertension, type 2 diabetes (no medication), GERD, HLD, and mood disorder, who presented to the ED today with fever, abdominal pain, nausea and vomiting x1 day. ANC 1.8, therefore not neutropenic fever. 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 Ddx: sepsis with bacteremia, neutropenic fever, gastroenteritis, viral illness Sepsis due to Neutropenic fever admitted with high-grade fever, tachycardia, no source of infection found with a normal chest x-ray, normal CT abdomen and pelvis and urinalysis,RV/flu/COVID negative port-a-cath without obvious sign of infection, treated with IV cefepime, IV fluids, antiemetics, all features of sepsis resolved, patient has no abdominal pain, tolerating diet, therefore being discharged home on 3 more days of Ceftin and recommend close outpatient follow-up with PCP and Hematology, absolute neutrophil count improved to 2.3. Acute on chronic normocytic anemia likely due to chemotherapy and dilutional ,hct 22.5 asymptomatic hold blood transfusion follow-up with Hematology. diffuse large B-cell lymphoma recommend outpatient follow-up with Dr. Velasquez in 1 week for follow-up on CBC. hypothyroid- continue levothyroxine HTN soft bp recommend to discontinue lisinopril 10 mg and amlodipine 5 mg follow BP closely and resume antihypertensive if systolic BP greater than 135 - T2DM continue diabetic diet GERD continue famotidine HLD resume statins Time Attestation Discharge Coordination Time (in mins): 40 Quality: Safe Use of Opioids Does Pt have an Active Cancer Diagnosis on the Problem List?: No Quality: Stroke Does the patient have a stroke diagnosis?: No Physical Exam Vital Signs: Vital Signs: Last Vital Signs Temp 98.0 F 06/30/24 07:23 Pulse 78 06/30/24 07:23 Resp 16 06/30/24 07:23 BP 123/78 06/30/24 07:23 Pulse Ox 96 06/30/24 07:23 O2 Del Method Room Air 06/30/24 07:23 BMI result Body Mass Index 27.6 Const: Other: Constitutional - Awake and Alert, No apparent distress Anicteric sclera Cardiovascular - S1S2, RRR, No edema Respiratory - No respiratory distress, CTA bilaterally Gastrointestinal - nontender , non distended ,bowel sounds audible, no guarding, no rigidity Extremities - no swelling Skin - Warm/Dry Neurological - Alert & oriented x3 Psychological - Appropriate affect DS: Data Data Completed and Pending Labs on day of discharge: Laboratory Results - last 24 hr 06/29/24 06/29/24 06/29/24 05:50 16:06 19:01 WBC RBC Hgb Hct MCV MCH MCHC RDW Plt Count MPV Immature Gran % (Auto) Neut % (Auto) Lymph % (Auto) [place] % (Auto) Eos % (Auto) Baso % (Auto) Lymph # (Auto) [place] # (Auto) Eos # (Auto) Baso # (Auto) Abs Immat Gran (auto) Absolute Neuts (auto) Absolute Nucleated RBC Nucleated RBC % (auto) Neutrophils % (Manual) Band Neutrophils % Lymphocytes % (Manual) Monocytes % (Manual) Eosinophils % (Manual) Metamyelocytes % Myelocytes % Promyelocytes % Abs Neuts (Manual) Lymphocytes # (Manual) Monocytes # (Manual) Eosinophils # (Manual) Metamyelocytes # Myelocytes # Promyelocytes # Nucleated RBCs Platelet Estimate Plt Morphology Comment RBC Morphology Polychromasia Hypochromasia Spherocytes Schistocytes Smear Path Review SEE NOTE Sodium Potassium Chloride Carbon Dioxide Anion Gap BUN Creatinine Estim Creat Clear Calc Estimated GFR POC Glucose 108 129 H Random Glucose Calcium Total Bilirubin AST ALT Alkaline Phosphatase Total Protein Albumin Triglycerides Cholesterol LDL Cholesterol, Calc HDL Cholesterol 06/30/24 06/30/24 06/30/24 05:42 07:22 11:18 WBC 3.8 L RBC 2.31 L Hgb 7.3 L Hct 22.5 L MCV 97.4 MCH 31.6 MCHC 32.4 RDW 14.9 Plt Count 348 D MPV 10.1 Immature Gran % (Auto) Cancelled Neut % (Auto) Cancelled Lymph % (Auto) Cancelled [place] % (Auto) Cancelled Eos % (Auto) Cancelled Baso % (Auto) Cancelled Lymph # (Auto) Cancelled [place] # (Auto) Cancelled Eos # (Auto) Cancelled Baso # (Auto) Cancelled Abs Immat Gran (auto) Cancelled Absolute Neuts (auto) Cancelled Absolute Nucleated RBC 0.000 Nucleated RBC % (auto) 0.0 Neutrophils % (Manual) 44 L Band Neutrophils % 17 H Lymphocytes % (Manual) 7 L Monocytes % (Manual) 4 Eosinophils % (Manual) 14 H Metamyelocytes % 2 Myelocytes % 10 Promyelocytes % 2 Abs Neuts (Manual) 2.3 Lymphocytes # (Manual) 0.3 L Monocytes # (Manual) 0.2 Eosinophils # (Manual) 0.5 H Metamyelocytes # 0.1 Myelocytes # 0.4 Promyelocytes # 0.1 Nucleated RBCs 1 H Platelet Estimate NORMAL Plt Morphology Comment NORMAL RBC Morphology NOTED Polychromasia 1+ (0-2) Hypochromasia 1+ (5-14) Spherocytes 3+ (>5) Schistocytes 1+ (0-2) Smear Path Review Sodium 144 Potassium 3.5 Chloride 110 H Carbon Dioxide 23 Anion Gap 15 BUN 5 L Creatinine 0.71 Estim Creat Clear Calc 58.1 Estimated GFR > 60 POC Glucose 80 87 Random Glucose 82 Calcium 9.1 D Total Bilirubin 0.2 AST 25 ALT 16 Alkaline Phosphatase 59 Total Protein 5.8 L Albumin 3.2 L Triglycerides 162 H Cholesterol 156 LDL Cholesterol, Calc 101 H HDL Cholesterol 23 L Preliminary micro results at discharge 06/27/24 19:47 Blood Culture - Preliminary Blood - Venous No growth after 48 hours. 06/27/24 19:37 Blood Culture - Preliminary Blood - Venous No growth after 48 hours. Discharge Plan Discharge Anticipated Discharge Date/Time: 06/30/24 12:20 Patient Disposition: Home, Self-Care Discharge Diagnosis: Neutropenic fever Referrals: Physician,Unknown J [Primary Care Provider] - 1 Week Discharge Medications: New cefuroxime axetil 500 mg tablet 500 mg PO BID Qty: 6 0RF Continued lorazepam 0.5 mg Tablet 0.5 mg PO BEDTIME PRN (Reason: Anxiety) Qty: 30 3RF ondansetron 8 mg Tablet,Disintegrating 8 mg PO Q8H Qty: 50 3RF morphine [MS Contin] 30 mg Tablet Extended Release 30 mg PO Q12H Qty: 60 0RF Rx Instructions: Partial Fill upon patient request. oxycodone 5 mg Tablet 5 mg PO Q8H PRN (Reason: Breakthrough Pain, Moderate) Qty: 60 0RF Rx Instructions: Partial Fill upon patient request. acetaminophen [Tylenol Extra Strength] 500 mg tablet 500 mg PO Q6H PRN (Reason: fever or pain) Qty: 14 0RF atorvastatin 40 mg tablet 40 mg PO DAILY Qty: 90 3RF cholecalciferol (vitamin D3) [Vitamin D3] 125 mcg (5,000 unit) tablet 125 mcg PO DAILY 90 Days Qty: 90 3RF cyclobenzaprine 10 mg tablet 10 mg PO TID PRN (Reason: muscle spasm) Qty: 90 3RF docusate sodium 100 mg capsule 100 mg PO DAILY Qty: 90 3RF famotidine 20 mg tablet 20 mg PO DAILY Qty: 90 3RF omega-3 fatty acids 1,000 mg capsule 1,000 mg PO BID Qty: 180 3RF lidocaine [Lidoderm] 5 % adhesive patch,medicated 1 patch topical DAILY MDD remove after 12 hours PRN (Reason: pain) Qty: 30 0RF Rx Instructions: leave on most painful area for up to 12 hrs Discontinued dexamethasone 4 mg Tablet 4 mg PO BID Qty: 30 1RF doxycycline hyclate 100 mg capsule 100 mg PO BID amlodipine 5 mg tablet 5 mg PO DAILY Qty: 90 3RF Protocol: Hold for SBP< HOLD for SBP < : 90 lisinopril 10 mg tablet 10 mg PO DAILY Qty: 90 3RF Discharge Orders: Discharge Order (Routine); Ordered 06/30/24 Ordered By: Ricardo Galeas Diet: Low fat, low cholesterol Activity on Discharge: As tolerated Stand Alone Forms: Patient Portal Discharge page Print Language: Portuguese Care Plan Goals: Neutropenic fever Chemo therapy related anemia Take Ceftin 1 tablet twice daily for 3 more days Follow CBC in 1 week Returned to check with recurrent symptoms of fever/shortness of breath/weakness. Follow blood pressure and resume Norvasc if noted to have persistent systolic BP >135 Health Concerns: Lymphoma Plan of Treatment: Outpatient follow-up with Dr. Velasquez call for appointment Assessment: As above
== END 2024-06-30 14:19 | disposition home health service (06) | DRG 872 ==
LOC: HO.ED 06-28 00:18 → HO.EDOVER 06-28 00:41 → HO.S3 06-28 07:49
PROVIDERS: Nurse Practitioner Family; Admitting Provider Physician Assistant; Emergency Provider Emergency Medicine; PCP Internal Medicine; Visit Provider Hospitalist
DX: A41.9 Sepsis, unspecified organism (principal); C83.30 Diffuse large B-cell lymphoma, unspecified site; E03.9 Hypothyroidism, unspecified; E11.9 Type 2 diabetes mellitus without complications; I10 Essential (primary) hypertension; F39 Unspecified mood [affective] disorder; D70.9 Neutropenia, unspecified; R50.81 Fever presenting with conditions classified elsewhere; D64.81 Anemia due to antineoplastic chemotherapy; T45.1X5A Adverse effect of antineoplastic and immunosuppressive drugs, initial encounter; K21.9 Gastro-esophageal reflux disease without esophagitis; E78.5 Hyperlipidemia, unspecified; Z20.822 Contact with and (suspected) exposure to COVID-19; Z79.899 Other long term (current) drug therapy
CPT/HCPCS: 0241U; 36415; 71045; 74177; 80048; 80053; 80061; 80076; 81001; 81003; 82947; 83605; 83735; 84484; 85007; 85025; 85027; 87040; 93005; 99285; J0131; J0692; J1650; J1836; J2270; J2543; J3371; J7120; Q9967

== ENCOUNTER → 2024-06-27 19:03 | Outpatient (BNV) | payer MEDICAID, SELFPAY | PROVIDERS: Admitting Provider Physician Assistant; Emergency Provider Emergency Medicine; Visit Provider Internal Medicine Cardiovascular Disease | DX: R94.31 Abnormal electrocardiogram [ECG] [EKG] (principal) | CPT/HCPCS: 93010 ==

== ENCOUNTER → 2024-06-28 00:28 | Outpatient (BNV) | payer MEDICAID, SELFPAY | PROVIDERS: Admitting Provider Physician Assistant; Emergency Provider Emergency Medicine; Visit Provider Physician Assistant | DX: A41.9 Sepsis, unspecified organism (principal); C83.30 Diffuse large B-cell lymphoma, unspecified site | CPT/HCPCS: 99223; 99499 ==

== ENCOUNTER 2024-07-09 10:01 | Outpatient (AMB) | payer MEDICAID, SELFPAY ==
--- NOTE | 2024-07-09 10:16 | A.OFFPC_ITS ---
Vital Signs 07/09/24 10:28 Height 4 ft 11 in Weight 138 lb BMI 27.9 BP 122/68 Blood Pressure Location Rt brachial Position Sitting Pulse 91 Pulse Source Pulse Oximeter Pulse Oximetry (%) 98 Oxygen Delivery Method Room Air Intake Visit Reasons: Hospital discharge Intake Note: Hospital follow up Tellers Supervisor Required: Yes Tellers Supervisor Language: Incident Response Engineer Name: Rashawn [id number] Accompanied by: caregiver Prema Allergies ampicillin Allergy (Verified 07/09/24 10:19) Anaphylaxis aspirin Allergy (Verified 07/09/24 10:19) Anaphylaxis diphenhydramine [From Benadryl] Allergy (Verified 07/09/24 10:19) Swelling Tobacco use date assessed: 03/16/24 Dental Screening Dental Screen Date: 04/16/24 HPI HPI Comments History of Present Illness Details 69-year-old male with pertinent history of diffuse large B cell lymphoma, hypertension, vib-kfdghiq-lmdzqxqwq diabetes mellitus, mood disorder, GERD, hypothyroidism, presenting for hospital follow up. Tellers Supervisor-tamazight Hospitalized 06/28-06/30 at [facility]. Presented to ER with fever, abdominal pain, nausea and vomiting x1 day. ANC 1.8. Neutropenic fever admitted with high-grade fever, tachycardia, no source of infection found with a normal chest x-ray, normal CT abdomen and pelvis and urinalysis,RV/flu/COVID sxyyhbyibery-n-voxr without obvious sign of infection, treated with IV cefepime, IV fluids, antiemetics, all features of sepsis resolved, patient has no abdominal pain, tolerating diet, therefore being discharged home on 3 more days of Ceftin and recommend close outpatient follow-up with PCP and Hematology, absolute neutrophil count improved to 2.3. Feeling much better. Has been having mild bilateral LE swelling. Continues chemotherapy. Last treatment yesterday. Remain off amlodipine, lisinopril Heme/onc: Follows heme/onc Dr Velasquez. hospitalization as above. On morphine ER and oxycodone. Refilled today (due) Hypothyroid- On levothyroxine DM-controlled CV: Off medications. Denies chest pain, dizziness. + LE edema, no chest pain or shortness of breath Hypothyroid: on levothyroxine GERD:on famotidine ROS see HPI PHYSICAL EXAM: GENERAL: Alert and oriented x 3. NAD EYES: EOMI. Anicteric. HENT: Moist mucous membranes. No scleral icterus. No cervical lymphadenopathy. LUNGS: Clear to auscultation bilaterally. CARDIOVASCULAR: Regular rate and rhythm. No murmur. No JVD. ABDOMEN: Soft, non-tender +bs EXTREMITIES: 1+ b/l edema. Non-tender. MSK: Tender left sacrum. No skin lesions SKIN: No rashes or lesions. Warm. NEUROLOGIC: No focal neurological deficits. CN II-XII grossly intact PSYCHIATRIC: Cooperative. Appropriate mood and affect [facility] Medical History (Updated 07/15/24 @ 17:11 by Mora Maria MD) Diffuse large B cell lymphoma Hx of hypercalcemia Mood disorder Thyroid nodule Adnexal mass GERD (gastroesophageal reflux disease) Hypothyroidism Diabetes mellitus Surgical History Hx of lymph node excision (03/05/24) Hx of right cataract extraction History of bone marrow biopsy (01/19/24) Hx of eye surgery Hx of section Social History Household Members: Family Housing: House Housing Other:: lives with son Do you presently have visiting nurse or other home services: Yes Alcohol intake: never Patient Tobacco Use Status: Never used Tobacco e-Cigarette/Vaping Use: Never Used Advance Directives Date on File: 12/17/23 service: No Current occupational status: retired Cognitive needs: No Hearing needs: No Vision needs: No Questionnaire Thrive Questionnaire Date Thrive assessed: 04/16/24 I am a: Parent/Caregiver What is your living situation today?: I have a steady place to live Within the past 12 months, did the food you bought not last and you didn't have the money to get more?: Sometimes True Within the past 12 months, did you worry whether your food would run out before you got money to buy more?: Sometimes True Do you have trouble paying for medicines?: No Do you have trouble getting transportation to medical appointments?: No Do you have trouble paying your heating and electricity bill?: No Do you have trouble taking care of your child, family member or friend?: No Do you have trouble with day-to-day activities such as bathing, preparing meals, shopping, managing finances, etc.?: Yes Are you currently unemployed and looking for a job?: Yes Are you interested in more education?: No Please select the resources that you would like help with: None Currently or been in a relationship where the following occur: No concerns reported THRIVE Score: 2 BETO-7 AMB Questionnaire BETO-7 Date BETO - 7 assessed: 03/16/24 Source: Developed by Drs. Cole Sadler, Yadira Can, Royal Rojas and colleagues, with an educational cristi from [employer]. Physical exam (Primary Care) Vital Signs: Last Vital Signs Pulse 91 07/09/24 10:28 BP 122/68 07/09/24 10:28 Pulse Ox 98 07/09/24 10:28 Oxygen Delivery Method Room Air 07/09/24 10:28 BMI result Body Mass Index 27.9 Tobacco/Smoking Status: Tobacco use Status Tobacco use date assessed 03/16/24 07/09/24 10:29 Patient Tobacco Use Status Never used Tobacco 07/09/24 10:29 e-Cigarette/Vaping Use Never Used 07/09/24 10:29 Thrive Assessment: Date of Thrive Assessment Date Thrive assessed 04/16/24 07/09/24 10:29 Currently or been in a relationship where the following occur: No concerns reported Results AMB Hemoglobin A1c AMB Hemoglobin A1c 6.3 % Last Edit by Nikki Correa CMA on 07/09/24 11:50 Results Reviewed Results Reviewed: Laboratory Last Values Hgb A1c (Clinic) 6.3 % (4.0-6.0) H 07/09/24 11:49 Coding Level of Care Code Est Pt Level 4 (69869) Complex EM visit Add On G2211 Diagnoses Hospital discharge follow-up Z09 Diffuse large B-cell lymphoma, unspecified body region C83.30 Lymphoma site: unspecified region Assessment & Plan Assessment & Plan (1) Hospital discharge follow-up: Code(s): Z09 - Encounter for follow-up examination after completed treatment for conditions other than malignant neoplasm Category: Medical Plan: Patients much improved clinically continue close heme/once follow up (2) Diffuse large B cell lymphoma: Code(s): C83.30 - Diffuse large B-cell lymphoma, unspecified site Category: Medical Qualifiers: Lymphoma site: unspecified region Qualified Code(s): C83.30 - Diffuse large B-cell lymphoma, unspecified site Plan: Following closely with heme/onc Orders: Orders AMB Hemoglobin A1c 07/09/24 E11.618 - Type 2 diabetes mellitus with other diabetic arthropathy Medications: New furosemide (Lasix) hold for systolic blood pressure <110 20 mg PO DAILY PRN 90 tabs 3RF leg swelling sertraline 25 mg PO DAILY 90 tabs 3RF Refilled oxycodone Partial Fill upon patient request. 5 mg PO Q8H PRN 60 tabs 0RF Breakthrough Pain, Moderate morphine ER (MS Contin) Partial Fill upon patient request. 30 mg PO Q12H 60 tabs 0RF
[2024-07-09 10:28] VITALS: BP 122/68; PULSE 91; O2SAT 98; BMI 27.9
== END 2024-07-09 11:32 | disposition home or self-care (01) ==
PROVIDERS: Visit Provider Internal Medicine
DX: Z09 Encounter for follow-up examination after completed treatment for conditions other than malignant neoplasm (principal); C83.30 Diffuse large B-cell lymphoma, unspecified site

== ENCOUNTER → 2024-07-09 10:01 | Outpatient (BNVA) | payer MEDICAID, SELFPAY | PROVIDERS: Visit Provider Internal Medicine | DX: Z09 Encounter for follow-up examination after completed treatment for conditions other than malignant neoplasm (principal); C83.30 Diffuse large B-cell lymphoma, unspecified site; E11.618 Type 2 diabetes mellitus with other diabetic arthropathy; I10 Essential (primary) hypertension; E03.9 Hypothyroidism, unspecified; K21.9 Gastro-esophageal reflux disease without esophagitis; Z79.891 Long term (current) use of opiate analgesic; Z79.899 Other long term (current) drug therapy | CPT/HCPCS: 83036; 99212 ==

== ENCOUNTER 2024-08-05 17:40 | Emergency (ER) | payer MEDICAID, SELFPAY ==
--- NOTE | ~2024-08-05 | XR_ITS ---
CLINICAL HISTORY: CP 2 view chest x-ray Comparison: Chest x-ray from 06/27/2024 Findings: Mild right infrahilar opacities may reflect atelectasis/pneumonitis. No lobar consolidation at this time. No pneumothorax or pleural effusion. Right-sided chest port remains in place. Imaged mediastinum is unchanged. Degenerative changes include imaged shoulders and imaged spine chronic appearing deformities of the clavicles. IMPRESSION: 1. Mild right infrahilar atelectasis and/or pneumonitis. This document has been electronically signed by: Pramod Mahoney MD on 08/05/2024 19:08:55
[2024-08-05 17:50] VITALS: BP 124/82; PULSE 89; RESP 20; TEMP 36.8; O2SAT 98; BMI 24.2
--- NOTE | 2024-08-05 17:54 | ED_ITS ---
HPI - Abdominal Pain General Chief Complaint: Abdominal Pain Stated Complaint: stomach pain/Head pain Time Seen by Provider: 08/06/24 01:23 Source: patient Limitations: no limitations History of Present Illness ED Provider: Jessica Campbell PA-C HPI narrative: 69-year-old female with a history of large B-cell lymphoma with metastatic disease to supraclavicular nodes, currently amidts chemotherapy, multiple myeloma, hypothyroidism, diabetes, mood disorder presents with abdominal pain. Patient states she was having vague epigastric discomfort earlier today. It has since resolved. Associated indigestion and eructation. Patient has had ongoing nausea. Patient states she just does not have an appetite. Patient also struggles with constipation. Her last bowel movement was yesterday. Denies abdominal distention active vomiting or inability to pass flatus. Patient is asymptomatic at this time Related Data Home Medications ?Medication ?Instructions ?Recorded ?Confirmed omega-3 fatty acids 1,000 mg 1,000 mg PO DAILY 07/09/24 capsule Previous Rx's ?Medication ?Instructions ?Recorded acetaminophen 500 mg tablet 500 mg PO Q6H PRN fever or pain 02/04/24 (Tylenol Extra Strength) #14 tabs lorazepam 0.5 mg tablet 0.5 mg PO BEDTIME PRN Anxiety #30 03/04/24 tabs atorvastatin 40 mg tablet 40 mg PO DAILY #90 tabs 03/16/24 cholecalciferol (vitamin D3) 125 125 mcg PO DAILY 90 days #90 tabs 03/16/24 mcg (5,000 unit) tablet (Vitamin D3) cyclobenzaprine 10 mg tablet 10 mg PO TID PRN muscle spasm #90 03/16/24 tabs docusate sodium 100 mg capsule 100 mg PO DAILY #90 caps 03/16/24 famotidine 20 mg tablet 20 mg PO DAILY #90 tabs 03/16/24 omega-3 fatty acids 1,000 mg 1,000 mg PO BID #180 caps 03/16/24 capsule lidocaine 5 % topical patch 1 patch topical DAILY PRN pain #30 04/16/24 (Lidoderm) ea ondansetron 8 mg disintegrating 8 mg PO Q8H #50 tabs 04/27/24 tablet cefuroxime axetil 500 mg tablet 500 mg PO BID #6 tabs 06/30/24 furosemide 20 mg tablet (Lasix) 20 mg PO DAILY PRN leg swelling 07/09/24 #90 tabs morphine 30 mg tablet,extended 30 mg PO Q12H #60 tabs 07/09/24 release (MS Contin) oxycodone 5 mg tablet 5 mg PO Q8H PRN Breakthrough Pain, 07/09/24 Moderate #60 tabs sertraline 25 mg tablet 25 mg PO DAILY #90 tabs 07/09/24 sucralfate 100 mg/mL oral 10 ml PO QID PRN indigestion #200 08/06/24 suspension (Carafate) mL Allergies Allergy/AdvReac Type Severity Reaction Status Date / Time ampicillin Allergy Anaphylaxis Verified 08/05/24 17:53 aspirin Allergy Anaphylaxis Verified 08/05/24 17:53 diphenhydramine Allergy Swelling Verified 08/05/24 17:53 [From Benadryl] Review of Systems Review of Systems Yes all other systems are reviewed and are negative Constitutional: Denies fatigue and Denies fever(s) Cardiovascular: Denies chest pain and Denies dyspnea Respiratory: Denies cough and Denies dyspnea Gastrointestinal: Reports abdominal pain, Reports constipation, Denies diarrhea, Denies nausea and Denies vomiting Genitourinary: Denies dysuria Endocrine: Denies fatigue PMF Past Medical History Attestation statement: The following information was validated with the patient. Medical History (Updated 08/07/24 @ 00:01 by Andrea Retana) Diffuse large B cell lymphoma Hx of hypercalcemia Mood disorder Thyroid nodule Adnexal mass GERD (gastroesophageal reflux disease) Hypothyroidism Diabetes mellitus Surgical History Hx of lymph node excision (03/05/24) Hx of right cataract extraction History of bone marrow biopsy (01/19/24) Hx of eye surgery Hx of section Social History Social History Household Members: Family Housing: House Housing Other:: lives with son Do you presently have visiting nurse or other home services: Yes Alcohol intake: never Patient Tobacco Use Status: Never used Tobacco e-Cigarette/Vaping Use: Never Used Advance Directives: Yes Advance Directives on File: Yes Advance Directives Date on File: 12/17/23 Do you have a plan to hurt others: No Plan service: No Current occupational status: retired Cognitive needs: No Hearing needs: No Vision needs: No Physical Exam ED Vital Signs: Vital Signs - 24 hr 08/05/24 17:50 08/06/24 01:22 08/06/24 01:23 Temperature 98.2 F Pulse Rate 89 82 Respiratory Rate 20 16 Blood Pressure 124/82 180/74 H 173/84 H Pulse Oximetry 98 97 Oxygen Delivery Method Room Air Room Air BMI result Body Mass Index 24.2 Const Other: Alert, cachectic Orientation/consciousness: patient oriented x3 Resp Effort & Inspection: normal respiratory effort Cardio Other: Normal peripheral perfusion GI Other: Abdomen is soft, nondistended nontender no guarding Skin Other: Warm dry no rash Neuro General: patient oriented x3, no focal motor deficits and CN's II-XI intact bilaterally Psych Other: Cooperative Course Course Course Narrative: This is an RME: Additional HPI, ROS, PE not included below will be deferred to primary provider. RME assessment and note performed by: Luz Maria Fregoso PA-C This is a 76-etqb-thq-Gibraltarian-speaking female, with a history of lymphoma, who presents emergency department with concerns for abdominal pain, nausea and vomiting. Plan: Labs, ekg, cxr, further er eval needed Medical Decision Making Medical Decision Making MDM Narrative: 69-year-old female with a history of large B-cell lymphoma with metastatic disease to supraclavicular nodes, currently amidts chemotherapy, multiple myeloma, hypothyroidism, diabetes, mood disorder presents with abdominal pain. Patient states she was having vague epigastric discomfort earlier today. It has since resolved. Associated indigestion and eructation. Patient has had ongoing nausea. Patient states she just does not have an appetite. Patient also struggles with constipation. Her last bowel movement was yesterday. Denies abdominal distention active vomiting or inability to pass flatus. Patient is asymptomatic at this time Problem: Cancer, amidst chemotherapy, constipation History: Per patient I have considered the following differential diagnoses: Side-effect from chemotherapy, viral gastroenteritis, constipation, bowel obstruction Plan: Patient's abdominal discomfort has resolved, she is not having active GI symptoms. Her exam was benign. she is likely more constipated than she thinks. We will send with home care instructions. She does not warrant imaging. She could also be experiencing side effects from her chemotherapy. Screening labs including a viral panel were ordered from triage, she is not neutropenic, there were no electrolyte abnormalities, viral panel negative. Labs: Pancytopenic, stable anemia, not neutropenic, no electrolyte abnormality, viral panel neg EKG: Normal sinus rhythm, rate 88 no ischemic changes no ectopy Chest x-ray:MPRESSION: 1. Mild right infrahilar atelectasis and/or pneumonitis. This document has been electronically signed by: Pramod Mahoney MD on 08/05/2024 19:08:55 Lab Data 08/05/24 18:19 08/05/24 18:19 Labs: Lab Results 08/05/24 Range/Units 18:19 WBC 1.4 L (4.8-10.8) X10*3/uL RBC 3.01 L (4.20-5.50) X10*6/uL Hgb 9.4 L (12.0-16.0) g/dl Hct 28.3 L (37.0-47.0) % MCV 94.0 (80.0-98.0) fL MCH 31.2 (27.0-33.0) pg MCHC 33.2 (31.0-35.0) g/dl RDW 15.6 (11.0-16.0) % Plt Count 264 D (160-400) X10*3/uL MPV 10.9 (9.4-12.3) fL Immature Gran % (Auto) 1.5 H (0.0-0.4) % Neut % (Auto) 75.0 H (45-73) % Lymph % (Auto) 13.2 L (20-40) % [place] % (Auto) 1.5 L (2-11) % Eos % (Auto) 6.6 H (0-4) % Baso % (Auto) 2.2 H (0-2) % Lymph # (Auto) 0.2 L (1.2-4.9) X10*3/uL [place] # (Auto) 0.0 L (0.1-1.2) X10*3/uL Eos # (Auto) 0.1 (0.0-0.4) X10*3/uL Baso # (Auto) 0.0 (0.0-0.2) X10*3/uL Abs Immat Gran (auto) 0.02 (0.00-0.03) X10*3/uL Absolute Neuts (auto) 1.0 L (2.0-8.3) x10*3/uL Absolute Nucleated RBC 0.000 (0.0-0.012) X10*3/uL Nucleated RBC % (auto) 0.0 (0.0-0.2) /100WBC Smear Tech's Comments VERIFIED Sodium 137 (135-145) mmol/L Potassium 3.7 (3.3-5.1) mmol/L Chloride 106 (96-108) mmol/L Carbon Dioxide 24 (22-29) mmol/L Anion Gap 11 L (12-20) BUN 10 (9-16) mg/dL Creatinine 0.58 (0.5-1.4) mg/dL Estim Creat Clear Calc 67.0 Estimated GFR > 60 Random Glucose 102 (60-115) mg/dL Calcium 9.1 (8.4-10.2) mg/dL Magnesium 1.9 (1.6-2.6) mg/dL Total Bilirubin 0.4 (0.0-1.0) mg/dL Direct Bilirubin 0.2 (0.0-0.5) mg/dL AST 23 (5-31) U/L ALT 13 (0-31) U/L Alkaline Phosphatase 62 (39-117) U/L Troponin I High Sens 16.3 D (<3.5-17.0) ng/L Total Protein 6.8 (6.5-8.0) g/dL Albumin 3.8 (3.5-5.0) g/dL Lipase 10 (8-78) U/L Influenza Type A (PCR) NEGATIVE (Negative) Influenza Type B (PCR) NEGATIVE (Negative) RSV RNA Qual (PCR) NEGATIVE (Negative) SARS-CoV-2 RNA (RT-PCR) NEGATIVE (Negative) Medications Administered Discontinued Medications Generic Name Dose Route Start Last Admin Trade Name Freq PRN Reason Stop Dose Admin Sucralfate 1 gm 08/06/24 01:54 08/06/24 02:31 Sucralfate Oral Suspension 1 Gm/10 Ml Oral.Susp PO 08/06/24 01:55 1 gm ONCE ONE Administration Discharge Plan Discharge Clinical Impression: Indigestion Patient Disposition: Home, Self-Care Instructions: Constipation (ED), Indigestion (ED) Additional Instructions: All of your labs were normal, you were screened for influenza RSV and COVID, the viral panel was negative as well. For your indigestion, use the Carafate 30 minutes before meals. This may help to boost your appetite. Continue to use your Zofran as needed for nausea. The constipation that you state you experience, can cause vague abdominal discomfort and indigestion as well. You should use Colace, this is a stool softener, daily. You can also use lbll-gpb-ygtwbkr MiraLax, 1 to 2 times a day, to keep your bowel movements regular. Continue to follow up with your primary care provider and oncologist. If you develop a headache, you can use pvgf-izh-vhhcxtg Tylenol 1000 mg taken every 8 hours, alternated with wcqo-era-ewyzidl ibuprofen 600 mg taken every 6 hours with food. Prescriptions: New sucralfate [Carafate] 100 mg/mL suspension 10 ml PO QID PRN (Reason: indigestion) Qty: 200 0RF Rx Instructions: swish in mouth and swallow; use before food and drink No Action lorazepam 0.5 mg Tablet 0.5 mg PO BEDTIME PRN (Reason: Anxiety) Qty: 30 3RF ondansetron 8 mg Tablet,Disintegrating 8 mg PO Q8H Qty: 50 3RF acetaminophen [Tylenol Extra Strength] 500 mg tablet 500 mg PO Q6H PRN (Reason: fever or pain) Qty: 14 0RF cefuroxime axetil 500 mg tablet 500 mg PO BID Qty: 6 0RF atorvastatin 40 mg tablet 40 mg PO DAILY Qty: 90 3RF cholecalciferol (vitamin D3) [Vitamin D3] 125 mcg (5,000 unit) tablet 125 mcg PO DAILY 90 Days Qty: 90 3RF cyclobenzaprine 10 mg tablet 10 mg PO TID PRN (Reason: muscle spasm) Qty: 90 3RF docusate sodium 100 mg capsule 100 mg PO DAILY Qty: 90 3RF famotidine 20 mg tablet 20 mg PO DAILY Qty: 90 3RF omega-3 fatty acids 1,000 mg capsule 1,000 mg PO BID Qty: 180 3RF lidocaine [Lidoderm] 5 % adhesive patch,medicated 1 patch topical DAILY MDD remove after 12 hours PRN (Reason: pain) Qty: 30 0RF Rx Instructions: leave on most painful area for up to 12 hrs omega-3 fatty acids 1,000 mg capsule 1,000 mg PO DAILY furosemide [Lasix] 20 mg tablet 20 mg PO DAILY PRN (Reason: leg swelling) Qty: 90 3RF Rx Instructions: hold for systolic blood pressure <110 sertraline 25 mg tablet 25 mg PO DAILY Qty: 90 3RF oxycodone 5 mg tablet 5 mg PO Q8H PRN (Reason: Breakthrough Pain, Moderate) Qty: 60 0RF Rx Instructions: Partial Fill upon patient request. morphine [MS Contin] 30 mg tablet extended release 30 mg PO Q12H Qty: 60 0RF Rx Instructions: Partial Fill upon patient request. Interventions: ED Discharge Assessment Last Done: 08/06/24 02:43 Discharge Date/Time: 08/06/24 02:43 Print Language: Gibraltarian
--- NOTE | 2024-08-05 17:57 | ECG_ITS ---
Test Reason : ABD PAIN Blood Pressure : */* mmHG Vent. Rate : 88 BPM Atrial Rate : 88 BPM P-R Int : 130 ms QRS Dur : 74 ms QT Int : 366 ms P-R-T Axes : 52 38 23 degrees QTcB Int : 442 ms Normal sinus rhythm Normal ECG When compared with ECG of 27-Jun-2024 19:08, Premature atrial complexes are no longer Present Referred By: Luz Maria Fregoso Electronically Signed By: DIXIE SANDERS MD
[2024-08-05 18:30] LABS: Basophils Percent Auto 2.2 % (0-2); Eosinophils Absolute Auto 0.1 X10*3/uL (0.0-0.4); Eosinophils Percent Auto 6.6 % (0-4); Hematocrit 28.3 % (37.0-47.0); Hemoglobin 9.4 g/dl (12.0-16.0); Imm Gran Abs Auto 0.02 X10*3/uL (0.00-0.03); Imm Gran Pct Auto 1.5 % (0.0-0.4); Lymphocytes Absolute Auto 0.2 X10*3/uL (1.2-4.9); Lymphocytes Percent Auto 13.2 % (20-40); MANUAL DIFF FLAG SCAN; Mean Corpuscular HGB Conc 33.2 g/dl (31.0-35.0); Mean Corpuscular Hemoglobin 31.2 pg (27.0-33.0); Mean Platelet Volume 10.9 fL (9.4-12.3); Monocytes Percent Auto 1.5 % (2-11); Platelet Count 264 X10*3/uL (160-400); Red Blood Count 3.01 X10*6/uL (4.20-5.50); Red Cell Distribution Width 15.6 % (11.0-16.0); SCAN SMEAR FLAG 1
[2024-08-05 18:44] LABS: Alanine Aminotransferase 13 U/L (0-31); Albumin Level 3.8 g/dL (3.5-5.0); Alkaline Phosphatase 62 U/L (39-117); Anion Gap 11 (12-20); Aspartate Amino Transferase 23 U/L (5-31); Bilirubin Direct 0.2 mg/dL (0.0-0.5); Bilirubin Total 0.4 mg/dL (0.0-1.0); Blood Urea Nitrogen 10 mg/dL (9-16); Calcium 9.1 mg/dL (8.4-10.2); Carbon Dioxide 24 mmol/L (22-29); Chloride 106 mmol/L (96-108); Estimated Glomerular Filt Rate > 60; Glucose Random 102 mg/dL (60-115); Lipase 10 U/L (8-78); Magnesium 1.9 mg/dL (1.6-2.6); Potassium 3.7 mmol/L (3.3-5.1); Sodium 137 mmol/L (135-145); Total Protein 6.8 g/dL (6.5-8.0)
[2024-08-05 18:51] LABS: Troponin-I High Sensitivity 16.3 ng/L (<3.5-17.0)
[2024-08-05 18:59] LABS: White Blood Count 1.4 X10*3/uL (4.8-10.8)
[2024-08-05 19:19] LABS: Influenza A PCR NEGATIVE (Negative); Influenza B PCR NEGATIVE (Negative); Resp Syncy Virus RNA Qual PCR NEGATIVE (Negative); SARS COV2 PCR INHOUSE NEGATIVE (Negative)
[2024-08-05 19:37] LABS: SLIDE REVIEW VERIFIED
[2024-08-06 01:22] VITALS: BP 180/74; PULSE 82; RESP 16; O2SAT 97
[2024-08-06 01:23] VITALS: BP 173/84
[2024-08-06 02:00] VITALS: BP 173/82; PULSE 73; RESP 18; TEMP 37.2; O2SAT 96
[2024-08-06] MEDS: Sucralfate Oral Suspension 1 GM/10 ML ORAL.SUSP PO (02:31)
[2024-08-06 02:43] VITALS: BP 173/82; PULSE 73; RESP 18; TEMP 37.2; O2SAT 96
== END 2024-08-06 02:43 | disposition home or self-care (01) ==
PROVIDERS: Physician Assistant Medical; Emergency Provider Emergency Medicine Emergency Medical Services; PCP Family Medicine
DX: K30 Functional dyspepsia (principal); E11.9 Type 2 diabetes mellitus without complications; I11.0 Hypertensive heart disease with heart failure; E03.9 Hypothyroidism, unspecified; C83.30 Diffuse large B-cell lymphoma, unspecified site; Z92.21 Personal history of antineoplastic chemotherapy; Z03.818 Encounter for observation for suspected exposure to other biological agents ruled out
CPT/HCPCS: 0241U; 36415; 71046; 80048; 80076; 83690; 83735; 84484; 85025; 93005; 99283; 99284

== ENCOUNTER → 2024-08-05 17:57 | Outpatient (BNV) | payer MEDICARE, MEDICAID, SELFPAY | PROVIDERS: Visit Provider Radiology Neuroradiology | DX: R07.9 Chest pain, unspecified (principal) | CPT/HCPCS: 71046 ==

== ENCOUNTER → 2024-08-05 17:57 | Outpatient (BNV) | payer MEDICAID, SELFPAY | PROVIDERS: Emergency Provider Emergency Medicine Emergency Medical Services; PCP Family Medicine; Visit Provider Internal Medicine Cardiovascular Disease | DX: R10.9 Unspecified abdominal pain (principal) | CPT/HCPCS: 93010 ==

== ENCOUNTER → 2024-08-23 08:41 | Outpatient (BNVA) | payer MEDICAID, SELFPAY | PROVIDERS: PCP Internal Medicine | DX: Z01.89 Encounter for other specified special examinations (principal) | CPT/HCPCS: 99211 ==

== ENCOUNTER → 2024-10-04 08:41 | Outpatient (REF) | payer MEDICAID, SELFPAY ==
--- NOTE | 2024-10-04 08:50 | CA_ITS ---
Transthoracic Echocardiogram Patient (Last, First, Middle): Laurita Hemphill, Gender: Female Date of : 1955 Age: 69 Procedure Date: 10/04/2024 Procedure Type: Transthoracic Echocardiogram Location: OP Height: 129.54 cm Weight: 56.7 kg BSA: 1.36 m2 Heart Rate: 65 bpm BP: 160 / 55 mmHg Electrolytic Etcher: CESAR Referring MD: Marta Velasquez MD Symptoms: Follow-up on ejection fraction after chemo Study Quality: Fair w/Contrast. Limited per order ECG Rhythm: Sinus Conclusions: - The left ventricular systolic function is low normal. The visually estimated ejection fraction is between 50-55%. Findings Procedure Information Contrast agent, definity, is being given per protocol without apparent complications. Left Ventricle Normal left ventricular cavity size. There is normal left ventricular wall thickness. The left ventricular systolic function is low normal. The visually estimated ejection fraction is between 50-55%. Prior Study Comparison Changes noted compared to prior study dated: 04/27/2024. LVEF slightly lower than the prior study. Measurements 2D Linear Measurements IVSd: 1.02 0.6-0.9/0.6-1.0 cm LVIDd: 4.46 3.9-5.3/4.2-5.9 cm LVIDd Index: 3.28 2.4-3.2/2.2-3.1 cm/m2 LVIDs: 3.18 2.0-3.6 cm LVPWd: 1.01 0.7-1.1 cm LA Diam: 3.00 2.7-3.8/3.0-4.0 cm LAIDs Index: 2.21 1.5-2.3 cm/m2 LV Mass: 192.03 67-162/88-224 g LV Mass Index: 141.20 43-95/49-115 g/m2 LVOT Diam: 1.90 3.0+(-)1.3 cm 2D Systolic Function EF 4C: 48.70 >55% EF 2C: 53.40 >55% EF BiP: 48.00 >55% LVOT LVOT Pk Adis: 0.74 LVOT Mn Adis: 0.54 LVOT VTI: 0.17 LVOT Pk Grad: 2.00 LVOT Mn Grad: 1.00 LVOT Diam: 1.90 LVOT Area: 2.84 Updated in Other Vendor System with Status of Final Warren Hilario MD electronically signed on 10/04/2024 12:47:44 PM with status of Final
--- OUTSIDE RECORDS SUMMARY | 2024-10-04 08:59 | XMS_ITS | Clinical Summary ---
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 PET Scan [address] [place] [address] Non-Hodgkin lymphoma, unspecified, unspecified site (CMS/HCC) Discharge Disposition: Home or Self Care from Last 3 Months Social History Tobacco Use Types Packs/Day Years Used Date Smoking Tobacco: Never Assessed Comments Unknown Sex and Gender Information Value Date Recorded Sex Assigned at Not on file Legal Sex Female 3:43 PM EDT Gender Identity Not on file Sexual Orientation Not on file Plan of Treatment Health Maintenance Due Date Last Done Comments Breast Cancer Screening 1955 COVID-19 Vaccine (#1) 1958 DTaP,Tdap,and Td Vaccines (1 - Tdap) 1972 Pneumococcal Vaccine: 50+ Ye ars (1 of 2 - PCV) 1972 Zoster Vaccines (1 of 2) 1972 Influenza Vaccine (#1) 2024 Colorectal Cancer Screening: Colonoscopy 05/12/2024 Depression Screening 05/12/2024 Falls Risk Assessment 05/12/2024 Hepatitis C Screening 05/12/2024 Osteoporosis Screening (Bone Density Screening) 05/12/2024 Social Influencers of Health Screening 05/12/2024 RSV Immunization Patients 60 + Years Old (1 - 1-dose 75+ series) 2028 HIB Vaccines Aged Out No longer eligi ble based on patient's age to complete this topic HPV Vaccines Aged Out No longer eligi ble based on patient's age to complete this topic Hepatitis A Vaccines Aged Out No long er eligible based on patient's age to complete this topic Hepatitis B Vaccines Aged Out No long er eligible based on patient's age to complete this topic IPV Vaccines Aged Out No longer eligi ble based on patient's age to complete this topic MMR Vaccines Aged Out No longer eligi ble based on patient's age to complete this topic Meningococcal ACWY Vaccine Aged Out N o longer eligible based on patient's age to complete this topic Meningococcal B Vacine Aged Out No lo nger eligible based on patient's age to complete this topic RSV Immunization Patients Un josé 20 months Aged Out No longer eligible b ased on patient's age to complete this topic Varicella Vaccines Aged Out No longer eligible based on patient's age to complete this topic Procedures Procedure Name Priority Date/Time Associated Diagnosis Comments PET CT SKULL TO MID THIGH SUBSEQUENT Routine 09/09/2024 4:27 PM EST Non-Hodgkin lymphoma, unspecified, unspecified site (CMS/HCC) from Last 3 Months Results * PET CT Skull to Mid Thigh Subsequent (09/09/2024 4:27 PM EST) Anatomical Region Laterality Modality Body Radiographic Tamie ging 09/13/2024 4:32 AM EST Impressions 09/13/2024 6:05 AM EST Overall decreased FDG activity within cervical, abdominal and pelvic crista stations, left paraspinal/sciatic notch masses and osseous lesions. Deauville 2. ?? 5-point Deauville Score Parks: 1. No uptake 2. Uptake less than or equal to mediastinal blood pool 3. Uptake > mediastinal blood pool but less than or equal to liver 4. Uptake moderately higher than liver 5. ??Uptake markedly higher than liver and/or new lesions X: New areas of uptake unlikely to be related to lymphoma Please note: The CT was acquired at a low radiation dose settings. ??The images are of nondiagnostic quality and used solely for purposes of attenuation correction and slice localization for the PET scan. ??If a diagnostic CT study is desired it must be ordered separately. -------- FINAL REPORT -------- Dictated By: Rissa Perry Dictated Date: 09/13/2024 04:32 ET Assigned Physician: Rissa Perry Reviewed and Electronically Signed By: Rissa Perry Signed Date: 09/13/2024 06:05 ET Workstation ID: [id number] Transcribed By: Self Edit Transcribed Date: 09/13/2024 05:35 ET Narrative 09/13/2024 6:05 AM EST INDICATION: NON HODGKIN LYMPHOMA. ??Diffuse large B-cell lymphoma. ??Restaging. ??History of multiple myeloma. TECHNIQUE: FDG PET-CT imaging was performed from the skull bases through the thighs in a single acquisition with data set reconstructed in axial, coronal, and sagittal planes at the computer workstation with fused data from both the PET imaging study and attenuation correction CT. The CT portion of the examination was done strictly for attenuation correction and is not a true diagnostic CT examination. DLP: ??424 mGy-cm Radiopharmaceutical: 13.6 mCi of F-18 FDG IV. Blood glucose: 84 mg/dl. COMPARISON: 05/13 PET/CT FINDINGS:SUV Max: ??Mediastinal Blood Pool: ??2.3 Liver: ??2.9 HEAD AND NECK: Interval decrease in FDG activity of cervical lymph nodes SUV max 1.5 (previously 8.9). ??Previously seen FDG avid intramuscular mass posterior to the left mastoid process is no longer identified. THORAX: FDG activity within both thyroid lobes SUV max 4.3 on the left and 4.5 on the right. No FDG avid thoracic lymphadenopathy. ??Atelectasis in the medial aspect of the right lower lobe SUV max 2.4. ?? Right-sided Port-A-Cath with tip in the cavoatrial junction. ??Thoracic aortic and coronary artery calcifications. ??Trace pericardial effusion/thickening. ??No enlarged or FDG avid axillary lymphadenopathy. ABDOMEN/PELVIS: Resolved activity within the spleen (background SUV max 2.5). Interval decrease in FDG activity of abdominal and pelvic lymphadenopathy since as well as left lower lumbar paraspinal and left sciatic notch masses. ??For example, left external iliac lymph node SUV max 1.3 (previously 10.4), right inguinal SUV max 0.9 (previously 8.7), left lower lumbar paraspinal mass SUV max 2.2 (previously 17) and left sciatic notch mass SUV max 2.2 (previously 23.3). Low-attenuation lesion in the left adnexa without significant FDG activity SUV max 0.8; similar to prior. Diverticulosis with nonspecific scattered bowel activity measuring up to SUV Max 10.6. MUSCULOSKELETAL: Interval decrease in FDG activity of previously seen osseous lesions SUV max 2.3 of the sacrum (previously 19.3). ??Previously seen residual focal activity within the vertebral bodies have decreased from prior. Procedure Note Rissa Perry MD - 09/13/2024 INDICATION: NON HODGKIN LYMPHOMA. Diffuse large B-cell lymphoma.Restaging. History of multiple myeloma. TECHNIQUE: FDG PET-CT imaging was performed from the skull bases throughthe thighs in a single acquisition with data set reconstructed in axial,coronal, and sagittal planes at the computer workstation with fused datafrom both the PET imaging study and attenuation correction CT. The CTportion of the examination was done strictly for attenuation correctionand is not a true diagnostic CT examination. DLP: 424 mGy-cm Radiopharmaceutical: 13.6 mCi of F-18 FDG IV. Blood glucose: 84 mg/dl. COMPARISON: 05/13 PET/CT FINDINGS:SUV Max: Mediastinal Blood Pool: 2.3 Liver: 2.9 HEAD AND NECK: Interval decrease in FDG activity of cervical lymph nodesSUV max 1.5 (previously 8.9). Previously seen FDG avid intramuscular massposterior to the left mastoid process is no longer identified. THORAX: FDG activity within both thyroid lobes SUV max 4.3 on the left and4.5 on the right. No FDG avid thoracic lymphadenopathy. Atelectasis in the medial aspect ofthe right lower lobe SUV max 2.4. Right-sided Port-A-Cath with tip in the cavoatrial junction. Thoracicaortic and coronary artery calcifications. Trace pericardialeffusion/thickening. No enlarged or FDG avid axillary lymphadenopathy. ABDOMEN/PELVIS: Resolved activity within the spleen (background SUV max2.5). Interval decrease in FDG activity of abdominal and pelvic lymphadenopathysince as well as left lower lumbar paraspinal and left sciatic notchmasses. For example, left external iliac lymph node SUV max 1.3(previously 10.4), right inguinal SUV max 0.9 (previously 8.7), left lowerlumbar paraspinal mass SUV max 2.2 (previously 17) and left sciatic notchmass SUV max 2.2 (previously 23.3). Low-attenuation lesion in the left adnexa without significant FDG activitySUV max 0.8; similar to prior. Diverticulosis with nonspecific scattered bowel activity measuring up toSUV Max 10.6. MUSCULOSKELETAL: Interval decrease in FDG activity of previously seenosseous lesions SUV max 2.3 of the sacrum (previously 19.3). Previouslyseen residual focal activity within the vertebral bodies have decreasedfrom prior. IMPRESSION: Overall decreased FDG activity within cervical, abdominal and pelvic nodalstations, left paraspinal/sciatic notch masses and osseous lesions. Deauville 2. 5-point Deauville Score Parks: 1. No uptake 2. Uptake less than or equal to mediastinal blood pool 3. Uptake > mediastinal blood pool but less than or equal to liver 4. Uptake moderately higher than liver 5. Uptake markedly higher than liver and/or new lesions X: New areas of uptake unlikely to be related to lymphoma Please note: The CT was acquired at a low radiation dose settings. The images are ofnondiagnostic quality and used solely for purposes of attenuationcorrection and slice localization for the PET scan. If a diagnostic CTstudy is desired it must be ordered separately. -------- FINAL REPORT -------- Dictated By: Rissa Perry Dictated Date: 09/13/2024 04:32 ET Assigned Physician: Rissa Perry Reviewed and Electronically Signed By: Rissa Perry Signed Date: 09/13/2024 06:05 ET Workstation ID: [id number] Transcribed By: Self Edit Transcribed Date: 09/13/2024 05:35 ET us [facility] Final Result from Last 3 Months
--- OUTSIDE RECORDS SUMMARY | 2024-10-04 08:59 | XMS_ITS | Encounter Summary ---
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 Phone Unavailable Primary Care Provider Unavailabl e Reason for Referral * Imaging (Routine) - Pending Review Specialty Diagnoses / Procedures Referred By Contac t Referred To Contact Radiology Diagnoses Non-Hodgkin lymphoma, unspecified, unspecified site (CMS/HCC) Procedures PET CT Skull to Mid Thigh Subsequent Jamie Velasquez MD [address] [place] [address] ATTN: HEMATOLOGY/[place] [address] Phone: tel: fax: [facility] Referral ID Status Reason Start Date Expiration Date V isits Requested Visits Authorized [id number] Pending Review 09/08/2024 09/08/2025 1 1 Reason for Visit * Imaging (Routine) - Pending Review Specialty Diagnoses / Procedures Referred By Contade t Referred To Contact Radiology Diagnoses Non-Hodgkin lymphoma, unspecified, unspecified site (CMS/HCC) Procedures PET CT Skull to Mid Thigh Subsequent Jamie Velasquez MD [address] [place] [address] ATTN: HEMATOLOGY/[place] [address] Phone: tel: fax: [facility] Referral ID Status Reason Start Date Expiration Date V isits Requested Visits Authorized [id number] Pending Review 09/08/2024 09/08/2025 1 1 Encounter Details Date Type Department Care Team (Latest Contact Info) Description 09/09/2024 3:30 PM EST - 09/09/2024 11:59 PM EST Hospital Encounter [facility] PET Scan [address] [place] [address] Non-Hodgkin lymphoma, unspecified, unspecified site (CMS/HCC) Discharge Disposition: Home or Self Care Social History Tobacco Use Types Packs/Day Years Used Date Smoking Tobacco: Never Assessed Comments Unknown Sex and Gender Information Value Date Recorded Sex Assigned at Not on file Legal Sex Female 3:43 PM EDT Gender Identity Not on file Sexual Orientation Not on file documented as of this encounter Discharge Disposition Disposition Code Departure Means Destination Home or Self Care documented in this encounter Plan of Treatment Not on file documented as of this encounter Procedures Procedure Name Priority Date/Time Associated Diagnosis Comments PET CT SKULL TO MID THIGH SUBSEQUENT Routine 09/09/2024 4:27 PM EST Non-Hodgkin lymphoma, unspecified, unspecified site (CMS/HCC) documented in this encounter Results * PET CT Skull to Mid [...] Signed Date: 09/13/2024 06:05 ET Workstation ID: [id number] Transcribed By: Self Edit Transcribed Date: 09/13/2024 [...] Signed Date: 09/13/2024 06:05 ET Workstation ID: [id number] Transcribed By: Self Edit Transcribed Date: 09/13/2024 05:35 ET Jamie Velasquez MD [facility] PROCEDURES Final Result documented in this encounter Visit Diagnoses Diagnosis Non-Hodgkin lymphoma, unspecified, unspecified site (CMS/HCC) documented in this encounter Administered Medications Inactive Administered Medications - up to 3 most recent administrations Medication Order MAR Action Action Date Dose Rate Site F-18 FDG pet diag radio-isotope injection 13.6 millicurie 13.6 millicurie, intravenous, Once in imaging, Starting on Alexa 09/09/24 at 1515, For 1 dose Given 09/09/2024 3:05 PM EST 13.6 millicuries Left Antecubital documented in this encounter Orders Medications Ordered That Alec ht Not Have Been Administered Count Last Ordered Date First Ordered Date F-18 FDG pet diag radio-isot ope injection 13.6 millicurie 1 09/09/2024 documented in this encounter
== END ==
LOC: HO.CARD 08:41
PROVIDERS: PCP Internal Medicine; Visit Provider Internal Medicine Medical Oncology
DX: C85.90 Non-Hodgkin lymphoma, unspecified, unspecified site (principal)
CPT/HCPCS: 93308; Q9957

== ENCOUNTER → 2024-10-04 08:50 | Outpatient (BNV) | payer MEDICAID, SELFPAY | PROVIDERS: PCP Internal Medicine; Visit Provider Internal Medicine | DX: Z51.81 Encounter for therapeutic drug level monitoring (principal) | CPT/HCPCS: 93308 ==